=== PATIENT | female | born 1940 | race Caucasian/White ===

== ENCOUNTER → 2018-12-10 | Outpatient (CLI) | payer MEDICARE ==
[~2018-12-10] MED LIST: ASCO500T6 PO; ASPI-586 PO; ATEN1TAB3 PO; ATEN50TA PO; AZAT50TA16 PO; CHOL200014 PO; DIAZ5TAB3 PO; EST.625T PO; FOLI0.8T PO; GBPN400C PO; HYDR-34 PO; HYDR-3731 PO; KCL10CCR PO; LEVOTHYROID PO; MTX2.5T PO; OMEP20CA12 PO; ONDAN4ODT PO; POLY17PO6 PO; PROM25SU10 PR; THIA100T80 PO; TRAM50TA2 PO; VALS160T29 PO
[2018-12-10 12:48] LABS: FREE T4 (FREE THYROXINE) 1.41 NG/DL (0.70-1.48)
== END ==
LOC: LAB 12:01
PROVIDERS: ATTEND Nurse Practitioner Family
DX: E03.9 Hypothyroidism, unspecified (principal)
CPT/HCPCS: 36415; 84439; 84443

== ENCOUNTER 2019-02-07 06:10 | Outpatient (CLI) | payer MEDICARE ==
[~2019-02-07] VITALS: Ht 171.4 cm; Wt 71.9 kg
[2019-02-07] MEDS ORDERED: VALS320T15 PO (11:08)
[2019-02-07] MEDS ORDERED: POTA10CA43 PO (11:08)
[2019-02-07] MEDS ORDERED: METH2.5T PO (11:08)
[2019-02-07] MEDS ORDERED: LEVO100T7 PO (11:08)
[2019-02-07] MEDS ORDERED: FENT1PAT8 TD (11:08)
[2019-02-07] MEDS ORDERED: MAGN250T13 PO (11:08)
[2019-02-07] MEDS ORDERED: FENT1PAT6 TD (11:08)
[2019-02-07] MEDS ORDERED: ESTR0.5T PO (11:08)
[2019-02-07] MEDS ORDERED: HYDR25TA4 PO (11:08)
== END 2019-02-07 11:51 | disposition home or self-care (01) ==
LOC: PREOP 06:10
PROVIDERS: ATTEND Surgery
DX: Z01.818 Encounter for other preprocedural examination (principal)

== ENCOUNTER 2019-02-11 08:23 | Day surgery (SDC) | payer MEDICARE, OTHER ==
[~2019-02-11] VITALS: Ht 171.4 cm; Wt 71.9 kg
[~2019-02-11 08:23] MED LIST changes: +ESTR0.5T PO; +FENT1PAT6 TD; +FENT1PAT8 TD; +HYDR25TA4 PO; +LEVO100T7 PO; +MAGN250T13 PO; +METH2.5T PO; +POTA10CA43 PO; +VALS320T15 PO
[2019-02-11] MEDS ORDERED: LACTATED RINGERS 1,000 ML IV ONE (08:26)
[2019-02-11] MEDS ORDERED: LACTATED RINGERS 1,000 ML IV STA (08:26)
[2019-02-11] MEDS ORDERED: HURRICAINE EXT TUBE (BENZOCAINE) XX PRN (08:30)
[2019-02-11 08:51] VITALS: BP 125/71
[2019-02-11] MEDS ORDERED: PROPOFOL INJECTION 50 ML IV ONE (09:37)
--- NOTE | 2019-02-11 10:02 | Progress Note-Pre Operative ---
Pre-Operative Progress Note H&P Reviewed The H&P was reviewed, patient examined and no changes noted. Time Seen by Provider: 10:00 Date H&P Reviewed: Feb 11, 2019 Time H&P Reviewed: 10:01 Pre-Operative Diagnosis: Rectal bleed, Chronic Gastritis OG HERZOG DO Feb 11, 2019 10:02
[2019-02-11 10:55] VITALS: BP 108/57
--- NOTE | 2019-02-11 11:03 | Progress Note-Post Operative ---
Post-Operative Progess Note Surgeon (s)/Predictive Maintenance Technician (s) Surgeon OG HERZOG DO Predictive Maintenance Technician: none Pre-Operative Diagnosis Rectal bleed, Chronic Gastritis Post-Operative Diagnosis Chronic Gastritis Polyps Diverticula Internal Hemorrhoids Procedure & Operative Findings Date of Procedure 02/11/19 Procedure Performed/Findings EGD with bx Colon with snare Anesthesia Type IV sedation by BATCH FREEZER OPERATOR Estimated Blood Loss Estimated blood loss (mL): scant Specimens/Packing Specimens Removed Gastric bx x 2 Ascending colon polyp x 2 OG HERZOG DO Feb 11, 2019 11:03
--- NOTE | 2019-02-11 11:05 | Endoscopy Discharge Instruct ---
Endo Procedure/Findings Findings 1.: Gastritis 2.: Polyp 3.: Diverticulosis 4.: Internal Hemorrhoids Discharge Instructions - Activity: You might feel a little sleepy until tomorrow. This is due to the medicine you received to relax you. Until tomorrow, you should: NOT drive a car, operate machinery or power tools. NOT drink any alcoholic beverages. NOT make any important decisions or sign importortant papers. Do not return to work until tomorrow, unless otherwise instructed. Resume previo us activities tomorrow. Diet: Start by taking liquids. If you tolerate liquids, advance to solid food. make an appointment for one week Instructions: 1.: EGD in 6-8 weeks 2.: Colonscopy in 5 years Notify Physician - If you experience excessive bleeding, unusual abdominal pain, fever, or chest pain, contact your doctor immediately. Follow-Up: - I have received and understand the above instructions and will call my doctor if I have any further questions. Patient Signature Date Nurse Signature Other (Relationship) OG HERZOG DO Feb 11, 2019 11:04
[2019-02-11 11:25] VITALS: BP 135/73
--- NOTE | 2019-02-11 11:54 | Anesthesia-General Post-Op ---
MAC Patient Condition Mental Status/LOC: Same as Preop Cardiovascular: Satisfactory Nausea/Vomiting: Absent Respiratory: Satisfactory Pain: Controlled Complications: Absent Post Op Complications Complications None Follow Up Care/Instructions Patient Instructions None needed. Anesthesiology Discharge Order Discharge Order Patient is doing well, no complaints, stable vital signs, no apparent adverse anesthesia problems. No complications reported per nursing. KEITH NESS CRNA Feb 11, 2019 11:54
[2019-02-11 11:55] VITALS: BP 130/77
[2019-02-11 12:05] VITALS: BP 130/77
--- NOTE | 2019-02-11 21:15 | OPERATIVE REPORT ---
DATE OF SERVICE: PREOPERATIVE DIAGNOSES: Gastritis, rectal bleed, possible irritable bowel syndrome. POSTOPERATIVE DIAGNOSES: 1. Gastritis. 2. Hiatal hernia. 3. Colon polyp. 4. Diverticula. 5. Internal hemorrhoids. PROCEDURE: 1. Colonoscopy with snare polypectomy. 2. EGD with biopsy. SURGEON: Isidro Rowe DO ELASTIC ATTACHER COVERSTITCH: None. ANESTHESIA: IV sedation by FLOODPLAIN MANAGER. SPECIMEN: One biopsy from the antrum, one biopsy from body of stomach and then two ascending colon polyps. BLOOD LOSS: Scant. FLUIDS: Per anesthesia. POSTOPERATIVE CONDITION: Stable. INDICATION FOR PROCEDURE: The patient is a 79-year-old female who has been having abdominal pain, told that she had a history of IBS. She also noted some rectal bleeding and needed a workup. FINDINGS: The patient has some pretty severe gastritis. Picture was taken. She also had a hiatal hernia and she had the ascending colon polyps as well as some diverticula and some internal hemorrhoids. PROCEDURE NOTE: After informed consent was obtained, the patient was brought to the endoscopy suite and placed in the bed in left lateral decubitus position. She was administered IV sedation by the FLOODPLAIN MANAGER who then monitored her vitals the entire time, heart rate, blood pressure, pulse ox and the scope was inserted down the mouth through the esophagus into the stomach. Upon entering the stomach, noted some pretty severe gastritis, took pictures of this, pushed in the duodenum, duodenum looked fine, then pulled back and did a biopsy of the antrum and then one biopsy of the body of the stomach, retroflexed the scope, saw a small hiatal hernia. Took a picture of this and then pulled back into the GE junction, which actually looked okay. I then pulled the scope up the esophagus and out the mouth. Switched gloves, switched scopes, went down below, started the colonoscopy. Pushed the scope in all the way towards the cecum and then the cecum, just before the cecum and the ascending colon, saw 2 polyps, snare polypectomy of these were performed and suctioned up and sent to pathology. Pushed into the cecum, took a picture of the appendiceal orifice, noted the ileocecal valve and then slowly withdrew the scope insufflating to look circumferentially at the arellano; looking at the cecum, up the ascending colon to the hepatic flexure, then down the transverse colon, the splenic flexure, into the descending colon, down into the sigmoid, saw some diverticula throughout here. Took pictures and then down into the rectum, retroflexed the rectal vault, saw some minimal internal hemorrhoids and then removed the scope. The patient was recovered in the endoscopy suite. She tolerated the procedure well. Job ID: [id number] DocumentID: [id number] Dictated Date: 02/11/2019 16:14:54 Debt Management Counselor Date: 02/11/2019 21:14:53 Dictated By: DO HUDSON PERRY
== END 2019-02-11 12:05 | disposition home or self-care (01) ==
LOC: ENDO 08:23
PROVIDERS: ATTEND Surgery
DX: K29.50 Unspecified chronic gastritis without bleeding (principal); K44.9 Diaphragmatic hernia without obstruction or gangrene; D12.2 Benign neoplasm of ascending colon; K57.30 Diverticulosis of large intestine without perforation or abscess without bleeding; K64.8 Other hemorrhoids; K31.89 Other diseases of stomach and duodenum; I10 Essential (primary) hypertension; M06.9 Rheumatoid arthritis, unspecified; K62.5 Hemorrhage of anus and rectum; Z79.899 Other long term (current) drug therapy; Z88.0 Allergy status to penicillin
CPT/HCPCS: 88305; 88341; 88342; 88364; 88365

== ENCOUNTER → 2019-04-11 | Outpatient (CLI) | payer MEDICARE ==
[~2019-04-11] MED LIST changes: -OMEP20CA12 PO; +OMEP20CA13 PO
[2019-04-11 08:14] LABS: BASOPHILS % (AUTO) 0 % (0-10); EOSINOPHILS % (AUTO) 0 % (0-10); HEMATOCRIT 43 % (35-52); HEMOGLOBIN 14.2 G/DL (11.5-16.0); LYMPHOCYTES % (AUTO) 16 % (12-44); MEAN CORPUSCULAR HEMOGLOBIN 32 PG (25-34); MEAN CORPUSCULAR HGB CONC 33 G/DL (32-36); MEAN CORPUSCULAR VOLUME 98 FL (80-99); MEAN PLATELET VOLUME 9.7 FL (7.4-10.4); MONOCYTES # (AUTO) 0.9 X 10^3 (0.0-1.0); MONOCYTES % (AUTO) 7 % (0-12); NEUTROPHILS # (AUTO) 9.3 X 10^3 (1.8-7.8); NEUTROPHILS % (AUTO) 77 % (42-75); PLATELET COUNT 350 10^3/uL (130-400); RED CELL DISTRIBUTION WIDTH 13.1 % (10.0-14.5); WHITE BLOOD COUNT 12.2 10^3/uL (4.3-11.0)
[2019-04-11 08:36] LABS: ALBUMIN 3.9 GM/DL (3.2-4.5); BILIRUBIN,TOTAL 0.7 MG/DL (0.1-1.0); CALCIUM 9.3 MG/DL (8.5-10.1); CREATININE SERUM 1.59 MG/DL (0.60-1.30); POTASSIUM 4.3 MMOL/L (3.6-5.0); TOTAL PROTEIN 6.7 GM/DL (6.4-8.2)
[2019-04-11 08:57] LABS: FREE T4 (FREE THYROXINE) 1.22 NG/DL (0.70-1.48)
== END ==
LOC: LAB 08:01
PROVIDERS: ATTEND Nurse Practitioner Family
DX: Z13.220 Encounter for screening for lipoid disorders (principal); I10 Essential (primary) hypertension; E03.4 Atrophy of thyroid (acquired)
CPT/HCPCS: 36415; 80053; 80061; 84439; 84443; 85025

== ENCOUNTER → 2019-04-16 | Outpatient (CLI) | payer MEDICARE, OTHER ==
--- NOTE | 2019-04-18 18:24 | Diagnostic Imaging Report ---
EXAMINATION: PET/CT initial. INDICATION: B-cell lymphoma. TECHNIQUE: PET/CT imaging was obtained from the base of the skull through the pelvis after the administration of 14.67 mCi of F-[address] imaging was utilized for localization and attenuation correction purposes. The low energy CT utilized for attenuation correction is not considered to be of high enough spatial resolution to allow in and of itself a separate anatomical analysis. PET images were obtained one hour post injection. Height: 5 foot 7 inches. Weight: 164 lbs. FINDINGS: There are no prior PET/CT exams or cross-sectional imaging studies available for comparison. There is a small area of slightly increased hypermetabolic activity within the heart just anterior to the root of the aorta. This could be secondary to a vascular structure. The maximum SUV in this area is 4.0. There is no other hypermetabolic activity to suggest malignancy. Physiologic activity is evident in the brain, the kidneys, the bowel, and the bladder. The CT images fail to show any sign of an acute abnormality. The heart is mildly enlarged and there are coronary artery calcifications evident. The gallbladder is surgically absent. IMPRESSION: 1. The small slightly hypermetabolic area anterior to the root of the aorta is of uncertain etiology. If further imaging is desired, then MRI would be recommended. 2. There is no other hypermetabolic activity to suggest presence of neoplasm. 3. There is mild cardiomegaly and coronary artery disease. Dictated by: Dictated on workstation # [id number]
== END ==
LOC: RAD 13:53
PROVIDERS: ATTEND Internal Medicine Hematology & Oncology
DX: C85.10 Unspecified B-cell lymphoma, unspecified site (principal); I25.10 Atherosclerotic heart disease of native coronary artery without angina pectoris; I51.7 Cardiomegaly

== ENCOUNTER → 2019-05-14 | Outpatient (CLI) | payer MEDICARE, OTHER ==
[~2019-05-14] VITALS: Ht 170 cm; Wt 75.0 kg
[~2019-05-14] MED LIST changes: +CATHETER FLUSH 10 ML SYR IV PRN; +REGADENOSON 0.4 MG/5 ML SYR (LEXISCAN) IV ONE
[2019-05-14 09:14] VITALS: BP 151/75
[2019-05-14 09:22] VITALS: BP 157/92
--- NOTE | 2019-05-14 15:14 | STRESS TEST ---
DATE OF SERVICE: 05/14/2019 RESTING AND POST REGADENOSON TECHNETIUM-99M TETROFOSMIN SPECT CT IMAGING ORDERING PHYSICIAN: Shin Hurt MD, CASIMIRO, EFRAIN, FACC. PRIMARY CARE PHYSICIAN: Luann Sethi MD. CLINICAL DIAGNOSIS: Coronary artery disease, cardiomegaly. Baseline images were carried out after injection of 10.76 mCi of technetium-99m Tetrofosmin. This was followed by 0.4 mg regadenoson and 29.8 mCi of technetium-99m Tetrofosmin for stress imaging. The electrocardiogram showed sinus rhythm at baseline. Old septal wall myocardial infarction cannot be excluded on the electrocardiogram. The electrocardiogram did not change significantly with the regadenoson infusion. The patient felt some palpitations and flushing following regadenoson infusion, which resolved in a few minutes. Review of images at rest and following stress does not indicate any significant perfusion defects consistent with myocardial ischemia or infarction. Gated images show normal global left ventricular systolic function with normal regional wall motion. Left ventricular ejection fraction is calculated to be 71%. CONCLUSIONS: No evidence of any significant myocardial ischemia or infarction on this study Normal left ventricular systolic function without regional wall motion abnormality LVEF 71% Job ID: [id number] DocumentID: [id number] Dictated Date: 05/14/2019 12:32:17 Rubber Calender Helper Date: 05/14/2019 15:14:15 Dictated By: SHIN HURT MD, CASIMIRO, FACP, FACC, HUDSON
== END ==
LOC: CARD 07:15
PROVIDERS: ATTEND Internal Medicine Cardiovascular Disease
DX: I25.10 Atherosclerotic heart disease of native coronary artery without angina pectoris (principal); I51.7 Cardiomegaly; C88.4 Extranodal marginal zone B-cell lymphoma of mucosa-associated lymphoid tissue [MALT-lymphoma]
CPT/HCPCS: 78452; 93017

== ENCOUNTER → 2019-06-04 | Outpatient (CLI) | payer MEDICARE, OTHER ==
[~2019-06-04] MED LIST changes: -CATHETER FLUSH 10 ML SYR IV PRN; -REGADENOSON 0.4 MG/5 ML SYR (LEXISCAN) IV ONE
[2019-06-04 10:49] LABS: CALCIUM 9.6 MG/DL (8.5-10.1); CREATININE SERUM 1.25 MG/DL (0.60-1.30); POTASSIUM 3.8 MMOL/L (3.6-5.0)
== END ==
LOC: LAB 09:59
PROVIDERS: ATTEND Family Medicine
DX: I10 Essential (primary) hypertension (principal); Z79.899 Other long term (current) drug therapy
CPT/HCPCS: 36415; 80048

== ENCOUNTER 2019-07-01 09:45 | Outpatient (RCR) | payer MEDICARE, OTHER ==
[2019-05-20 13:56] LABS: BASOPHILS % (AUTO) 0 % (0-10); EOSINOPHILS % (AUTO) 0 % (0-10); HEMATOCRIT 42 % (35-52); HEMOGLOBIN 13.7 G/DL (11.5-16.0); LYMPHOCYTES # (AUTO) 1.2 X 10^3 (1.0-4.0); LYMPHOCYTES % (AUTO) 16 % (12-44); MEAN CORPUSCULAR HEMOGLOBIN 32 PG (25-34); MEAN CORPUSCULAR HGB CONC 33 G/DL (32-36); MEAN CORPUSCULAR VOLUME 97 FL (80-99); MEAN PLATELET VOLUME 9.5 FL (7.4-10.4); MONOCYTES # (AUTO) 0.5 X 10^3 (0.0-1.0); MONOCYTES % (AUTO) 7 % (0-12); NEUTROPHILS # (AUTO) 5.6 X 10^3 (1.8-7.8); NEUTROPHILS % (AUTO) 77 % (42-75); PLATELET COUNT 316 10^3/uL (130-400); RED CELL DISTRIBUTION WIDTH 14.1 % (10.0-14.5); WHITE BLOOD COUNT 7.3 10^3/uL (4.3-11.0)
[2019-05-20 14:13] LABS: ALBUMIN 3.8 GM/DL (3.2-4.5); CALCIUM 9.3 MG/DL (8.5-10.1); CREATININE SERUM 1.21 MG/DL (0.60-1.30); TOTAL PROTEIN 7.3 GM/DL (6.4-8.2)
[2019-06-17 10:09] LABS: BASOPHILS % (AUTO) 0 % (0-10); EOSINOPHILS # (AUTO) 0.1 10^3/uL (0.0-0.3); EOSINOPHILS % (AUTO) 2 % (0-10); HEMATOCRIT 42 % (35-52); HEMOGLOBIN 13.7 G/DL (11.5-16.0); LYMPHOCYTES # (AUTO) 0.8 X 10^3 (1.0-4.0); LYMPHOCYTES % (AUTO) 16 % (12-44); MEAN CORPUSCULAR HEMOGLOBIN 32 PG (25-34); MEAN CORPUSCULAR HGB CONC 33 G/DL (32-36); MEAN CORPUSCULAR VOLUME 100 FL (80-99); MEAN PLATELET VOLUME 9.6 FL (7.4-10.4); MONOCYTES # (AUTO) 0.4 X 10^3 (0.0-1.0); MONOCYTES % (AUTO) 7 % (0-12); NEUTROPHILS # (AUTO) 3.9 X 10^3 (1.8-7.8); NEUTROPHILS % (AUTO) 76 % (42-75); PLATELET COUNT 253 10^3/uL (130-400); RED CELL DISTRIBUTION WIDTH 15.3 % (10.0-14.5); WHITE BLOOD COUNT 5.1 10^3/uL (4.3-11.0)
[2019-06-17 10:31] LABS: ALBUMIN 3.8 GM/DL (3.2-4.5); CALCIUM 9.3 MG/DL (8.5-10.1); CREATININE SERUM 1.14 MG/DL (0.60-1.30); POTASSIUM 3.9 MMOL/L (3.6-5.0); TOTAL PROTEIN 6.4 GM/DL (6.4-8.2)
[2019-07-01 10:15] LABS: BASOPHILS % (AUTO) 1 % (0-10); EOSINOPHILS # (AUTO) 0.1 10^3/uL (0.0-0.3); EOSINOPHILS % (AUTO) 1 % (0-10); HEMATOCRIT 41 % (35-52); HEMOGLOBIN 13.7 G/DL (11.5-16.0); LYMPHOCYTES # (AUTO) 0.5 X 10^3 (1.0-4.0); LYMPHOCYTES % (AUTO) 10 % (12-44); MEAN CORPUSCULAR HEMOGLOBIN 33 PG (25-34); MEAN CORPUSCULAR HGB CONC 33 G/DL (32-36); MEAN CORPUSCULAR VOLUME 100 FL (80-99); MEAN PLATELET VOLUME 9.8 FL (7.4-10.4); MONOCYTES # (AUTO) 0.4 X 10^3 (0.0-1.0); MONOCYTES % (AUTO) 8 % (0-12); NEUTROPHILS % (AUTO) 81 % (42-75); PLATELET COUNT 249 10^3/uL (130-400); RED CELL DISTRIBUTION WIDTH 15.3 % (10.0-14.5)
[2019-07-01 10:34] LABS: BILIRUBIN,TOTAL 1.1 MG/DL (0.1-1.0); CALCIUM 9.3 MG/DL (8.5-10.1); CREATININE SERUM 1.32 MG/DL (0.60-1.30); POTASSIUM 4.2 MMOL/L (3.6-5.0); TOTAL PROTEIN 6.6 GM/DL (6.4-8.2)
== END 2019-07-14 | disposition home or self-care (01) ==
LOC: ONC 09:45
PROVIDERS: ATTEND Internal Medicine Hematology & Oncology
DX: C88.4 Extranodal marginal zone B-cell lymphoma of mucosa-associated lymphoid tissue [MALT-lymphoma] (principal); K44.9 Diaphragmatic hernia without obstruction or gangrene; K57.90 Diverticulosis of intestine, part unspecified, without perforation or abscess without bleeding; I10 Essential (primary) hypertension; M06.9 Rheumatoid arthritis, unspecified; Z79.82 Long term (current) use of aspirin; Z79.899 Other long term (current) drug therapy
CPT/HCPCS: 36415; 77300; 77301; 77334; 77336; 77338; 77386; 80053; 82232; 82784; 83615; 85025; 99204; 99213; 99214

== ENCOUNTER → 2019-08-26 | Outpatient (CLI) | payer MEDICARE, OTHER ==
[~2019-08-26] MED LIST changes: -TRAM50TA2 PO; +TRM50T PO
[2019-08-26 10:45] LABS: BASOPHILS # (AUTO) 0.1 10^3/uL (0.0-0.1); BASOPHILS % (AUTO) 1 % (0-10); EOSINOPHILS # (AUTO) 0.1 10^3/uL (0.0-0.3); EOSINOPHILS % (AUTO) 2 % (0-10); HEMATOCRIT 40 % (35-52); HEMOGLOBIN 13.4 G/DL (11.5-16.0); LYMPHOCYTES # (AUTO) 0.7 X 10^3 (1.0-4.0); LYMPHOCYTES % (AUTO) 14 % (12-44); MEAN CORPUSCULAR HEMOGLOBIN 33 PG (25-34); MEAN CORPUSCULAR HGB CONC 33 G/DL (32-36); MEAN CORPUSCULAR VOLUME 99 FL (80-99); MEAN PLATELET VOLUME 9.4 FL (7.4-10.4); MONOCYTES # (AUTO) 0.4 X 10^3 (0.0-1.0); MONOCYTES % (AUTO) 9 % (0-12); NEUTROPHILS # (AUTO) 3.6 X 10^3 (1.8-7.8); NEUTROPHILS % (AUTO) 74 % (42-75); PLATELET COUNT 303 10^3/uL (130-400); RED CELL DISTRIBUTION WIDTH 13.1 % (10.0-14.5); WHITE BLOOD COUNT 4.9 10^3/uL (4.3-11.0)
[2019-08-26 11:14] LABS: ALBUMIN 3.9 GM/DL (3.2-4.5); BILIRUBIN,TOTAL 0.7 MG/DL (0.1-1.0); CALCIUM 9.3 MG/DL (8.5-10.1); CREATININE SERUM 1.11 MG/DL (0.60-1.30); POTASSIUM 3.9 MMOL/L (3.6-5.0); TOTAL PROTEIN 6.5 GM/DL (6.4-8.2)
== END ==
LOC: EDSTATUS 07-15 10:24 → ONC 10:25
PROVIDERS: ATTEND Internal Medicine Hematology & Oncology
DX: C88.4 Extranodal marginal zone B-cell lymphoma of mucosa-associated lymphoid tissue [MALT-lymphoma] (principal); I10 Essential (primary) hypertension; M06.9 Rheumatoid arthritis, unspecified; Z79.82 Long term (current) use of aspirin; Z79.899 Other long term (current) drug therapy
CPT/HCPCS: 80053; 85025; 99213

== ENCOUNTER → 2019-09-11 | Outpatient (CLI) | payer MEDICARE, OTHER ==
[~2019-09-11] MED LIST changes: +FEN12TD TD; -FENT1PAT6 TD; +OMEP-280 PO; -OMEP20CA13 PO
[2019-09-11 12:49] LABS: URIC ACID 5.9 MG/DL (2.6-7.2)
[2019-09-11 13:10] LABS: FREE T4 (FREE THYROXINE) 1.29 NG/DL (0.70-1.48)
== END ==
LOC: LAB 12:13
PROVIDERS: ATTEND Family Medicine
DX: E03.9 Hypothyroidism, unspecified (principal); I10 Essential (primary) hypertension; M79.676 Pain in unspecified toe(s)
CPT/HCPCS: 36415; 80061; 84439; 84443; 84550

== ENCOUNTER 2019-12-23 06:30 | Outpatient (RCR) | payer MEDICARE ==
[~2019-12-23] VITALS: Ht 170 cm; Wt 71.0 kg
[~2019-12-23 06:30] MED LIST changes: +ASCO500T17 PO; -ASCO500T6 PO; -OMEP-280 PO; +OMEP20CA18 PO
[2019-12-23] MEDS ORDERED: ATEN50TA PO (10:21)
[2019-12-23] MEDS ORDERED: FENT1PAT9 TD (10:21)
[2019-12-23] MEDS ORDERED: LEVO100T7 PO ×2 (10:21)
[2019-12-23] MEDS ORDERED: OMEP20TA7 PO (10:24)
== END 2019-12-23 14:14 | disposition home or self-care (01) ==
LOC: PREOP 06:30 → EDSTATUS 09:00 → PREOP 14:14
PROVIDERS: ATTEND Surgery
DX: Z01.818 Encounter for other preprocedural examination (principal); Z01.812 Encounter for preprocedural laboratory examination; L98.9 Disorder of the skin and subcutaneous tissue, unspecified; Z11.59 Encounter for screening for other viral diseases
CPT/HCPCS: 87635

== ENCOUNTER 2020-02-24 10:20 | Outpatient (RCR) | payer MEDICARE, OTHER ==
[~2020-02-24 10:20] MED LIST changes: +FENT1PAT9 TD; +OMEP20TA7 PO
[2020-02-24 10:31] LABS: BASOPHILS % (AUTO) 0 % (0-10); EOSINOPHILS # (AUTO) 0.1 10^3/uL (0.0-0.3); EOSINOPHILS % (AUTO) 1 % (0-10); HEMATOCRIT 38 % (35-52); HEMOGLOBIN 12.4 G/DL (11.5-16.0); LYMPHOCYTES # (AUTO) 0.7 X 10^3 (1.0-4.0); LYMPHOCYTES % (AUTO) 12 % (12-44); MEAN CORPUSCULAR HEMOGLOBIN 33 PG (25-34); MEAN CORPUSCULAR HGB CONC 33 G/DL (32-36); MEAN CORPUSCULAR VOLUME 101 FL (80-99); MEAN PLATELET VOLUME 10.3 FL (7.4-10.4); MONOCYTES # (AUTO) 0.4 X 10^3 (0.0-1.0); MONOCYTES % (AUTO) 8 % (0-12); NEUTROPHILS # (AUTO) 4.2 X 10^3 (1.8-7.8); NEUTROPHILS % (AUTO) 78 % (42-75); PLATELET COUNT 237 10^3/uL (130-400); WHITE BLOOD COUNT 5.4 10^3/uL (4.3-11.0)
[2020-02-24 11:02] LABS: ALBUMIN 3.6 GM/DL (3.2-4.5); BILIRUBIN,TOTAL 1.1 MG/DL (0.1-1.0); CREATININE SERUM 1.21 MG/DL (0.60-1.30); POTASSIUM 4.2 MMOL/L (3.6-5.0); TOTAL PROTEIN 6.3 GM/DL (6.4-8.2)
== END 2020-05-24 | disposition home or self-care (01) ==
LOC: ONC 10:20
PROVIDERS: ATTEND Internal Medicine Hematology & Oncology
DX: C88.4 Extranodal marginal zone B-cell lymphoma of mucosa-associated lymphoid tissue [MALT-lymphoma] (principal); K29.60 Other gastritis without bleeding; M06.89 Other specified rheumatoid arthritis, multiple sites; I13.11 Hypertensive heart and chronic kidney disease without heart failure, with stage 5 chronic kidney disease, or end stage renal disease; I25.10 Atherosclerotic heart disease of native coronary artery without angina pectoris; N18.9 Chronic kidney disease, unspecified; L98.9 Disorder of the skin and subcutaneous tissue, unspecified; Z90.710 Acquired absence of both cervix and uterus; Z98.890 Other specified postprocedural states
CPT/HCPCS: 80053; 85025; G0463; 99213

== ENCOUNTER → 2020-03-27 | Outpatient (CLI) | payer MEDICARE, OTHER | LOC: RAD 14:45 | PROVIDERS: ATTEND Nurse Practitioner Family | DX: Z12.31 Encounter for screening mammogram for malignant neoplasm of breast (principal) | CPT/HCPCS: 77063; 77067 ==

== ENCOUNTER 2020-07-09 05:39 | Outpatient (RCR) | payer MEDICARE, OTHER ==
[~2020-07-09] VITALS: Ht 170.2 cm; Wt 74.5 kg
[~2020-07-09 05:39] MED LIST changes: +FOLI0.4T2 PO; +GABA-490 PO; +MV-M1TAB57 PO
== END 2020-07-09 14:44 | disposition home or self-care (01) ==
LOC: PREOP 05:39
PROVIDERS: ATTEND Surgery
DX: Z01.812 Encounter for preprocedural laboratory examination (principal); C85.83 Other specified types of non-Hodgkin lymphoma, intra-abdominal lymph nodes; Z20.828 Contact with and (suspected) exposure to other viral communicable diseases
CPT/HCPCS: 87635

== ENCOUNTER 2020-07-13 08:50 | Day surgery (SDC) | payer MEDICARE, OTHER ==
[~2020-07-13] VITALS: Ht 170 cm; Wt 74.5 kg
[2020-07-13] MEDS ORDERED: LACTATED RINGERS 1,000 ML IV ONE (08:56)
[2020-07-13] MEDS ORDERED: LACTATED RINGERS 1,000 ML IV STA (09:00)
[2020-07-13] MEDS ORDERED: HURRICAINE EXT TUBE (BENZOCAINE) XX PRN (09:00)
[2020-07-13 09:13] VITALS: BP 159/86
[2020-07-13] MEDS ORDERED: MIDAZOLAM 2 MG/2 ML (VERSED) VIAL ONE (09:23)
[2020-07-13] MEDS ORDERED: PROPOFOL INJECTION 50 ML IV ONE (09:23)
[2020-07-13] MEDS ORDERED: HURRICAINE EXT TUBE (BENZOCAINE) ONE (09:28)
--- NOTE | 2020-07-13 09:29 | Progress Note-Pre Operative ---
Pre-Operative Progress Note H&P Reviewed The H&P was reviewed, patient examined and no changes noted. Time Seen by Provider: 09:25 Date H&P Reviewed: Jul 13, 2020 Time H&P Reviewed: 09:26 Pre-Operative Diagnosis: Gastric Lymphoma OG HERZOG DO Jul 13, 2020 09:29
[2020-07-13 09:45] VITALS: BP 103/61
[2020-07-13 09:50] VITALS: BP 108/69
--- NOTE | 2020-07-13 10:04 | Progress Note-Post Operative ---
Post-Operative Progess Note Surgeon (s)/Tan Room Supervisor (s) Surgeon OG HERZOG DO Tan Room Supervisor: none Pre-Operative Diagnosis Gastric Lymphoma Post-Operative Diagnosis gastritis hiatal hernia Procedure & Operative Findings Date of Procedure 07/13/20 Procedure Performed/Findings EGD with bx Anesthesia Type IV sedation by JET DYEING MACHINE TENDER Estimated Blood Loss Estimated blood loss (mL): scant Specimens/Packing Specimens Removed antral bx body of stomach bx greater curvature bx lesser curvature bx GE jxn OG Godoy DO Jul 13, 2020 10:04
--- NOTE | 2020-07-13 10:05 | Endoscopy Discharge Instruct ---
Endo Procedure/Findings Findings 1.: Gastritis 2.: Hiatal Hernia Discharge Instructions - Activity: You might feel a little sleepy until tomorrow. This is due to the medicine you received to relax you. Until tomorrow, you should: NOT drive a car, operate machinery or power tools. NOT drink any alcoholic beverages. NOT make any important decisions or sign importortant papers. Do not return to work until tomorrow, unless otherwise instructed. Resume previous activities tomorrow. Diet: Start by taking liquids. If you tolerate liquids, advance to solid food. 1.: EGD in 1 year Notify Physician - If you experience excessive bleeding, unusual abdominal pain, fever, or chest pain, contact your doctor immediately. OG HERZOG DO Jul 13, 2020 10:05
[2020-07-13 10:20] VITALS: BP 157/77
[2020-07-13 10:30] VITALS: BP 157/77
--- NOTE | 2020-07-13 10:49 | Anesthesia-General Post-Op ---
MAC Patient Condition Mental Status/LOC: Same as Preop Cardiovascular: Satisfactory Nausea/Vomiting: Absent Respiratory: Satisfactory Pain: Controlled Complications: Absent Post Op Complications Complications None Follow Up Care/Instructions Patient Instructions None needed. Anesthesiology Discharge Order Discharge Order Patient is doing well, no complaints, stable vital signs, no apparent adverse anesthesia problems. No complications reported per nursing. ANGELICA MENDOZA CRNA Jul 13, 2020 10:49
--- NOTE | 2020-07-13 20:37 | OPERATIVE REPORT ---
DATE OF SERVICE: PREOPERATIVE DIAGNOSIS: History of gastric lymphoma. POSTOPERATIVE DIAGNOSES: Gastritis, hiatal hernia. PROCEDURE: EGD with biopsy. SURGEON: Isidro Rowe DO CALLIOPE PLAYER: None. ANESTHESIA: IV sedation by the AUDIT PRACTICE INTERN. SPECIMEN: Biopsy from the antrum, biopsy of body of stomach, biopsy of the greater curvature, biopsy of the lesser curvature and biopsy from GE junction. BLOOD LOSS: Scant. FLUIDS: Per anesthesia. POSTOPERATIVE CONDITION: Stable. INDICATION FOR PROCEDURE: The patient is an 80-year-old female with history of gastric lymphoma and needed a workup to make sure she did not have any recurrence. FINDINGS: The patient had some gastritis and a hiatal hernia. No other obvious pathology seen. No masses seen. PROCEDURE NOTE: After informed consent was obtained, the patient was brought to the endoscopy suite, placed in bed in left lateral decubitus position. She was administered IV sedation by the AUDIT PRACTICE INTERN who then monitored her vitals the entire time, heart rate, blood pressure and pulse ox and the scope was then inserted down the mouth through the esophagus into the stomach. Upon entering the stomach, noted some inflammation and slight gastritis, did a biopsy of the antrum this to the duodenum. Duodenum looked fine. Pulled back and then did a biopsy of the body of stomach and then got more biopsies, one in the greater curvature, one in the lesser curvature and then pulled the scope into the GE junction, got one of the GE junction. Retroflexed the scope in the stomach and saw a small hiatal hernia, took a picture of this and at this point then suctioned all the air out of the stomach and pulled the scope up the esophagus and out the mouth. The patient tolerated the procedure. She was recovered in endoscopy suite. Job ID: [id number] DocumentID: [id number] Dictated Date: 07/13/2020 15:47:34 Line Analyst Date: 07/13/2020 20:36:10 Dictated By: ISIDRO ROWE DO
== END 2020-07-13 10:30 | disposition home or self-care (01) ==
LOC: ENDO 08:50
PROVIDERS: ATTEND Surgery
DX: K29.50 Unspecified chronic gastritis without bleeding (principal); K44.9 Diaphragmatic hernia without obstruction or gangrene; I10 Essential (primary) hypertension; K21.9 Gastro-esophageal reflux disease without esophagitis; E03.9 Hypothyroidism, unspecified; M06.9 Rheumatoid arthritis, unspecified; E66.9 Obesity, unspecified; Z68.25 Body mass index [BMI] 25.0-25.9, adult; K62.5 Hemorrhage of anus and rectum; K31.4 Gastric diverticulum; C88.4 Extranodal marginal zone B-cell lymphoma of mucosa-associated lymphoid tissue [MALT-lymphoma]; Z79.899 Other long term (current) drug therapy; Z88.0 Allergy status to penicillin; Z85.828 Personal history of other malignant neoplasm of skin; Z85.028 Personal history of other malignant neoplasm of stomach; Z90.710 Acquired absence of both cervix and uterus; Z90.49 Acquired absence of other specified parts of digestive tract

== ENCOUNTER → 2020-10-12 | Outpatient (CLI) | payer MEDICARE, MEDICAID, OTHER ==
[2020-10-12 11:11] LABS: BASOPHILS % (AUTO) 1 % (0-10); EOSINOPHILS # (AUTO) 0.1 10^3/uL (0.0-0.3); EOSINOPHILS % (AUTO) 2 % (0-10); HEMATOCRIT 38 % (35-52); HEMOGLOBIN 12.6 g/dL (11.5-16.0); LYMPHOCYTES # (AUTO) 0.6 10^3/uL (1.0-4.0); LYMPHOCYTES % (AUTO) 17 % (12-44); MEAN CORPUSCULAR HEMOGLOBIN 33 pg (25-34); MEAN CORPUSCULAR HGB CONC 33 g/dL (32-36); MEAN CORPUSCULAR VOLUME 101 fL (80-99); MEAN PLATELET VOLUME 10.2 fL (9.0-12.2); MONOCYTES # (AUTO) 0.3 10^3/uL (0.0-1.0); MONOCYTES % (AUTO) 9 % (0-12); NEUTROPHILS # (AUTO) 2.7 10^3/uL (1.8-7.8); NEUTROPHILS % (AUTO) 71 % (42-75); PLATELET COUNT 243 10^3/uL (130-400); WHITE BLOOD COUNT 3.8 10^3/uL (4.3-11.0)
[2020-10-12 11:31] LABS: ALBUMIN 3.8 GM/DL (3.2-4.5); BILIRUBIN,TOTAL 1.1 MG/DL (0.1-1.0); CALCIUM 9.1 MG/DL (8.5-10.1); CREATININE SERUM 1.17 MG/DL (0.60-1.30); TOTAL PROTEIN 6.6 GM/DL (6.4-8.2)
== END ==
LOC: EDSTATUS 05-25 11:00 → ONC 10:57
PROVIDERS: ATTEND Internal Medicine Hematology & Oncology
DX: C88.4 Extranodal marginal zone B-cell lymphoma of mucosa-associated lymphoid tissue [MALT-lymphoma] (principal); I25.10 Atherosclerotic heart disease of native coronary artery without angina pectoris; I11.9 Hypertensive heart disease without heart failure; M06.9 Rheumatoid arthritis, unspecified; N28.9 Disorder of kidney and ureter, unspecified; R94.5 Abnormal results of liver function studies
CPT/HCPCS: 80053; 85025; G0463; 99213

== ENCOUNTER → 2021-01-05 | Outpatient (CLI) | payer MEDICARE, MEDICAID, OTHER ==
[~2021-01-05] MED LIST changes: -FOLI0.4T2 PO; +FOLI0.4T6 PO; -FOLI0.8T PO; +FOLI0.8T4 PO
[2021-01-05 10:14] LABS: ALBUMIN 3.8 GM/DL (3.2-4.5); BILIRUBIN,TOTAL 1.1 MG/DL (0.1-1.0); CALCIUM 9.2 MG/DL (8.5-10.1); CREATININE SERUM 1.13 MG/DL (0.60-1.30); POTASSIUM 4.3 MMOL/L (3.6-5.0); TOTAL PROTEIN 6.6 GM/DL (6.4-8.2); URIC ACID 5.9 MG/DL (2.6-7.2)
[2021-01-05 10:34] LABS: FREE T4 (FREE THYROXINE) 1.11 NG/DL (0.70-1.48)
== END ==
LOC: LAB 09:23
PROVIDERS: ATTEND Family Medicine
DX: E03.4 Atrophy of thyroid (acquired) (principal); I12.9 Hypertensive chronic kidney disease with stage 1 through stage 4 chronic kidney disease, or unspecified chronic kidney disease; N18.4 Chronic kidney disease, stage 4 (severe); C88.4 Extranodal marginal zone B-cell lymphoma of mucosa-associated lymphoid tissue [MALT-lymphoma]; M10.30 Gout due to renal impairment, unspecified site
CPT/HCPCS: 36415; 80053; 80061; 84439; 84443; 84550; 85652; 86141

== ENCOUNTER → 2021-02-16 | Outpatient (CLI) | payer MEDICARE, MEDICAID ==
[~2021-02-16] VITALS: Ht 172.7 cm; Wt 71.7 kg
[~2021-02-16] MED LIST changes: +POTA10TA36 PO
== END | disposition home or self-care (01) ==
LOC: PREOP 12:11
PROVIDERS: ATTEND Surgery
DX: Z01.818 Encounter for other preprocedural examination (principal)

== ENCOUNTER 2021-02-17 10:41 | Day surgery (SDC) | payer MEDICARE, OTHER ==
[~2021-02-17] VITALS: Ht 170.2 cm; Wt 71.7 kg
[2021-02-17] VITALS (7 sets, daily range): BP systolic 124–177; BP diastolic 64–88
[2021-02-17] MEDS ORDERED: LACTATED RINGERS 1,000 ML IV ONE (10:45)
[2021-02-17] MEDS ORDERED: LACTATED RINGERS 1,000 ML IV STA (10:47)
[2021-02-17] MEDS ORDERED: HURRICAINE EXT TUBE (BENZOCAINE) XX PRN (11:00)
[2021-02-17] MEDS ORDERED: proPOfol 200 MG/20 ML (DIPRIVAN) VIAL IV ONE (11:14)
--- NOTE | 2021-02-17 11:35 | Progress Note-Post Operative ---
Post-Operative Progess Note Surgeon (s)/Spring Coverer (s) Surgeon OG HERZOG DO Spring Coverer: none Pre-Operative Diagnosis Hx of Gastric Lymphoma, Severe abd pain, weight loss Post-Operative Diagnosis Same plus severe gastritis Esophageal narrowing hiatal hernia Procedure & Operative Findings Date of Procedure 02/17/21 Procedure Performed/Findings PROCEDURE NOTE: After informed consent was obtained, the patient was brought to the endoscopy suite, placed in bed in left lateral decubitus position. She was administered IV sedation by the CATALOG SPECIALIST who then monitored her vitals the entire time, heart rate, blood pressure and pulse ox and the scope was inserted down the mouth through the esophagus into the stomach. On the way down, noted some mild narrowing of the esophagaus, but mucosa looked normal. Pushed into the stomach and noted severe gastritis, but no masses. Then pushed past the antrum into the duodenum. Duodenum looked good. Pulled back and did a biopsy of antrum, then did a biopsy of the 1st half of the body of stomach, then retroflexed the scope, saw a small hiatal hernia, took a picture of this and then did a biopsy of the body of the stomach and then a biopsy of the lesser curvature. It looked like severe gastritis and then pulled the scope into the GE junction. Did a biopsy of the GE junction. Pushed the scope back into the stomach, suctioned all the air out of the stomach. At this point pulled the scope up the esophagus and out the mouth. The patient tolerated the procedure, and she recovered in endoscopy suite. Anesthesia Type IV sedation by CATALOG SPECIALIST Estimated Blood Loss Estimated blood loss (mL): scant Specimens/Packing Specimens Removed antral bx 08 21/ body body lesser curvature GE jxn bx OG HERZOG DO Feb 17, 2021 11:35
--- NOTE | 2021-02-17 11:36 | Endoscopy Discharge Instruct ---
Endo Procedure/Findings Findings 1.: Gastritis 2.: Hiatal Hernia Discharge Instructions - Activity: You might feel a little sleepy until tomorrow. This is due to the medicine you received to relax you. Until tomorrow, you should: NOT drive a car, operate machinery or power tools. NOT drink any alcoholic beverages. NOT make any important decisions or sign importortant papers. Do not return to work until tomorrow, unless otherwise instructed. Resume previous activities tomorrow. Diet: Start by taking liquids. If you tolerate liquids, advance to solid food. 1.: EGD in 1 year Notify Physician - If you experience excessive bleeding, unusual abdominal pain, fever, or chest pain, contact your doctor immediately. OG HERZOG DO Feb 17, 2021 11:36
[2021-02-17] MEDS ORDERED: HURRICAINE EXT TUBE (BENZOCAINE) ONE (12:44)
--- NOTE | 2021-02-17 14:41 | Anesthesia-General Post-Op ---
MAC Patient Condition Mental Status/LOC: Same as Preop Cardiovascular: Satisfactory Nausea/Vomiting: Absent Respiratory: Satisfactory Pain: Controlled Complications: Absent Post Op Complications Complications None Follow Up Care/Instructions Patient Instructions None needed. Anesthesiology Discharge Order Discharge Order Patient is doing well, no complaints, stable vital signs, no apparent adverse anesthesia problems. No complications reported per nursing. KEITH NESS CRNA Feb 17, 2021 14:41
== END 2021-02-17 12:10 | disposition home or self-care (01) ==
LOC: ENDO 10:41
PROVIDERS: ATTEND Surgery
DX: K29.50 Unspecified chronic gastritis without bleeding (principal); C88.4 Extranodal marginal zone B-cell lymphoma of mucosa-associated lymphoid tissue [MALT-lymphoma]; K21.00 Gastro-esophageal reflux disease with esophagitis, without bleeding; K22.2 Esophageal obstruction; K44.9 Diaphragmatic hernia without obstruction or gangrene; M06.9 Rheumatoid arthritis, unspecified; E07.9 Disorder of thyroid, unspecified; K57.90 Diverticulosis of intestine, part unspecified, without perforation or abscess without bleeding; R63.4 Abnormal weight loss; Z79.899 Other long term (current) drug therapy; Z79.890 Hormone replacement therapy; Z90.49 Acquired absence of other specified parts of digestive tract; Z90.89 Acquired absence of other organs
CPT/HCPCS: 87636

== ENCOUNTER → 2021-03-29 | Outpatient (CLI) | payer MEDICARE ==
[2021-03-29 11:02] LABS: BASOPHILS % (AUTO) 1 % (0-10); EOSINOPHILS # (AUTO) 0.1 10^3/uL (0.0-0.3); EOSINOPHILS % (AUTO) 2 % (0-10); HEMATOCRIT 40 % (35-52); LYMPHOCYTES % (AUTO) 20 % (12-44); MEAN CORPUSCULAR HEMOGLOBIN 33 pg (25-34); MEAN CORPUSCULAR HGB CONC 32 g/dL (32-36); MEAN CORPUSCULAR VOLUME 102 fL (80-99); MEAN PLATELET VOLUME 10.3 fL (9.0-12.2); MONOCYTES # (AUTO) 0.3 10^3/uL (0.0-1.0); MONOCYTES % (AUTO) 7 % (0-12); NEUTROPHILS # (AUTO) 3.5 10^3/uL (1.8-7.8); NEUTROPHILS % (AUTO) 71 % (42-75); PLATELET COUNT 208 10^3/uL (130-400); WHITE BLOOD COUNT 4.9 10^3/uL (4.3-11.0)
[2021-03-29 11:24] LABS: ALBUMIN 3.5 GM/DL (3.2-4.5); BILIRUBIN,TOTAL 1.1 MG/DL (0.1-1.0); CREATININE SERUM 1.06 MG/DL (0.60-1.30); POTASSIUM 3.7 MMOL/L (3.6-5.0); TOTAL PROTEIN 6.6 GM/DL (6.4-8.2)
== END ==
LOC: ONC 10:49
PROVIDERS: ATTEND Internal Medicine Hematology & Oncology
DX: C88.4 Extranodal marginal zone B-cell lymphoma of mucosa-associated lymphoid tissue [MALT-lymphoma] (principal); I11.9 Hypertensive heart disease without heart failure; I25.10 Atherosclerotic heart disease of native coronary artery without angina pectoris
CPT/HCPCS: 80053; 85025; G0463; 99213

== ENCOUNTER → 2021-05-17 | Outpatient (CLI) | payer MEDICARE ==
--- NOTE | 2021-05-17 17:01 | Diagnostic Imaging Report ---
INDICATION: Routine screening. COMPARISON: 03/27/2020 and 03/01/2018. TECHNIQUE: 2D and 3D bilateral screening mammography was performed with CAD. FINDINGS: Both breasts are heterogeneously dense, limiting the sensitivity of mammography. There are benign calcifications in both breasts. No dominant mass or malignant-appearing microcalcifications are seen. The axillae are unremarkable. IMPRESSION: No mammographic features suspicious for malignancy are identified. ACR BI-RADS Category 2: Benign findings. Result letter will be mailed to the patient. Note: At least 10% of breast cancer is not imaged by mammography. Dictated by: Dictated on workstation # [id number]
== END ==
LOC: RAD 14:45
PROVIDERS: ATTEND Family Medicine
DX: Z12.31 Encounter for screening mammogram for malignant neoplasm of breast (principal); Z78.0 Asymptomatic menopausal state
CPT/HCPCS: 77063; 77067

== ENCOUNTER → 2021-07-14 | Outpatient (CLI) | payer MEDICARE ==
[~2021-07-14] MED LIST changes: -POTA10TA36 PO; +POTA10TA37 PO
--- NOTE | 2021-07-14 10:11 | Diagnostic Imaging Report ---
EXAMINATION: Left knee radiographs, 3 views. COMPARISON: None. HISTORY: 81-year-old female, left knee pain. FINDINGS: There is mild degenerative type enthesopathy at the quadriceps tendon insertion. There is mild medial compartment joint space loss with small medial compartment osteophytes. There is no knee joint effusion. There is no identified acute fracture. IMPRESSION: 1. No identified acute bony abnormality of the left knee. 2. 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 Dictated by: Dictated on workstation # [id number]
== END ==
LOC: RAD 09:37
PROVIDERS: ATTEND Nurse Practitioner Family
DX: M17.12 Unilateral primary osteoarthritis, left knee (principal)
CPT/HCPCS: 73562

== ENCOUNTER 2021-07-30 06:30 | Outpatient (CLI) | payer MEDICARE ==
[~2021-07-30] VITALS: Ht 170.2 cm; Wt 75.0 kg
== END 2021-07-30 12:49 | disposition home or self-care (01) ==
LOC: PREOP 06:30
PROVIDERS: ATTEND Surgery
DX: Z01.818 Encounter for other preprocedural examination (principal)

== ENCOUNTER 2021-08-04 10:56 | Day surgery (SDC) | payer MEDICARE ==
[2021-08-04] VITALS (7 sets, daily range): BP systolic 86–180; BP diastolic 47–95
[~2021-08-04] VITALS: Ht 170.2 cm; Wt 75.0 kg
[2021-08-04] MEDS ORDERED: CLINDAMYCIN 600 MG/50 ML IVPB 50 ML IV ONE ×2 (11:51→12:15)
[2021-08-04] MEDS ORDERED: LACTATED RINGERS 1,000 ML IV PRN (12:15)
[2021-08-04] MEDS ORDERED: LIDOCAINE/EPI 1%-1:200,000 (XYLOCAINE) 30 ML VIAL ONE (12:29)
--- NOTE | 2021-08-04 12:34 | Progress Note-Pre Operative ---
Pre-Operative Progress Note H&P Reviewed The H&P was reviewed, patient examined and no changes noted. Time Seen by Provider: 12:31 Date H&P Reviewed: Aug 04, 2021 Time H&P Reviewed: 12:31 Pre-Operative Diagnosis: Left forearm mass, site marked OG HERZOG DO Aug 04, 2021 12:34
[2021-08-04] MEDS ORDERED: MIDAZOLAM 2 MG/2 ML (VERSED) VIAL ONE (13:22)
[2021-08-04] MEDS ORDERED: PROPOFOL INJECTION 50 ML IV ONE (13:22)
--- NOTE | 2021-08-04 13:58 | Progress Note-Post Operative ---
Post-Operative Progess Note Surgeon (s)/Water Mangle Tender (s) Surgeon OG HERZOG DO Water Mangle Tender: KEHINDE Walton Pre-Operative Diagnosis Left forearm mass, site marked Post-Operative Diagnosis same pending path Procedure & Operative Findings Date of Procedure 08/04/21 Procedure Performed/Findings Excision of left forearm mass, appx 6cm x 1.4cm Anesthesia Type IV sedation by BUFFING WHEEL PRESSER Estimated Blood Loss Estimated blood loss (mL): scant Specimens/Packing Specimens Removed left forearm mass OG HERZOG DO Aug 04, 2021 13:58
[2021-08-04] MEDS ORDERED: MEPERIDINE (DEMEROL) INJ 50 MG/ML IVP ONE (14:00)
[2021-08-04] MEDS ORDERED: morphine INJ 10 MG/ML 1ML (SYR OR VIAL) IVP ONE (14:00)
[2021-08-04] MEDS ORDERED: ONDANSETRON 4 MG/2 ML (SDV) Z0FRAN IVP PRN (14:00)
[2021-08-04] MEDS ORDERED: fentaNYL INJ 100 MCG/2 ML AMP IVP ONE (14:00)
--- NOTE | 2021-08-04 14:00 | Discharge Inst-Surgical ---
Discharge Inst-Surgical Depart Medication/Instructions New, Converted or Re-Newed RX: Other (use home meds) Patient Instructions Follow up Appt: Make appointment for 1 week. [phone] Instructions: No lifting greater than 20 pounds. No strenuous activity. May shower in 24 hours, no tub bath or soaking. Use incentive spirometer at home as directed. No Smoking Skin/Wound Care: May remove bandages in am. You need to leave the sutures in place and come in to office to have them removed. Symptoms to Report: Appetite Changes, Extremity Discoloration, Numbness/Tingling, Swelling Increased, Bleeding Excessive, Eyesight Changes, Pain Increased, Urine Color Change, Constipation(Persistent), Fever over 101 degree F, Pain/Pressure in chest, Urinating Difficulty, Cough Up/Vomit Blood, Heart Beat Irreg/Pounding, Pain/Pressure in jaw, Cramps in feet or legs, Lightheadedness, Pain/Pressure in shoulder, Diarrhea(Persistent), Memory Changes Suddenly, Questions/Concerns, Weight gain consecutive days, Dizziness/Fainting, Nausea/Vomiting, Shortness of Breath, Weight gain over 2 pounds If questions or concerns contact your physician Or seek help at emergency department. Activity Activity Instructions: Avoid Stress to Incision Driving Instructions: No Driving/Refer to Dr. Givens Discharge Diet: No Restrictions Diet After 24 Hours: Clear Liquid if Nauseous If Any Problems/Questions/Issu: Contact Your Physician, Go to Emergency Room Skin/Wound Care Infection Signs and Symptoms: Increased Redness, Foul Odor of Wound, Increased Drainage, Skin Itchy or Has a Rash, Increased Swelling, Temperature Above 101 F Bathing Instructions: Shower Stitches/[place]/Dermabond Dis: Care of Stitches OG HERZOG DO Aug 04, 2021 14:00
--- NOTE | 2021-08-04 14:00 | Anesthesia-General Post-Op ---
MAC Patient Condition Mental Status/LOC: Same as Preop Cardiovascular: Satisfactory Nausea/Vomiting: Absent Respiratory: Satisfactory Pain: Controlled Complications: Absent Post Op Complications Complications None Follow Up Care/Instructions Patient Instructions None needed. Anesthesiology Discharge Order Discharge Order Patient is doing well, no complaints, stable vital signs, no apparent adverse anesthesia problems. No complications reported per nursing. DAYNA BIANCHI CRNA Aug 04, 2021 14:00
--- NOTE | 2021-08-05 00:13 | OPERATIVE REPORT ---
DATE OF SERVICE: 08/04/2021 PREOPERATIVE DIAGNOSIS: Left forearm mass. POSTOPERATIVE DIAGNOSIS: Left forearm mass, pending pathology. PROCEDURE: Excision of left forearm mass, approximately 6 cm x 1.4 cm wide. SURGEON: Isidro Rowe DO INFUSION NURSE: Sam Lee. ANESTHESIA: IV sedation by the PIECE GOODS CLERK. SPECIMEN: Left forearm mass. BLOOD LOSS: Scant. FLUIDS: Per anesthesia. POSTOPERATIVE CONDITION: Stable. INDICATION FOR PROCEDURE: The patient is an 81-year-old female who has a mass in the left forearm, looks like it may be a squamous cell, need to get this removed. FINDINGS: The patient had a left forearm mass removed, measured approximately 6 cm long x about 1.4 cm wide. PROCEDURE NOTE: After informed consent was obtained, the patient was brought to the operating room, placed on the table in supine position. She was sterilely prepped and draped in normal fashion. Local lidocaine was used to infiltrate around this mass, then apolinar an elliptical incision using #15 blade, carried down through the skin into subcutaneous tissue, then deepened down to subcutaneous tissue and removing this portion of tissue with Bovie electrocautery. Once completely removed, hemostasis was obtained using Bovie electrocautery and then elected to close this incision with 3-0 nylon, 3 vertical mattress suture and then 4 interrupted simple sutures. Area was cleaned and dried, pressure dressing placed. The patient tolerated the procedure. Sponge, instrument and needle count correct at the end of the case. Job ID: [id number] DocumentID: [id number] Dictated Date: 08/04/2021 16:49:34 Radio Machinist Date: 08/05/2021 00:12:28 Dictated By: ISIDRO ROWE DO
== END 2021-08-04 15:15 ==
LOC: SDC 10:56
PROVIDERS: ATTEND Surgery
DX: C44.629 Squamous cell carcinoma of skin of left upper limb, including shoulder (principal); K21.9 Gastro-esophageal reflux disease without esophagitis; E07.9 Disorder of thyroid, unspecified; Z79.899 Other long term (current) drug therapy; Z79.890 Hormone replacement therapy
CPT/HCPCS: 87081; 88305

== ENCOUNTER 2021-09-27 10:26 | Outpatient (RCR) | payer MEDICARE, OTHER ==
[2021-09-27 10:36] LABS: BASOPHILS # (AUTO) 0.1 10^3/uL (0.0-0.1); BASOPHILS % (AUTO) 1 % (0-10); EOSINOPHILS # (AUTO) 0.1 10^3/uL (0.0-0.3); EOSINOPHILS % (AUTO) 1 % (0-10); HEMATOCRIT 45 % (35-52); HEMOGLOBIN 14.7 g/dL (11.5-16.0); LYMPHOCYTES # (AUTO) 2.7 10^3/uL (1.0-4.0); LYMPHOCYTES % (AUTO) 31 % (12-44); MEAN CORPUSCULAR HEMOGLOBIN 34 pg (25-34); MEAN CORPUSCULAR HGB CONC 33 g/dL (32-36); MEAN CORPUSCULAR VOLUME 104 fL (80-99); MEAN PLATELET VOLUME 9.4 fL (9.0-12.2); MONOCYTES # (AUTO) 0.6 10^3/uL (0.0-1.0); MONOCYTES % (AUTO) 6 % (0-12); NEUTROPHILS # (AUTO) 5.1 10^3/uL (1.8-7.8); NEUTROPHILS % (AUTO) 59 % (42-75); PLATELET COUNT 358 10^3/uL (130-400); WHITE BLOOD COUNT 8.6 10^3/uL (4.3-11.0)
[2021-09-27 10:53] LABS: ALBUMIN 3.7 GM/DL (3.2-4.5); BILIRUBIN,TOTAL 0.8 MG/DL (0.1-1.0); CALCIUM 8.8 MG/DL (8.5-10.1); CREATININE SERUM 1.36 MG/DL (0.60-1.30); POTASSIUM 4.3 MMOL/L (3.6-5.0); TOTAL PROTEIN 6.7 GM/DL (6.4-8.2)
[2021-10-10] MEDS ORDERED: CEPH500T PO ×2 (06:55→07:03)
== END 2021-10-18 | disposition home or self-care (01) ==
LOC: ONC 10:26
PROVIDERS: ATTEND Internal Medicine Hematology & Oncology
DX: Z45.2 Encounter for adjustment and management of vascular access device (principal); C88.4 Extranodal marginal zone B-cell lymphoma of mucosa-associated lymphoid tissue [MALT-lymphoma]; I51.7 Cardiomegaly; I25.10 Atherosclerotic heart disease of native coronary artery without angina pectoris; I10 Essential (primary) hypertension; E66.9 Obesity, unspecified
CPT/HCPCS: 80053; 85025; G0463; 36415; 99213

== ENCOUNTER 2021-10-10 06:08 | Emergency (ER) | payer MEDICARE ==
[~2021-10-10] VITALS: Ht 170.2 cm; Wt 72.6 kg
[2021-10-10 06:47] LABS: BILIRUBIN,URINE NEGATIVE (NEGATIVE); CLARITY,URINE CLEAR; COLOR,URINE YELLOW; GLUCOSE, URINE (UA) NEGATIVE (NEGATIVE); KETONES,URINE 1+ (NEGATIVE); LEUKOCYTE ESTERASE ,URINE NEGATIVE (NEGATIVE); NITRITE,URINE NEGATIVE (NEGATIVE); PROTEIN,URINE NEGATIVE (NEGATIVE)
--- NOTE | 2021-10-10 06:52 | ED GU-Female ---
General Chief Complaint: - Reproductive Stated Complaint: UTI; NAUSEA; FEVER Source: patient Exam Limitations: no limitations History of Present Illness Date Seen by Provider: Oct 10, 2021 Time Seen by Provider: 06:38 Initial Comments Patient to the ER by private conveyance with chief complaint that she has had 1 day progressive worsening dysuria and nausea. She says this occurred subsequent to getting into a hot tub the day before. She called her primary care doctor who could send her some Zofran. Her plan was to get a urinalysis done Monday and start antibiotics however her symptoms became too great today. No fever chills nausea or vomiting at this time. She denies having frequent urinary tract infections. Allergies and Home Medications Allergies Coded Allergies: Penicillins (Verified Allergy, Mild, RASH, Pt has received Keflex w/o issue, 02/17/21) Patient Home Medication List Home Medication List Reviewed: Yes Atenolol (Atenolol) 50 Mg Tablet, 75 MG PO DAILY, (Reported) Entered as Reported by: LEISA VIEIRA on 12/23/19 1021 Cephalexin (Cephalexin) 500 Mg Tablet, 500 MG PO BID Prescribed by: PATRICE WEBER on 10/10/21 0703 Estradiol (Estradiol Tablet) 0.5 Mg Tablet, 0.5 MG PO DAILY, (Reported) Entered as Reported by: LEISA VIEIRA on 02/07/19 1108 Fentanyl (Fentanyl Patch 50 MCG) 1 Each Patch.td72, 50 MCG TD Q72H, (Reported) Entered as Reported by: LEISA VIEIRA on 12/23/19 1021 Folic Acid (Folic Acid) 0.4 Mg Tablet, 0.4 MG PO DAILY, (Reported) Entered as Reported by: RHEA JAMA on 07/08/20 1027 Gabapentin (Gabapentin) 400 Mg Capsule, 400 MG PO HS, (Reported) Entered as Reported by: RHEA JAMA on 07/08/20 1030 Levothyroxine Sodium (Levothyroxine Sodium) 100 Mcg Tablet, 100 MCG PO MoTuWeThFr, (Reported) Entered as Reported by: LEISA VIEIRA on 12/23/19 1021 Levothyroxine Sodium (Levothyroxine Sodium) 100 Mcg Tablet, 50 MCG PO SuSa, (Reported) Entered as Reported by: LEISA VIEIRA on 12/23/19 1021 Methotrexate Sodium (Methotrexate) 2.5 Mg Tablet, 10 MG PO WEEK, (Reported) Entered as Reported by: LEISA VIEIRA on 02/07/19 1108 Mv-Mn/Folic Acid/Calcium/Vit K (Women's 50 Plus Multivit Tab) 1 Each Tablet, 1 TAB PO DAILY, (Reported) Entered as Reported by: RHEA JAMA on 07/08/20 1030 Omeprazole (Omeprazole) 20 Mg Tablet.dr, 20 MG PO DAILY, (Reported) Entered as Reported by: LEISA VIEIRA on 12/23/19 1024 Potassium Chloride (Potassium Chloride) 10 Meq Tab.er.prt, 10 MEQ PO Q48H, (Reported) Entered as Reported by: JULIO C PATINO on 02/16/21 1253 Valsartan (Valsartan) 320 Mg Tablet, 320 MG PO DAILY, (Reported) Entered as Reported by: LEISA VIEIRA on 02/07/19 1108 Review of Systems Review of Systems Constitutional: No chills, No fever EENTM: No ear discharge, No ear pain Respiratory: No cough, No short of breath Cardiovascular: No chest pain, No palpitations Gastrointestinal: No abdominal pain, No nausea, No vomiting Genitourinary: burning, dysuria Musculoskeletal: No back pain, No joint pain All Other Systemes Reviewed Negative Unless Noted: Yes Past Igdcugk-Wzmdnz-Bzvauz Hx Patient Social History Tobacco Use?: No Use of E-Cig and/or Vaping dev: No Immunizations Up To Date First/Initial COVID19 Vaccinat: sep 2020 Second COVID19 Vaccination Yahir: october 2020 Third COVID19 Vaccination Date: Jun 2021 Seasonal Allergies Seasonal Allergies: No Past Medical History Surgeries: Yes (BLADDER X2, R THUMB, CYST ON FOOT, BILAT ELBOW, MOLE REMOVED, skin lesion) Appendectomy, Gallbladder, Hysterectomy, Tonsillectomy Respiratory: No Currently Using CPAP: No Currently Using BIPAP: No Cardiac: Yes Hypertension Neurological: No 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 Sexually Transmitted Disease: No HIV/AIDS: No Genitourinary: No Gastrointestinal: Yes (stomach lymphoma) Gastroesophageal Reflux Musculoskeletal: Yes Arthritis, Rheumatoid Arthritis Endocrine: Yes Hypothyroidsim HEENT: Yes (READING) Loss of Vision: Denies Hearing Impairment: Denies Cancer: Yes Skin, Lymphoma Did You Recieve Any Treatments: Yes What Type of Treatment Did You: Radiation, Surgical Intervention Psychosocial: No Integumentary: Yes (lesion L forearm) Blood Disorders: No Adverse Reaction/Blood Tranf: No (N/A) Physical Exam Vital Signs Vital Signs - First Documented 10/10/21 06:30 Temp 37.1 Pulse 76 Resp 18 B/P (MAP) 175/92 (119) Pulse Ox 96 Capillary Refill : Height, Weight, BMI Height: 5'7.50" Weight: 158lbs. 7.0oz. 71.657822om; 25.89 BMI Method: General Appearance: WD/WN, no apparent distress HEENT: PERRL/EOMI, pharynx normal Neck: full range of motion, normal inspection Cardiovascular: normal peripheral pulses, regular rate, rhythm Respiratory: no respiratory distress, no accessory muscle use Gastrointestinal: non tender, soft Progress/Results/Core Measures Suspected Sepsis SIRS Temperature: Pulse: Respiratory Rate: Blood Pressure / Mean: Results/Orders Lab Results Laboratory Tests Test 10/10/21 06:40 Range/Units Urine Color YELLOW Urine Clarity CLEAR Urine pH 6.0 5-9 Urine Specific [place] 1.020 1.016-1.022 Urine Protein NEGATIVE NEGATIVE Urine Glucose (UA) NEGATIVE NEGATIVE Urine Ketones 1+ H NEGATIVE Urine Nitrite NEGATIVE NEGATIVE Urine Bilirubin NEGATIVE NEGATIVE Urine Urobilinogen 1.0 < = 1.0 MG/DL Urine Leukocyte Esterase NEGATIVE NEGATIVE Urine RBC (Auto) 1+ H NEGATIVE Urine RBC 2-5 H /HPF Urine WBC NONE /HPF Urine Squamous Epithelial Cells 5-10 /HPF Urine Crystals NONE /LPF Urine Bacteria TRACE /HPF Urine Casts NONE /LPF Urine Mucus MODERATE H /LPF Urine Culture Indicated NO My Orders Orders - PATRICE WEBER Ua Culture If Indicated (10/10/21 06:42) Phenazopyridine Tablet (Pyridium Tablet) (10/10/21 07:00) Medications Given in ED Current Medications Medications Dose Ordered Sig/Mina Route Start Time Stop Time Status Last Admin Dose Admin Phenazopyridine HCl 200 mg ONCE ONCE PO 10/10/21 07:00 10/10/21 07:01 DC 10/10/21 06:58 200 MG Vital Signs/I&O 10/10/21 10/10/21 06:30 07:03 Temp 37.1 37.1 Pulse 76 76 Resp 18 18 B/P (MAP) 175/92 (119) 175/92 Pulse Ox 96 96 Capillary Refill : Progress Note : Time: 06:53 Progress Note Pyridium 200 mg. Prescription sent to [facility] across the street. Departure Impression Primary Impression: Urinary tract infection Qualified Codes: N30.00 - Acute cystitis without hematuria Disposition: HOME, SELF-CARE Condition: Stable Departure-Patient Inst. Decision time for Depature: 06:53 Referrals: CEDRICK ISLAS MD (PCP/Family) Primary Care Physician Patient Instructions: Urinary Tract Infection, Adult (DC) Add. Discharge Instructions: Drink plenty of fluids. Pyridium 100 mg twice a day up to 5 days as necessary for pain. You may also use Tylenol as necessary for pain. Cephalexin 500 mg twice a day for 7 days. All discharge instructions reviewed with patient and/or family. Voiced understanding. Scripts Cephalexin (Cephalexin) 500 Mg Tablet 500 MG PO BID, #14 TAB 0 Refills Prov: PATRICE WEBER 10/10/21 PATRICE WEBER Oct 10, 2021 06:52
[2021-10-10 06:53] LABS: BACTERIA,URINE TRACE /HPF
[2021-10-10] MEDS ORDERED: CEPH500T PO ×2 (06:55→07:03)
[2021-10-10] MEDS ORDERED: PHENAZOPYRIDINE 100 MG (PYRIDIUM) TABLET PO ONE (07:00)
[2021-10-10 07:03] VITALS: BP 175/92
== END 2021-10-10 07:03 | disposition home or self-care (01) ==
LOC: EDUNIT# 06:08 → ER 06:11
DX: N39.0 Urinary tract infection, site not specified (principal)
CPT/HCPCS: 81000; 99283

== ENCOUNTER 2022-03-23 06:13 | Outpatient (RCR) | payer MEDICARE, OTHER ==
[~2022-03-23] VITALS: Ht 170.2 cm; Wt 74.8 kg
[~2022-03-23 06:13] MED LIST changes: +CEPH500T PO; +OMEP20TA56 PO; -OMEP20TA7 PO
[2022-03-23] MEDS ORDERED: HYDR-3924 PO (11:07)
[2022-03-23] MEDS ORDERED: SUCR1TAB PO (11:10)
== END 2022-03-31 09:54 | disposition home or self-care (01) ==
LOC: PREOP 06:13
PROVIDERS: ATTEND Surgery
DX: Z01.818 Encounter for other preprocedural examination (principal)

== ENCOUNTER 2022-04-04 09:04 | Day surgery (SDC) | payer MEDICARE, OTHER ==
[~2022-04-04] VITALS: Ht 170.2 cm; Wt 74.8 kg
[~2022-04-04 09:04] MED LIST changes: +HYDR-3924 PO; +SUCR1TAB PO
[2022-04-04 09:20] VITALS: BP 195/92
[2022-04-04] MEDS ORDERED: LACTATED RINGERS 1,000 ML IV STA (09:21)
[2022-04-04] MEDS ORDERED: HURRICAINE EXT TUBE (BENZOCAINE) XX PRN (09:30)
[2022-04-04] MEDS ORDERED: proPOfol 200 MG/20 ML (DIPRIVAN) VIAL IV ONE (09:56)
--- NOTE | 2022-04-04 10:19 | Progress Note-Post Operative ---
Post-Operative Progess Note Surgeon (s)/Stonecutter Hand (s) Surgeon OG HERZOG DO Stonecutter Hand: none Pre-Operative Diagnosis Chronic Gastritis Post-Operative Diagnosis Chronic Gastritis Hiatal hernia ??esophageal stricture Procedure & Operative Findings Date of Procedure 04/04/22 Procedure Performed/Findings EGD with bx PROCEDURE NOTE: After informed consent was obtained, the patient was brought to the endoscopy suite, placed in bed in left lateral decubitus position. She was administered IV sedation by the DESKTOP OPERATOR who then monitored vitals the entire time, heart rate, blood pressure and pulse ox and the scope was inserted down the mouth through the esophagus into the stomach. On the way down, noted what looked like an esophageal stricture; took a picture. Pushed into the stomach and past the antrum into the duodenum. Duodenum looked good. Pulled back and noted moderate gastritis; did a biopsy of the antrum. Then retroflexed the scope and saw a small less than 0.5cm hiatal hernia, took a picture of this and then pulled the scope into the GE junction, took another picture and then did a biopsy of the GE junction. Pushed the scope back into the stomach, suctioned all the air out of the stomach. At this point pulled the scope up the esophagus and out the mouth. The area that looked like a stricture appeared to open up, but there was still some narrowing right at the GE junction. The patient tolerated the procedure, and she recovered in endoscopy suite. Anesthesia Type IV sedation by DESKTOP OPERATOR Estimated Blood Loss Estimated blood loss (mL): scant Specimens/Packing Specimens Removed antral bx body of stomach bx GE jxn bx OG HEROZG DO Apr 04, 2022 10:19
[2022-04-04 10:20] VITALS: BP 125/70
--- NOTE | 2022-04-04 10:21 | Endoscopy Discharge Instruct ---
Endo Procedure/Findings Findings 1.: Gastritis 2.: Stricture 3.: Hiatal Hernia Discharge Instructions - Activity: You might feel a little sleepy until tomorrow. This is due to the medicine you received to relax you. Until tomorrow, you should: NOT drive a car, operate machinery or power tools. NOT drink any alcoholic beverages. NOT make any important decisions or sign importortant papers. Do not return to work until tomorrow, unless otherwise instructed. Resume previous activities tomorrow. Diet: Start by taking liquids. If you tolerate liquids, advance to solid food. 1.: EGD in 1 year Notify Physician - If you experience excessive bleeding, unusual abdominal pain, fever, or chest pain, contact your doctor immediately. GO HERZOG DO Apr 04, 2022 10:20
[2022-04-04 10:25] VITALS: BP 133/79
[2022-04-04 10:50] VITALS: BP 169/84
--- NOTE | 2022-04-04 11:15 | Anesthesia-General Post-Op ---
MAC Patient Condition Mental Status/LOC: Same as Preop Cardiovascular: Satisfactory Nausea/Vomiting: Absent Respiratory: Satisfactory Pain: Controlled Complications: Absent Post Op Complications Complications None Follow Up Care/Instructions Patient Instructions None needed. Anesthesiology Discharge Order Discharge Order Patient is doing well, no complaints, stable vital signs, no apparent adverse anesthesia problems. No complications reported per nursing. DAYNA BIANCHI CRNA Apr 04, 2022 11:15
[2022-04-04 11:20] VITALS: BP 169/84
== END 2022-04-04 11:20 | disposition home or self-care (01) ==
LOC: ENDO 09:04
PROVIDERS: ATTEND Surgery
DX: K29.50 Unspecified chronic gastritis without bleeding (principal); K31.89 Other diseases of stomach and duodenum; K31.7 Polyp of stomach and duodenum; K44.9 Diaphragmatic hernia without obstruction or gangrene; K22.89 Other specified disease of esophagus
CPT/HCPCS: 88305

== ENCOUNTER 2022-04-07 10:55 | Outpatient (RCR) | payer MEDICARE, OTHER ==
[2022-04-07 11:12] LABS: BASOPHILS % (AUTO) 1 % (0-10); EOSINOPHILS # (AUTO) 0.1 10^3/uL (0.0-0.3); EOSINOPHILS % (AUTO) 2 % (0-10); HEMATOCRIT 39 % (35-52); HEMOGLOBIN 12.7 g/dL (11.5-16.0); LYMPHOCYTES % (AUTO) 21 % (12-44); MEAN CORPUSCULAR HEMOGLOBIN 33 pg (25-34); MEAN CORPUSCULAR HGB CONC 33 g/dL (32-36); MEAN CORPUSCULAR VOLUME 101 fL (80-99); MEAN PLATELET VOLUME 9.8 fL (9.0-12.2); MONOCYTES # (AUTO) 0.5 10^3/uL (0.0-1.0); MONOCYTES % (AUTO) 9 % (0-12); NEUTROPHILS # (AUTO) 3.2 10^3/uL (1.8-7.8); NEUTROPHILS % (AUTO) 66 % (42-75); PLATELET COUNT 259 10^3/uL (130-400); WHITE BLOOD COUNT 4.9 10^3/uL (4.3-11.0)
[2022-04-07 11:41] LABS: ALBUMIN 3.7 GM/DL (3.2-4.5); BILIRUBIN,TOTAL 0.9 MG/DL (0.1-1.0); CALCIUM 9.5 MG/DL (8.5-10.1); CREATININE SERUM 1.27 MG/DL (0.60-1.30); POTASSIUM 4.4 MMOL/L (3.6-5.0); TOTAL PROTEIN 6.5 GM/DL (6.4-8.2)
== END 2022-04-20 | disposition home or self-care (01) ==
LOC: ONC 10:55
PROVIDERS: ATTEND Internal Medicine Hematology & Oncology
DX: C88.4 Extranodal marginal zone B-cell lymphoma of mucosa-associated lymphoid tissue [MALT-lymphoma] (principal); I51.7 Cardiomegaly; I25.10 Atherosclerotic heart disease of native coronary artery without angina pectoris; I10 Essential (primary) hypertension; M06.89 Other specified rheumatoid arthritis, multiple sites; E66.9 Obesity, unspecified
CPT/HCPCS: 80053; 83615; 85025; G0463; 36415; 99213

== ENCOUNTER → 2022-05-24 | Outpatient (CLI) | payer MEDICARE, OTHER ==
[~2022-05-24] MED LIST changes: +POTA-177 PO; -POTA10TA37 PO
--- NOTE | 2022-05-24 13:05 | Diagnostic Imaging Report ---
INDICATION: Routine screening. COMPARISON: 05/17/2021 and 03/27/2020. TECHNIQUE: 2D and 3D bilateral screening mammography was performed with CAD. FINDINGS: Both breasts are heterogeneously dense, limiting the sensitivity of mammography. There are benign calcifications in both breasts. No mass or malignant-appearing microcalcifications are seen. The axillae are unremarkable. IMPRESSION: No mammographic features suspicious for malignancy are identified. ACR BI-RADS Category 2: Benign findings. Result letter will be mailed to the patient. Note: At least 10% of breast cancer is not imaged by mammography. Dictated by: Dictated on workstation # [id number]
--- NOTE | 2022-05-24 14:32 | Diagnostic Imaging Report ---
INDICATION: Postmenopausal screening COMPARISON: Baseline FINDINGS: AP Spine L1-L4: [BMD (g/cm2): 1.076] [T-Score: -1.0] [Z-Score: 0.6] [BMD Previous: na] [BMD % Change: na] LT Hip Neck: [BMD (g/cm2): 0.799] [T-Score: -1.7] [Z-Score: 0.3] LT Hip Total: [BMD (g/cm2):0.744] [T-Score:-2.1] [Z-Score: -0.2] [BMD Previous: na] [BMD % Change: na] RT Hip Neck: [BMD (g/cm2):0.766] [T-Score:-2.0] [Z-Score:0.1] RT Hip Total: [BMD (g/cm2):0.749] [T-score:-2.1] [Z-Score:-0.1] [BMD Previous:na] [BMD % Change:na] *Indicates significant change from prior examination based on 95% confidence level. World Health Organization criteria for BMD interpretation classify patients as Normal (T-score at or above -1.0), Osteopenic (T-score between -1.0 and -2.5) or Osteoporotic (T-score at or below -2.5). LIMITATIONS AND MODIFICATION: None. FRACTURE RISK (FRAX SCORE): The ten year probability of (%): Major Osteoporotic Fracture: [20.6] Hip Fracture: [6.9] IMPRESSION: 1. Osteopenia (Low bone mass). 2. Baseline examination. 3. See below National Osteoporosis Foundation guidelines on when to potentially initiate pharmacologic therapy. Based on the National Osteoporosis Foundation Guidelines, pharmacologic treatment should be initiated in any of the following, unless clinical conditions suggest otherwise: * Any patient with prior fragility fracture of the hip or vertebrae. A spine fracture indicates 5X risk for subsequent spine fracture and 2X risk for subsequent hip fracture. * Osteoporosis (T-score <-2.5). * Postmenopausal women and men age 50 and older with low bone mass/osteopenia (T-score between -1.0 and -2.5) by DXA and 10-year major osteoporotic fracture greater than 20% or a 10-year probability of hip fracture greater than 3%. These fracture risks are supplied above in the FRAX score, if applicable. * Clinician judgement and/or patient preferences may indicate treatment for people with 10-year fracture probabilities above or below these levels. Dictated by: Dictated on workstation # [id number]
== END ==
LOC: RAD 10:58
PROVIDERS: ATTEND Family Medicine
DX: Z12.31 Encounter for screening mammogram for malignant neoplasm of breast (principal); Z13.820 Encounter for screening for osteoporosis; M85.80 Other specified disorders of bone density and structure, unspecified site; Z78.0 Asymptomatic menopausal state
CPT/HCPCS: 77063; 77067; 77080

== ENCOUNTER 2022-10-13 10:41 | Outpatient (RCR) | payer MEDICARE, OTHER ==
[~2022-10-13 10:41] MED LIST changes: -POTA10CA43 PO; +POTA10CA44 PO
[2022-10-13 10:56] LABS: BASOPHILS % (AUTO) 1 % (0-10); EOSINOPHILS # (AUTO) 0.1 10^3/uL (0.0-0.3); EOSINOPHILS % (AUTO) 2 % (0-10); HEMATOCRIT 40 % (35-52); HEMOGLOBIN 13.7 g/dL (11.5-16.0); LYMPHOCYTES # (AUTO) 0.6 10^3/uL (1.0-4.0); LYMPHOCYTES % (AUTO) 16 % (12-44); MEAN CORPUSCULAR HEMOGLOBIN 34 pg (25-34); MEAN CORPUSCULAR HGB CONC 35 g/dL (32-36); MEAN CORPUSCULAR VOLUME 99 fL (80-99); MEAN PLATELET VOLUME 9.7 fL (9.0-12.2); MONOCYTES # (AUTO) 0.4 10^3/uL (0.0-1.0); MONOCYTES % (AUTO) 11 % (0-12); NEUTROPHILS # (AUTO) 2.5 10^3/uL (1.8-7.8); NEUTROPHILS % (AUTO) 69 % (42-75); PLATELET COUNT 226 10^3/uL (130-400); WHITE BLOOD COUNT 3.6 10^3/uL (4.3-11.0)
[2022-10-13 11:20] LABS: ALBUMIN 3.7 GM/DL (3.2-4.5); CALCIUM 9.5 MG/DL (8.5-10.1); CREATININE SERUM 0.96 MG/DL (0.60-1.30); POTASSIUM 3.9 MMOL/L (3.6-5.0); TOTAL PROTEIN 6.5 GM/DL (6.4-8.2)
== END 2022-10-18 | disposition home or self-care (01) ==
LOC: ONC 10:41
PROVIDERS: ATTEND Internal Medicine Hematology & Oncology
DX: C88.4 Extranodal marginal zone B-cell lymphoma of mucosa-associated lymphoid tissue [MALT-lymphoma] (principal); I25.10 Atherosclerotic heart disease of native coronary artery without angina pectoris; M06.89 Other specified rheumatoid arthritis, multiple sites; E66.9 Obesity, unspecified; I11.9 Hypertensive heart disease without heart failure
CPT/HCPCS: 36415; 80053; 85025

== ENCOUNTER 2023-01-05 12:58 | Outpatient (RCR) | payer MEDICARE, OTHER ==
[2023-01-05 13:18] LABS: BASOPHILS % (AUTO) 1 % (0-10); EOSINOPHILS % (AUTO) 1 % (0-10); HEMATOCRIT 42 % (35-52); HEMOGLOBIN 13.8 g/dL (11.5-16.0); LYMPHOCYTES # (AUTO) 1.3 10^3/uL (1.0-4.0); LYMPHOCYTES % (AUTO) 20 % (12-44); MEAN CORPUSCULAR HEMOGLOBIN 33 pg (25-34); MEAN CORPUSCULAR HGB CONC 33 g/dL (32-36); MEAN CORPUSCULAR VOLUME 100 fL (80-99); MEAN PLATELET VOLUME 9.5 fL (9.0-12.2); MONOCYTES # (AUTO) 0.5 10^3/uL (0.0-1.0); MONOCYTES % (AUTO) 9 % (0-12); NEUTROPHILS # (AUTO) 4.4 10^3/uL (1.8-7.8); NEUTROPHILS % (AUTO) 70 % (42-75); PLATELET COUNT 280 10^3/uL (130-400); WHITE BLOOD COUNT 6.3 10^3/uL (4.3-11.0)
[2023-01-05 13:22] LABS: ALBUMIN 3.6 GM/DL (3.2-4.5)
[2023-01-05 13:24] LABS: TOTAL PROTEIN 6.2 GM/DL (6.4-8.2)
[2023-01-05 13:26] LABS: BILIRUBIN,TOTAL 0.7 MG/DL (0.1-1.0)
[2023-01-05 13:28] LABS: CREATININE SERUM 1.13 MG/DL (0.60-1.30)
== END 2023-01-18 | disposition home or self-care (01) ==
LOC: ONC 12:58
PROVIDERS: ATTEND Internal Medicine Hematology & Oncology
DX: C88.4 Extranodal marginal zone B-cell lymphoma of mucosa-associated lymphoid tissue [MALT-lymphoma] (principal); I25.10 Atherosclerotic heart disease of native coronary artery without angina pectoris; M06.89 Other specified rheumatoid arthritis, multiple sites; E66.9 Obesity, unspecified; I11.9 Hypertensive heart disease without heart failure; N28.9 Disorder of kidney and ureter, unspecified
CPT/HCPCS: 36415; 80053; 85025

== ENCOUNTER 2023-02-22 16:29 | Inpatient (IN) | payer MEDICARE, MEDICAID ==
[~2023-02-22] VITALS: Ht 170 cm; Wt 84.1 kg
[~2023-02-22 16:29] MED LIST changes: -POTA10CA44 PO; +POTA10CA84 PO
[2023-02-22] MEDS ORDERED: morphine INJ 10 MG/ML 1ML (SYR OR VIAL) IVP STA ×2 (16:37→18:24)
--- NOTE | 2023-02-22 16:43 | ED Lower Extremity ---
General Chief Complaint: Trauma-Non Activation Stated Complaint: FALL Nursing Triage Note: ARRIVED VIA EMS FROM HOME. TRIPPED AND FELL OUTSIDE ON AND LANDED ON LEFT SIDE. PT STATES SHE BROKE HER HIP. DENIES HITTING HEAD ET DENIES BEING ON BLOOD THINNERS. Source: patient, EMS Exam Limitations: no limitations History of Present Illness Date Seen by Provider: Feb 22, 2023 Time Seen by Provider: 16:33 Initial Comments 83-year-old female arrives via EMS stating "I broke my hip." She bent over and fell outside landing on her left hip. She did not hit her head or get knocked out. She is not on any blood thinning medications. Last p.o. intake was breakfast at 8:00. All other systems reviewed and negative except documented per HPI. Voice recognition software was used to help create this chart Allergies and Home Medications Allergies Coded Allergies: Penicillins (Verified Allergy, Mild, RASH, Pt has received Keflex w/o issue, 02/17/21) Patient Home Medication List Home Medication List Reviewed: Yes Atenolol (Atenolol) 50 Mg Tablet, 75 MG PO DAILY, (Reported) Entered as Reported by: LEISA VIEIRA on 12/23/19 1021 Folic Acid (Folic Acid) 0.4 Mg Tablet, 0.4 MG PO DAILY, (Reported) Entered as Reported by: RHEA JAMA on 07/08/20 1027 Gabapentin (Gabapentin) 400 Mg Capsule, 400 MG PO HS, (Reported) Entered as Reported by: RHEA JAMA on 07/08/20 1030 Hydralazine HCl (Hydralazine HCl) 50 Mg Tablet, 50 MG PO, (Reported) Entered as Reported by: TALA ROWE on 03/23/22 1107 Levothyroxine Sodium (Levothyroxine Sodium) 100 Mcg Tablet, 100 MCG PO MoTuWeThFr, (Reported) Entered as Reported by: LEISA VIEIRA on 12/23/19 1021 Levothyroxine Sodium (Levothyroxine Sodium) 100 Mcg Tablet, 50 MCG PO SuSa, (Reported) Entered as Reported by: LEISA VIEIRA on 12/23/19 1021 Methotrexate Sodium (Methotrexate) 2.5 Mg Tablet, 10 MG PO WEEK, (Reported) Entered as Reported by: LEISA VIEIRA on 02/07/19 1108 Omeprazole (Omeprazole) 20 Mg Tablet.dr, 20 MG PO DAILY, (Reported) Entered as Reported by: LEISA VIEIRA on 12/23/19 1024 Potassium Chloride (Potassium Chloride) 10 Meq Tab.er.prt, 10 MEQ PO Q48H, (Reported) Entered as Reported by: JULIO C PATINO on 02/16/21 1253 Sucralfate (Sucralfate) 1 Gram Tablet, 1 GM PO, (Reported) Entered as Reported by: TALA ROWE on 03/23/22 1110 Review of Systems Constitutional: see HPI Past Lzihvwf-Yufjtu-Yfiwyw Hx Patient Social History Tobacco Use?: No Smoking Status: Never a Smoker Use of E-Cig and/or Vaping dev: No Substance use?: No Alcohol Use?: No Immunizations Up To Date First/Initial COVID19 Vaccinat: sep 2020 Second COVID19 Vaccination Yahir: october 2020 Third COVID19 Vaccination Date: Jun 2021 Seasonal Allergies Seasonal Allergies: No Past Medical History Surgeries: Yes (BLADDER X2, R THUMB, CYST ON FOOT, BILAT ELBOW, MOLE REMOVED, skin lesion) Appendectomy, Gallbladder, Hysterectomy, Tonsillectomy Respiratory: No Currently Using CPAP: No Currently Using BIPAP: No Cardiac: Yes Hypertension Neurological: No 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 Sexually Transmitted Disease: No HIV/AIDS: No Genitourinary: No Gastrointestinal: Yes (stomach lymphoma) Gastroesophageal Reflux Musculoskeletal: Yes Arthritis, Rheumatoid Arthritis Endocrine: Yes Hypothyroidsim HEENT: Yes (READING) Loss of Vision: Denies Hearing Impairment: Denies Cancer: Yes Skin, Lymphoma Did You Recieve Any Treatments: Yes What Type of Treatment Did You: Radiation, Surgical Intervention Psychosocial: No Integumentary: No Blood Disorders: No Adverse Reaction/Blood Tranf: No (N/A) Physical Exam Vital Signs Vital Signs - First Documented 02/22/23 16:37 Temp 36.3 Pulse 67 Resp 16 B/P (MAP) 191/100 (130) Pulse Ox 96 O2 Delivery Room Air Capillary Refill : Less Than 3 Seconds Height, Weight, BMI Height: 5'7.50" Weight: 158lbs. 7.0oz. 71.295149ci; 26.00 BMI Method: General Appearance: WD/WN, moderate distress HEENT: PERRL/EOMI, normal ENT inspection, pharynx normal Neck: non-tender, full range of motion, supple, normal inspection Cardiovascular: regular rate, rhythm, no murmur Respiratory: chest non-tender, lungs clear, normal breath sounds, no respiratory distress, no accessory muscle use Gastrointestinal: normal bowel sounds, non tender, soft, no organomegaly Back: normal inspection, no vertebral tenderness Hips: right hip non-tender, right hip normal inspection, right hip normal range of motion; left hip other (Shortening rotation left hip. There is significant tenderness lateral left hip. Neurovascular motor and sensory intact with distal pulses.) Legs: bilateral leg non-tender, bilateral leg normal inspection, bilateral leg normal range of motion Knees: bilateral knee non-tender, bilateral knee normal inspection, bilateral knee normal range of motion Ankles: bilateral ankle non-tender, bilateral ankle normal inspection, bilateral ankle normal range of motion Feet: bilateral foot non-tender, bilateral foot normal inspection, bilateral foot normal range of motion Neurologic/Tendon: normal sensation, normal motor functions, normal tendon functions Neurologic/Psychiatric: alert, oriented x 3 Skin: normal color, warm/dry Progress/Results/Core Measures Results/Orders Lab Results Laboratory Tests Test 02/22/23 16:50 Range/Units White Blood Count 9.6 4.3-11.0 10^3/uL Red Blood Count 4.28 3.80-5.11 10^6/uL Hemoglobin 14.2 11.5-16.0 g/dL Hematocrit 42 35-52 % Mean Corpuscular Volume 98 80-99 fL Mean Corpuscular Hemoglobin 33 25-34 pg Mean Corpuscular Hemoglobin Concent 34 32-36 g/dL Red Cell Distribution Width 14.1 10.0-14.5 % Platelet Count 264 130-400 10^3/uL Mean Platelet Volume 9.6 9.0-12.2 fL Immature Granulocyte % (Auto) 2 % Neutrophils (%) (Auto) 81 H 42-75 % Lymphocytes (%) (Auto) 15 12-44 % Monocytes (%) (Auto) 2 0-12 % Eosinophils (%) (Auto) 0 0-10 % Basophils (%) (Auto) 0 0-10 % Neutrophils # (Auto) 7.7 1.8-7.8 10^3/uL Lymphocytes # (Auto) 1.4 1.0-4.0 10^3/uL Monocytes # (Auto) 0.2 0.0-1.0 10^3/uL Eosinophils # (Auto) 0.0 0.0-0.3 10^3/uL Basophils # (Auto) 0.0 0.0-0.1 10^3/uL Immature Granulocyte # (Auto) 0.2 H 0.0-0.1 10^3/uL Prothrombin Time 13.3 12.2-14.7 SEC INR Comment 1.0 0.8-1.4 Sodium Level 136 135-145 MMOL/L Potassium Level 4.6 3.6-5.0 MMOL/L Chloride Level 97 L 98-107 MMOL/L Carbon Dioxide Level 29 21-32 MMOL/L Anion Gap 10 5-14 MMOL/L Glucose Level 166 H 70-105 MG/DL Calcium Level 9.1 8.5-10.1 MG/DL Corrected Calcium 9.2 8.5-10.1 MG/DL Total Protein 6.7 6.4-8.2 GM/DL Albumin 3.9 3.2-4.5 GM/DL My Orders Orders - TREV BROWNE DO Comprehensive Metabolic Panel (02/22/23 16:37) Protime With Inr (02/22/23 16:37) Pelvis With Left Hip 2-3 Views (02/22/23 16:37) Iv/Invasive Line Insertion .IV INSERT (02/22/23 16:37) Cbc With Automated Diff (02/22/23 16:37) Morphine Injection (Morphine Injection (02/22/23 16:37) Vital Signs/I&O 02/22/23 16:37 Temp 36.3 Pulse 67 Resp 16 B/P (MAP) 191/100 (130) Pulse Ox 96 O2 Delivery Room Air Blood Pressure Mean: 130 Departure Communication (Admissions) Patient hemodynamically stable, neurovascular intact. L intertrochanteric hip fracture. Spoke to Dr Martel who will operate tomorrow. Spoke to Dr Pulido who accepts admission. Impression Primary Impression: Hip fracture, left Qualified Codes: S72.002A - Fracture of unspecified part of neck of left femur, initial encounter for closed fracture Disposition: ADMITTED INPATIENT Condition: Stable Admissions Decision to Admit Reason: Admit from ER (General) Departure-Patient Inst. Referrals: CEDRICK ISLAS MD (PCP/Family) Primary Care Physician TREV BROWNE DO Feb 22, 2023 16:43
[2023-02-22 16:59] LABS: BASOPHILS % (AUTO) 0 % (0-10); EOSINOPHILS % (AUTO) 0 % (0-10); HEMATOCRIT 42 % (35-52); HEMOGLOBIN 14.2 g/dL (11.5-16.0); LYMPHOCYTES # (AUTO) 1.4 10^3/uL (1.0-4.0); LYMPHOCYTES % (AUTO) 15 % (12-44); MEAN CORPUSCULAR HEMOGLOBIN 33 pg (25-34); MEAN CORPUSCULAR HGB CONC 34 g/dL (32-36); MEAN CORPUSCULAR VOLUME 98 fL (80-99); MEAN PLATELET VOLUME 9.6 fL (9.0-12.2); MONOCYTES # (AUTO) 0.2 10^3/uL (0.0-1.0); MONOCYTES % (AUTO) 2 % (0-12); NEUTROPHILS # (AUTO) 7.7 10^3/uL (1.8-7.8); NEUTROPHILS % (AUTO) 81 % (42-75); PLATELET COUNT 264 10^3/uL (130-400); WHITE BLOOD COUNT 9.6 10^3/uL (4.3-11.0)
[2023-02-22 17:08] LABS: ALBUMIN 3.9 GM/DL (3.2-4.5); POTASSIUM 4.6 MMOL/L (3.6-5.0)
[2023-02-22 17:09] LABS: CALCIUM 9.1 MG/DL (8.5-10.1); PROTHROMBIN TIME PATIENT 13.3 SEC (12.2-14.7)
[2023-02-22 17:10] LABS: TOTAL PROTEIN 6.7 GM/DL (6.4-8.2)
--- NOTE | 2023-02-22 17:12 | Diagnostic Imaging Report ---
INDICATION: Left hip pain AP view pelvis and 2 views of the left hip show comminuted intertrochanteric fracture of the left hip with reduction of the femoral angle. IMPRESSION: Angulated comminuted intertrochanteric fracture of left hip Dictated by: Dictated on workstation # [id number]
[2023-02-22 17:14] LABS: CREATININE SERUM 1.54 MG/DL (0.60-1.30)
--- NOTE | 2023-02-22 17:36 | History & Physical ---
History of Present Illness HPI/Chief Complaint Chief complaint: Left hip fracture HPI: This is an 83-year-old female with a history of inflammatory arthritis recently completed steroid taper due to an arthritis flare from methotrexate withdrawal who was picking up her dog from the event and turned too quickly and fell on her left hip. She suffered a fracture which will be repaired by Dr. Martel tomorrow morning. She has a history of lymphoma of the stomach and Dr. Rowe had performed her scopes and helped her with management of that. She sees Dr. Jefferson rheumatology on a regular basis. Dr. Hurt sees her on regular basis Source: patient Exam Limitations: no limitations Date Seen 02/22/23 Time Seen by a Provider: 17:00 Attending Physician Luann Sethi MD PCP Admitting Physician: Attending Physician: Referring Physician Date of Admission Home Medications & Allergies Home Medications Reviewed patient Home Medication Reconciliation performed by pharmacy medication reconciliations location and measurement technician and/or nursing. Patients Allergies have been reviewed. Allergies Allergies Coded Allergies Penicillins (Verified Allergy, Mild, RASH, Pt has received Keflex w/o issue, 02/17/21) Past Xnkomde-Cmzvlr-Ancdqi Hx Past Med/Social Hx: Reviewed Nursing Past Med/Soc Hx, Reviewed and Corrections made Patient Social History Marrital Status: single Employed/Student: retired Alcohol Use: Occasionally Uses Alcohol Beverage of Choice: Rum Smoking Status: Never a Smoker 2nd Hand Smoke Exposure: No Recent Hopitalizations: No Immunizations Up To Date Date of Pneumonia Vaccine: May 21, 2021 Date of Influenza Vaccine: Jun 18, 2021 Seasonal Allergies Seasonal Allergies: No Past Medical History Surgeries: Appendectomy, Gallbladder, Hysterectomy, Tonsillectomy Currently Using CPAP: No Currently Using BIPAP: No Cardiac: Hypertension Reproductive: No Sexually Transmitted Disease: No HIV/AIDS: No Hysterectomy Gastrointestinal: Gastroesophageal Reflux Musculoskeletal: Arthritis, Rheumatoid Arthritis Endocrine: Hypothyroidsim Loss of Vision: Denies Hearing Impairment: Denies Cancer: Skin, Lymphoma Did You Recieve Any Treatments: Yes What Type of Treatment Did You: Radiation, Surgical Intervention History of Blood Disorders: No Adverse Reaction to Blood Acosta: No (N/A) Review of Systems Constitutional: see HPI, malaise, weakness EENTM: no symptoms reported Respiratory: no symptoms reported Cardiovascular: no symptoms reported Gastrointestinal: no symptoms reported Genitourinary: no symptoms reported Musculoskeletal: back pain, joint pain Skin: no symptoms reported Psychiatric/Neurological: Anxiety, Depressed All Other Systems Reviewed Negative Unless Noted: Yes Physical Exam Physical Exam Vital Signs Vital Signs - First Documented 02/22/23 02/22/23 16:37 20:04 Temp 36.3 Pulse 67 Resp 16 B/P (MAP) 191/100 (130) Pulse Ox 96 O2 Delivery Room Air FiO2 21 Capillary Refill : Less Than 3 Seconds Height, Weight, BMI Height: 5'7.50" Weight: 158lbs. 7.0oz. [id number]; 26.00 BMI Method: General Appearance: No Apparent Distress, WD/WN, Chronically ill Eyes: Bilateral Eye Normal Inspection, Bilateral Eye PERRL HEENT: PERRL/EOMI, Normal ENT Inspection, Pharynx Normal Neck: Full Range of Motion, Normal Inspection, Non Tender, Supple, Carotid Bruit Respiratory: Chest Non Tender, Lungs Clear, Normal Breath Sounds, No Accessory Muscle Use, No Respiratory Distress Cardiovascular: Regular Rate, Rhythm, No Edema, No Gallop, No JVD, No Murmur, Normal Peripheral Pulses Gastrointestinal: Normal Bowel Sounds, No Organomegaly, No Pulsatile Mass, Non Tender, Soft Back: Normal Inspection, No CVA Tenderness, No Vertebral Tenderness Extremity: Normal Capillary Refill, Normal Inspection, Normal Range of Motion (Except left leg), Non Tender, No Calf Tenderness, No Pedal Edema Neurologic/Psychiatric: Alert, Oriented x3, Normal Mood/Affect, dress marker II-XII Norm as Tested, Abnormal Gait ( unable to ambulate), Motor Weakness ( left leg) Skin: Normal Color, Warm/Dry Lymphatic: No Adenopathy Results Results/Procedures Labs Laboratory Tests 02/22/23 16:50 Patient resulted labs reviewed. Assessment/Plan Admission Diagnosis Assessment: Left hip fracture sustained in a fall Rheumatoid arthritis Recent steroid regimen just finished Hypothyroidism Lymphoma of the stomach Plan: Consult Dr. Hurt Supportive care Pain control N.p.o. after midnight Olivera catheter Admission Status: Inpatient Order (span 2 midnights) Reason for Inpatient Admission: Hip fracture MELINDA TAVARES DO Feb 22, 2023 17:36
[2023-02-22] MEDS ORDERED: LIDOCAINE UROJET 2% GEL 10 ML PKG TOP ONE (17:45)
[2023-02-22 19:45] VITALS: BP 160/77
[2023-02-22] MEDS ORDERED: ONDANSETRON 4 MG (ZOFRAN) ORAL DISSOLVE TAB PO PRN (20:00)
[2023-02-22] MEDS ORDERED: polyethylene glycoL POWDER 17 GM (MIRALAX) PACK PO PRN (20:00)
[2023-02-22] MEDS ORDERED: diphenhydrAMINE 50 MG/ML INJ (BENADRYL) IVP PRN (20:00)
[2023-02-22] MEDS ORDERED: LACTULOSE SYRUP 10GM/15ML (ENULOSE) 30ML UDC PO PRN (20:00)
[2023-02-22] MEDS ORDERED: diphenhydrAMINE 25 MG TAB (BENADRYL) PO PRN (20:00)
[2023-02-22] MEDS ORDERED: ACETAMINOPHEN 325 MG TABLET PO PRN (20:00)
[2023-02-22] MEDS ORDERED: ONDANSETRON 4 MG/2 ML (SDV) Z0FRAN IV PRN (20:00)
[2023-02-22] MEDS ORDERED: CALCIUM CARBONATE 500 MG (TUMS) TAB.CHEW PO PRN (20:00)
[2023-02-22] MEDS ORDERED: ANTACID SUSP 30 ML UDC (MYLANTA) PO PRN (20:00)
[2023-02-22] MEDS ORDERED: MELATONIN 3 MG TABLET PO PRN (20:00)
[2023-02-22] MEDS ORDERED: BISACODYL 10 MG SUPP (DULCOLAX) PR PRN (20:00)
[2023-02-22] MEDS ORDERED: NS IV 1000 ML 1,000 ML ONE (20:56)
[2023-02-22] MEDS: NS IV 1000 ML 1,000 ML IV SCH (21:00)
[2023-02-22] MEDS: HYDROmorphone 2 MG/ML VIAL (DILAUDID) IV PRN (22:06)
[2023-02-22] MEDS: DOCUSATE SODIUM 100 MG (COLACE) CAP PO SCH (22:06)
[2023-02-22] MEDS: SENNOSIDES 8.6 MG (SENOKOT) TAB PO SCH (22:06)
[2023-02-22 23:39] VITALS: BP 125/75
[2023-02-23] VITALS (12 sets, daily range): BP systolic 122–171; BP diastolic 67–95
[2023-02-23] MEDS: HYDROmorphone 2 MG/ML VIAL (DILAUDID) IV PRN ×5 (00:40→11:11)
[2023-02-23 05:48] LABS: BASOPHILS % (AUTO) 0 % (0-10); EOSINOPHILS % (AUTO) 0 % (0-10); HEMATOCRIT 34 % (35-52); HEMOGLOBIN 11.2 g/dL (11.5-16.0); LYMPHOCYTES # (AUTO) 1.8 10^3/uL (1.0-4.0); LYMPHOCYTES % (AUTO) 17 % (12-44); MEAN CORPUSCULAR HGB CONC 33 g/dL (32-36); MEAN CORPUSCULAR VOLUME 98 fL (80-99); MEAN PLATELET VOLUME 9.8 fL (9.0-12.2); MONOCYTES # (AUTO) 0.6 10^3/uL (0.0-1.0); MONOCYTES % (AUTO) 6 % (0-12); NEUTROPHILS # (AUTO) 8.5 10^3/uL (1.8-7.8); NEUTROPHILS % (AUTO) 77 % (42-75); PLATELET COUNT 182 10^3/uL (130-400)
[2023-02-23 05:49] LABS: MEAN CORPUSCULAR HEMOGLOBIN 32 pg (25-34)
[2023-02-23 05:56] LABS: POTASSIUM 4.1 MMOL/L (3.6-5.0)
[2023-02-23 05:57] LABS: CALCIUM 8.3 MG/DL (8.5-10.1)
[2023-02-23 05:58] LABS: TOTAL PROTEIN 5.2 GM/DL (6.4-8.2)
[2023-02-23 06:00] LABS: BILIRUBIN,TOTAL 0.9 MG/DL (0.1-1.0)
[2023-02-23 06:02] LABS: CREATININE SERUM 1.14 MG/DL (0.60-1.30)
--- NOTE | 2023-02-23 07:42 | Consultation - Ortho ---
Consult - Ortho Subjective Date of Exam 02/23/23 Chief Complaint Left Hip Injury HPI/Events since last exam fall from standing height, sustained yesterday, seen in ER and found to have comminuted intertrochanteric femur fracture Medical, Surgical History see admit Social History see admit Family History see admit Review of Systems - Allergies: Coded Allergies: Penicillins (Verified Allergy, Mild, RASH, Pt has received Keflex w/o issue, 02/17/21) Home Meds Reported Medications Sucralfate (Sucralfate) 1 Gram Tablet, 1 GM PO, TAB 03/23/22 Hydralazine HCl (Hydralazine HCl) 50 Mg Tablet, 50 MG PO, TAB 03/23/22 Potassium Chloride (Potassium Chloride) 10 Meq Tab.er.prt, 10 MEQ PO Q48H 02/16/21 Gabapentin (Gabapentin) 400 Mg Capsule, 400 MG PO HS, CAP 07/08/20 Folic Acid (Folic Acid) 0.4 Mg Tablet, 0.4 MG PO DAILY, TAB 07/08/20 Omeprazole (Omeprazole) 20 Mg Tablet.dr, 20 MG PO DAILY, TAB 12/23/19 Atenolol (Atenolol) 50 Mg Tablet, 75 MG PO DAILY, TAB 12/23/19 Levothyroxine Sodium (Levothyroxine Sodium) 100 Mcg Tablet, 50 MCG PO SuSa, TAB 12/23/19 Levothyroxine Sodium (Levothyroxine Sodium) 100 Mcg Tablet, 100 MCG PO MoTuWeThFr, TAB 12/23/19 Methotrexate Sodium (Methotrexate) 2.5 Mg Tablet, 10 MG PO WEEK, TAB 02/07/19 Objective Exam L Leg: held in externally rotated position, +DF of foot, pulses 2+, sensation intact to light touch Vital Signs Vital Signs Date Time Temp Pulse Resp B/P (MAP) Pulse Ox O2 Delivery O2 Flow Rate FiO2 02/23/23 07:06 97 Room Air 02/23/23 03:21 36.6 54 18 137/72 (93) 97 Room Air 02/23/23 01:00 50 02/22/23 23:39 36.6 51 16 125/75 (92) 97 Room Air 02/22/23 21:47 50 02/22/23 21:28 Room Air 02/22/23 20:04 97 21 7/5/23 19:58 Room Air 02/22/23 19:45 36.5 50 17 160/77 (104) 96 Room Air 02/22/23 19:37 62 16 167/89 96 Room Air 02/22/23 16:37 36.3 67 16 191/100 (130) 96 Room Air I & O 02/23/23 07:00 Intake Total 497 ml Output Total 725 ml Balance -228 ml Lab Results Laboratory Tests 02/22/23 16:50: White Blood Count 9.6, Red Blood Count 4.28, Hemoglobin 14.2, Hematocrit 42, Mean Corpuscular Volume 98, Mean Corpuscular Hemoglobin 33, Mean Corpuscular Hemoglobin Concent 34, Red Cell Distribution Width 14.1, Platelet Count 264, Mean Platelet Volume 9.6, Immature Granulocyte % (Auto) 2, Neutrophils (%) (Auto) 81H, Lymphocytes (%) (Auto) 15, Monocytes (%) (Auto) 2, Eosinophils (%) (Auto) 0, Basophils (%) (Auto) 0, Neutrophils # (Auto) 7.7, Lymphocytes # (Auto) 1.4, Monocytes # (Auto) 0.2, Eosinophils # (Auto) 0.0, Basophils # (Auto) 0.0, Immature Granulocyte # (Auto) 0.2H, Prothrombin Time 13.3, INR Comment 1.0, Sodium Level 136, Potassium Level 4.6, Chloride Level 97L, Carbon Dioxide Level 29, Anion Gap 10, Blood Urea Nitrogen 25H, Creatinine 1.54H, Estimat Glomerular Filtration Rate 33, BUN/Creatinine Ratio 16, Glucose Level 166H, Calcium Level 9.1, Corrected Calcium 9.2, Total Bilirubin 1.0, Aspartate Amino Transf (AST/SGOT) 32, Alanine Aminotransferase (ALT/SGPT) 29, Alkaline Phosphatase 109, Total Protein 6.7, Albumin 3.9 02/23/23 05:15: White Blood Count 11.0, Red Blood Count 3.45L, Hemoglobin 11.2#L, Hematocrit 34L , Mean Corpuscular Volume 98, Mean Corpuscular Hemoglobin 32, Mean Corpuscular H emoglobin Concent 33, Red Cell Distribution Width 13.8, Platelet Count 182, Mean Platelet Volume 9.8, Immature Granulocyte % (Auto) 1, Neutrophils (%) (Auto) 77H , Lymphocytes (%) (Auto) 17, Monocytes (%) (Auto) 6, Eosinophils (%) (Auto) 0, Basophils (%) (Auto) 0, Neutrophils # (Auto) 8.5H, Lymphocytes # (Auto) 1.8, Monocytes # (Auto) 0.6, Eosinophils # (Auto) 0.0, Basophils # (Auto) 0.0, Immature Granulocyte # (Auto) 0.1, Sodium Level 134L, Potassium Level 4.1, Chloride Level 99, Carbon Dioxide Level 26, Anion Gap 9, Blood Urea Nitrogen 24H , Creatinine 1.14, Estimat Glomerular Filtration Rate 48, BUN/Creatinine Ratio 21, Glucose Level 109H, Calcium Level 8.3L, Corrected Calcium 9.1, Total Bilirubin 0.9, Aspartate Amino Transf (AST/SGOT) 28, Alanine Aminotransferase (ALT/SGPT) 23, Alkaline Phosphatase 82, Total Protein 5.2L, Albumin 3.0L Imaging 2 views of left hip and AP pelvis reviewed and demonstrated comminuted intertrochanteric femur fracture Assessment and Plan Assessment Left Intertrochanteric Femur Fracture Problem List Left Intertrochanteric Femur Fracture Plan I have recommend reduction and fixation of the left intertrochanteric femur fracture. Nature of the procedure and the postoperative course were discussed. Risks and benefits were discussed. Will plan to proceed later today. Final Diagonsis Left Intertrochanteric Femur Fracture Level of the visit: Level 3 ANGELICA CARNEY MD Feb 23, 2023 07:42
--- NOTE | 2023-02-23 07:55 | Consultation-Cardiology ---
HPI-Cardiology Cardiology Consultation: Date of Consultation 02/23/23 Date of Admission Attending Physician Luann Sethi MD Admitting Physician Admitting Physician: Liane Pulido DO Attending Physician: Liane Pulido DO Consulting Physician SAL TY Review of Systems-Cardiology All Other Systems Reviewed Negative Unless Noted: Yes CSO-Ylecga-Gibbqq Hx Patient Social History Marrital Status: single Employed/Student: retired Smoking Status: Never a Smoker 2nd Hand Smoke Exposure: No Alcohol Use?: No Pt feels they are or have been: No Immunizations Up To Date Date of Pneumonia Vaccine: May 21, 2021 Date of Influenza Vaccine: Jun 18, 2021 Past Medical History PMH As described under Assessment. Allergies and Home Medications Allergies Coded Allergies: Penicillins (Verified Allergy, Mild, RASH, Pt has received Keflex w/o issue, 02/17/21) Patient Home Medication List Atenolol (Atenolol) 50 Mg Tablet, 75 MG PO DAILY, (Reported) Entered as Reported by: LEISA VIEIRA on 12/23/19 1021 Folic Acid (Folic Acid) 0.4 Mg Tablet, 0.4 MG PO DAILY, (Reported) Entered as Reported by: RHEA JAMA on 07/08/20 1027 Gabapentin (Gabapentin) 400 Mg Capsule, 400 MG PO HS, (Reported) Entered as Reported by: RHEA JAMA on 07/08/20 1030 Hydralazine HCl (Hydralazine HCl) 50 Mg Tablet, 50 MG PO, (Reported) Entered as Reported by: TALA ROWE on 03/23/22 1107 Levothyroxine Sodium (Levothyroxine Sodium) 100 Mcg Tablet, 100 MCG PO MoTuWeThFr, (Reported) Entered as Reported by: LEISA VIEIRA on 12/23/19 1021 Levothyroxine Sodium (Levothyroxine Sodium) 100 Mcg Tablet, 50 MCG PO SuSa, (Reported) Entered as Reported by: LEISA VIEIRA on 12/23/19 1021 Methotrexate Sodium (Methotrexate) 2.5 Mg Tablet, 10 MG PO WEEK, (Reported) Entered as Reported by: LEISA VIEIRA on 02/07/19 1108 Omeprazole (Omeprazole) 20 Mg Tablet.dr, 20 MG PO DAILY, (Reported) Entered as Reported by: LEISA VIEIRA on 12/23/19 1024 Potassium Chloride (Potassium Chloride) 10 Meq Tab.er.prt, 10 MEQ PO Q48H, (Reported) Entered as Reported by: JULIO C PATINO on 02/16/21 1253 Sucralfate (Sucralfate) 1 Gram Tablet, 1 GM PO, (Reported) Entered as Reported by: TALA ROWE on 03/23/22 1110 Physical Exam-Cardiology Physical Exam Vital Signs/I&O 02/22/23 02/22/23 02/22/23 02/22/23 19:58 20:04 21:28 21:47 Pulse 50 Pulse Ox 97 O2 Delivery Room Air Room Air FiO2 02/22/23 02/23/23 02/23/23 02/23/23 23:39 01:00 03:21 07:06 Temp 36.6 36.6 Pulse 51 50 54 Resp 16 18 B/P (MAP) 125/75 (92) 137/72 (93) Pulse Ox 97 97 97 O2 Delivery Room Air Room Air Room Air 02/22/23 23:59 Intake Total 261 ml Output Total 400 ml Balance -139 ml Capillary Refill : Less Than 3 Seconds Data Review Labs Laboratory Tests 02/22/23 16:50: White Blood Count 9.6, Red Blood Count 4.28, Hemoglobin 14.2, Hematocrit 42, Mean Corpuscular Volume 98, Mean Corpuscular Hemoglobin 33, Mean Corpuscular Hemoglobin Concent 34, Red Cell Distribution Width 14.1, Platelet Count 264, Mean Platelet Volume 9.6, Immature Granulocyte % (Auto) 2, Neutrophils (%) (Auto) 81H, Lymphocytes (%) (Auto) 15, Monocytes (%) (Auto) 2, Eosinophils (%) (Auto) 0, Basophils (%) (Auto) 0, Neutrophils # (Auto) 7.7, Lymphocytes # (Auto) 1.4, Monocytes # (Auto) 0.2, Eosinophils # (Auto) 0.0, Basophils # (Auto) 0.0, Immature Granulocyte # (Auto) 0.2H, Prothrombin Time 13.3, INR Comment 1.0, Sodium Level 136, Potassium Level 4.6, Chloride Level 97L, Carbon Dioxide Level 29, Anion Gap 10, Blood Urea Nitrogen 25H, Creatinine 1.54H, Estimat Glomerular Filtration Rate 33, BUN/Creatinine Ratio 16, Glucose Level 166H, Calcium Level 9.1, Corrected Calcium 9.2, Total Bilirubin 1.0, Aspartate Amino Transf (AST/SGOT) 32, Alanine Aminotransferase (ALT/SGPT) 29, Alkaline Phosphatase 109, Total Protein 6.7, Albumin 3.9 02/23/23 05:15: White Blood Count 11.0, Red Blood Count 3.45L, Hemoglobin 11.2#L, Hematocrit 34L , Mean Corpuscular Volume 98, Mean Corpuscular Hemoglobin 32, Mean Corpuscular Hemoglobin Concent 33, Red Cell Distribution Width 13.8, Platelet Count 182, Mean Platelet Volume 9.8, Immature Granulocyte % (Auto) 1, Neutrophils (%) (Auto) 77H, Lymphocytes (%) (Auto) 17, Monocytes (%) (Auto) 6, Eosinophils (%) (Auto) 0, Basophils (%) (Auto) 0, Neutrophils # (Auto) 8.5H, Lymphocytes # (Auto) 1.8, Monocytes # (Auto) 0.6, Eosinophils # (Auto) 0.0, Basophils # (Auto) 0.0, Immature Granulocyte # (Auto) 0.1, Sodium Level 134L, Potassium Level 4.1, Chloride Level 99, Carbon Dioxide Level 26, Anion Gap 9, Blood Urea Nitrogen 24H , Creatinine 1.14, Estimat Glomerular Filtration Rate 48, BUN/Creatinine Ratio 21, Glucose Level 109H, Calcium Level 8.3L, Corrected Calcium 9.1, Total Bilirubin 0.9, Aspartate Amino Transf (AST/SGOT) 28, Alanine Aminotransferase (ALT/SGPT) 23, Alkaline Phosphatase 82, Total Protein 5.2L, Albumin 3.0L Laboratory Tests 02/22/23 16:50 02/23/23 05:15 Radiology NAME: DM DAVISOPE Fantasma [facility] REC#: [id number] PT STATUS: REG ER : 1940 PHYSICIAN: TREV BROWNE DO ADMIT DATE: 02/22/23/ER Signed Date of Exam:02/22/23 PELVIS WITH LEFT HIP 2-3 VIEWS INDICATION: Left hip pain AP view pelvis and 2 views of the left hip show comminuted intertrochanteric fracture of the left hip with reduction of the femoral angle. IMPRESSION: Angulated comminuted intertrochanteric fracture of left hip Dictated by: Dictated on workstation # [id number] Dict: 02/22/231708 Trans: 02/22/231716 CV [id number] Interpreted by: RAYMOND GREEN MD Electronically signed by: RAYMOND GREEN MD 02/22/23 [id number] A/P-Cardiology Assessment/Admission Diagnosis S/P non-syncopal fall resulting in left hip fracture - Dr. 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
[2023-02-23] MEDS: SENNOSIDES 8.6 MG (SENOKOT) TAB PO SCH ×2 (08:40→21:17)
[2023-02-23] MEDS: DOCUSATE SODIUM 100 MG (COLACE) CAP PO SCH ×2 (08:40→21:16)
[2023-02-23] MEDS: NS IV 1000 ML 1,000 ML IV SCH ×2 (08:40→23:05)
--- NOTE | 2023-02-23 09:50 | Consultation-Cardiology ---
HPI-Cardiology Cardiology Consultation: Date of Consultation 02/23/23 Time Seen by a Provider: 09:30 Date of Admission Attending Physician Luann Sethi MD Admitting Physician Admitting Physician: Liane Pulido DO Attending Physician: Liane Pulido DO Consulting Physician SANTHOSH RAMOS MD, MA, FACP, FACC, [facility], CCDS Physician requesting consult: Dr Pulido HPI: Chief Complaint: Reason for Card consult: Kathya-op cardiac risk eval 83 yo woman with non-syncopal fall on 02/22/23 leading to a fall and L hip frac ture for which she is awaiting surgery. She does not report any cp or palp or syncope or shortness of breath or significant leg swelling. Physically active (until fall yesterday). No new symptoms. Chronic joint and back pains. Review of Systems-Cardiology Review of Systems Constitutional: No malaise, No weight loss, No weight gain Eyes: No vision change Ears/Nose/Throat: No ear discharge, No nasal drainage, No recent hearing loss Respiratory: As described under HPI Cardiovascular: As described under HPI Gastrointestinal: No diarrhea, No nausea, No vomiting Genitourinary: No dysuria, No hematuria, No urine frequency changes Musculoskeletal: As describe under HPI Skin: No rash, No ulcerations Psychiatric/Neurological: No seizure, No focal weakness, No syncope Hematologic: No bleeding abnormalities All Other Systems Reviewed Negative Unless Noted: Yes UCB-Czoeev-Nxhoiu Hx Patient Social History Marrital Status: single Employed/Student: retired Smoking Status: Never a Smoker 2nd Hand Smoke Exposure: No Alcohol Use?: No Pt feels they are or have been: No Immunizations Up To Date Date of Pneumonia Vaccine: May 21, 2021 Date of Influenza Vaccine: Jun 18, 2021 Past Medical History PMH As described under Assessment. Family Medical History Family Medical History: Does not report fam h/o early CAD or SCD Allergies and Home Medications Allergies Coded Allergies: Penicillins (Verified Allergy, Mild, RASH, Pt has received Keflex w/o issue, 02/17/21) Patient Home Medication List Home Medication List Reviewed: Yes Atenolol (Atenolol) 50 Mg Tablet, 75 MG PO DAILY, (Reported) Entered as Reported by: LEISA VIEIRA on 12/23/19 1021 Folic Acid (Folic Acid) 0.4 Mg Tablet, 0.4 MG PO DAILY, (Reported) Entered as Reported by: RHEA JAMA on 07/08/20 1027 Gabapentin (Gabapentin) 400 Mg Capsule, 400 MG PO HS, (Reported) Entered as Reported by: RHEA JAMA on 07/08/20 1030 Hydralazine HCl (Hydralazine HCl) 50 Mg Tablet, 50 MG PO, (Reported) Entered as Reported by: TALA ROWE on 03/23/22 1107 Levothyroxine Sodium (Levothyroxine Sodium) 100 Mcg Tablet, 100 MCG PO MoTuWeThFr, (Reported) Entered as Reported by: LEISA VIEIRA on 12/23/19 1021 Levothyroxine Sodium (Levothyroxine Sodium) 100 Mcg Tablet, 50 MCG PO SuSa, (Reported) Entered as Reported by: LEISA VIEIRA on 12/23/19 1021 Methotrexate Sodium (Methotrexate) 2.5 Mg Tablet, 10 MG PO WEEK, (Reported) Entered as Reported by: LEISA VIEIRA on 02/07/19 1108 Omeprazole (Omeprazole) 20 Mg Tablet.dr, 20 MG PO DAILY, (Reported) Entered as Reported by: LEISA VIEIRA on 12/23/19 1024 Potassium Chloride (Potassium Chloride) 10 Meq Tab.er.prt, 10 MEQ PO Q48H, (Reported) Entered as Reported by: JULIO C PATINO on 02/16/21 1253 Sucralfate (Sucralfate) 1 Gram Tablet, 1 GM PO, (Reported) Entered as Reported by: TALA ROWE on 03/23/22 1110 Physical Exam-Cardiology Physical Exam Vital Signs/I&O 02/22/23 02/22/23 02/23/23 02/23/23 21:47 23:39 01:00 03:21 Temp 36.6 36.6 Pulse 50 51 50 54 Resp 16 18 B/P (MAP) 125/75 (92) 137/72 (93) Pulse Ox 97 97 O2 Delivery Room Air Room Air 02/23/23 02/23/23 02/23/23 07:00 07:06 08:44 Temp 36.8 Pulse 52 57 Resp 18 B/P (MAP) 163/76 (105) Pulse Ox 97 94 O2 Delivery Room Air Room Air 02/23/23 00:00 Intake Total 261 ml Output Total 400 ml Balance -139 ml Capillary Refill : Less Than 3 Seconds Constitutional: AAO x 3, well-developed, well-nourished HEENT: EOMI, hearing is well preserved; No xanthelasmas are seen Neck: carotid pulses are 2 + bilaterally, with good upstrokes Respiratory: No accessory muscle use; chest expansion is symmetric, chest is bilaterally symmetric, other (good, bilateral air entry) Cardiovascular: regular rate-rhythm, S1 and S2, systolic murmur (soft PREET at card base) Gastrointestinal: No tender; soft; No guarding, No rebound; audible bowel sounds Extremities: No clubbing, No cyanosis, No significant edema Neurologic/Psychiatric: oriented x 3, other (moves all limbs equally) Skin: normal color, warm/dry; No rash, No ulcerations Data Review Labs Laboratory Tests 02/22/23 16:50: White Blood Count 9.6, Red Blood Count 4.28, Hemoglobin 14.2, Hematocrit 42, Mean Corpuscular Volume 98, Mean Corpuscular Hemoglobin 33, Mean Corpuscular Hemoglobin Concent 34, Red Cell Distribution Width 14.1, Platelet Count 264, Mean Platelet Volume 9.6, Immature Granulocyte % (Auto) 2, Neutrophils (%) (Auto) 81H, Lymphocytes (%) (Auto) 15, Monocytes (%) (Auto) 2, Eosinophils (%) (Auto) 0, Basophils (%) (Auto) 0, Neutrophils # (Auto) 7.7, Lymphocytes # (Auto) 1.4, Monocytes # (Auto) 0.2, Eosinophils # (Auto) 0.0, Basophils # (Auto) 0.0, Immature Granulocyte # (Auto) 0.2H, Prothrombin Time 13.3, INR Comment 1.0, Sodi um Level 136, Potassium Level 4.6, Chloride Level 97L, Carbon Dioxide Level 29, Anion Gap 10, Blood Urea Nitrogen 25H, Creatinine 1.54H, Estimat Glomerular Filtration Rate 33, BUN/Creatinine Ratio 16, Glucose Level 166H, Calcium Level 9.1, Corrected Calcium 9.2, Total Bilirubin 1.0, Aspartate Amino Transf (AST/SGOT) 32, Alanine Aminotransferase (ALT/SGPT) 29, Alkaline Phosphatase 109, Total Protein 6.7, Albumin 3.9 02/23/23 05:15: White Blood Count 11.0, Red Blood Count 3.45L, Hemoglobin 11.2#L, Hematocrit 34L , Mean Corpuscular Volume 98, Mean Corpuscular Hemoglobin 32, Mean Corpuscular Hemoglobin Concent 33, Red Cell Distribution Width 13.8, Platelet Count 182, Mean Platelet Volume 9.8, Immature Granulocyte % (Auto) 1, Neutrophils (%) (Auto) 77H, Lymphocytes (%) (Auto) 17, Monocytes (%) (Auto) 6, Eosinophils (%) (Auto) 0, Basophils (%) (Auto) 0, Neutrophils # (Auto) 8.5H, Lymphocytes # (Auto) 1.8, Monocytes # (Auto) 0.6, Eosinophils # (Auto) 0.0, Basophils # (Auto) 0.0, Immature Granulocyte # (Auto) 0.1, Sodium Level 134L, Potassium Level 4.1, Chloride Level 99, Carbon Dioxide Level 26, Anion Gap 9, Blood Urea Nitrogen 24H , Creatinine 1.14, Estimat Glomerular Filtration Rate 48, BUN/Creatinine Ratio 21, Glucose Level 109H, Calcium Level 8.3L, Corrected Calcium 9.1, Total Bilirubin 0.9, Aspartate Amino Transf (AST/SGOT) 28, Alanine Aminotransferase (ALT/SGPT) 23, Alkaline Phosphatase 82, Total Protein 5.2L, Albumin 3.0L Laboratory Tests 02/22/23 16:50 02/23/23 05:15 A/P-Cardiology Assessment/Admission Diagnosis S/P non-syncopal fall resulting in left hip fracture - Dr. 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 We discussed her cardiac risk. She understands and wishes to proceed * Continue previous regimen * We recommend kathya-op DVT prophylaxis * Monitor labs Clinical Quality Measures DVT/VTE Risk/Contraindication: Contraindications-Pharm: Other *list below* Other: surgery SANTHOSH RAMOS MD [facility] Feb 23, 2023 09:50
[2023-02-23] MEDS ORDERED: POLY17PO6 PO (10:14)
[2023-02-23] MEDS ORDERED: HYDR-3923 PO (10:14)
[2023-02-23] MEDS ORDERED: ONDA4TAB11 PO (10:14)
[2023-02-23] MEDS ORDERED: OMEP40CA6 PO (10:14)
[2023-02-23] MEDS ORDERED: SARI200P IJ (10:14)
[2023-02-23] MEDS ORDERED: POTA10CA84 PO (10:14)
[2023-02-23] MEDS ORDERED: OXYC-525 PO (10:14)
--- NOTE | 2023-02-23 10:38 | Physical Therapy Progress Note ---
Therapy Progress Note Patient to have surgery on this date. PT to evaluate patient tomorrow. PATI RITTER PT Feb 23, 2023 10:38
[2023-02-23] MEDS ORDERED: LIDOCAINE PF 2% 5 ML (XYLOCAINE) VIAL ONE (12:05)
[2023-02-23] MEDS ORDERED: fentaNYL INJ 100 MCG/2 ML AMP ONE (12:05)
[2023-02-23] MEDS ORDERED: BUPIVACAINE 0.5% 30 ML (SENSORCAINE) VIAL ONE (12:05)
[2023-02-23] MEDS ORDERED: ONDANSETRON 4 MG/2 ML (SDV) Z0FRAN ONE (12:05)
[2023-02-23] MEDS ORDERED: proPOfol 200 MG/20 ML (DIPRIVAN) VIAL IV ONE (12:05)
[2023-02-23] MEDS: LACTATED RINGERS 1,000 ML IV PRN ×2 (12:19→13:45)
[2023-02-23] MEDS ORDERED: ceFAZolin INJECTION 0 MG ONE (12:23)
[2023-02-23] MEDS ORDERED: NS (IVPB) 50 ML ONE (12:25)
[2023-02-23] MEDS ORDERED: ceFAZolin INJECTION 2,000 MG ONE (12:25)
[2023-02-23] MEDS ORDERED: ceFAZolin INJECTION 2,000 MG in NS (IVPB) 50 ML IV ONE (12:30)
[2023-02-23] MEDS ORDERED: LACTATED RINGERS 1,000 ML IV PRN (12:45)
[2023-02-23] MEDS ORDERED: GLYCOPYRROLATE 0.2 MG/ML (ROBINUL) 2 ML VIAL ONE (12:53)
[2023-02-23] MEDS ORDERED: ISOFLURANE (FORANE) 15 ML/15 MIN INHALATION ONE ×3 (13:21→14:06)
--- NOTE | 2023-02-23 13:31 | Progress Note ---
MELY PASTOR 02/23/23 1331: Subjective Date Seen by a Provider: Feb 23, 2023 Time Seen by a Provider: 09:45 Subjective/Events-last exam Patient seen and examined at bedside this morning. Reports her pain is 9/10 but just received her morning pain meds. Dr Martel saw her this morning and surgery is planned for this afternoon. Other than her hip pain she denies pain, shortness of breath, N/V/D. No fever or chills overnight. Review of Systems General: No Chills, No Night Sweats HEENT: No Head Aches, No Visual Changes Pulmonary: No Dyspnea, No Cough Cardiovascular: No: Chest Pain, Palpitations Gastrointestinal: No: Nausea, Vomiting, Abdominal Pain Genitourinary: No Dysuria, No Hematuria Musculoskeletal: leg pain Neurological: No: Change in speech, Confusion Objective Exam Last Set of Vital Signs Vital Signs Date Time Temp Pulse Resp B/P (MAP) Pulse Ox O2 Delivery O2 Flow Rate FiO2 02/23/23 11:54 37.1 59 18 171/84 (113) 95 Room Air 02/22/23 20:04 21 Capillary Refill : Less Than 3 Seconds I&O Intake and Output 02/23/23 00:00 Intake Total 261 ml Output Total 400 ml Balance -139 ml Intake Oral 261 ml Output Urine Total 400 ml Daily Weight Change No General: Alert, Oriented X3 HEENT: Atraumatic, EOMI Neck: Supple Lungs: Clear to Auscultation, Normal Air Movement Heart: Regular Rate, Normal S1, Normal S2 Abdomen: Soft, No Tenderness Extremities: No Edema, Normal Pulses Psych/Mental Status: Mental Status NL, Mood NL Results Lab Laboratory Tests 02/22/23 16:50: White Blood Count 9.6, Red Blood Count 4.28, Hemoglobin 14.2, Hematocrit 42, M cornelio Corpuscular Volume 98, Mean Corpuscular Hemoglobin 33, Mean Corpuscular Hemoglobin Concent 34, Red Cell Distribution Width 14.1, Platelet Count 264, Mean Platelet Volume 9.6, Immature Granulocyte % (Auto) 2, Neutrophils (%) (Auto) 81H, Lymphocytes (%) (Auto) 15, Monocytes (%) (Auto) 2, Eosinophils (%) (Auto) 0, Basophils (%) (Auto) 0, Neutrophils # (Auto) 7.7, Lymphocytes # (Auto) 1.4, Monocytes # (Auto) 0.2, Eosinophils # (Auto) 0.0, Basophils # (Auto) 0.0, Immature Granulocyte # (Auto) 0.2H, Prothrombin Time 13.3, INR Comment 1.0, Sodium Level 136, Potassium Level 4.6, Chloride Level 97L, Carbon Dioxide Level 29, Anion Gap 10, Blood Urea Nitrogen 25H, Creatinine 1.54H, Estimat Glomerular Filtration Rate 33, BUN/Creatinine Ratio 16, Glucose Level 166H, Calcium Level 9.1, Corrected Calcium 9.2, Total Bilirubin 1.0, Aspartate Amino Transf (AST/SGOT) 32, Alanine Aminotransferase (ALT/SGPT) 29, Alkaline Phosphatase 109, Total Protein 6.7, Albumin 3.9 02/23/23 05:15: White Blood Count 11.0, Red Blood Count 3.45L, Hemoglobin 11.2#L, Hematocrit 34L , Mean Corpuscular Volume 98, Mean Corpuscular Hemoglobin 32, Mean Corpuscular Hemoglobin Concent 33, Red Cell Distribution Width 13.8, Platelet Count 182, Mean Platelet Volume 9.8, Immature Granulocyte % (Auto) 1, Neutrophils (%) (Auto) 77H, Lymphocytes (%) (Auto) 17, Monocytes (%) (Auto) 6, Eosinophils (%) (Auto) 0, Basophils (%) (Auto) 0, Neutrophils # (Auto) 8.5H, Lymphocytes # (Auto) 1.8, Monocytes # (Auto) 0.6, Eosinophils # (Auto) 0.0, Basophils # (Auto) 0.0, Immature Granulocyte # (Auto) 0.1, Sodium Level 134L, Potassium Level 4.1, Chloride Level 99, Carbon Dioxide Level 26, Anion Gap 9, Blood Urea Nitrogen 24H , Creatinine 1.14, Estimat Glomerular Filtration Rate 48, BUN/Creatinine Ratio 21, Glucose Level 109H, Calcium Level 8.3L, Corrected Calcium 9.1, Total B ilirubin 0.9, Aspartate Amino Transf (AST/SGOT) 28, Alanine Aminotransferase (ALT/SGPT) 23, Alkaline Phosphatase 82, Total Protein 5.2L, Albumin 3.0L Assessment/Plan Assessment/Plan Assess & Plan/Chief Complaint Comminuted L intertrochanteric femur fracture Ortho consulted, surgery this afternoon to repair L hip fracture Continue pain control, added morphine this afternoon PT/OT post op, will likely need inpatient rehab supportive care HTN likely secondary to pain takes atenolol and hydralazine at home can add prn hydralazine with parameters if needed continue to monitor Drop in HgB 14 to 11 overnight, will continue to monitor could be due to dilution no obvious signs of bleeding at this point Hx of RA with recent steroid taper takes methotrexate at home Hypothyroidism 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 DVT- will need lovenox post op Diet- NPO for surgery Code- full Clinical Quality Measures DVT/VTE Risk/Contraindication: Contraindications-Pharm: Other *list below* Other: surgery LIANE TAVARES DO 02/23/232120: Supervisory-Addendum Brief Verification & Attestation Participated in pt care: history, MDM, physical Personally performed: exam, history, MDM, supervision of care Care discussed with: Medical Student Procedures: n/a Results interpretation: Verified all documentation Verification and Attestation of Medical Student E/M Service A medical student performed and documented this service in my presence. I reviewed and verified all information documented by the medical student and made modifications to such information, when appropriate. I personally performed the physical exam and medical decision making. Liane Tavares Feb 23, 2023,21:21 MELY PASTOR Feb 23, 2023 13:31 LIANE TAVARES DO Feb 23, 2023 21:21
[2023-02-23] MEDS ORDERED: PHENYLEPHRINE 100 MCG/ML 10 ML (ANESTHESIA) SYR ONE (13:43)
--- NOTE | 2023-02-23 13:55 | Operative Report - Ortho ---
Operative Report Surgeon (s)/Occupational Health And Safety Manager (s) Surgeon ANGELICA CARNEY MD Occupational Health And Safety Manager n/a Pre-Operative Diagnosis Left Intertrochanteric Femur Fracture with Subtrochanteric Extension Post-Operative Diagnosis same Operative Report Date of Procedure: Feb 23, 2023 Name of Procedure Performed: Intramedullary Nailing of Left Intertrochanteric Femur Fracture Description & Findings After obtaining informed consent and marking the patient in the preoperative holding area, the patient was administered IV antibiotics and taken to the operating room. Anesthesia was induced. Patient was transferred to the fracture table. Surgical timeout was taken. The left lower extremity was placed in the traction spar and the right leg was placed in the well leg rodríguez. The left lower extremity was reduced using traction and rotation; it was preppe d and draped in the usual sterile fashion. Incision was made just proximal to the greater trochanter. Blunt dissection was performed down to the tip of the trochanter. A guide wire was placed through a trochanteric entry point. Position of the wire was confirmed using C-arm. An entry reamer was then placed over the guidewire and reamed to the level of the lesser trochanter. A ball tip guide wire with a slight bend at the tip was inserted into the intramedullary canal and passed down to the knee. C-arm demonstrated position of the wire at the knee to be acceptable. Length was measured and it was decided to proceed with a 380 mm nail. Sequential reaming was performed starting with a 10 and reaming to a 13. A long gamma nail with a 125 degree angle measuring 380 mm was selected and assembled on the back table. Nail was inserted through the trochanteric entry point over the guide wire and seated by hand. Position of the nail was confirmed using C- arm; fracture demonstrated slight varus and some rotational change on the lateral. Ball tip guide wire was removed. A guide wire was placed for the cephalomedullary screw. Version of the wire was obtained on the lateral. Measurement was taken and the reamer was set to 110 mm. Reamer was used over the guidewire and then the cephalomedullary screw was placed. Position of the cephalomedullary screw was confirmed on C-arm. Set s crew was then tightened onto the cephalomedullary screw. Attention was then turned to the distal screw and using perfect [place] freehand technique, a 52.5 mm screw was placed through the distal slot. Final C arm images were obtained, demonstrated appropriate placement of hardware, maintained, accepted reduction of the fracture, and were transferred to PACS. Incision sites were irrigated with normal saline. Closed subcutaneously with 2- 0 vicryl and skin was closed with carson. Dressed with xeroform, 4x4s, ABD, and tape. Patient tolerated the procedure well and was stable to the recovery room. Anesthesia Type General Estimated Blood Loss ~200 mL Specimen(s) collected/removed None ANGELICA CARNEY MD Feb 23, 2023 13:55
[2023-02-23] MEDS ORDERED: HYDROmorphone 2 MG/ML VIAL (DILAUDID) IV ONE (14:30)
[2023-02-23] MEDS ORDERED: morphine INJ 10 MG/ML 1ML (SYR OR VIAL) IVP ONE (14:30)
[2023-02-23] MEDS ORDERED: ONDANSETRON 4 MG/2 ML (SDV) Z0FRAN IVP PRN (14:30)
[2023-02-23] MEDS ORDERED: morphine INJ 10 MG/ML 1ML (SYR OR VIAL) ONE (14:31)
--- NOTE | 2023-02-23 15:58 | Diagnostic Imaging Report ---
INDICATION: Left hip fracture. EXAMINATION: Intraoperative views were obtained with the portable intensifier in surgery during ORIF of intratrochanteric fracture of left proximal femur. 128.7 seconds of fluoroscopy time was used. 18.69 mGy of exposure. FINDINGS: Comminuted intra-articular fracture of the left proximal femur is in good alignment with hardware in place in the femoral neck and shaft. IMPRESSION: Intraoperative views obtained during ORIF of left proximal femoral fracture, as above. Dictated by: Dictated on workstation # [id number]
[2023-02-23] MEDS: morphine INJ 4 MG/ML 1 ML (VIAL/SYRINGE) IV PRN (21:16)
[2023-02-24] VITALS (7 sets, daily range): BP systolic 105–174; BP diastolic 56–82
[2023-02-24 05:55] LABS: BASOPHILS % (AUTO) 0 % (0-10); EOSINOPHILS % (AUTO) 0 % (0-10); HEMATOCRIT 26 % (35-52); HEMOGLOBIN 8.6 g/dL (11.5-16.0); LYMPHOCYTES # (AUTO) 1.1 10^3/uL (1.0-4.0); LYMPHOCYTES % (AUTO) 8 % (12-44); MEAN CORPUSCULAR HEMOGLOBIN 33 pg (25-34); MEAN CORPUSCULAR HGB CONC 33 g/dL (32-36); MEAN CORPUSCULAR VOLUME 98 fL (80-99); MONOCYTES # (AUTO) 0.7 10^3/uL (0.0-1.0); MONOCYTES % (AUTO) 5 % (0-12); NEUTROPHILS # (AUTO) 12.4 10^3/uL (1.8-7.8); NEUTROPHILS % (AUTO) 87 % (42-75); PLATELET COUNT 141 10^3/uL (130-400); WHITE BLOOD COUNT 14.2 10^3/uL (4.3-11.0)
[2023-02-24 06:16] LABS: ALBUMIN 2.7 GM/DL (3.2-4.5); BILIRUBIN,TOTAL 0.5 MG/DL (0.1-1.0); CALCIUM 8.1 MG/DL (8.5-10.1); CREATININE SERUM 1.01 MG/DL (0.60-1.30); POTASSIUM 4.4 MMOL/L (3.6-5.0); TOTAL PROTEIN 4.4 GM/DL (6.4-8.2)
[2023-02-24] MEDS: NS IV 1000 ML 1,000 ML IV SCH ×2 (06:31→17:24)
[2023-02-24 07:07] LABS: LYMPHOCYTES % (MANUAL) 7 %; NEUTROPHILS % (MANUAL) 89 %
[2023-02-24 07:08] LABS: ELLIPT/OVALOCYTES SLIGHT; MONOCYTES % (MANUAL) 4 %
[2023-02-24] MEDS: DOCUSATE SODIUM 100 MG (COLACE) CAP PO SCH ×2 (08:12→20:58)
[2023-02-24] MEDS: SENNOSIDES 8.6 MG (SENOKOT) TAB PO SCH ×2 (08:12→20:58)
[2023-02-24] MEDS: morphine INJ 4 MG/ML 1 ML (VIAL/SYRINGE) IV PRN ×2 (08:18→10:10)
--- NOTE | 2023-02-24 10:00 | Anesthesia-General Post-Op ---
General Patient Condition Mental Status/LOC: Same as Preop Cardiovascular: Satisfactory Nausea/Vomiting: Absent Respiratory: Satisfactory Pain: Controlled Complications: Absent Post Op Complications Complications None Follow Up Care/Instructions Patient Instructions None needed. Anesthesia/Patient Condition Patient Condition Patient is doing well, no complaints, stable vital signs, no apparent adverse anesthesia problems. No complications reported per nursing. CLAU DAVIS CRNA Feb 24, 2023 10:00
--- NOTE | 2023-02-24 10:02 | Physical Therapy Evaluation ---
PT Evaluation-General Medical Diagnosis Admission Date Feb 22, 2023 at 19:36 Medical Diagnosis: left hip fracture Onset Date: Feb 22, 2023 Therapy Diagnosis Therapy Diagnosis: impaired mobility/generalized weakness Height/Weight Height (Feet): 5 Height (Inches): 7.50 Weight (Pounds): 158 Weight (Ounces): 7.0 Precautions Precautions/Isolations: Standard Precautions Weight Bear Status Right Lower Extremity: Right Full Weight Bearing Left Lower Extremity: Left Touch Toe Bearing Referral Physician: Delonte Reason for Referral: Evaluation/Treatment Medical History Pertinent Medical History: Arthritis, HTN, Lymphoma, Rheumatoid Arthritis Current History EMS secondary to fall outside Reviewed History: Yes Social History Home: Apartment Current Living Status: Alone Entry Into Home: Level Entry Prior Prior Level of Function SCALE: Activities may be completed with or without assistive devices. 9-Wyccgoblpe-sfrvipf completes the activity by him/herself with no assistance from a helper. 5-Set-up or Clean-up Assistance-helper sets up or cleans up; patient completes activity. Drake assists only prior to or following the activity. 4-Supervision or Touching Assistance-helper provides verbal cues and/or touching/steadying and/or contact guard assistance as patient completes activity. Assistance may be provided throughout the activity or intermittently. 3-Partial/Moderate Assistance-helper does LESS THAN HALF the effort. Drake lifts, holds or supports trunk or limbs, but provides less than half the effort. 2-Substantial/Maximal Assistance-helper does MORE THAN HALF the effort. Drake lifts or holds trunk or limbs and provides more than half the effort. 3-Tgydrgnjr-wwmfyz does ALL the effort. Patient does none of the effort to complete the activity. Or, the assistance of 2 or more helpers is required for the patient to complete the activity. If activity was not attempted, code reason: 7-Patient Refused. 9-Not Applicable-not attempted and the patient did not perform the activity before the current illness, exacerbation or injury. 10-Not Attempted due to Environmental Limitations-(lack of equipment, weather restraints, etc.). 88-Not Attempted due to Medical Conditions or Safety Concerns. Bed Mobility: 6 Transfers (B,C,W/C): 6 Gait: 6 Stairs: 6 Indoor Mobility (Ambulation): Independent Stairs: Independent Prior Devices Use: None PT Evaluation-Current Subjective Patient agrees to therapy. She report she just had morphine. Pain Numeric Pain Scale: 7 Location: Left Location Body Site: Hip Pain Description: Acute Objective Patient Orientation: Normal For Age Attachments: Olivera Catheter, IV ROM/Strength ROM Lower Extremities left LE limited due to pain/right LE WFL Strength Lower Extremities right LE 3/5 grossly/left LE 3-/5 grossly Integumentary/Posture Integumentary refer to nursing notes Bladder Incontinence: Olivera Cath Posture WFL Neuromuscular (Tone, Coordination, Reflexes) grossly intact Sensory Vision: Functional Hearing: Functional Transfers Lying to Sitting/Side of Bed(Q: 2 Sit to Stand (QC): 1 Chair/Ptm-xt-Kuknl Xfer(QC): 1 patient attempted to perform sit to stand to FWW, however, unable to attain requiring dependent assist of PT with SPT bed to recliner. Patient not able to sit erect EOB with lean to right due to left hip pain. Gait Does the Patient Walk?: No and Walking Goal IS indicated Walk 10 feet (QC): 88 Walk 50 ft with 2 Turns(QC): 88 Walk 150 ft (QC): 88 Gait Assistive Device: FWW Balance Sitting Static: Poor Sitting Dynamic: Poor Standing Static: Poor Assessment/Needs Patient will benefit from skilled PT to address functional strength and mobility to improve current LOF to safely return to home at maximum LOF. Rehab Potential: Fair PT Short Term Goals Short Term Goals Time Frame: Mar 11, 2023 Roll Left & Right: 3 Sit to lyin Lying to sitting on side of be: 3 Sit to stand: 3 Chair/joq-cs-zsual transfer: 3 Walk 10 feet: 3 PT Nursing Home Goals Director Of Parks And Recreation Goals PT Nursing Home Goals Time Frame: Mar 25, 2023 Roll Left & Right (QC): 6 Sit to Lying (QC): 6 Lying-Sitting on Side/Bed(QC): 6 Sit to Stand (QC): 6 Chair/Sls-xy-Ywmif Xfer(QC): 6 Toilet Transfer (QC): 6 Walk 10 feet (QC): 4 Walk 50ft with 2 Turns (QC): 4 Walk 150 ft (QC): 4 PT Plan Problem List Problem List: Activity Tolerance, Functional Strength, Safety, Balance, Gait, Transfer, Bed Mobility, ROM Treatment/Plan Treatment Plan: Continue Plan of Care Treatment Plan: Bed Mobility, Education, Functional Activity Theo, Functional Strength, Gait, Safety, Therapeutic Exercise, Transfers Treatment Duration: Mar 25, 2023 Frequency: 11 times per week Estimated Hrs Per Day: .5 hour per day Patient and/or Family Agrees t: Yes Time Time In: 910 Time Out: 930 DATE: Feb 24, 2023 Total Billed Treatment Time: 20 Total Billed Treatment 1 visit EVModC 20 min PATI RITTER PT Feb 24, 2023 10:02
--- NOTE | 2023-02-24 10:36 | Progress Note - Cardiology ---
Cardiology SOAP Progress Note Subjective: Sitting up in recliner at the bedside States she feels well No c/o CP, SOB, palpitations, syncope or near syncope Objective: I&O/Vital Signs 02/26/23 02/27/23 02/27/23 02/27/23 23:50 01:00 04:18 07:00 Temp 36.7 36.3 Pulse 65 56 67 75 Resp 12 12 B/P (MAP) 122/63 (82) 148/67 (94) Pulse Ox 96 96 O2 Delivery Room Air Room Air 02/27/23 08:04 Temp 37.2 Pulse 60 Resp 18 B/P (MAP) 165/74 (104) O2 Delivery Room Air 02/27/23 00:00 Intake Total 1640 ml Output Total 1250 ml Balance 390 ml Weight (Pounds): 158 Weight (Ounces): 7.0 Weight (Calculated Kilograms): 71.808616 Constitutional: AAO x 3, well-developed, well-nourished Respiratory: No accessory muscle use; chest expansion is symmetric, chest is bilaterally symmetric, other (good, bilateral air entry) Cardiovascular: regular rate-rhythm, S1 and S2, systolic murmur (soft PREET at ca rd base) Gastrointestional: No tender; soft; No guarding, No rebound; audible bowel sounds Extremities: No clubbing, No cyanosis, No significant edema Neurologic/Psychiatric: oriented x 3, other (moves all limbs equally) Skin: normal color, warm/dry; No rash, No ulcerations; other (left hip surgical dressing in place; D&I) Results/Procedures: Labs Laboratory Tests 02/27/23 05:44: White Blood Count 9.0, Red Blood Count 2.36L, Hemoglobin 7.8L, Hematocrit 24L, Mean Corpuscular Volume 100H, Mean Corpuscular Hemoglobin 33, Mean Corpuscular Hemoglobin Concent 33, Red Cell Distribution Width 15.3H, Platelet Count 140, Mean Platelet Volume 9.9, Immature Granulocyte % (Auto) 2, Neutrophils (%) (Auto) 85H, Lymphocytes (%) (Auto) 10L, Monocytes (%) (Auto) 3, Eosinophils (%) (Auto) 0, Basophils (%) (Auto) 0, Neutrophils # (Auto) 7.6, Lymphocytes # (Auto) 0.9L, Monocytes # (Auto) 0.3, Eosinophils # (Auto) 0.0, Basophils # (Auto) 0.0, Immature Granulocyte # (Auto) 0.2H, Percent Immature Platelet Fraction 3.7, Sodium Level 141, Potassium Level 4.1, Chloride Level 109H, Carbon Dioxide Level 25, Anion Gap 7, Blood Urea Nitrogen 21H, Creatinine 0.87, Estimat Glomerular Filtration Rate 66, BUN/Creatinine Ratio 24, Glucose Level 126H, Calcium Level 8.0L, Corrected Calcium 9.2, Total Bilirubin 0.8, Aspartate Amino Transf (AST/SGOT) 22, Alanine Aminotransferase (ALT/SGPT) 18, Alkaline Phosphatase 69, Total Protein 4.3L, Albumin 2.5L A/P: Assessment: S/P non-syncopal fall resulting in left hip fracture - Dr. 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
--- NOTE | 2023-02-24 11:42 | Occupational Therapy Eval ---
OT Evaluation-General/PLF Medical Diagnosis Admission Date Feb 22, 2023 at 19:36 Medical Diagnosis: left hip fracture Onset Date: Feb 22, 2023 Therapy Diagnosis Therapy Diagnosis: weakness, pain Height/Weight Height (Feet): 5 Height (Inches): 7.50 Weight (Pounds): 158 Weight (Ounces): 7.0 Precautions Precautions/Isolations: Standard Precautions Weight Bear Status Weight Bearing Restriction: Touch Toe Bearing Patient does not bear own body weigh ton Left side when sitting, pushed to right Referral Physician: Delonte Referral Reason: Activity Tolerance, Self Care, Evaluation/Treatment, Strengthening/ROM Medical History Pertinent Medical History: Arthritis, HTN, Lymphoma, Rheumatoid Arthritis Additional Medical History This is an 83-year-old female with a history of inflammatory arthritis recently completed steroid taper due to an arthritis flare from methotrexate withdrawal who was picking up her dog from the event and turned too quickly and fell on her left hip. She suffered a fracture which will be repaired by Dr. Martel Reviewed History: Yes Social History Home: Apartment Current Living Status: Alone Entry Into Home: Level Entry ADL-Prior Level of Function SCALE: Activities may be completed with or without assistive devices. 3-Wihzfiiqgi-liuyeij completes the activity by him/herself with no assistance from a helper. 5-Set-up or Clean-up Assistance-helper sets up or cleans up; patient completes activity. Wilder assists only prior to or following the activity. 4-Supervision or Touching Assistance-helper provides verbal cues and/or touching/steadying and/or contact guard assistance as patient completes activity. Assistance may be provided throughout the activity or intermittently. 3-Partial/Moderate Assistance-helper does LESS THAN HALF the effort. Wilder lifts, holds or supports trunk or limbs, but provides less than half the effort. 2-Substantial/Maximal Assistance-helper does MORE THAN HALF the effort. Wilder lifts or holds trunk or limbs and provides more than half the effort. 9-Ulyuwoggg-octgsz does ALL the effort. Patient does none of the effort to complete the activity. Or, the assistance of 2 or more helpers is required for the patient to complete the activity. If activity was not attempted, code reason: 7-Patient Refused. 9-Not Applicable-not attempted and the patient did not perform the activity before the current illness, exacerbation or injury. 10-Not Attempted due to Environmental Limitations-(lack of equipment, weather restraints, etc.). 88-Not Attempted due to Medical Conditions or Safety Concerns. Self Care: Independent Functional Cognition: Independent Drive Self: Yes OT Current Status Subjective Agrees to participate w/ therapy Mental Status/Objective Patient Orientation: Person, Place, Time, Situation Attachments: Olivera Catheter, IV Current Glasses/Contacts: Yes Hand Dominance: Right Upper Extremity ROM BUE ROM WFLS, large BMI reduces forward trunk flexion Upper Extremity Coordination WFLs Upper Extremity Strength -4/5 MMT however does not sustain strength w/ function ADL-Treatment ADL-Current LB sock osmani education provided, patient has difficult processing use. OT provided verbal and demonstration education Eating (QC): 6 Oral Hygiene (QC): 5 Shower/Bathe Self (QC): 7 Upper Body Dressing (QC): 4 Lower Body Dressing (QC): 1 On/Off Footwear (QC): 2 Toileting Hygiene (QC): 1 Education OT Patient Education: Correct positioning, Modified ADL techniques, Progress toward Goal/Update tx plan, Purpose of tx/functional activities, Reviewed precautions, Rehab process, Safety issues, Transfer techniques, Use of adapted equipment Teaching Recipient: Patient Teaching Methods: Demonstration, Discussion Response to Teaching: Verbalize Understanding, Unable to Return Demonstration, Reinforcement Needed OT Information Security Goals Senior Care Goals Eating (QC): 6 Oral Hygiene (QC): 5 Toileting Hygiene (QC): 5 Shower/Bathe Self (QC): 5 Upper Body Dressing (QC): 5 Lower Body Dressing (QC): 5 On/Off Footwear (QC): 5 1=Demonstrate adherence to instructed precautions during ADL tasks. 2=Patient will verbalize/demonstrate understanding of assistive devices/modifications for ADL. 3=Patient will improve strength/tolerance for activity to enable patient to perform ADL's. OT Education/Plan Problem List/Assessment Assessment: Decreased Activ Tolerance, Decreased UE Strength, Dependent Transfers, Impaired Bed Mobility, Impaired Coordination, Impaired Funct Balance, Impaired Self-Care Skills Discharge Recommendations Plan/Recommendations: Continue POC Treatment Plan/Plan of Care Treatment,Training & Education: Yes Patient would benefit from OT for education, treatment and training to promote independence in ADL's, mobility, safety and/or upper extremity function for ADL's. Plan of Care: ADL Retraining, Functional Mobility, Group Exercise/Act as Ind, UE Funct Exercise/Act, UE Neuromus Re-Ed/Coord Treatment Duration: Mar 03, 2023 Frequency: 3 times per week (3-5 times per week) Estimated Hrs Per Day: .25 hour per day Agreement: Yes Rehab Potential: Fair Time Start Time: 09:17 Stop Time: 09:31 DATE: Feb 24, 2023 Total Time Billed (hr/min): 14 Billed Treatment Time EVM 14 min LISA GREEN OT Feb 24, 2023 11:42
[2023-02-24] MEDS ORDERED: MILK OF MAGNESIA 400 MG/5 ML 30 ML UDC PO PRN (12:00)
[2023-02-24] MEDS ORDERED: CYANOCOBALAMIN INJ 1000 MCG/ML IM NR (12:00)
[2023-02-24] MEDS ORDERED: ONDANSETRON 4 MG (ZOFRAN) ORAL DISSOLVE TAB PO PRN (12:00)
[2023-02-24] MEDS ORDERED: polyethylene glycoL POWDER 17 GM (MIRALAX) PACK PO ONE (12:00)
[2023-02-24] MEDS ORDERED: MILK OF MAGNESIA 400 MG/5 ML 30 ML UDC PO NR (12:00)
[2023-02-24] MEDS ORDERED: polyethylene glycoL POWDER 17 GM (MIRALAX) PACK PO PRN (12:00)
--- NOTE | 2023-02-24 12:49 | Progress Note - Ortho ---
Progress Note Subjective Date of Exam 02/24/23 Chief Complaint POD #1 IM Nailing of L IT Femur Fx with Subtroch Extension HPI/Events since last exam sitting up in chair, feels weak, pain controlled Review of Systems - Allergies: Coded Allergies: Penicillins (Verified Allergy, Mild, RASH, Pt has received Keflex w/o issue, 02/17/21) Home Meds Reported Medications Polyethylene Glycol 3350 (Miralax) 17 Gram Powd.pack, 17 GM PO DAILY PRN for CONSTIPATION-2ND LINE, EACH 02/23/23 Ondansetron (Ondansetron Odt) 4 Mg Tab.rapdis, 4 MG PO Q6H PRN for NAUSEA/VOMITING-1ST LINE, TAB 02/23/23 Potassium Chloride (Potassium Chloride) 10 Meq Capsule.er, 10 MEQ PO Q48H, CAP 02/23/23 Omeprazole (Omeprazole) 40 Mg Capsule.dr, 40 MG PO DAILY, TAB 02/23/23 Sarilumab (Kevzara) 200 Mg/1.14 Ml Pen.injctr, 200 MG IJ EVERY 2 WEEKS, EACH 02/23/23 Oxycodone HCl (Oxycodone HCl) 15 Mg Tablet, 15 MG PO Q6H, TAB 02/23/23 Hydralazine HCl (Hydralazine HCl) 25 Mg Tablet, 25 MG PO TID, TAB 02/23/23 Gabapentin (Gabapentin) 400 Mg Capsule, 800 MG PO HS, CAP TAKES 2 (400MG) TABS 07/08/20 Folic Acid (Folic Acid) 0.4 Mg Tablet, 0.4 MG PO DAILY, TAB 07/08/20 Atenolol (Atenolol) 50 Mg Tablet, 75 MG PO DAILY, TAB TAKES 1 & (50MG) TABS 12/23/19 Levothyroxine Sodium (Levothyroxine Sodium) 100 Mcg Tablet, 50 MCG PO HENNING,SA, TAB TAKES OF A 100MCG TAB 12/23/19 Levothyroxine Sodium (Levothyroxine Sodium) 100 Mcg Tablet, 100 MCG PO , ,,,FR, TAB 12/23/19 Discontinued Reported Medications Sucralfate (Sucralfate) 1 Gram Tablet, 1 GM PO, TAB 03/23/22 Hydralazine HCl (Hydralazine HCl) 50 Mg Tablet, 50 MG PO, TAB 03/23/22 Potassium Chloride (Potassium Chloride) 10 Meq Tab.er.prt, 10 MEQ PO Q48H 02/16/21 Omeprazole (Omeprazole) 20 Mg Tablet.dr, 20 MG PO DAILY, TAB 12/23/19 Methotrexate Sodium (Methotrexate) 2.5 Mg Tablet, 10 MG PO WEEK, TAB 02/07/19 Objective Exam L Leg: Dressing C/D/I, +DF of ankle, no s/s of DVT Vital Signs Vital Signs Date Time Temp Pulse Resp B/P (MAP) Pulse Ox O2 Delivery O2 Flow Rate FiO2 02/24/23 11:38 36.6 76 16 105/56 (72) 96 Room Air 02/24/23 10:48 97 Room Air 02/24/23 08:57 36.8 80 18 174/82 (112) 97 Room Air 02/24/23 08:42 Room Air 02/24/23 07:00 67 02/24/23 04:38 36.4 77 16 132/78 (96) 98 Room Air 02/24/23 01:00 65 02/23/23 23:29 36.5 73 16 124/67 (86) 96 Room Air 02/23/23 20:00 Room Air 02/23/23 19:31 36.3 93 18 138/85 (102) 95 Room Air 02/23/23 19:00 87 02/23/23 15:38 36.5 79 16 122/81 (95) 93 Room Air 02/23/23 15:10 Room Air 02/23/23 14:55 36.1 16 148/95 (112) 96 Room Air 02/23/23 14:55 Room Air 02/23/23 14:48 14 145/93 (110) 98 Room Air 02/23/23 14:40 OxyMask 10.00 02/23/23 14:38 14 148/81 (103) 100 OxyMask 10.00 02/23/23 14:28 16 143/78 (99) 100 OxyMask 10.00 02/23/23 14:25 OxyMask 10.00 02/23/23 14:18 12 151/90 (110) 100 OxyMask 10.00 02/23/23 14:08 OxyMask 10.00 02/23/23 14:08 36.5 16 138/90 (106) 100 OxyMask 10.00 I & O 02/24/23 07:00 Intake Total 1550 ml Output Total 2205 ml Balance -655 ml Lab Results Laboratory Tests 02/24/23 05:40: White Blood Count 14.2H, Red Blood Count 2.64L, Hemoglobin 8.6#L, Hematocrit 26L , Mean Corpuscular Volume 98, Mean Corpuscular Hemoglobin 33, Mean Corpuscular Hemoglobin Concent 33, Red Cell Distribution Width 13.9, Platelet Count 141, Mean Platelet Volume 10.0, Immature Granulocyte % (Auto) 1, Neutrophils (%) (A uto) 87H, Lymphocytes (%) (Auto) 8L, Monocytes (%) (Auto) 5, Eosinophils (%) (Auto) 0, Basophils (%) (Auto) 0, Neutrophils # (Auto) 12.4H, Lymphocytes # (Auto) 1.1, Monocytes # (Auto) 0.7, Eosinophils # (Auto) 0.0, Basophils # (Auto) 0.0, Immature Granulocyte # (Auto) 0.1, Neutrophils % (Manual) 89, Lymphocytes % (Manual) 7, Monocytes % (Manual) 4, Elliptocytes SLIGHT, Sodium Level 137, Potassium Level 4.4, Chloride Level 104, Carbon Dioxide Level 25, Anion Gap 8, Blood Urea Nitrogen 20H, Creatinine 1.01, Estimat Glomerular Filtration Rate 55, BUN/Creatinine Ratio 20, Glucose Level 160H, Calcium Level 8.1L, Corrected Calcium 9.1, Total Bilirubin 0.5, Aspartate Amino Transf (AST/SGOT) 24, Alanine Aminotransferase (ALT/SGPT) 18, Alkaline Phosphatase 75, Total Protein 4.4L, Albumin 2.7L 02/24/23 12:00: Assessment and Plan Assessment L IT Femur Fx with Subtroch Extension s/p IM nailing Problem List L IT Femur Fx with Subtroch Extension s/p IM nailing Plan PT/OT TTWB DVT prophyalxis Recommend extended care such as [facility] L IT Femur Fx with Subtroch Extension s/p IM nailing Level of the visit: Level 3 (postop global) Clinical Quality Measures DVT/VTE Risk/Contraindication: Contraindications-Pharm: Other *list below* Other: surgery ANGELICA CARNEY MD Feb 24, 2023 12:49
--- NOTE | 2023-02-24 13:25 | Progress Note ---
MELY PASTOR 02/24/23 1325: Subjective Date Seen by a Provider: Feb 24, 2023 Time Seen by a Provider: 10:30 Subjective/Events-last exam Patient seen and examined at bedside this morning. Complaining of 8/10 pain at surgery site and some weakness. She has been able to transfer from bed to chair with assistance. She denies and fever/chills. Surgical bandages are clean with no evidence of blood or purulence. She is urinating without issue but has not had BM. Review of Systems General: No Chills, No Night Sweats; Fatigue HEENT: No Head Aches, No Visual Changes Pulmonary: No Dyspnea, No Cough Cardiovascular: No: Chest Pain, Palpitations, Lt Headedness Gastrointestinal: Constipation; No: Nausea, Vomiting, Abdominal Pain Genitourinary: No Dysuria, No Hematuria Musculoskeletal: leg pain Neurological: Weakness; No: Change in speech, Confusion Objective Exam Last Set of Vital Signs Vital Signs Date Time Temp Pulse Resp B/P (MAP) Pulse Ox O2 Delivery O2 Flow Rate FiO2 02/24/23 12:40 79 02/24/23 11:38 36.6 16 105/56 (72) 96 Room Air 02/23/23 14:40 10.00 02/22/23 20:04 21 Capillary Refill : Less Than 3 SecondsLess Than 3 Seconds I&O Intake and Output 02/24/23 00:00 Intake Total 1436 ml Output Total 1730 ml Balance -294 ml Intake Oral 386 ml IV Total 1050 ml Output Urine Total 1730 ml General: Alert, Oriented X3 HEENT: Atraumatic, PERRLA Neck: Supple Lungs: Clear to Auscultation Heart: Regular Rate, Normal S1, Normal S2 Abdomen: Soft, No Tenderness Extremities: No Cyanosis, No Edema Psych/Mental Status: Mental Status NL, Mood NL Results Lab Laboratory Tests 02/24/23 05:40: White Blood Count 14.2H, Red Blood Count 2.64L, Hemoglobin 8.6#L, Hematocrit 26L , Mean Corpuscular Volume 98, Mean Corpuscular Hemoglobin 33, Mean Corpuscular Hemoglobin Concent 33, Red Cell Distribution Width 13.9, Platelet Count 141, Mean Platelet Volume 10.0, Immature Granulocyte % (Auto) 1, Neutrophils (%) (Auto) 87H, Lymphocytes (%) (Auto) 8L, Monocytes (%) (Auto) 5, Eosinophils (%) (Auto) 0, Basophils (%) (Auto) 0, Neutrophils # (Auto) 12.4H, Lymphocytes # (Auto) 1.1, Monocytes # (Auto) 0.7, Eosinophils # (Auto) 0.0, Basophils # (Auto) 0.0, Immature Granulocyte # (Auto) 0.1, Neutrophils % (Manual) 89, Lymphocytes % (Manual) 7, Monocytes % (Manual) 4, Elliptocytes SLIGHT, Sodium Level 137, Potassium Level 4.4, Chloride Level 104, Carbon Dioxide Level 25, Anion Gap 8, Blood Urea Nitrogen 20H, Creatinine 1.01, Estimat Glomerular Filtration Rate 55, BUN/Creatinine Ratio 20, Glucose Level 160H, Calcium Level 8.1L, Corrected Calcium 9.1, Total Bilirubin 0.5, Aspartate Amino Transf (AST/SGOT) 24, Alanine Aminotransferase (ALT/SGPT) 18, Alkaline Phosphatase 75, Total Protein 4.4L, Albumin 2.7L 02/24/23 12:00: Assessment/Plan Assessment/Plan Assess & Plan/Chief Complaint Comminuted L intertrochanteric femur fracture Ortho consulted, POD1 Continue pain control, morphine 4mg q2hr prn, oxycodone will switch to home dose of 15mg q6hr PT/OT post op supportive care and dressing changes Will likely need inpatient rehab or some higher level of care than home on discharge HTN likely secondary to pain takes atenolol and hydralazine at home Cardiology consulted to resume home dose of atenolol and hydralazine continue to monitor Anemia down to 8.6 from 11.2, will continue to monitor h/h likely secondary to blood loss combined with dilution with IV fluids MCV normal at 98 Iron and B12 level pending Iron and B12 supplementation ordered Hx of RA with recent steroid taper takes methotrexate at home Hypothyroidism 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 DVT- will need lovenox post op, persistent drop in HgB Diet- regular Code- full Clinical Quality Measures DVT/VTE Risk/Contraindication: Contraindications-Pharm: Other *list below* Other: surgery LIANE TAVARES DO 02/24/232226: Assessment/Plan Assessment/Plan Assess & Plan/Chief Complaint Check for adrenal insufficiency but add hydrocortisone in meantime with iron infusion and B12 supp Supervisory-Addendum Brief Verification & Attestation Participated in pt care: history, MDM, physical Personally performed: exam, history, MDM, supervision of care Care discussed with: Medical Student Procedures: n/a Results interpretation: Verified all documentation Verification and Attestation of Medical Student E/M Service A medical student performed and documented this service in my presence. I reviewed and verified all information documented by the medical student and made modifications to such information, when appropriate. I personally performed the physical exam and medical decision making. Liane Tavares, Feb 24, 2023,22:22 MELY PASTOR Feb 24, 2023 13:25 LIANE TAVARES DO Feb 24, 2023 22:27
[2023-02-24] MEDS: IRON SUCROSE 200 MG/10 ML (VENOFER) VIAL IV SCH (13:29)
[2023-02-24] MEDS: HYDROCORTISONE 100 MG/2 ML (Solu-CORTEF) VIAL IV SCH ×2 (13:35→20:58)
[2023-02-24] MEDS: polyethylene glycoL POWDER 17 GM (MIRALAX) PACK PO SCH ×2 (13:39→20:57)
[2023-02-24] MEDS: hydrALAZINE (APRESOLINE) 25 MG TAB PO SCH ×2 (13:39→20:58)
--- NOTE | 2023-02-24 13:49 | Physical Therapy Daily Note ---
PT Daily Note-Current Subjective Patient agrees to PT Pain Numeric Pain Scale: 7 Location: Left Location Body Site: Hip Pain Description: Acute, Heavy Section J - Health Conditions 1. Rarely or not at all 2. Occasionally 3. Frequently 4. Almost constantly 8. Unable to answer Pain Effect on Sleep: 3 Pain Interference with Therapy: 3 Pain Interference w/Day-to-Day: 3 Mental Status Patient Orientation: Normal For Age Attachments: Olivera Catheter Transfers SCALE: Activities may be completed with or without assistive devices. 3-Iomggsomfi-jglcfcv completes the activity by him/herself with no assistance from a helper. 5-Set-up or Clean-up Assistance-helper sets up or cleans up; patient completes activity. [place] assists only prior to or following the activity. 4-Supervision or Touching Assistance-helper provides verbal cues and/or touching/steadying and/or contact guard assistance as patient completes activity. Assistance may be provided throughout the activity or intermittently. 3-Partial/Moderate Assistance-helper does LESS THAN HALF the effort. [place] lifts, holds or supports trunk or limbs, but provides less than half the effort. 2-Substantial/Maximal Assistance-helper does MORE THAN HALF the effort. [place] lifts or holds trunk or limbs and provides more than half the effort. 9-Rasclqsrz-vwlgiy does ALL the effort. Patient does none of the effort to complete the activity. Or, the assistance of 2 or more helpers is required for the patient to complete the activity. If activity was not attempted, code reason: 7-Patient Refused. 9-Not Applicable-not attempted and the patient did not perform the activity before the current illness, exacerbation or injury. 10-Not Attempted due to Environmental Limitations-(lack of equipment, weather restraints, etc.). 88-Not Attempted due to Medical Conditions or Safety Concerns. Weight Bearing Right Lower Extremity: Right Full Weight Bearing Left Lower Extremity: Left Touch Toe Bearing Exercises Seated Therapy Exercises: Ankle pumps, Long arc quads, Hip flexion Seated Reps: 15 (x 2 sets AAROM left LE) Assessment Patient attempted to perform sit to stand to FWW, however, ceased attempt due to weakness. Patient declined to return to bed and remains in recliner. Patient tolerated minimal activity on this date. PT to increase activity as tolerated by patient. PT Short Term Goals Short Term Goals Time Frame: Mar 11, 2023 Roll Left & Right: 3 Sit to lyin Lying to sitting on side of be: 3 Sit to stand: 3 Chair/qup-yb-tqsuv transfer: 3 Walk 10 feet: 3 PT Skilled Nursing Goals Skilled Nursing Goals PT Hospitality Director Goals Time Frame: Mar 25, 2023 Roll Left & Right (QC): 6 Sit to Lying (QC): 6 Lying-Sitting on Side/Bed(QC): 6 Sit to Stand (QC): 6 Chair/Fkg-wm-Bzlna Xfer(QC): 6 Toilet Transfer (QC): 6 Walk 10 feet (QC): 4 Walk 50ft with 2 Turns (QC): 4 Walk 150 ft (QC): 4 PT Plan Treatment/Plan Treatment Plan: Continue Plan of Care Treatment Plan: Bed Mobility, Education, Functional Activity Theo, Functional Strength, Gait, Safety, Therapeutic Exercise, Transfers Treatment Duration: Mar 25, 2023 Frequency: 11 times per week Estimated Hrs Per Day: .5 hour per day Patient and/or Family Agrees t: Yes Time Time In: 1330 Time Out: 1341 DATE: Feb 24, 2023 Total Billed Treatment Time: 11 Total Billed Treatment 1 visit EX 11 min PATI RITTER PT Feb 24, 2023 13:49
--- NOTE | 2023-02-24 17:53 | Progress Note - Cardiology ---
Cardiology SOAP Progress Note Subjective: No cp or palp or syncope No shortness of breath No focal weakness No n/v/d Objective: I&O/Vital Signs 02/24/23 02/24/23 02/24/23 02/24/23 07:00 08:42 08:57 10:48 Temp 36.8 Pulse 67 80 Resp 18 B/P (MAP) 174/82 (112) Pulse Ox 97 97 O2 Delivery Room Air Room Air Room Air 02/24/23 02/24/23 02/24/23 02/24/23 11:38 12:40 13:00 15:44 Temp 36.6 36.5 Pulse 76 79 74 Resp 16 18 B/P (MAP) 105/56 (72) 112/67 (82) 128/59 (82) Pulse Ox 96 97 O2 Delivery Room Air Room Air 02/24/23 00:00 Intake Total 1200 ml Output Total 1405 ml Balance -205 ml Weight (Pounds): 158 Weight (Ounces): 7.0 Weight (Calculated Kilograms): 71.286656 Constitutional: AAO x 3, well-developed, well-nourished Respiratory: No accessory muscle use; chest expansion is symmetric, chest is bilaterally symmetric, other (good, bilateral air entry) Cardiovascular: regular rate-rhythm, S1 and S2, systolic murmur (soft PREET at card base) Gastrointestional: No tender; soft; No guarding, No rebound; audible bowel sounds Extremities: No clubbing, No cyanosis, No significant edema Neurologic/Psychiatric: oriented x 3, other (moves all limbs equally) Skin: normal color, warm/dry; No rash, No ulcerations; other (left hip surgical dressing in place; D&I) Results/Procedures: Labs Laboratory Tests 02/24/23 05:40: White Blood Count 14.2H, Red Blood Count 2.64L, Hemoglobin 8.6#L, Hematocrit 26L , Mean Corpuscular Volume 98, Mean Corpuscular Hemoglobin 33, Mean Corpuscular Hemoglobin Concent 33, Red Cell Distribution Width 13.9, Platelet Count 141, Mean Platelet Volume 10.0, Immature Granulocyte % (Auto) 1, Neutrophils (%) (Auto) 87H, Lymphocytes (%) (Auto) 8L, Monocytes (%) (Auto) 5, Eosinophils (%) (Auto) 0, Basophils (%) (Auto) 0, Neutrophils # (Auto) 12.4H, Lymphocytes # (Auto) 1.1, Monocytes # (Auto) 0.7, Eosinophils # (Auto) 0.0, Basophils # (Auto) 0.0, Immature Granulocyte # (Auto) 0.1, Neutrophils % (Manual) 89, Lymphocytes % (Manual) 7, Monocytes % (Manual) 4, Elliptocytes SLIGHT, Sodium Level 137, Potassium Level 4.4, Chloride Level 104, Carbon Dioxide Level 25, Anion Gap 8, Blood Urea Nitrogen 20H, Creatinine 1.01, Estimat Glomerular Filtration Rate 55, BUN/Creatinine Ratio 20, Glucose Level 160H, Calcium Level 8.1L, Corrected Calcium 9.1, Total Bilirubin 0.5, Aspartate Amino Transf (AST/SGOT) 24, Alanine Aminotransferase (ALT/SGPT) 18, Alkaline Phosphatase 75, Total Protein 4.4L, Albumin 2.7L 02/24/23 12:00: Laboratory Tests 02/23/23 05:15 02/24/23 05:40 A/P: Assessment: S/P non-syncopal fall resulting in left hip fracture - s/p left hip surg on 02-23-23 Post-op anemia - managed by Surg and Med svces CAD and cardiomegaly on PET CT of 04/16/19 - MPI of 05/14/19: no ischemia or infarction, LVEF 71% - Echo of 05/08/19: LVEF 60-65%, grade 1 coreas dysfunction of LV, mild to mod LA enlargement, RVSP 23 mmHg - No current symptoms of angina or heart failure - Echo on 02-24-23: LVEF 60-65%, mod conc LVH, grade 1 coreas dysfunction Oncology - 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
[2023-02-24] MEDS: GABAPENTIN 400 MG (NEURONTIN) CAP PO SCH (20:58)
[2023-02-24] MEDS: MILK OF MAGNESIA 400 MG/5 ML 30 ML UDC PO PRN (21:13)
[2023-02-25] VITALS (7 sets, daily range): BP systolic 120–147; BP diastolic 58–80
[2023-02-25] MEDS: NS IV 1000 ML 1,000 ML IV SCH ×2 (00:33→13:15)
[2023-02-25] MEDS: CYANOCOBALAMIN 1,000 MCG (VITAMIN B-12) TABLET PO SCH (05:27)
[2023-02-25] MEDS: LEVOTHYROXINE 100 MCG (LEVOTHROID) TAB PO SCH (05:27)
[2023-02-25 05:28] LABS: BASOPHILS % (AUTO) 0 % (0-10); EOSINOPHILS % (AUTO) 0 % (0-10); HEMATOCRIT 24 % (35-52); LYMPHOCYTES # (AUTO) 1.2 10^3/uL (1.0-4.0); LYMPHOCYTES % (AUTO) 8 % (12-44); MEAN CORPUSCULAR HEMOGLOBIN 34 pg (25-34); MEAN CORPUSCULAR HGB CONC 34 g/dL (32-36); MEAN CORPUSCULAR VOLUME 98 fL (80-99); MEAN PLATELET VOLUME 10.2 fL (9.0-12.2); MONOCYTES # (AUTO) 0.4 10^3/uL (0.0-1.0); MONOCYTES % (AUTO) 2 % (0-12); NEUTROPHILS # (AUTO) 13.3 10^3/uL (1.8-7.8); NEUTROPHILS % (AUTO) 89 % (42-75); PLATELET COUNT 131 10^3/uL (130-400)
[2023-02-25] MEDS: MILK OF MAGNESIA 400 MG/5 ML 30 ML UDC PO PRN (05:31)
[2023-02-25 05:44] LABS: ALBUMIN 2.9 GM/DL (3.2-4.5); BILIRUBIN,TOTAL 0.7 MG/DL (0.1-1.0); CALCIUM 8.3 MG/DL (8.5-10.1); CREATININE SERUM 0.9 MG/DL (0.60-1.30); POTASSIUM 4.5 MMOL/L (3.6-5.0); TOTAL PROTEIN 4.7 GM/DL (6.4-8.2)
--- NOTE | 2023-02-25 07:21 | Progress Note ---
Subjective Date Seen by a Provider: Feb 25, 2023 Time Seen by a Provider: 11:30 Subjective/Events-last exam Patient doing a lot better Hydrocortisone 100 mg IV every 12 hours is supplementing cortisol which is deficient due to adrenal insufficiency from recent prednisone I did update the patient on this fact she had previously refused to take it but I explained to her and she will take it Pain is pretty well controlled Monitoring closely Bowel regimen will be intensified Review of Systems General: Fatigue, Malaise Musculoskeletal: leg pain Objective Exam Last Set of Vital Signs Vital Signs Date Time Temp Pulse Resp B/P (MAP) Pulse Ox O2 Delivery O2 Flow Rate FiO2 02/25/23 04:21 36.4 81 18 140/67 (91) 95 Room Air 02/23/23 14:40 10.00 02/22/23 20:04 21 Capillary Refill : Less Than 3 SecondsLess Than 3 Seconds I&O Intake and Output 02/24/23 23:59 Intake Total 1430 ml Output Total 1900 ml Balance -470 ml Intake Oral 1430 ml Output Urine Total 1900 ml General: Alert, Oriented X3, Cooperative, No Acute Distress Lungs: Clear to Auscultation, Normal Air Movement Heart: Regular Rate, Normal S1, Normal S2, No Murmurs Psych/Mental Status: Mental Status NL, Mood NL Results Lab Laboratory Tests 02/24/23 12:00: Total Cortisol 3.5L 02/25/23 05:10: White Blood Count 15.0H, Red Blood Count 2.39L, Hemoglobin 8.0L, Hematocrit 24L, Mean Corpuscular Volume 98, Mean Corpuscular Hemoglobin 34, Mean Corpuscular Hemoglobin Concent 34, Red Cell Distribution Width 14.2, Platelet Count 131, Mean Platelet Volume 10.2, Immature Granulocyte % (Auto) 1, Neutrophils (%) (Auto) 89H, Lymphocytes (%) (Auto) 8L, Monocytes (%) (Auto) 2, Eosinophils (%) (Auto) 0, Basophils (%) (Auto) 0, Neutrophils # (Auto) 13.3H, Lymphocytes # (Auto) 1.2, Monocytes # (Auto) 0.4, Eosinophils # (Auto) 0.0, Basophils # (Auto) 0.0, Immature Granulocyte # (Auto) 0.1, Sodium Level 139, Potassium Level 4.5, Chloride Level 105, Carbon Dioxide Level 27, Anion Gap 7, Blood Urea Nitrogen 21H, Creatinine 0.90, Estimat Glomerular Filtration Rate 63, BUN/Creatinine Ratio 23, Glucose Level 140H, Calcium Level 8.3L, Corrected Calcium 9.2, Total Bilirubin 0.7, Aspartate Amino Transf (AST/SGOT) 27, Alanine Aminotransferase (ALT/SGPT) 18, Alkaline Phosphatase 74, Total Protein 4.7L, Albumin 2.9L Assessment/Plan Assessment/Plan Assess & Plan/Chief Complaint Comminuted L intertrochanteric femur fracture Ortho consulted, POD1 Continue pain control, morphine 4mg q2hr prn, oxycodone will switch to home dose of 15mg q6hr PT/OT post op supportive care and dressing changes Will likely need inpatient rehab or some higher level of care than home on discharge HTN likely secondary to pain takes atenolol and hydralazine at home Cardiology consulted to resume home dose of atenolol and hydralazine continue to monitor Anemia down to 8.6 from 11.2, will continue to monitor h/h likely secondary to blood loss combined with dilution with IV fluids MCV normal at 98 Iron and B12 level both are low Iron and B12 supplementation ordered Hx of RA with recent steroid taper Hypothyroidism 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
[2023-02-25] MEDS: polyethylene glycoL POWDER 17 GM (MIRALAX) PACK PO SCH ×3 (08:26→20:21)
[2023-02-25] MEDS: ATENOLOL 25 MG (TENORMIN) TAB PO SCH (08:27)
[2023-02-25] MEDS: hydrALAZINE (APRESOLINE) 25 MG TAB PO SCH ×3 (08:27→20:22)
[2023-02-25] MEDS: SENNOSIDES 8.6 MG (SENOKOT) TAB PO SCH ×2 (08:28→20:22)
[2023-02-25] MEDS: DOCUSATE SODIUM 100 MG (COLACE) CAP PO SCH ×2 (08:28→20:22)
[2023-02-25] MEDS: HYDROCORTISONE 100 MG/2 ML (Solu-CORTEF) VIAL IV SCH ×2 (08:29→20:22)
[2023-02-25] MEDS: PANTOPRAZOLE 40 MG (PROTONIX) TAB PO SCH (08:35)
[2023-02-25] MEDS: FOLIC ACID 1 MG TAB PO SCH (08:35)
[2023-02-25] MEDS: KCL 10 MEQ TAB (MICRO K) PO SCH (08:35)
[2023-02-25] MEDS ORDERED: NON-FORMULARY MEDICATION 1 EA EA (Folic Acid 0.4 MG) PO SCH (09:00)
[2023-02-25] MEDS ORDERED: NON-FORMULARY MEDICATION 1 EA EA (Omeprazole 40 MG) PO SCH (09:00)
--- NOTE | 2023-02-25 11:09 | Physical Therapy Daily Note ---
PT Daily Note-Current Subjective Pt is in the chair on arrival and would like to return to bed. No pain reported on arrival. Pain Section J - Health Conditions 1. Rarely or not at all 2. Occasionally 3. Frequently 4. Almost constantly 8. Unable to answer Pain Effect on Sleep: 3 Pain Interference with Therapy: 3 Pain Interference w/Day-to-Day: 3 Mental Status Patient Orientation: Person, Place, Time, Situation Attachments: Olivera Catheter, IV Transfers SCALE: Activities may be completed with or without assistive devices. 4-Ygnlfjlucq-sgbuvnf completes the activity by him/herself with no assistance from a helper. 5-Set-up or Clean-up Assistance-helper sets up or cleans up; patient completes activity. [place] assists only prior to or following the activity. 4-Supervision or Touching Assistance-helper provides verbal cues and/or touching/steadying and/or contact guard assistance as patient completes activity. Assistance may be provided throughout the activity or intermittently. 3-Partial/Moderate Assistance-helper does LESS THAN HALF the effort. [place] lifts, holds or supports trunk or limbs, but provides less than half the effort. 2-Substantial/Maximal Assistance-helper does MORE THAN HALF the effort. [place] lifts or holds trunk or limbs and provides more than half the effort. 6-Xrqssdsdj-gralie does ALL the effort. Patient does none of the effort to complete the activity. Or, the assistance of 2 or more helpers is required for the patient to complete the activity. If activity was not attempted, code reason: 7-Patient Refused. 9-Not Applicable-not attempted and the patient did not perform the activity before the current illness, exacerbation or injury. 10-Not Attempted due to Environmental Limitations-(lack of equipment, weather restraints, etc.). 88-Not Attempted due to Medical Conditions or Safety Concerns. Roll Left & Right (QC): 3 Sit to Lying (QC): 3 Lying to Sitting/Side of Bed(Q: 2 Sit to Stand (QC): 2 Chair/Uwp-hs-Fzmkr Xfer(QC): 2 Weight Bearing Right Lower Extremity: Right Full Weight Bearing Left Lower Extremity: Left Touch Toe Bearing Gait Training Does the Patient Walk?: No and Walking Goal IS indicated Gait Assistive Device: FWW Stand pivot transfer. Exercises Supine Ex: LE Protocol Supine Reps: 15 Seated Therapy Exercises: LE Protocol Seated Reps: 15 Assessment Current Status: Good Progress Pt was able to perform the seated ex with less assistance than supine. Supine required >50% assist. Very weak on standing and during SPT. PT Short Term Goals Short Term Goals Time Frame: Mar 11, 2023 Roll Left & Right: 3 Sit to lyin Lying to sitting on side of be: 3 Sit to stand: 3 Chair/tye-hv-herra transfer: 3 Walk 10 feet: 3 PT Supervisor Communications And Signals Goals Supervisor Communications And Signals Goals PT Supervisor Communications And Signals Goals Time Frame: Mar 25, 2023 Roll Left & Right (QC): 6 Sit to Lying (QC): 6 Lying-Sitting on Side/Bed(QC): 6 Sit to Stand (QC): 6 Chair/Hqg-yk-Bbmhy Xfer(QC): 6 Toilet Transfer (QC): 6 Walk 10 feet (QC): 4 Walk 50ft with 2 Turns (QC): 4 Walk 150 ft (QC): 4 PT Plan Treatment/Plan Treatment Plan: Continue Plan of Care Treatment Plan: Bed Mobility, Education, Functional Activity Theo, Functional Strength, Gait, Safety, Therapeutic Exercise, Transfers Treatment Duration: Mar 25, 2023 Frequency: 11 times per week Estimated Hrs Per Day: .5 hour per day Patient and/or Family Agrees t: Yes Time Time In: 951 Time Out: 1015 DATE: Feb 25, 2023 Total Billed Treatment Time: 23 Total Billed Treatment 1, ex 15, fa 8 ESTEFANIA JEFFERSON PT Feb 25, 2023 11:09
[2023-02-25] MEDS ORDERED: HYDROCORTISONE 100 MG/2 ML (Solu-CORTEF) VIAL IV ONE (13:00)
--- NOTE | 2023-02-25 16:27 | Progress Note - Cardiology ---
Cardiology SOAP Progress Note Subjective: No cp or palp or syncope or shortness of breath No n/v/d No focal weakness Objective: I&O/Vital Signs 02/25/23 02/25/23 02/25/23 02/25/23 07:00 07:50 08:00 08:44 Temp 36.9 Pulse 101 106 Resp 20 B/P (MAP) 147/80 (102) Pulse Ox 95 98 O2 Delivery Room Air Room Air Room Air O2 Flow Rate 0.00 02/25/23 02/25/23 02/25/23 11:36 12:32 14:04 Temp 37.0 37.0 Pulse 71 61 61 Resp 20 B/P (MAP) 131/58 (82) Pulse Ox 97 97 O2 Delivery Room Air FiO2 21 02/25/23 00:00 Intake Total 1080 ml Output Total 1100 ml Balance -20 ml Weight (Pounds): 158 Weight (Ounces): 7.0 Weight (Calculated Kilograms): 71.597362 Constitutional: AAO x 3, well-developed, well-nourished Respiratory: No accessory muscle use; chest expansion is symmetric, chest is bilaterally symmetric, other (good, bilateral air entry) Cardiovascular: regular rate-rhythm, S1 and S2, systolic murmur (soft PREET at card base) Gastrointestional: No tender; soft; No guarding, No rebound; audible bowel sounds Extremities: No clubbing, No cyanosis, No significant edema Neurologic/Psychiatric: oriented x 3, other (moves all limbs equally) Skin: normal color, warm/dry; No rash, No ulcerations; other (left hip surgical dressing in place; D&I) Results/Procedures: Labs Laboratory Tests 02/25/23 05:10: White Blood Count 15.0H, Red Blood Count 2.39L, Hemoglobin 8.0L, Hematocrit 24L, Mean Corpuscular Volume 98, Mean Corpuscular Hemoglobin 34, Mean Corpuscular Hemoglobin Concent 34, Red Cell Distribution Width 14.2, Platelet Count 131, Mean Platelet Volume 10.2, Immature Granulocyte % (Auto) 1, Neutrophils (%) (Auto) 89H, Lymphocytes (%) (Auto) 8L, Monocytes (%) (Auto) 2, Eosinophils (%) (Auto) 0, Basophils (%) (Auto) 0, Neutrophils # (Auto) 13.3H, Lymphocytes # (Auto) 1.2, Monocytes # (Auto) 0.4, Eosinophils # (Auto) 0.0, Basophils # (Auto) 0.0, Immature Granulocyte # (Auto) 0.1, Sodium Level 139, Potassium Level 4.5, Chloride Level 105, Carbon Dioxide Level 27, Anion Gap 7, Blood Urea Nitrogen 21H, Creatinine 0.90, Estimat Glomerular Filtration Rate 63, BUN/Creatinine Ratio 23, Glucose Level 140H, Calcium Level 8.3L, Corrected Calcium 9.2, Total Bilirubin 0.7, Aspartate Amino Transf (AST/SGOT) 27, Alanine Aminotransferase (ALT/SGPT) 18, Alkaline Phosphatase 74, Total Protein 4.7L, Albumin 2.9L Laboratory Tests 02/24/23 05:40 02/25/23 05:10 A/P: Assessment: S/P non-syncopal fall resulting in left hip fracture - s/p left hip surg on 02-23-23 Post-op anemia - managed by Surg and Med svces CAD and cardiomegaly on PET CT of 04/16/19 - MPI of 05/14/19: no ischemia or infarction, LVEF 71% - Echo of 05/08/19: LVEF 60-65%, grade 1 coreas dysfunction of LV, mild to mod LA enlargement, RVSP 23 mmHg - No current symptoms of angina or heart failure - Echo on 02-24-23: LVEF 60-65%, mod conc LVH, grade 1 coreas dysfunction Oncology - 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
[2023-02-25] MEDS: GABAPENTIN 400 MG (NEURONTIN) CAP PO SCH (20:22)
[2023-02-26] VITALS (9 sets, daily range): BP systolic 109–158; BP diastolic 63–78
[2023-02-26] MEDS: NS IV 1000 ML 1,000 ML IV SCH ×3 (02:10→23:50)
[2023-02-26] MEDS: CYANOCOBALAMIN 1,000 MCG (VITAMIN B-12) TABLET PO SCH (05:36)
[2023-02-26] MEDS: LEVOTHYROXINE 100 MCG (LEVOTHROID) TAB PO SCH (05:37)
[2023-02-26 05:39] LABS: BASOPHILS % (AUTO) 0 % (0-10); EOSINOPHILS % (AUTO) 0 % (0-10); MEAN CORPUSCULAR HGB CONC 34 g/dL (32-36); MONOCYTES % (AUTO) 3 % (0-12)
[2023-02-26 05:41] LABS: LYMPHOCYTES # (AUTO) 1.1 10^3/uL (1.0-4.0); LYMPHOCYTES % (AUTO) 10 % (12-44); MEAN CORPUSCULAR HEMOGLOBIN 34 pg (25-34); MEAN CORPUSCULAR VOLUME 100 fL (80-99); MEAN PLATELET VOLUME 10.4 fL (9.0-12.2); MONOCYTES # (AUTO) 0.4 10^3/uL (0.0-1.0); NEUTROPHILS # (AUTO) 9.5 10^3/uL (1.8-7.8); NEUTROPHILS % (AUTO) 86 % (42-75); PLATELET COUNT 134 10^3/uL (130-400); WHITE BLOOD COUNT 11.1 10^3/uL (4.3-11.0)
[2023-02-26 05:49] LABS: HEMATOCRIT 20 % (35-52); HEMOGLOBIN 6.7 g/dL (11.5-16.0)
[2023-02-26 05:58] LABS: ALBUMIN 2.5 GM/DL (3.2-4.5); BILIRUBIN,TOTAL 0.6 MG/DL (0.1-1.0); CALCIUM 7.9 MG/DL (8.5-10.1); CREATININE SERUM 0.87 MG/DL (0.60-1.30); POTASSIUM 4.4 MMOL/L (3.6-5.0); TOTAL PROTEIN 4.1 GM/DL (6.4-8.2)
[2023-02-26] MEDS ORDERED: NS IV 500 ML 500 ML IV SCH ×2 (07:00)
--- NOTE | 2023-02-26 07:17 | Progress Note ---
Subjective Date Seen by a Provider: Feb 26, 2023 Time Seen by a Provider: 11:00 Subjective/Events-last exam Patient doing about the same Pain is an issue Slow recovery Receiving 1 unit of blood today due to hemoglobin less than 7 Feels like she is doing pretty well otherwise Bowels are moving Awaiting discontinuation of cath until she is up and around a little bit Review of Systems General: Fatigue, Malaise Musculoskeletal: leg pain Objective Exam Last Set of Vital Signs Vital Signs Date Time Temp Pulse Resp B/P (MAP) Pulse Ox O2 Delivery O2 Flow Rate FiO2 02/26/23 04:00 36.6 64 12 158/78 (104) 97 Room Air 02/25/23 14:04 21 02/25/23 08:44 0.00 Capillary Refill : Less Than 3 SecondsLess Than 3 Seconds I&O Intake and Output 02/26/23 00:00 Intake Total 2280 ml Output Total 2300 ml Balance -20 ml Intake Oral 2280 ml Output Urine Total 2300 ml # Bowel Movements 2 General: Alert, Oriented X3, Cooperative, No Acute Distress Lungs: Clear to Auscultation, Normal Air Movement Heart: Regular Rate, Normal S1, Normal S2, No Murmurs Psych/Mental Status: Mental Status NL, Mood NL Results Lab Laboratory Tests 02/26/23 05:30: White Blood Count 11.1H, Red Blood Count 1.99L, Hemoglobin 6.7*L, Hematocrit 20*L, Mean Corpuscular Volume 100H, Mean Corpuscular Hemoglobin 34, Mean Corpuscular Hemoglobin Concent 34, Red Cell Distribution Width 14.6H, Platelet Count 134, Mean Platelet Volume 10.4, Immature Granulocyte % (Auto) 1, Neutrophils (%) (Auto) 86H, Lymphocytes (%) (Auto) 10L, Monocytes (%) (Auto) 3, Eosinophils (%) (Auto) 0, Basophils (%) (Auto) 0, Neutrophils # (Auto) 9.5H, Lymphocytes # (Auto) 1.1, Monocytes # (Auto) 0.4, Eosinophils # (Auto) 0.0, Basophils # (Auto) 0.0, Immature Granulocyte # (Auto) 0.1, Percent Immature Platelet Fraction 4.5, Sodium Level 139, Potassium Level 4.4, Chloride Level 107, Carbon Dioxide Level 26, Anion Gap 6, Blood Urea Nitrogen 22H, Creatinine 0.87, Estimat Glomerular Filtration Rate 66, BUN/Creatinine Ratio 25, Glucose Level 131H, Calcium Level 7.9L, Corrected Calcium 9.1, Total Bilirubin 0.6, Aspartate Amino Transf (AST/SGOT) 25, Alanine Aminotransferase (ALT/SGPT) 17, Alkaline Phosphatase 67, Total Protein 4.1L, Albumin 2.5L Assessment/Plan Assessment/Plan Assess & Plan/Chief Complaint Comminuted L intertrochanteric femur fracture Ortho consulted, POD1 Continue pain control, morphine 4mg q2hr prn, oxycodone will switch to home dose of 15mg q6hr PT/OT post op supportive care and dressing changes Will likely need inpatient rehab or some higher level of care than home on discharge HTN likely secondary to pain takes atenolol and hydralazine at home Cardiology consulted to resume home dose of atenolol and hydralazine continue to monitor Anemia down to 8.6 from 11.2, will continue to monitor h/h likely secondary to blood loss combined with dilution with IV fluids MCV normal at 98 Iron and B12 level both are low Iron and B12 supplementation ordered Hx of RA with recent steroid taper Hypothyroidism 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 Acute adrenal insufficiency placed on hydrocortisone 100 mg IV every 12 hours and cortisol confirmed low level at 3.5 Acute blood loss anemia requiring 1 unit of blood transfusion today on 02/26/2023 DVT- will need lovenox post op but not right now due to acute blood loss anemia, persistent drop in HgB Diet- regular Code- full Clinical Quality Measures DVT/VTE Risk/Contraindication: Contraindications-Pharm: Other *list below* Other: severe JOEA MELINDA TAVARES DO Feb 26, 2023 07:17
[2023-02-26] MEDS: morphine INJ 4 MG/ML 1 ML (VIAL/SYRINGE) IV PRN (09:15)
--- NOTE | 2023-02-26 09:45 | Physical Therapy Daily Note ---
PT Daily Note-Current Subjective Pt is in the bedside chair. She is eager to try and stand. Nursing informed me that her HGB is at 6. Pt received additional pain medication via IV at the start of treatment. Pain Section J - Health Conditions 1. Rarely or not at all 2. Occasionally 3. Frequently 4. Almost constantly 8. Unable to answer Pain Effect on Sleep: 3 Pain Interference with Therapy: 3 Pain Interference w/Day-to-Day: 3 Mental Status Patient Orientation: Person, Place, Time, Situation Attachments: Olivera Catheter, IV Transfers SCALE: Activities may be completed with or without assistive devices. 2-Pzoahvkotv-pcfadcn completes the activity by him/herself with no assistance from a helper. 5-Set-up or Clean-up Assistance-helper sets up or cleans up; patient completes activity. [place] assists only prior to or following the activity. 4-Supervision or Touching Assistance-helper provides verbal cues and/or touching/steadying and/or contact guard assistance as patient completes activity. Assistance may be provided throughout the activity or intermittently. 3-Partial/Moderate Assistance-helper does LESS THAN HALF the effort. [place] lifts, holds or supports trunk or limbs, but provides less than half the effort. 2-Substantial/Maximal Assistance-helper does MORE THAN HALF the effort. [place] lifts or holds trunk or limbs and provides more than half the effort. 7-Geccvfuzb-ietkyn does ALL the effort. Patient does none of the effort to complete the activity. Or, the assistance of 2 or more helpers is required for the patient to complete the activity. If activity was not attempted, code reason: 7-Patient Refused. 9-Not Applicable-not attempted and the patient did not perform the activity before the current illness, exacerbation or injury. 10-Not Attempted due to Environmental Limitations-(lack of equipment, weather restraints, etc.). 88-Not Attempted due to Medical Conditions or Safety Concerns. Sit to Stand (QC): 2 Pt was able to stand up with max assist, but unable to remain standing for more than 5 seconds due to dizziness and weakness. Weight Bearing Right Lower Extremity: Right Full Weight Bearing Left Lower Extremity: Left Touch Toe Bearing Gait Training Does the Patient Walk?: No and Walking Goal IS indicated Exercises Seated Therapy Exercises: LE Protocol Seated Reps: 40 Performed 2 sets of 20 on all exercises. Assessment Current Status: Fair Progress Pt is scheduled to receive a unit of blood later today. She became dizzy during sit to stand and only tolerated standing for 5 seconds. She declined performing sit to stand a second time. PT Short Term Goals Short Term Goals Time Frame: Mar 11, 2023 Roll Left & Right: 3 Sit to lyin Lying to sitting on side of be: 3 Sit to stand: 3 Chair/lhd-pp-rwwhv transfer: 3 Walk 10 feet: 3 PT Mcfp Goals Emt I/99 Goals PT Mcfp Goals Time Frame: Mar 25, 2023 Roll Left & Right (QC): 6 Sit to Lying (QC): 6 Lying-Sitting on Side/Bed(QC): 6 Sit to Stand (QC): 6 Chair/Ssi-am-Rwrby Xfer(QC): 6 Toilet Transfer (QC): 6 Walk 10 feet (QC): 4 Walk 50ft with 2 Turns (QC): 4 Walk 150 ft (QC): 4 PT Plan Treatment/Plan Treatment Plan: Continue Plan of Care Treatment Plan: Bed Mobility, Education, Functional Activity Theo, Functional Strength, Gait, Safety, Therapeutic Exercise, Transfers Treatment Duration: Mar 25, 2023 Frequency: 11 times per week Estimated Hrs Per Day: .5 hour per day Patient and/or Family Agrees t: Yes Time Time In: 08 Time Out: 08 DATE: Feb 26, 2023 Total Billed Treatment Time: 25 Total Billed Treatment 1, ex 17, fa 8 ESTEFANIA JEFFERSON PT Feb 26, 2023 09:45
[2023-02-26] MEDS: IRON SUCROSE 200 MG/10 ML (VENOFER) VIAL IV SCH (10:29)
[2023-02-26] MEDS: hydrALAZINE (APRESOLINE) 25 MG TAB PO SCH ×3 (10:31→20:48)
[2023-02-26] MEDS: FOLIC ACID 1 MG TAB PO SCH (10:31)
[2023-02-26] MEDS: DOCUSATE SODIUM 100 MG (COLACE) CAP PO SCH ×2 (10:31→20:48)
[2023-02-26] MEDS: polyethylene glycoL POWDER 17 GM (MIRALAX) PACK PO SCH ×3 (10:32→20:49)
[2023-02-26] MEDS: ATENOLOL 25 MG (TENORMIN) TAB PO SCH (10:32)
[2023-02-26] MEDS: SENNOSIDES 8.6 MG (SENOKOT) TAB PO SCH ×2 (10:32→20:48)
[2023-02-26] MEDS: PANTOPRAZOLE 40 MG (PROTONIX) TAB PO SCH (10:32)
[2023-02-26] MEDS: HYDROCORTISONE 100 MG/2 ML (Solu-CORTEF) VIAL IV SCH ×2 (10:34→20:47)
--- NOTE | 2023-02-26 14:56 | Progress Note - Cardiology ---
Cardiology SOAP Progress Note Subjective: No cp or palp or syncope No shortness of breath at rest No n/v/d Gen weakness No focal weakness Objective: I&O/Vital Signs 02/26/23 02/26/23 02/26/23 02/26/23 04:00 07:00 07:54 08:00 Temp 36.6 37.1 Pulse 64 72 82 Resp 12 18 B/P (MAP) 158/78 (104) 152/69 (96) Pulse Ox 97 95 O2 Delivery Room Air Room Air Room Air 02/26/23 02/26/23 02/26/23 02/26/23 09:16 11:14 11:24 11:40 Temp 37.0 37.0 37.0 Pulse 63 61 61 Resp 18 18 18 B/P (MAP) 142/64 140/64 140/64 (89) Pulse Ox 98 96 96 96 O2 Delivery Room Air Room Air Room Air Room Air O2 Flow Rate 0.00 02/26/23 02/26/23 12:44 14:45 Temp 36.9 Pulse 59 68 Resp 18 B/P (MAP) 136/63 Pulse Ox 96 O2 Delivery Room Air 02/26/23 00:00 Intake Total 2280 ml Output Total 1450 ml Balance 830 ml Weight (Pounds): 158 Weight (Ounces): 7.0 Weight (Calculated Kilograms): 71.363118 Constitutional: AAO x 3, well-developed, well-nourished Respiratory: No accessory muscle use; chest expansion is symmetric, chest is bilaterally symmetric, other (good, bilateral air entry) Cardiovascular: regular rate-rhythm, S1 and S2, systolic murmur (soft PREET at card base) Gastrointestional: No tender; soft; No guarding, No rebound; audible bowel sounds Extremities: No clubbing, No cyanosis, No significant edema Neurologic/Psychiatric: oriented x 3, other (moves all limbs equally) Skin: normal color, warm/dry; No rash, No ulcerations; other (left hip surgical dressing in place; D&I) Results/Procedures: Labs Laboratory Tests 02/26/23 05:30: White Blood Count 11.1H, Red Blood Count 1.99L, Hemoglobin 6.7*L, Hematocrit 20*L, Mean Corpuscular Volume 100H, Mean Corpuscular Hemoglobin 34, Mean Corpuscular Hemoglobin Concent 34, Red Cell Distribution Width 14.6H, Platelet Count 134, Mean Platelet Volume 10.4, Immature Granulocyte % (Auto) 1, Neutrophils (%) (Auto) 86H, Lymphocytes (%) (Auto) 10L, Monocytes (%) (Auto) 3, Eosinophils (%) (Auto) 0, Basophils (%) (Auto) 0, Neutrophils # (Auto) 9.5H, Lymphocytes # (Auto) 1.1, Monocytes # (Auto) 0.4, Eosinophils # (Auto) 0.0, Basophils # (Auto) 0.0, Immature Granulocyte # (Auto) 0.1, Percent Immature Plat elet Fraction 4.5, Sodium Level 139, Potassium Level 4.4, Chloride Level 107, Carbon Dioxide Level 26, Anion Gap 6, Blood Urea Nitrogen 22H, Creatinine 0.87, Estimat Glomerular Filtration Rate 66, BUN/Creatinine Ratio 25, Glucose Level 131H, Calcium Level 7.9L, Corrected Calcium 9.1, Total Bilirubin 0.6, Aspartate Amino Transf (AST/SGOT) 25, Alanine Aminotransferase (ALT/SGPT) 17, Alkaline Phosphatase 67, Total Protein 4.1L, Albumin 2.5L Laboratory Tests 02/25/23 05:10 02/26/23 05:30 A/P: Assessment: S/P non-syncopal fall resulting in left hip fracture - s/p left hip surg on 02-23-23 Post-op anemia, severe - managed by Surg and Med svces CAD and cardiomegaly on PET CT of 04/16/19 - MPI of 05/14/19: no ischemia or infarction, LVEF 71% - Echo of 05/08/19: LVEF 60-65%, grade 1 coreas dysfunction of LV, mild to mod LA enlargement, RVSP 23 mmHg - No current symptoms of angina or heart failure - Echo on 02-24-23: LVEF 60-65%, mod conc LVH, grade 1 coreas dysfunction Oncology - 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 Agree with blood t ransfusion * Monitor labs SANTHOSH RAMOS MD [facility] CCDS Feb 26, 2023 14:56
[2023-02-26] MEDS: GABAPENTIN 400 MG (NEURONTIN) CAP PO SCH (20:48)
[2023-02-27 04:18] VITALS: BP 148/67
[2023-02-27] MEDS: LEVOTHYROXINE 100 MCG (LEVOTHROID) TAB PO SCH (05:36)
[2023-02-27] MEDS: CYANOCOBALAMIN 1,000 MCG (VITAMIN B-12) TABLET PO SCH (05:36)
[2023-02-27 05:56] LABS: EOSINOPHILS % (AUTO) 0 % (0-10); HEMOGLOBIN 7.8 g/dL (11.5-16.0); MEAN PLATELET VOLUME 9.9 fL (9.0-12.2)
[2023-02-27 05:57] LABS: BASOPHILS % (AUTO) 0 % (0-10); HEMATOCRIT 24 % (35-52); LYMPHOCYTES # (AUTO) 0.9 10^3/uL (1.0-4.0); LYMPHOCYTES % (AUTO) 10 % (12-44); MEAN CORPUSCULAR HEMOGLOBIN 33 pg (25-34); MEAN CORPUSCULAR HGB CONC 33 g/dL (32-36); MEAN CORPUSCULAR VOLUME 100 fL (80-99); MONOCYTES # (AUTO) 0.3 10^3/uL (0.0-1.0); MONOCYTES % (AUTO) 3 % (0-12); NEUTROPHILS # (AUTO) 7.6 10^3/uL (1.8-7.8); NEUTROPHILS % (AUTO) 85 % (42-75); PLATELET COUNT 140 10^3/uL (130-400)
[2023-02-27 06:19] LABS: ALBUMIN 2.5 GM/DL (3.2-4.5); BILIRUBIN,TOTAL 0.8 MG/DL (0.1-1.0); CREATININE SERUM 0.87 MG/DL (0.60-1.30); POTASSIUM 4.1 MMOL/L (3.6-5.0); TOTAL PROTEIN 4.3 GM/DL (6.4-8.2)
[2023-02-27 08:04] VITALS: BP 165/74
[2023-02-27] MEDS: hydrALAZINE (APRESOLINE) 25 MG TAB PO SCH ×3 (09:08→21:11)
[2023-02-27] MEDS: SENNOSIDES 8.6 MG (SENOKOT) TAB PO SCH ×2 (09:08→21:11)
[2023-02-27] MEDS: DOCUSATE SODIUM 100 MG (COLACE) CAP PO SCH ×2 (09:09→21:11)
[2023-02-27] MEDS: PANTOPRAZOLE 40 MG (PROTONIX) TAB PO SCH (09:09)
[2023-02-27] MEDS: HYDROCORTISONE 100 MG/2 ML (Solu-CORTEF) VIAL IV SCH (09:10)
[2023-02-27] MEDS: ATENOLOL 25 MG (TENORMIN) TAB PO SCH (09:15)
[2023-02-27] MEDS: FOLIC ACID 1 MG TAB PO SCH (09:15)
[2023-02-27] MEDS: polyethylene glycoL POWDER 17 GM (MIRALAX) PACK PO SCH ×3 (09:15→21:12)
[2023-02-27] MEDS: KCL 10 MEQ TAB (MICRO K) PO SCH (09:18)
--- NOTE | 2023-02-27 09:26 | Progress Note ---
Subjective Date Seen by a Provider: Feb 27, 2023 Time Seen by a Provider: 09:30 Subjective/Events-last exam Patient doing a lot better Moving her left leg Pain is controlled Labs reviewed Transfusion helped her DC hydrocortisone no longer needs stress dose steroids Review of Systems Musculoskeletal: leg pain Objective Exam Last Set of Vital Signs Vital Signs Date Time Temp Pulse Resp B/P (MAP) Pulse Ox O2 Delivery O2 Flow Rate FiO2 02/27/23 08:04 37.2 60 18 165/74 (104) Room Air 02/27/23 04:18 96 02/26/23 09:16 0.00 02/25/23 14:04 21 Capillary Refill : Less Than 3 SecondsLess Than 3 Seconds I&O Intake and Output 02/26/23 23:59 Intake Total 3090 ml Output Total 2625 ml Balance 465 ml Intake Oral 3090 ml Output Urine Total 2625 ml # Bowel Movements 1 General: Alert, Oriented X3, Cooperative, No Acute Distress Lungs: Clear to Auscultation, Normal Air Movement Heart: Regular Rate, Normal S1, Normal S2, No Murmurs Psych/Mental Status: Mental Status NL, Mood NL Results Lab Laboratory Tests 02/27/23 05:44: White Blood Count 9.0, Red Blood Count 2.36L, Hemoglobin 7.8L, Hematocrit 24L, Mean Corpuscular Volume 100H, Mean Corpuscular Hemoglobin 33, Mean Corpuscular Hemoglobin Concent 33, Red Cell Distribution Width 15.3H, Platelet Count 140, Mean Platelet Volume 9.9, Immature Granulocyte % (Auto) 2, Neutrophils (%) (Auto) 85H, Lymphocytes (%) (Auto) 10L, Monocytes (%) (Auto) 3, Eosinophils (%) (Auto) 0, Basophils (%) (Auto) 0, Neutrophils # (Auto) 7.6, Lymphocytes # (Auto) 0.9L, Monocytes # (Auto) 0.3, Eosinophils # (Auto) 0.0, Basophils # (Auto) 0.0, Immature Granulocyte # (Auto) 0.2H, Percent Immature Platelet Fraction 3.7, Sodium Level 141, Potassium Level 4.1, Chloride Level 109H, Carbon Dioxide Level 25, Anion Gap 7, Blood Urea Nitrogen 21H, Creatinine 0.87, Estimat Glomerular Filtration Rate 66, BUN/Creatinine Ratio 24, Glucose Level 126H, Calcium Level 8.0L, Corrected Calcium 9.2, Total Bilirubin 0.8, Aspartate Amino Transf (AST/SGOT) 22, Alanine Aminotransferase (ALT/SGPT) 18, Alkaline Phosphatase 69, Total Protein 4.3L, Albumin 2.5L Assessment/Plan Assessment/Plan Assess & Plan/Chief Complaint Comminuted L intertrochanteric femur fracture Ortho consulted, POD1 Continue pain control, morphine 4mg q2hr prn, oxycodone will switch to home dose of 15mg q6hr PT/OT post op supportive care and dressing changes Will likely need inpatient rehab or some higher level of care than home on discharge HTN likely secondary to pain takes atenolol and hydralazine at home Cardiology consulted to resume home dose of atenolol and hydralazine continue to monitor Anemia down to 8.6 from 11.2, will continue to monitor h/h likely secondary to blood loss combined with dilution with IV fluids MCV normal at 98 Iron and B12 level both are low Iron and B12 supplementation ordered Hx of RA with recent steroid taper Hypothyroidism 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 Acute adrenal insufficiency placed on hydrocortisone 100 mg IV every 12 hours and cortisol confirmed low level at 3.5 Acute blood loss anemia requiring 1 unit of blood transfusion today on 02/26/2023 DVT- will need lovenox post op but not right now due to acute blood loss anemia, persistent drop in HgB Diet- regular Code- full Clinical Quality Measures DVT/VTE Risk/Contraindication: Contraindications-Pharm: Other *list below* Other: severe ABLA EMLINDA TAVARES DO Feb 27, 2023 09:26
--- NOTE | 2023-02-27 09:43 | Physical Therapy Daily Note ---
PT Daily Note-Current Subjective Patient agrees to PT. She states, "I can't move my left leg. It doesn't work." Pain Section J - Health Conditions 1. Rarely or not at all 2. Occasionally 3. Frequently 4. Almost constantly 8. Unable to answer Pain Effect on Sleep: 3 Pain Interference with Therapy: 3 Pain Interference w/Day-to-Day: 3 Mental Status Patient Orientation: Normal For Age Attachments: Olivera Catheter, IV Transfers SCALE: Activities may be completed with or without assistive devices. 8-Xjhodpiifw-entughl completes the activity by him/herself with no assistance from a helper. 5-Set-up or Clean-up Assistance-helper sets up or cleans up; patient completes activity. [place] assists only prior to or following the activity. 4-Supervision or Touching Assistance-helper provides verbal cues and/or touching/steadying and/or contact guard assistance as patient completes activity. Assistance may be provided throughout the activity or intermittently. 3-Partial/Moderate Assistance-helper does LESS THAN HALF the effort. [place] lifts, holds or supports trunk or limbs, but provides less than half the effort. 2-Substantial/Maximal Assistance-helper does MORE THAN HALF the effort. [place] lifts or holds trunk or limbs and provides more than half the effort. 9-Gfpsxcplj-zztqnt does ALL the effort. Patient does none of the effort to complete the activity. Or, the assistance of 2 or more helpers is required for the patient to complete the activity. If activity was not attempted, code reason: 7-Patient Refused. 9-Not Applicable-not attempted and the patient did not perform the activity before the current illness, exacerbation or injury. 10-Not Attempted due to Environmental Limitations-(lack of equipment, weather restraints, etc.). 88-Not Attempted due to Medical Conditions or Safety Concerns. Lying to Sitting/Side of Bed(Q: 3 Sit to Stand (QC): 1 Chair/Ynj-vc-Hhuux Xfer(QC): 1 attempted to stand to FWW, TTWB left LE with patient unable to attain/dependent assist with SPT bed to recliner Weight Bearing Right Lower Extremity: Right Full Weight Bearing Left Lower Extremity: Left Touch Toe Bearing Exercises Supine Ex: Ankle pumps, Quad Set, Heel Slides (AAROM) Seated Therapy Exercises: Long arc quads Seated Reps: 20 (AROM) Assessment Patient up in recliner with needs met. PT educated patient on importance of performing seated and bed exercises PRN to increase strength. Patient continues to have difficulty with TTWB left LE and with all mobility. PT Short Term Goals Short Term Goals Time Frame: Mar 11, 2023 Roll Left & Right: 3 Sit to lyin Lying to sitting on side of be: 3 Sit to stand: 3 Chair/usx-xb-mconk transfer: 3 Walk 10 feet: 3 PT Facing Baster Goals Facing Baster Goals PT Facing Baster Goals Time Frame: Mar 25, 2023 Roll Left & Right (QC): 6 Sit to Lying (QC): 6 Lying-Sitting on Side/Bed(QC): 6 Sit to Stand (QC): 6 Chair/Djg-zv-Hvrse Xfer(QC): 6 Toilet Transfer (QC): 6 Walk 10 feet (QC): 4 Walk 50ft with 2 Turns (QC): 4 Walk 150 ft (QC): 4 PT Plan Treatment/Plan Treatment Plan: Continue Plan of Care Treatment Plan: Bed Mobility, Education, Functional Activity Theo, Functional Strength, Gait, Safety, Therapeutic Exercise, Transfers Treatment Duration: Mar 25, 2023 Frequency: 11 times per week Estimated Hrs Per Day: .5 hour per day Patient and/or Family Agrees t: Yes Time Time In: 852 Time Out: 907 DATE: Feb 27, 2023 Total Billed Treatment Time: 15 Total Billed Treatment 1 visit EX 15 min PATI RITTER PT Feb 27, 2023 09:43
--- NOTE | 2023-02-27 09:49 | Progress Note - Cardiology ---
Cardiology SOAP Progress Note Subjective: Sitting up in recliner at the bedside No c/o CP or SOB or palpitations Feels she has more energy following transfusion Objective: I&O/Vital Signs 02/27/23 02/28/23 02/28/23 02/28/23 23:46 03:45 08:00 08:00 Temp 36.6 36.3 37.0 Pulse 64 81 57 Resp 16 16 20 B/P (MAP) 128/65 (86) 159/72 (101) 180/85 (116) Pulse Ox 97 97 95 97 O2 Delivery Room Air Room Air Room Air Room Air O2 Flow Rate 0.00 0.00 0.00 0.00 02/28/23 00:00 Intake Total 1890 ml Output Total 1100 ml Balance 790 ml Weight (Pounds): 158 Weight (Ounces): 7.0 Weight (Calculated Kilograms): 71.262503 Constitutional: AAO x 3, well-developed, well-nourished Respiratory: No accessory muscle use; chest expansion is symmetric, chest is bilaterally symmetric, other (good, bilateral air entry) Cardiovascular: regular rate-rhythm, S1 and S2, systolic murmur (soft PREET at card base) Gastrointestional: No tender; soft; No guarding, No rebound; audible bowel sounds Extremities: No clubbing, No cyanosis, No significant edema Neurologic/Psychiatric: oriented x 3, other (moves all limbs equally) Skin: normal color, warm/dry; No rash, No ulcerations; other (left hip surgical dressing in place; D&I) Results/Procedures: Labs Laboratory Tests 02/28/23 05:42: White Blood Count 7.2, Red Blood Count 2.41L, Hemoglobin 8.1L, Hematocrit 24L, Mean Corpuscular Volume 101H, Mean Corpuscular Hemoglobin 34, Mean Corpuscular Hemoglobin Concent 33, Red Cell Distribution Width 15.9H, Platelet Count 148, Mean Platelet Volume 9.6, Immature Granulocyte % (Auto) 3, Neutrophils (%) (Auto) 72, Lymphocytes (%) (Auto) 19, Monocytes (%) (Auto) 6, Eosinophils (%) (Auto) 0, Basophils (%) (Auto) 0, Neutrophils # (Auto) 5.2, Lymphocytes # (Auto) 1.4, Monocytes # (Auto) 0.5, Eosinophils # (Auto) 0.0, Basophils # (Auto) 0.0, Immature Granulocyte # (Auto) 0.2H, Sodium Level 142, Potassium Level 3.3L, Chloride Level 108H, Carbon Dioxide Level 27, Anion Gap 7, Blood Urea Nitrogen 24H, Creatinine 0.89, Estimat Glomerular Filtration Rate 64, BUN/Creatinine Ratio 27, Glucose Level 92, Calcium Level 8.0L, Corrected Calcium 9.1, Total Bilirubin 0.8, Aspartate Amino Transf (AST/SGOT) 26, Alanine Aminotransferase (ALT/SGPT) 20, Alkaline Phosphatase 77, Total Protein 4.5L, Albumin 2.6L A/P: Assessment: S/P non-syncopal fall resulting in left hip fracture - s/p left hip surg on 02-23-23 Post-op anemia, severe - managed by Surg and Med svces CAD and cardiomegaly on PET CT of 04/16/19 - MPI of 05/14/19: no ischemia or infarction, LVEF 71% - Echo of 05/08/19: LVEF 60-65%, grade 1 coreas dysfunction of LV, mild to mod LA enlargement, RVSP 23 mmHg - No current symptoms of angina or heart failure - Echo on 02-24-23: LVEF 60-65%, mod conc LVH, grade 1 coreas dysfunction Oncology - 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 Agree with blood transfusion * Monitor labs SAL ROWE Feb 27, 2023 09:49
--- NOTE | 2023-02-27 10:27 | Occupational Ther Daily Note ---
OT Current Status-Daily Note Subjective Up in recliner w/ several phone calls, agrees to OT.however does not recall therapy last week Mental Status/Objective Patient Orientation: Person, Place, Time, Situation Attachments: Olivera Catheter (to beDC'd today), IV ADL-Treatment Patient performed removal of B LE footwear w/o ADS and 20% VCs for positioning, Don RLE independent w/ extra time alotment, LLE w/ OT placing sock over toes only and patient completed remainder of tasks. Performed 3 reps to sit/stand with partial erect stand and forward leaning over FWW. Final sit/stand CGA w/ TTWB on LLE. Once in standing VCS for erect stand and static balance w/ FWW. Olivera to b e removed and Patient would like a shower. Therapy Code Descriptions/Definitions Functional [place] Measure: 0=Not Assessed/NA 4=Minimal Assistance 1=Total Assistance 5=Supervision or Setup 2=Maximal Assistance 6=Modified [place] 3=Moderate Assistance 7=Complete IndependenceSCALE: Activities may be completed with or without assistive devices. 5-Dysqzwycde-sgdsmta completes the activity by him/herself with no assistance from a helper. 5-Set-up or Clean-up Assistance-helper sets up or cleans up; patient completes activity. [place] assists only prior to or following the activity. 4-Supervision or Touching Assistance-helper provides verbal cues and/or touching/steadying and/or contact guard assistance as patient completes activity. Assistance may be provided throughout the activity or intermittently. 3-Partial/Moderate Assistance-helper does LESS THAN HALF the effort. [place] l ifts, holds or supports trunk or limbs, but provides less than half the effort. 2-Substantial/Maximal Assistance-helper does MORE THAN HALF the effort. [place] lifts or holds trunk or limbs and provides more than half the effort. 1-Kympqebgw-mnofim does ALL the effort. Patient does none of the effort to complete the activity. Or, the assistance of 2 or more helpers is required for t he patient to complete the activity. If activity was not attempted, code reason: 7-Patient Refused. 9-Not Applicable-not attempted and the patient did not perform the activity before the current illness, exacerbation or injury. 10-Not Attempted due to Environmental Limitations-(lack of equipment, weather restraints, etc.). 88-Not Attempted due to Medical Conditions or Safety Concerns. Eating (QC): 6 Oral Hygiene (QC): 5 Upper Body Dressing (QC): 4 Lower Body Dressing (QC): 2 On/Off Footwear: 3 Toileting Hygiene (QC): 2 Toilet Transfer (QC): 2 (BSC, poor stand pivot w/ LLE) Education OT Patient Education: Correct positioning, Exercise program, Modified ADL techniques, Progress toward Goal/Update tx plan, Purpose of tx/functional activities, Reviewed precautions, Rehab process, Safety issues, Transfer techniques Teaching Recipient: Patient Teaching Methods: Demonstration Response to Teaching: Verbalize Understanding, Reinforcement Needed OT Alf Goals Scenery Builder Goals Eating (QC): 6 Oral Hygiene (QC): 5 Toileting Hygiene (QC): 5 Shower/Bathe Self (QC): 5 Upper Body Dressing (QC): 5 Lower Body Dressing (QC): 5 On/Off Footwear (QC): 5 1=Demonstrate adherence to instructed precautions during ADL tasks. 2=Patient will verbalize/demonstrate understanding of assistive devices/modifications for ADL. 3=Patient will improve strength/tolerance for activity to enable patient to perform ADL's. OT Education/Plan Discharge Recommendations Plan/Recommendations: Continue POC Therapy Discharge Recommendati: Post Acute OT Treatment Plan/Plan of Care Patient would benefit from OT for education, treatment and training to promote independence in ADL's, mobility, safety and/or upper extremity function for ADL's. Plan of Care: ADL Retraining, Functional Mobility, Group Exercise/Act as Ind, UE Funct Exercise/Act, UE Neuromus Re-Ed/Coord Treatment Duration: Mar 03, 2023 Frequency: 3 times per week (3-5 times per week) Estimated Hrs Per Day: .25 hour per day Agreement: Yes Rehab Potential: Fair Time Start Time: 10:20 Stop Time: 10:44 DATE: Feb 27, 2023 Total Time Billed (hr/min): 23 Billed Treatment Time ADL 1, EX 1 23 min LISA GREEN OT Feb 27, 2023 10:27
[2023-02-27 11:45] VITALS: BP 164/72
--- NOTE | 2023-02-27 13:38 | Progress Note - Cardiology ---
Cardiology SOAP Progress Note Subjective: No cp or palp or syncope No n/v/d No focal weakness Gen weakness has improved after blood transfusion Objective: I&O/Vital Signs 02/27/23 02/27/23 02/27/23 02/27/23 04:18 07:00 08:00 08:04 Temp 36.3 37.2 Pulse 67 75 60 Resp 12 18 B/P (MAP) 148/67 (94) 165/74 (104) Pulse Ox 96 96 O2 Delivery Room Air Room Air Room Air O2 Flow Rate 0.00 02/27/23 11:45 Temp 36.8 Pulse 56 Resp 16 B/P (MAP) 164/72 (102) Pulse Ox 97 O2 Delivery Room Air 02/27/23 00:00 Intake Total 1640 ml Output Total 1250 ml Balance 390 ml Weight (Pounds): 158 Weight (Ounces): 7.0 Weight (Calculated Kilograms): 71.269703 Constitutional: AAO x 3, well-developed, well-nourished Respiratory: No accessory muscle use; chest expansion is symmetric, chest is bilaterally symmetric, other (good, bilateral air entry) Cardiovascular: regular rate-rhythm, S1 and S2, systolic murmur (soft PREET at card base) Gastrointestional: No tender; soft; No guarding, No rebound; audible bowel sounds Extremities: No clubbing, No cyanosis, No significant edema Neurologic/Psychiatric: oriented x 3, other (moves all limbs equally) Skin: normal color, warm/dry; No rash, No ulcerations; other (left hip surgical dressing in place; D&I) Results/Procedures: Labs Laboratory Tests 02/27/23 05:44: White Blood Count 9.0, Red Blood Count 2.36L, Hemoglobin 7.8L, Hematocrit 24L, Mean Corpuscular Volume 100H, Mean Corpuscular Hemoglobin 33, Mean Corpuscular Hemoglobin Concent 33, Red Cell Distribution Width 15.3H, Platelet Count 140, Mean Platelet Volume 9.9, Immature Granulocyte % (Auto) 2, Neutrophils (%) (Auto) 85H, Lymphocytes (%) (Auto) 10L, Monocytes (%) (Auto) 3, Eosinophils (%) (Auto) 0, Basophils (%) (Auto) 0, Neutrophils # (Auto) 7.6, Lymphocytes # (Auto) 0.9L, Monocytes # (Auto) 0.3, Eosinophils # (Auto) 0.0, Basophils # (Auto) 0.0, Immature Granulocyte # (Auto) 0.2H, Percent Immature Platelet Fraction 3.7, Sodium Level 141, Potassium Level 4.1, Chloride Level 109H, Carbon Dioxide Level 25, Anion Gap 7, Blood Urea Nitrogen 21H, Creatinine 0.87, Estimat Glomerular Filtration Rate 66, BUN/Creatinine Ratio 24, Glucose Level 126H, Calcium Level 8.0L, Corrected Calcium 9.2, Total Bilirubin 0.8, Aspartate Amino Transf (AST/SGOT) 22, Alanine Aminotransferase (ALT/SGPT) 18, Alkaline Phosphatase 69, Total Protein 4.3L, Albumin 2.5L Laboratory Tests 02/26/23 05:30 02/27/23 05:44 A/P: Assessment: S/P non-syncopal fall resulting in left hip fracture - s/p left hip surg on 02-23-23 Post-op anemia, severe - managed by Surg and Med svces CAD and cardiomegaly on PET CT of 04/16/19 - MPI of 05/14/19: no ischemia or infarction, LVEF 71% - Echo of 05/08/19: LVEF 60-65%, grade 1 coreas dysfunction of LV, mild to mod LA enlargement, RVSP 23 mmHg - No current symptoms of angina or heart failure - Echo on 02-24-23: LVEF 60-65%, mod conc LVH, grade 1 coreas dysfunction Oncology - 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 Agree with blood transfusion * Monitor labs SANTHOSH RAMOS MD [facility] Feb 27, 2023 13:38
--- NOTE | 2023-02-27 14:07 | Physical Therapy Daily Note ---
PT Daily Note-Current Subjective Patient agrees to PT. Pain Numeric Pain Scale: 7 Location: Left Location Body Site: Hip Section J - Health Conditions 1. Rarely or not at all 2. Occasionally 3. Frequently 4. Almost constantly 8. Unable to answer Pain Effect on Sleep: 1 Pain Interference with Therapy: 1 Pain Interference w/Day-to-Day: 1 Transfers SCALE: Activities may be completed with or without assistive devices. 2-Nnhtvowobf-pzgkasr completes the activity by him/herself with no assistance from a helper. 5-Set-up or Clean-up Assistance-helper sets up or cleans up; patient completes activity. [place] assists only prior to or following the activity. 4-Supervision or Touching Assistance-helper provides verbal cues and/or touching/steadying and/or contact guard assistance as patient completes activity. Assistance may be provided throughout the activity or intermittently. 3-Partial/Moderate Assistance-helper does LESS THAN HALF the effort. [place] lifts, holds or supports trunk or limbs, but provides less than half the effort. 2-Substantial/Maximal Assistance-helper does MORE THAN HALF the effort. [place] lifts or holds trunk or limbs and provides more than half the effort. 3-Fnikojkbx-qzkytt does ALL the effort. Patient does none of the effort to complete the activity. Or, the assistance of 2 or more helpers is required for the patient to complete the activity. If activity was not attempted, code reason: 7-Patient Refused. 9-Not Applicable-not attempted and the patient did not perform the activity before the current illness, exacerbation or injury. 10-Not Attempted due to Environmental Limitations-(lack of equipment, weather restraints, etc.). 88-Not Attempted due to Medical Conditions or Safety Concerns. Sit to Stand (QC): 2 (x 3 sets to FWW with inability to maintain TTWB left LE) Weight Bearing Right Lower Extremity: Right Full Weight Bearing Left Lower Extremity: Left Touch Toe Bearing Exercises Seated Therapy Exercises: Ankle pumps, Long arc quads, Hip flexion Seated Reps: 20 (x 2 sets AAROM left LE) Assessment Patient progressing slowly and continues to require max assist with all sit to stand transfers to FWW. Patient fatigues quickly with minimal activity. PT to continue to increase activity as tolerated by patient. PT Short Term Goals Short Term Goals Time Frame: Mar 11, 2023 Roll Left & Right: 3 Sit to lyin Lying to sitting on side of be: 3 Sit to stand: 3 Chair/amh-bz-vsssz transfer: 3 Walk 10 feet: 3 PT Mcfp Goals Mcfp Goals PT Mcfp Goals Time Frame: Mar 25, 2023 Roll Left & Right (QC): 6 Sit to Lying (QC): 6 Lying-Sitting on Side/Bed(QC): 6 Sit to Stand (QC): 6 Chair/Yop-tl-Vgskl Xfer(QC): 6 Toilet Transfer (QC): 6 Walk 10 feet (QC): 4 Walk 50ft with 2 Turns (QC): 4 Walk 150 ft (QC): 4 PT Plan Treatment/Plan Treatment Plan: Continue Plan of Care Treatment Plan: Bed Mobility, Education, Functional Activity Theo, Functional Strength, Gait, Safety, Therapeutic Exercise, Transfers Treatment Duration: Mar 25, 2023 Frequency: 11 times per week Estimated Hrs Per Day: .5 hour per day Patient and/or Family Agrees t: Yes Time Time In: 1331 Time Out: 1344 DATE: Feb 27, 2023 Total Billed Treatment Time: 13 Total Billed Treatment 1 visit EX 13 min PATI RITTER PT Feb 27, 2023 14:07
--- NOTE | 2023-02-27 14:48 | Progress Note - Ortho ---
Progress Note Subjective Date of Exam 02/27/23 Chief Complaint POD #4 s/p IM Nailing of Left IT Femur Fx with Subtroch extension HPI/Events since last exam working with therapy, slowly progressing, wants to be able to go to rehab unit Review of Systems - Allergies: Coded Allergies: Penicillins (Verified Allergy, Mild, RASH, Pt has received Keflex w/o issue, 02/17/21) Home Meds Reported Medications Polyethylene Glycol 3350 (Miralax) 17 Gram Powd.pack, 17 GM PO DAILY PRN for CONSTIPATION-2ND LINE, EACH 02/23/23 Ondansetron (Ondansetron Odt) 4 Mg Tab.rapdis, 4 MG PO Q6H PRN for NAUSEA/VO MITING-1ST LINE, TAB 02/23/23 Potassium Chloride (Potassium Chloride) 10 Meq Capsule.er, 10 MEQ PO Q48H, CAP 02/23/23 Omeprazole (Omeprazole) 40 Mg Capsule.dr, 40 MG PO DAILY, TAB 02/23/23 Sarilumab (Kevzara) 200 Mg/1.14 Ml Pen.injctr, 200 MG IJ EVERY 2 WEEKS, EACH 02/23/23 Oxycodone HCl (Oxycodone HCl) 15 Mg Tablet, 15 MG PO Q6H, TAB 02/23/23 Hydralazine HCl (Hydralazine HCl) 25 Mg Tablet, 25 MG PO TID, TAB 02/23/23 Gabapentin (Gabapentin) 400 Mg Capsule, 800 MG PO HS, CAP TAKES 2 (400MG) TABS 07/08/20 Folic Acid (Folic Acid) 0.4 Mg Tablet, 0.4 MG PO DAILY, TAB 07/08/20 Atenolol (Atenolol) 50 Mg Tablet, 75 MG PO DAILY, TAB TAKES 1 & (50MG) TABS 12/23/19 Levothyroxine Sodium (Levothyroxine Sodium) 100 Mcg Tablet, 50 MCG PO HENNING,SA, TAB TAKES OF A 100MCG TAB 12/23/19 Levothyroxine Sodium (Levothyroxine Sodium) 100 Mcg Tablet, 100 MCG PO ,,,,FR, TAB 12/23/19 Discontinued Reported Medications Sucralfate (Sucralfate) 1 Gram Tablet, 1 GM PO, TAB 03/23/22 Hydralazine HCl (Hydralazine HCl) 50 Mg Tablet, 50 MG PO, TAB 03/23/22 Potassium Chloride (Potassium Chloride) 10 Meq Tab.er.prt, 10 MEQ PO Q48H 02/16/21 Omeprazole (Omeprazole) 20 Mg Tablet.dr, 20 MG PO DAILY, TAB 12/23/19 Methotrexate Sodium (Methotrexate) 2.5 Mg Tablet, 10 MG PO WEEK, TAB 02/07/19 Objective Exam L Le lower incisions intact with minimal drainage, positive DF of ankle, sensation grossly intact to light touch, no s/s of DVT Vital Signs Vital Signs Date Time Temp Pulse Resp B/P (MAP) Pulse Ox O2 Delivery O2 Flow Rate FiO2 02/27/23 11:45 36.8 56 16 164/72 (102) 97 Room Air 02/27/23 08:04 37.2 60 18 165/74 (104) Room Air 02/27/23 08:00 96 Room Air 0.00 02/27/23 07:00 75 02/27/23 04:18 36.3 67 12 148/67 (94) 96 Room Air 02/27/23 01:00 56 02/26/23 23:50 36.7 65 12 122/63 (82) 96 Room Air 02/26/23 21:45 Room Air 02/26/23 20:00 Room Air 02/26/23 19:46 56 02/26/23 19:10 36.9 68 18 109/65 (80) 95 Room Air 02/26/23 16:14 36.8 64 18 138/65 (89) 97 Room Air I & O 02/27/23 07:00 Intake Total 1715 ml Output Total 2000 ml Balance -285 ml Lab Results Laboratory Tests 02/27/23 05:44: White Blood Count 9.0, Red Blood Count 2.36L, Hemoglobin 7.8L, Hematocrit 24L, Mean Corpuscular Volume 100H, Mean Corpuscular Hemoglobin 33, Mean Corpuscular Hemoglobin Concent 33, Red Cell Distribution Width 15.3H, Platelet Count 140, Mean Platelet Volume 9.9, Immature Granulocyte % (Auto) 2, Neutrophils (%) (Auto) 85H, Lymphocytes (%) (Auto) 10L, Monocytes (%) (Auto) 3, Eosinophils (%) (Auto) 0, Basophils (%) (Auto) 0, Neutrophils # (Auto) 7.6, Lymphocytes # (Auto) 0.9L, Monocytes # (Auto) 0.3, Eosinophils # (Auto) 0.0, Basophils # (Auto) 0.0, Immature Granulocyte # (Auto) 0.2H, Percent Immature Platelet Fraction 3.7, Sodium Level 141, Potassium Level 4.1, Chloride Level 109H, Carbon Dioxide Level 25, Anion Gap 7, Blood Urea Nitrogen 21H, Creatinine 0.87, Estimat Glomerular Filtration Rate 66, BUN/Creatinine Ratio 24, Glucose Level 126H, Calcium Level 8.0L, Corrected Calcium 9.2, Total Bilirubin 0.8, Aspartate Amino Transf (AST/SGOT) 22, Alanine Aminotransferase (ALT/SGPT) 18, Alkaline Phosphatase 69, Total Protein 4.3L, Albumin 2.5L Assessment and Plan Assessment L IT Femur Fx with Subtroch Extension s/p IM Nailing Problem List L IT Femur Fx with Subtroch Extension s/p IM Nailing Plan Pt/Ot DVT prophylaxis Rehab vs. placement Final Diagonsis L IT Femur Fx with Subtroch Extension s/p IM Nailing Level of the visit: Level 3 Clinical Quality Measures DVT/VTE Risk/Contraindication: Contraindications-Pharm: Other *list below* Other: severe JOEA ANGELICA CARNEY MD Feb 27, 2023 14:48
[2023-02-27 16:38] VITALS: BP 186/84
[2023-02-27 20:09] VITALS: BP 133/63
[2023-02-27] MEDS: GABAPENTIN 400 MG (NEURONTIN) CAP PO SCH (21:11)
[2023-02-27] MEDS: APIXABAN 2.5 MG (ELIQUIS) TABLET PO SCH (21:11)
[2023-02-27 23:46] VITALS: BP 128/65
[2023-02-28 03:45] VITALS: BP 159/72
--- NOTE | 2023-02-28 05:42 | Progress Note ---
Subjective Date Seen by a Provider: Feb 28, 2023 Time Seen by a Provider: 11:00 Subjective/Events-last exam No major issues Awaiting fast appeal Pain controlled Hgb stable Venofer ordered Review of Systems General: Fatigue, Malaise Musculoskeletal: leg pain Objective Exam Last Set of Vital Signs Vital Signs Date Time Temp Pulse Resp B/P (MAP) Pulse Ox O2 Delivery O2 Flow Rate FiO2 02/28/23 03:45 36.3 81 16 159/72 (101) 97 Room Air 0.00 0.00 02/25/23 14:04 21 Capillary Refill : Less Than 3 SecondsLess Than 3 Seconds I&O Intake and Output 02/28/23 00:00 Intake Total 2965 ml Output Total 1850 ml Balance 1115 ml Intake Oral 1965 ml IV Total 1000 ml Output Urine Total 1600 ml Post Void Residual 250 ml General: Alert, Oriented X3, Cooperative, No Acute Distress Lungs: Clear to Auscultation, Normal Air Movement Heart: Regular Rate, Normal S1, Normal S2, No Murmurs Psych/Mental Status: Mental Status NL, Mood NL Results Lab Laboratory Tests 02/27/23 05:44: White Blood Count 9.0, Red Blood Count 2.36L, Hemoglobin 7.8L, Hematocrit 24L, Mean Corpuscular Volume 100H, Mean Corpuscular Hemoglobin 33, Mean Corpuscular Hemoglobin Concent 33, Red Cell Distribution Width 15.3H, Platelet Count 140, Mean Platelet Volume 9.9, Immature Granulocyte % (Auto) 2, Neutrophils (%) (Auto) 85H, Lymphocytes (%) (Auto) 10L, Monocytes (%) (Auto) 3, Eosinophils (%) (Auto) 0, Basophils (%) (Auto) 0, Neutrophils # (Auto) 7.6, Lymphocytes # (Auto) 0.9L, Monocytes # (Auto) 0.3, Eosinophils # (Auto) 0.0, Basophils # (Auto) 0.0, Immature Granulocyte # (Auto) 0.2H, Percent Immature Platelet Fraction 3.7, Sodium Level 141, Potassium Level 4.1, Chloride Level 109H, Carbon Dioxide Level 25, Anion Gap 7, Blood Urea Nitrogen 21H, Creatinine 0.87, Estimat Glomerular Filtration Rate 66, BUN/Creatinine Ratio 24, Glucose Level 126H, Calcium Level 8.0L, Corrected Calcium 9.2, Total Bilirubin 0.8, Aspartate Amino Transf (AST/SGOT) 22, Alanine Aminotransferase (ALT/SGPT) 18, Alkaline Phosphatase 69, Total Protein 4.3L, Albumin 2.5L Assessment/Plan Assessment/Plan Assess & Plan/Chief Complaint Assessment: Comminuted L intertrochanteric femur fracture HTN Acute blood loss anemia Hx of RA with recent steroid taper Hypothyroidism Hx of stomach lymphoma-B cell MALT lymphoma sees Dr Galaviz Acute adrenal insufficiency placed on hydrocortisone 100 mg IV every 12 hours x 3 days then DC and cortisol confirmed low level at 3.5 Acute blood loss anemia requiring 1 unit of blood transfusion yesterday on 02/26/2023 DVT- OAC Diet- regular Code- full Clinical Quality Measures DVT/VTE Risk/Contraindication: Contraindications-Pharm: Other *list below* Other: severe JOEA MELINDA TAVARES DO Feb 28, 2023 05:42
[2023-02-28 05:56] LABS: BASOPHILS % (AUTO) 0 % (0-10); EOSINOPHILS % (AUTO) 0 % (0-10); HEMATOCRIT 24 % (35-52); HEMOGLOBIN 8.1 g/dL (11.5-16.0); LYMPHOCYTES # (AUTO) 1.4 10^3/uL (1.0-4.0); LYMPHOCYTES % (AUTO) 19 % (12-44); MEAN CORPUSCULAR HEMOGLOBIN 34 pg (25-34); MEAN CORPUSCULAR HGB CONC 33 g/dL (32-36); MEAN CORPUSCULAR VOLUME 101 fL (80-99); MEAN PLATELET VOLUME 9.6 fL (9.0-12.2); MONOCYTES # (AUTO) 0.5 10^3/uL (0.0-1.0); MONOCYTES % (AUTO) 6 % (0-12); NEUTROPHILS # (AUTO) 5.2 10^3/uL (1.8-7.8); NEUTROPHILS % (AUTO) 72 % (42-75); PLATELET COUNT 148 10^3/uL (130-400); WHITE BLOOD COUNT 7.2 10^3/uL (4.3-11.0)
[2023-02-28 06:04] LABS: ALBUMIN 2.6 GM/DL (3.2-4.5); POTASSIUM 3.3 MMOL/L (3.6-5.0)
[2023-02-28] MEDS: CYANOCOBALAMIN 1,000 MCG (VITAMIN B-12) TABLET PO SCH (06:06)
[2023-02-28] MEDS: LEVOTHYROXINE 100 MCG (LEVOTHROID) TAB PO SCH (06:06)
[2023-02-28 06:07] LABS: TOTAL PROTEIN 4.5 GM/DL (6.4-8.2)
[2023-02-28 06:09] LABS: BILIRUBIN,TOTAL 0.8 MG/DL (0.1-1.0)
[2023-02-28 06:10] LABS: CREATININE SERUM 0.89 MG/DL (0.60-1.30)
[2023-02-28 08:00] VITALS: BP 180/85
[2023-02-28] MEDS ORDERED: KCL 20 MEQ TAB (K-DUR) PO NR (08:00)
[2023-02-28] MEDS: DOCUSATE SODIUM 100 MG (COLACE) CAP PO SCH ×2 (08:30→20:38)
[2023-02-28] MEDS: hydrALAZINE (APRESOLINE) 25 MG TAB PO SCH ×3 (08:31→20:38)
[2023-02-28] MEDS: polyethylene glycoL POWDER 17 GM (MIRALAX) PACK PO SCH ×3 (08:31→20:38)
[2023-02-28] MEDS: FOLIC ACID 1 MG TAB PO SCH (08:31)
[2023-02-28] MEDS: APIXABAN 2.5 MG (ELIQUIS) TABLET PO SCH ×2 (08:31→20:38)
[2023-02-28] MEDS: SENNOSIDES 8.6 MG (SENOKOT) TAB PO SCH ×2 (08:31→20:39)
[2023-02-28] MEDS: PANTOPRAZOLE 40 MG (PROTONIX) TAB PO SCH (08:31)
[2023-02-28] MEDS: ATENOLOL 25 MG (TENORMIN) TAB PO SCH (08:35)
--- NOTE | 2023-02-28 08:55 | Occupational Ther Daily Note ---
OT Current Status-Daily Note Subjective Up in recliner w/ breakfast tray over lap on tray table, finished taking medication, agreeable to OT ther ex Mental Status/Objective Patient Orientation: Person, Place, Time, Situation ADL-Treatment Therapy Code Descriptions/Definitions Functional [place] Measure: 0=Not Assessed/NA 4=Minimal Assistance 1=Total Assistance 5=Supervision or Setup 2=Maximal Assistance 6=Modified [place] 3=Moderate Assistance 7=Complete IndependenceSCALE: Activities may be completed with or without assistive devices. 6-Wrzldkrwfr-etpgkmt completes the activity by him/herself with no assistance from a helper. 5-Set-up or Clean-up Assistance-helper sets up or cleans up; patient completes activity. [place] assists only prior to or following the activity. 4-Supervision or Touching Assistance-helper provides verbal cues and/or touching/steadying and/or contact guard assistance as patient completes activity. Assistance may be provided throughout the activity or intermittently. 3-Partial/Moderate Assistance-helper does LESS THAN HALF the effort. [place] lifts, holds or supports trunk or limbs, but provides less than half the effort. 2-Substantial/Maximal Assistance-helper does MORE THAN HALF the effort. [place] lifts or holds trunk or limbs and provides more than half the effort. 1-Eijjaxttv-horgnu does ALL the effort. Patient does none of the effort to complete the activity. Or, the assistance of 2 or more helpers is required for the patient to complete the activity. If activity was not attempted, code reason: 7-Patient Refused. 9-Not Applicable-not attempted and the patient did not perform the activity before the current illness, exacerbation or injury. 10-Not Attempted due to Environmental Limitations-(lack of equipment, weather restraints, etc.). 88-Not Attempted due to Medical Conditions or Safety Concerns. strongly encouraged patient to lift LLE into knee extension when OT removes bed tray table. Other Treatment Red therapy band for 10x3x3 BUE elbow extension exercise in multidirectional resistive pull, mirrored demonstration provided along side patietn as well as count down and pace of exercise. Education OT Patient Education: Correct positioning, Exercise program, Progress toward Goal/Update tx plan, Purpose of tx/functional activities, Reviewed precautions, Rehab process Teaching Recipient: Patient Teaching Methods: Demonstration, Handout (white board), Discussion Response to Teaching: Verbalize Understanding, Return Demonstration (with mirrored demonstration), Reinforcement Needed OT Supervisor [employer] Goals Skilled Nursing Goals Eating (QC): 6 Oral Hygiene (QC): 5 Toileting Hygiene (QC): 5 Shower/Bathe Self (QC): 5 Upper Body Dressing (QC): 5 Lower Body Dressing (QC): 5 On/Off Footwear (QC): 5 1=Demonstrate adherence to instructed precautions during ADL tasks. 2=Patient will verbalize/demonstrate understanding of assistive devices/modifications for ADL. 3=Patient will improve strength/tolerance for activity to enable patient to perform ADL's. OT Education/Plan Problem List/Assessment Assessment: Decreased Activ Tolerance, Decreased Safety Aware, Decreased UE Strength, Impaired Coordination, Impaired Self-Care Skills Discharge Recommendations Plan/Recommendations: Continue POC Therapy Discharge Recommendati: Post Acute OT Treatment Plan/Plan of Care Patient would benefit from OT for education, treatment and training to promote independence in ADL's, mobility, safety and/or upper extremity function for ADL's. Plan of Care: ADL Retraining, Functional Mobility, Group Exercise/Act as Ind, UE Funct Exercise/Act, UE Neuromus Re-Ed/Coord Treatment Duration: Mar 03, 2023 Frequency: 3 times per week (3-5 times per week) Estimated Hrs Per Day: .25 hour per day Agreement: Yes Rehab Potential: Fair All needs met Time Start Time: 08:36 Stop Time: 08:57 DATE: Feb 28, 2023 Total Time Billed (hr/min): 21 Billed Treatment Time EX 21 min LISA GREEN OT Feb 28, 2023 08:55
--- NOTE | 2023-02-28 09:11 | Physical Therapy Daily Note ---
PT Daily Note-Current Subjective Patient agrees to PT. Pain Numeric Pain Scale: 8 Location: Left Location Body Site: Hip Pain Description: Acute (3) Section J - Health Conditions 1. Rarely or not at all 2. Occasionally 3. Frequently 4. Almost constantly 8. Unable to answer Pain Effect on Sleep: 1 Pain Interference with Therapy: 1 Pain Interference w/Day-to-Day: 1 Transfers SCALE: Activities may be completed with or without assistive devices. 0-Mefbvmbplw-kbndajx completes the activity by him/herself with no assistance from a helper. 5-Set-up or Clean-up Assistance-helper sets up or cleans up; patient completes activity. [place] assists only prior to or following the activity. 4-Supervision or Touching Assistance-helper provides verbal cues and/or touchi ng/steadying and/or contact guard assistance as patient completes activity. Assistance may be provided throughout the activity or intermittently. 3-Partial/Moderate Assistance-helper does LESS THAN HALF the effort. [place] lifts, holds or supports trunk or limbs, but provides less than half the effort. 2-Substantial/Maximal Assistance-helper does MORE THAN HALF the effort. [place] lifts or holds trunk or limbs and provides more than half the effort. 0-Exkgezwun-nneabt does ALL the effort. Patient does none of the effort to complete the activity. Or, the assistance of 2 or more helpers is required for the patient to complete the activity. If activity was not attempted, code reason: 7-Patient Refused. 9-Not Applicable-not attempted and the patient did not perform the activity before the current illness, exacerbation or injury. 10-Not Attempted due to Environmental Limitations-(lack of equipment, weather restraints, etc.). 88-Not Attempted due to Medical Conditions or Safety Concerns. Lying to Sitting/Side of Bed(Q: 3 Sit to Stand (QC): 3 Chair/Qad-ca-Fokis Xfer(QC): 3 mod assist with SPT with patient unable to advance left LE without assist Weight Bearing Right Lower Extremity: Right Full Weight Bearing Left Lower Extremity: Left Touch Toe Bearing Gait Training Does the Patient Walk?: No and Walking Goal IS indicated Exercises Supine Ex: Ankle pumps, Quad Set, Heel Slides Supine Reps: 15 (AAROM) Seated Therapy Exercises: Long arc quads, Hip flexion Seated Reps: 15 (AAROM) Assessment Patient making slow progress with mobility and strengthening. Patient is up in recliner with needs met. Patient presents with trunk flexed posture in stand to FWW with VC's for erect posture to assist with advancing left LE, however, patient will let go of the FWW and use UE's to advance left LE. PT voiced concern to patient on safety and to advance left LE with muscle use, however, patient continues to let go of the walker to use UE's to advance left LE. PT Short Term Goals Short Term Goals Time Frame: Mar 11, 2023 Roll Left & Right: 3 Sit to lyin Lying to sitting on side of be: 3 Sit to stand: 3 Chair/ngh-ed-hwiaa transfer: 3 Walk 10 feet: 3 PT Halfway Goals Halfway Goals PT Bushwalking Guide Goals Time Frame: Mar 25, 2023 Roll Left & Right (QC): 6 Sit to Lying (QC): 6 Lying-Sitting on Side/Bed(QC): 6 Sit to Stand (QC): 6 Chair/Oao-rm-Igyvo Xfer(QC): 6 Toilet Transfer (QC): 6 Walk 10 feet (QC): 4 Walk 50ft with 2 Turns (QC): 4 Walk 150 ft (QC): 4 PT Plan Treatment/Plan Treatment Plan: Continue Plan of Care Treatment Plan: Bed Mobility, Education, Functional Activity Theo, Functional Strength, Gait, Safety, Therapeutic Exercise, Transfers Treatment Duration: Mar 25, 2023 Frequency: 11 times per week Estimated Hrs Per Day: .5 hour per day Patient and/or Family Agrees t: Yes Time Time In: 805 Time Out: 815 DATE: Feb 28, 2023 Total Billed Treatment Time: 10 Total Billed Treatment 1 visit EX 10 min PATI RITTER PT Feb 28, 2023 09:11
[2023-02-28] MEDS ORDERED: BISACODYL 10 MG SUPP (DULCOLAX) PR PRN (09:45)
[2023-02-28] MEDS: MILK OF MAGNESIA 400 MG/5 ML 30 ML UDC PO PRN (09:50)
[2023-02-28] MEDS: IRON SUCROSE 200 MG/10 ML (VENOFER) VIAL IV SCH (09:59)
[2023-02-28] MEDS ORDERED: amLODIPine 5 MG (NORVASC) TAB PO NR (10:00)
--- NOTE | 2023-02-28 11:29 | Progress Note - Cardiology ---
Cardiology SOAP Progress Note Subjective: Sitting up in recliner at the bedside No c/o CP or SOB No c/o palpitations Objective: I&O/Vital Signs 03/01/23 03/02/23 03/02/23 23:08 03:45 08:23 Temp 36.9 36.1 36.9 Pulse 69 67 96 Resp 18 18 18 B/P (MAP) 143/76 (98) 150/76 (100) 111/58 (75) Pulse Ox 96 93 95 O2 Delivery Room Air Room Air Room Air O2 Flow Rate 0.00 0.00 0.00 0.00 03/02/23 00:00 Intake Total 762 ml Balance 762 ml Weight (Pounds): 158 Weight (Ounces): 7.0 Weight (Calculated Kilograms): 71.023114 Constitutional: AAO x 3, well-developed, well-nourished Respiratory: No accessory muscle use; chest expansion is symmetric, chest is bilaterally symmetric, other (good, bilateral air entry) Cardiovascular: regular rate-rhythm, S1 and S2, systolic murmur (soft PREET at card base) Gastrointestional: No tender; soft; No guarding, No rebound; audible bowel sounds Extremities: No clubbing, No cyanosis, No significant edema Neurologic/Psychiatric: oriented x 3, other (moves all limbs equally) Skin: normal color, warm/dry; No rash, No ulcerations; other (left hip surgical dressing in place; D&I) Results/Procedures: Labs Laboratory Tests 03/01/23 15:00: Urine Color YELLOW, Urine Clarity CLEAR, Urine pH 7.0, Urine Specific [place] 1.010L, Urine Protein NEGATIVE, Urine Glucose (UA) NEGATIVE, Urine Ketones NEGATIVE, Urine Nitrite NEGATIVE, Urine Bilirubin NEGATIVE, Urine Urobilinogen 0.2, Urine Leukocyte Esterase 1+H, Urine RBC (Auto) NEGATIVE, Urine RBC NONE, Urine WBC 5-10H, Urine Squamous Epithelial Cells NONE, Urine Crystals NONE, Urine Bacteria LARGEH, Urine Casts NONE, Urine Mucus NEGATIVE, Urine Culture Indicated YES 03/02/23 05:15: White Blood Count 6.7, Red Blood Count 2.59L, Hemoglobin 8.6L, Hematocrit 27L, Mean Corpuscular Volume 102H, Mean Corpuscular Hemoglobin 33, Mean Corpuscular Hemoglobin Concent 33, Red Cell Distribution Width 16.8H, Platelet Count 145, Mean Platelet Volume 10.5, Immature Granulocyte % (Auto) 1, Neutrophils (%) (Auto) 78H, Lymphocytes (%) (Auto) 15, Monocytes (%) (Auto) 5, Eosinophils (%) (Auto) 1, Basophils (%) (Auto) 0, Neutrophils # (Auto) 5.2, Lymphocytes # (Auto) 1.0, Monocytes # (Auto) 0.4, Eosinophils # (Auto) 0.1, Basophils # (Auto) 0.0, Immature Granulocyte # (Auto) 0.1, Sodium Level 139, Potassium Level 3.8, Chloride Level 105, Carbon Dioxide Level 26, Anion Gap 8, Blood Urea Nitrogen 19H, Creatinine 0.86, Estimat Glomerular Filtration Rate 67, BUN/Creatinine Ratio 22, Glucose Level 100, Calcium Level 8.1L, Corrected Calcium 9.3, Total Bilirubin 1.0, Aspartate Amino Transf (AST/SGOT) 24, Alanine Aminotransferase (ALT/SGPT) 19, Alkaline Phosphatase 78, Total Protein 4.5L, Albumin 2.5L Microbiology 03/01/23 Urine Culture - Preliminary, Resulted Probable E.coli A/P: Assessment: S/P non-syncopal fall resulting in left hip fracture - s/p left hip surg on 02-23-23 Post-op anemia, severe - managed by Surg and Med svces CAD and cardiomegaly on PET CT of 04/16/19 - MPI of 05/14/19: no ischemia or infarction, LVEF 71% - Echo of 05/08/19: LVEF 60-65%, grade 1 coreas dysfunction of LV, mild to mod LA enlargement, RVSP 23 mmHg - No current symptoms of angina or heart failure - Echo on 02-24-23: LVEF 60-65%, mod conc LVH, grade 1 coreas dysfunction Oncology - 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
[2023-02-28 12:00] VITALS: BP 123/70
--- NOTE | 2023-02-28 13:18 | Physical Therapy Daily Note ---
PT Daily Note-Current Subjective Patient reluctantly agrees to PT. She is more concerned with having a BM and all the laxatives she is taking Pain Section J - Health Conditions 1. Rarely or not at all 2. Occasionally 3. Frequently 4. Almost constantly 8. Unable to answer Pain Effect on Sleep: 1 Pain Interference with Therapy: 1 Pain Interference w/Day-to-Day: 1 Mental Status Patient Orientation: Person, Time, Situation Transfers SCALE: Activities may be completed with or without assistive devices. 5-Ipukloilpm-wfckbcp completes the activity by him/herself with no assistance from a helper. 5-Set-up or Clean-up Assistance-helper sets up or cleans up; patient completes activity. [place] assists only prior to or following the activity. 4-Supervision or Touching Assistance-helper provides verbal cues and/or touching/steadying and/or contact guard assistance as patient completes activity. Assistance may be provided throughout the activity or intermittently. 3-Partial/Moderate Assistance-helper does LESS THAN HALF the effort. [place] lifts, holds or supports trunk or limbs, but provides less than half the effort. 2-Substantial/Maximal Assistance-helper does MORE THAN HALF the effort. [place] lifts or holds trunk or limbs and provides more than half the effort. 1-Awujccnej-ylcaxg does ALL the effort. Patient does none of the effort to complete the activity. Or, the assistance of 2 or more helpers is required for the patient to complete the activity. If activity was not attempted, code reason: 7-Patient Refused. 9-Not Applicable-not attempted and the patient did not perform the activity before the current illness, exacerbation or injury. 10-Not Attempted due to Environmental Limitations-(lack of equipment, weather restraints, etc.). 88-Not Attempted due to Medical Conditions or Safety Concerns. Sit to Stand (QC): 2 (x 3 sets to FWW) Weight Bearing Right Lower Extremity: Right Full Weight Bearing Left Lower Extremity: Left Touch Toe Bearing Exercises Seated Therapy Exercises: Ankle pumps, Long arc quads Seated Reps: 15 Assessment Patient tolerated minimal activity this p.m. Remains up in recliner. PT to increase activity as tolerated by patient. PT Short Term Goals Short Term Goals Time Frame: Mar 11, 2023 Roll Left & Right: 3 Sit to lyin Lying to sitting on side of be: 3 Sit to stand: 3 Chair/xoo-yo-pwdbn transfer: 3 Walk 10 feet: 3 PT Oil Paint Shader Goals Usp Goals PT Usp Goals Time Frame: Mar 25, 2023 Roll Left & Right (QC): 6 Sit to Lying (QC): 6 Lying-Sitting on Side/Bed(QC): 6 Sit to Stand (QC): 6 Chair/Ifn-fm-Oyhwt Xfer(QC): 6 Toilet Transfer (QC): 6 Walk 10 feet (QC): 4 Walk 50ft with 2 Turns (QC): 4 Walk 150 ft (QC): 4 PT Plan Treatment/Plan Treatment Plan: Continue Plan of Care Treatment Plan: Bed Mobility, Education, Functional Activity Theo, Functional Strength, Gait, Safety, Therapeutic Exercise, Transfers Treatment Duration: Mar 25, 2023 Frequency: 11 times per week Estimated Hrs Per Day: .5 hour per day Patient and/or Family Agrees t: Yes Time Time In: 1230 Time Out: 1240 DATE: Feb 28, 2023 Total Billed Treatment Time: 10 Total Billed Treatment 1 visit EX 10 min PATI RITTER PT Feb 28, 2023 13:18
[2023-02-28 15:53] VITALS: BP 143/81
--- NOTE | 2023-02-28 18:32 | Progress Note - Cardiology ---
Cardiology SOAP Progress Note Subjective: gen weakness and malaise present no focal weakness no n/v/d no cp or palp or syncope no shortness of breath at rest notes bilat leg swelling Objective: I&O/Vital Signs 02/28/23 02/28/23 02/28/23 02/28/23 08:00 08:00 12:00 15:38 Temp 37.0 36.4 Pulse 57 58 Resp 20 20 B/P (MAP) 180/85 (116) 123/70 (87) Pulse Ox 95 97 97 97 O2 Delivery Room Air Room Air Room Air Room Air 02/28/23 15:53 Temp 36.6 Pulse 66 Resp 18 B/P (MAP) 143/81 (101) Pulse Ox 97 O2 Delivery Room Air 02/28/23 00:00 Intake Total 1890 ml Output Total 1100 ml Balance 790 ml Weight (Pounds): 158 Weight (Ounces): 7.0 Weight (Calculated Kilograms): 71.334713 Constitutional: AAO x 3, well-developed, well-nourished Respiratory: No accessory muscle use; chest expansion is symmetric, chest is bilaterally symmetric, other (good, bilateral air entry) Cardiovascular: regular rate-rhythm, S1 and S2, systolic murmur (soft PREET at card base) Gastrointestional: No tender; soft; No guarding, No rebound; audible bowel sounds Extremities: swelling (moderate, bilat leg swelling); No clubbing, No cyanosis Neurologic/Psychiatric: oriented x 3, other (moves all limbs equally) Skin: normal color, warm/dry; No rash, No ulcerations; other (left hip surgical dressing in place; D&I) Results/Procedures: Labs Laboratory Tests 02/28/23 05:42: White Blood Count 7.2, Red Blood Count 2.41L, Hemoglobin 8.1L, Hematocrit 24L, Mean Corpuscular Volume 101H, Mean Corpuscular Hemoglobin 34, Mean Corpuscular Hemoglobin Concent 33, Red Cell Distribution Width 15.9H, Platelet Count 148, Mean Platelet Volume 9.6, Immature Granulocyte % (Auto) 3, Neutrophils (%) (Auto) 72, Lymphocytes (%) (Auto) 19, Monocytes (%) (Auto) 6, Eosinophils (%) (Auto) 0, Basophils (%) (Auto) 0, Neutrophils # (Auto) 5.2, Lymphocytes # (Auto) 1.4, Monocytes # (Auto) 0.5, Eosinophils # (Auto) 0.0, Basophils # (Auto) 0.0, Immature Granulocyte # (Auto) 0.2H, Sodium Level 142, Potassium Level 3.3L, Chloride Level 108H, Carbon Dioxide Level 27, Anion Gap 7, Blood Urea Nitrogen 24H, Creatinine 0.89, Estimat Glomerular Filtration Rate 64, BUN/Creatinine Ratio 27, Glucose Level 92, Calcium Level 8.0L, Corrected Calcium 9.1, Total Bilirubin 0.8, Aspartate Amino Transf (AST/SGOT) 26, Alanine Aminotransferase (ALT/SGPT) 20, Alkaline Phosphatase 77, Total Protein 4.5L, Albumin 2.6L Laboratory Tests 02/27/23 05:44 02/28/23 05:42 A/P: Assessment: S/P non-syncopal fall resulting in left hip fracture - s/p left hip surg on 02-23-23 Post-op anemia, severe - managed by Surg and Med svces CAD and cardiomegaly on PET CT of 04/16/19 - MPI of 05/14/19: no ischemia or infarction, LVEF 71% - Echo of 05/08/19: LVEF 60-65%, grade 1 coreas dysfunction of LV, mild to mod LA enlargement, RVSP 23 mmHg - No current symptoms of angina or heart failure - Echo on 02-24-23: LVEF 60-65%, mod conc LVH, grade 1 coreas dysfunction Oncology - 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
[2023-02-28 19:24] VITALS: BP 155/81
[2023-02-28] MEDS: GABAPENTIN 400 MG (NEURONTIN) CAP PO SCH (20:38)
[2023-02-28 23:44] VITALS: BP 131/65
[2023-03-01] VITALS (7 sets, daily range): BP systolic 128–156; BP diastolic 62–77
[2023-03-01 05:37] LABS: BASOPHILS % (AUTO) 0 % (0-10); EOSINOPHILS % (AUTO) 1 % (0-10); HEMATOCRIT 25 % (35-52); HEMOGLOBIN 8.4 g/dL (11.5-16.0); LYMPHOCYTES # (AUTO) 1.1 10^3/uL (1.0-4.0); LYMPHOCYTES % (AUTO) 21 % (12-44); MEAN CORPUSCULAR HEMOGLOBIN 34 pg (25-34); MEAN CORPUSCULAR HGB CONC 34 g/dL (32-36); MEAN CORPUSCULAR VOLUME 102 fL (80-99); MEAN PLATELET VOLUME 9.7 fL (9.0-12.2); MONOCYTES # (AUTO) 0.3 10^3/uL (0.0-1.0); MONOCYTES % (AUTO) 6 % (0-12); NEUTROPHILS # (AUTO) 3.8 10^3/uL (1.8-7.8); NEUTROPHILS % (AUTO) 70 % (42-75); PLATELET COUNT 172 10^3/uL (130-400); WHITE BLOOD COUNT 5.4 10^3/uL (4.3-11.0)
[2023-03-01 05:51] LABS: ALBUMIN 2.5 GM/DL (3.2-4.5); POTASSIUM 3.3 MMOL/L (3.6-5.0)
[2023-03-01 05:53] LABS: CALCIUM 7.9 MG/DL (8.5-10.1)
[2023-03-01 05:54] LABS: TOTAL PROTEIN 4.3 GM/DL (6.4-8.2)
[2023-03-01 05:56] LABS: BILIRUBIN,TOTAL 0.9 MG/DL (0.1-1.0)
[2023-03-01 05:57] LABS: CREATININE SERUM 0.83 MG/DL (0.60-1.30)
[2023-03-01] MEDS: KCL 20 MEQ TAB (K-DUR) PO SCH (06:09)
[2023-03-01] MEDS: CYANOCOBALAMIN 1,000 MCG (VITAMIN B-12) TABLET PO SCH (06:09)
[2023-03-01] MEDS: LEVOTHYROXINE 100 MCG (LEVOTHROID) TAB PO SCH (06:09)
[2023-03-01] MEDS: PANTOPRAZOLE 40 MG (PROTONIX) TAB PO SCH (08:55)
[2023-03-01] MEDS: hydrALAZINE (APRESOLINE) 25 MG TAB PO SCH ×3 (08:56→19:54)
[2023-03-01] MEDS: FOLIC ACID 1 MG TAB PO SCH (08:56)
[2023-03-01] MEDS: APIXABAN 2.5 MG (ELIQUIS) TABLET PO SCH ×2 (08:56→19:53)
[2023-03-01] MEDS: amLODIPine 5 MG (NORVASC) TAB PO SCH (08:56)
[2023-03-01] MEDS: SENNOSIDES 8.6 MG (SENOKOT) TAB PO SCH ×2 (09:04→19:54)
[2023-03-01] MEDS: polyethylene glycoL POWDER 17 GM (MIRALAX) PACK PO SCH ×3 (09:04→19:54)
[2023-03-01] MEDS: DOCUSATE SODIUM 100 MG (COLACE) CAP PO SCH ×2 (09:04→19:54)
[2023-03-01] MEDS: ATENOLOL 25 MG (TENORMIN) TAB PO SCH (09:08)
--- NOTE | 2023-03-01 10:02 | Occupational Ther Daily Note ---
OT Current Status-Daily Note Subjective Up in recliner w/ therapy ban din ;lap, BLES elevated in recliner w/ pillow under heels. Agrees to perform ther ex and stand with OT Mental Status/Objective Patient Orientation: Person, Place, Time, Situation ADL-Treatment Patient dons RLE socks without physical assistance, OT provided assistance for LLE 1/2 application to foot and patents completes remainder of tasks Therapy Code Descriptions/Definitions Functional [place] Measure: 0=Not Assessed/NA 4=Minimal Assistance 1=Total Assistance 5=Supervision or Setup 2=Maximal Assistance 6=Modified [place] 3=Moderate Assistance 7=Complete IndependenceSCALE: Activities may be completed with or without assistive devices. 4-Fsmptqjhbc-sofgqbp completes the activity by him/herself with no assistance from a helper. 5-Set-up or Clean-up Assistance-helper sets up or cleans up; patient completes activity. [place] assists only prior to or following the activity. 4-Supervision or Touching Assistance-helper provides verbal cues and/or touching/steadying and/or contact guard assistance as patient completes activity. Assistance may be provided throughout the activity or intermittently. 3-Partial/Moderate Assistance-helper does LESS THAN HALF the effort. [place] lifts, holds or supports trunk or limbs, but provides less than half the effort. 2-Substantial/Maximal Assistance-helper does MORE THAN HALF the effort. [place] lifts or holds trunk or limbs and provides more than half the effort. 3-Cnyszauwl-ctazzn does ALL the effort. Patient does none of the effort to complete the activity. Or, the assistance of 2 or more helpers is required for the patient to complete the activity. If activity was not attempted, code reason: 7-Patient Refused. 9-Not Applicable-not attempted and the patient did not perform the activity before the current illness, exacerbation or injury. 10-Not Attempted due to Environmental Limitations-(lack of equipment, weather restraints, etc.). 88-Not Attempted due to Medical Conditions or Safety Concerns. Eating (QC): 6 Oral Hygiene (QC): 5 On/Off Footwear: 4 Toileting Hygiene (QC): 3 (BSC) Toilet Transfer (QC): 4 Patient tis able to stand from recliner TTWB LLE w/ FWW and gait belt when follows transfer sequences of positing self on front of seat, pushing from arm rest, and nose over toes to stand. CGA for transfer, VCs to safely and slowly lower self to recliner, patient reports she wants to walk however demonstrated extreme difficulty to pivot RLE to move towards recliner. Other Treatment Patient demonstrated HEP w/ 20% VCs for correct resistance and directional pull. Education OT Patient Education: Correct positioning, Energy conservation, Exercise prog lance, Modified ADL techniques, Progress toward Goal/Update tx plan, Purpose of tx/functional activities, Reviewed precautions, Rehab process, Safety issues, Transfer techniques, Use of adapted equipment OT Leach Runner Goals Alf Goals Eating (QC): 6 Oral Hygiene (QC): 5 Toileting Hygiene (QC): 5 Shower/Bathe Self (QC): 5 Upper Body Dressing (QC): 5 Lower Body Dressing (QC): 5 On/Off Footwear (QC): 5 1=Demonstrate adherence to instructed precautions during ADL tasks. 2=Patient will verbalize/demonstrate understanding of assistive devices/modifications for ADL. 3=Patient will improve strength/tolerance for activity to enable patient to perform ADL's. OT Education/Plan Problem List/Assessment Assessment: Decreased Activ Tolerance, Decreased Safety Aware, Decreased UE Strength, Impaired Coordination, Impaired Funct Balance, Impaired Self-Care Skills Discharge Recommendations Plan/Recommendations: Continue POC Treatment Plan/Plan of Care Treatment,Training & Education: Yes Patient would benefit from OT for education, treatment and training to promote independence in ADL's, mobility, safety and/or upper extremity function for ADL's. Plan of Care: ADL Retraining, Functional Mobility, Group Exercise/Act as Ind, UE Funct Exercise/Act, UE Neuromus Re-Ed/Coord Treatment Duration: Mar 03, 2023 Frequency: 3 times per week (3-5 times per week) Estimated Hrs Per Day: .25 hour per day Agreement: Yes Rehab Potential: Fair Time Start Time: 09:30 Stop Time: 10:00 DATE: Mar 01, 2023 Total Time Billed (hr/min): 30 Billed Treatment Time ADL, EX 30 min LISA GREEN OT Mar 01, 2023 10:02
--- NOTE | 2023-03-01 11:29 | Progress Note ---
Subjective Date Seen by a Provider: Mar 01, 2023 Time Seen by a Provider: 11:00 Subjective/Events-last exam Patient doing a lot better Checking urinalysis due to strong urine odor Pain is controlled Awaiting inpatient rehab Review of Systems Musculoskeletal: leg pain Objective Exam Last Set of Vital Signs Vital Signs Date Time Temp Pulse Resp B/P (MAP) Pulse Ox O2 Delivery O2 Flow Rate FiO2 03/01/23 08:52 36.8 88 18 148/70 (96) 98 Room Air 03/01/23 08:00 0.00 02/25/23 14:04 21 Capillary Refill : Less Than 3 SecondsLess Than 3 Seconds I&O Intake and Output 03/01/23 00:00 Intake Total 1840 ml Output Total 400 ml Balance 1440 ml Intake Oral 1840 ml Output Urine Total 400 ml # Voids 5 # Bowel Movements 5 General: Alert, Oriented X3, Cooperative, No Acute Distress Lungs: Clear to Auscultation, Normal Air Movement Heart: Regular Rate, Normal S1, Normal S2, No Murmurs Psych/Mental Status: Mental Status NL, Mood NL Results Lab Laboratory Tests 03/01/23 05:29: White Blood Count 5.4, Red Blood Count 2.45L, Hemoglobin 8.4L, Hematocrit 25L, Mean Corpuscular Volume 102H, Mean Corpuscular Hemoglobin 34, Mean Corpuscular Hemoglobin Concent 34, Red Cell Distribution Width 16.4H, Platelet Count 172, Mean Platelet Volume 9.7, Immature Granulocyte % (Auto) 2, Neutrophils (%) (Auto) 70, Lymphocytes (%) (Auto) 21, Monocytes (%) (Auto) 6, Eosinophils (%) (Auto) 1, Basophils (%) (Auto) 0, Neutrophils # (Auto) 3.8, Lymphocytes # (Auto) 1.1, Monocytes # (Auto) 0.3, Eosinophils # (Auto) 0.0, Basophils # (Auto) 0.0, Immature Granulocyte # (Auto) 0.1, Sodium Level 143, Potassium Level 3.3L, Chloride Level 106, Carbon Dioxide Level 28, Anion Gap 9, Blood Urea Nitrogen 20H, Creatinine 0.83, Estimat Glomerular Filtration Rate 70, BUN/Creatinine Ratio 24, Glucose Level 93, Calcium Level 7.9L, Corrected Calcium 9.1, Total Bilirubin 0.9, Aspartate Amino Transf (AST/SGOT) 24, Alanine Aminotransferase (ALT/SGPT) 19, Alkaline Phosphatase 71, Total Protein 4.3L, Albumin 2.5L Assessment/Plan Assessment/Plan Assess & Plan/Chief Complaint Assessment: Comminuted L intertrochanteric femur fracture HTN Acute blood loss anemia Hx of RA with recent steroid taper Hypothyroidism 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
--- NOTE | 2023-03-01 13:10 | Progress Note - Cardiology ---
Cardiology SOAP Progress Note Subjective: No shortness of breath No cp or palp or syncope No n/v/d Gen weakness and malaise present No focal weakness Improvement of leg swelling overnight (with leg elevation) Objective: I&O/Vital Signs 03/01/23 03/01/23 03/01/23 03/01/23 03:43 08:00 08:52 11:39 Temp 36.4 36.8 36.8 Pulse 57 88 68 Resp 18 18 20 B/P (MAP) 140/71 (94) 148/70 (96) 156/77 (103) Pulse Ox 96 98 98 96 O2 Delivery Room Air Room Air Room Air Room Air O2 Flow Rate 0.00 03/01/23 00:00 Intake Total 1790 ml Balance 1790 ml Weight (Pounds): 158 Weight (Ounces): 7.0 Weight (Calculated Kilograms): 71.756882 Constitutional: AAO x 3, well-developed, well-nourished Respiratory: No accessory muscle use; chest expansion is symmetric, chest is bilaterally symmetric, other (good, bilateral air entry) Cardiovascular: regular rate-rhythm, S1 and S2, systolic murmur (soft PREET at card base) Gastrointestional: No tender; soft; No guarding, No rebound; audible bowel sounds Extremities: swelling (mild bilat leg swelling); No clubbing, No cyanosis Neurologic/Psychiatric: oriented x 3, other (moves all limbs equally) Skin: normal color, warm/dry; No rash, No ulcerations; other (left hip surgical dressing in place; D&I) Results/Procedures: Labs Laboratory Tests 03/01/23 05:29: White Blood Count 5.4, Red Blood Count 2.45L, Hemoglobin 8.4L, Hematocrit 25L, Mean Corpuscular Volume 102H, Mean Corpuscular Hemoglobin 34, Mean Corpuscular Hemoglobin Concent 34, Red Cell Distribution Width 16.4H, Platelet Count 172, Mean Platelet Volume 9.7, Immature Granulocyte % (Auto) 2, Neutrophils (%) (Auto) 70, Lymphocytes (%) (Auto) 21, Monocytes (%) (Auto) 6, Eosinophils (%) (Auto) 1, Basophils (%) (Auto) 0, Neutrophils # (Auto) 3.8, Lymphocytes # (Auto) 1.1, Monocytes # (Auto) 0.3, Eosinophils # (Auto) 0.0, Basophils # (Auto) 0.0, Immature Granulocyte # (Auto) 0.1, Sodium Level 143, Potassium Level 3.3L, Chloride Level 106, Carbon Dioxide Level 28, Anion Gap 9, Blood Urea Nitrogen 20H, Creatinine 0.83, Estimat Glomerular Filtration Rate 70, BUN/Creatinine Ratio 24, Glucose Level 93, Calcium Level 7.9L, Corrected Calcium 9.1, Total Bilirubin 0.9, Aspartate Amino Transf (AST/SGOT) 24, Alanine Aminotransferase (ALT/SGPT) 19, Alkaline Phosphatase 71, Total Protein 4.3L, Albumin 2.5L Laboratory Tests 02/28/23 05:42 03/01/23 05:29 A/P: Assessment: S/P non-syncopal fall resulting in left hip fracture - s/p left hip surg on 02-23-23 Post-op anemia, severe - managed by Surg and Med svces CAD and cardiomegaly on PET CT of 04/16/19 - MPI of 05/14/19: no ischemia or infarction, LVEF 71% - Echo of 05/08/19: LVEF 60-65%, grade 1 coreas dysfunction of LV, mild to mod LA enlargement, RVSP 23 mmHg - No current symptoms of angina or heart failure - Echo on 02-24-23: LVEF 60-65%, mod conc LVH, grade 1 coreas dysfunction Oncology - 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
[2023-03-01] MEDS ORDERED: KCL 20 MEQ TAB (K-DUR) PO NR (13:30)
[2023-03-01 15:08] LABS: BILIRUBIN,URINE NEGATIVE (NEGATIVE); CLARITY,URINE CLEAR; COLOR,URINE YELLOW; GLUCOSE, URINE (UA) NEGATIVE (NEGATIVE); KETONES,URINE NEGATIVE (NEGATIVE); LEUKOCYTE ESTERASE ,URINE 1+ (NEGATIVE); NITRITE,URINE NEGATIVE (NEGATIVE); PROTEIN,URINE NEGATIVE (NEGATIVE)
[2023-03-01 15:17] LABS: BACTERIA,URINE LARGE /HPF
--- NOTE | 2023-03-01 15:42 | Physical Therapy Daily Note ---
PT Daily Note-Current Subjective Pt in recliner upon arrival and agrees to PT. Pain Section J - Health Conditions 1. Rarely or not at all 2. Occasionally 3. Frequently 4. Almost constantly 8. Unable to answer Pain Effect on Sleep: 1 Pain Interference with Therapy: 1 Pain Interference w/Day-to-Day: 1 Mental Status Patient Orientation: Person, Place, Time, Normal For Age Transfers SCALE: Activities may be completed with or without assistive devices. 6-Tpyedovhjy-psrwqux completes the activity by him/herself with no assistance from a helper. 5-Set-up or Clean-up Assistance-helper sets up or cleans up; patient completes activity. [place] assists only prior to or following the activity. 4-Supervision or Touching Assistance-helper provides verbal cues and/or touching/steadying and/or contact guard assistance as patient completes activity. Assistance may be provided throughout the activity or intermittently. 3-Partial/Moderate Assistance-helper does LESS THAN HALF the effort. [place] lifts, holds or supports trunk or limbs, but provides less than half the effort. 2-Substantial/Maximal Assistance-helper does MORE THAN HALF the effort. [place] lifts or holds trunk or limbs and provides more than half the effort. 1-Ysbjdqamt-lxjzzw does ALL the effort. Patient does none of the effort to complete the activity. Or, the assistance of 2 or more helpers is required for the patient to complete the activity. If activity was not attempted, code reason: 7-Patient Refused. 9-Not Applicable-not attempted and the patient did not perform the activity before the current illness, exacerbation or injury. 10-Not Attempted due to Environmental Limitations-(lack of equipment, weather restraints, etc.). 88-Not Attempted due to Medical Conditions or Safety Concerns. Sit to Stand (QC): 3 Toilet Transfer (QC): 3 Weight Bearing Right Lower Extremity: Right Full Weight Bearing Left Lower Extremity: Left Touch Toe Bearing Gait Training Does the Patient Walk?: Yes Distance: 5' Gait Persons Needed: 1 Gait Assistive Device: FWW Exercises Seated Therapy Exercises: Long arc quads Seated Reps: 20 Treatments Pt performed seated exs in recliner and then TRFs to [facility]. Pt able to complete pericare independently. Pt then TRFs back to recliner and then practiced amb w/ TTWB. Pt then TRFs back to recliner. All needs met and call light in hand as PT departs. Assessment Current Status: Good Progress Instructed on proper amb w/ TTWB. Pt fatigued post treatment and required verbal and tactile cues in order to perform TRFs correctly. PT Short Term Goals Short Term Goals Time Frame: Mar 11, 2023 Roll Left & Right: 3 Sit to lyin Lying to sitting on side of be: 3 Sit to stand: 3 Chair/hoa-ul-fjrcm transfer: 3 Walk 10 feet: 3 PT Assisted Goals Assisted Goals PT Assisted Goals Time Frame: Mar 25, 2023 Roll Left & Right (QC): 6 Sit to Lying (QC): 6 Lying-Sitting on Side/Bed(QC): 6 Sit to Stand (QC): 6 Chair/Jys-ya-Vbhtz Xfer(QC): 6 Toilet Transfer (QC): 6 Walk 10 feet (QC): 4 Walk 50ft with 2 Turns (QC): 4 Walk 150 ft (QC): 4 PT Plan Problem List Problem List: Activity Tolerance, Functional Strength Treatment/Plan Treatment Plan: Continue Plan of Care Treatment Plan: Bed Mobility, Education, Functional Activity Theo, Functional Strength, Gait, Safety, Therapeutic Exercise, Transfers Treatment Duration: Mar 25, 2023 Frequency: 11 times per week Estimated Hrs Per Day: .5 hour per day Patient and/or Family Agrees t: Yes Safety Risks/Education Patient Education: Gait Training, Transfer Techniques, Correct Positioning Teaching Recipient: Patient Teaching Methods: Discussion Response to Teaching: Return Demonstration Time Time In: 1351 Time Out: 1405 DATE: Mar 01, 2023 Total Billed Treatment Time: 14 Total Billed Treatment 1, [facility] Mar 01, 2023 15:42
--- NOTE | 2023-03-01 15:52 | Physical Therapy Daily Note ---
PT Daily Note-Current Subjective Patient sitting in chair upon PT arrival, agreeable to treatment. Rates pain at 0/10 currently. Pain Section J - Health Conditions 1. Rarely or not at all 2. Occasionally 3. Frequently 4. Almost constantly 8. Unable to answer Pain Effect on Sleep: 1 Pain Interference with Therapy: 1 Pain Interference w/Day-to-Day: 1 Transfers SCALE: Activities may be completed with or without assistive devices. 4-Eadzzaiyvx-gfbasgv completes the activity by him/herself with no assistance from a helper. 5-Set-up or Clean-up Assistance-helper sets up or cleans up; patient completes activity. [place] assists only prior to or following the activity. 4-Supervision or Touching Assistance-helper provides verbal cues and/or touching/steadying and/or contact guard assistance as patient completes activity. Assistance may be provided throughout the activity or intermittently. 3-Partial/Moderate Assistance-helper does LESS THAN HALF the effort. [place] lifts, holds or supports trunk or limbs, but provides less than half the effort. 2-Substantial/Maximal Assistance-helper does MORE THAN HALF the effort. [place] lifts or holds trunk or limbs and provides more than half the effort. 8-Djevldfgs-fcajsi does ALL the effort. Patient does none of the effort to complete the activity. Or, the assistance of 2 or more helpers is required for the patient to complete the activity. If activity was not attempted, code reason: 7-Patient Refused. 9-Not Applicable-not attempted and the patient did not perform the activity before the current illness, exacerbation or injury. 10-Not Attempted due to Environmental Limitations-(lack of equipment, weather restraints, etc.). 88-Not Attempted due to Medical Conditions or Safety Concerns. Sit to Stand (QC): 3 Weight Bearing Right Lower Extremity: Right Full Weight Bearing Left Lower Extremity: Left Touch Toe Bearing Exercises Supine Ex: Ankle pumps, Quad Set, Glut sets Supine Reps: 20 Seated Therapy Exercises: Sit to stand, Long arc quads, Hamstring Curls, Hip abd/add Seated Reps: 20 Assessment Current Status: Fair Progress Patient tolerated treatment fair. She requires mod A for sit to stand. Patient continues to demonstrate difficulty maintaining TTWB LLE. Patient in chair post treatment with all needs met, nursing notified, call light in hand. PT Short Term Goals Short Term Goals Time Frame: Mar 11, 2023 Roll Left & Right: 3 Sit to lyin Lying to sitting on side of be: 3 Sit to stand: 3 Chair/riq-nv-vhqep transfer: 3 Walk 10 feet: 3 PT Active Directory Administrator Goals Ch[facility] Goals PT Active Directory Administrator Goals Time Frame: Mar 25, 2023 Roll Left & Right (QC): 6 Sit to Lying (QC): 6 Lying-Sitting on Side/Bed(QC): 6 Sit to Stand (QC): 6 Chair/Ooo-fc-Eiiub Xfer(QC): 6 Toilet Transfer (QC): 6 Walk 10 feet (QC): 4 Walk 50ft with 2 Turns (QC): 4 Walk 150 ft (QC): 4 PT Plan Treatment/Plan Treatment Plan: Continue Plan of Care Treatment Plan: Bed Mobility, Education, Functional Activity Theo, Functional Strength, Gait, Safety, Therapeutic Exercise, Transfers Treatment Duration: Mar 25, 2023 Frequency: 11 times per week Estimated Hrs Per Day: .5 hour per day Patient and/or Family Agrees t: Yes Safety Risks/Education Patient Education: Transfer Techniques Teaching Recipient: Patient Teaching Methods: Demonstration, Discussion Response to Teaching: Reinforcement Needed Time Time In: 1052 Time Out: 1107 DATE: Mar 01, 2023 Total Billed Treatment Time: 15 Total Billed Treatment Visit, EX BRITTANY BARRY PT Mar 01, 2023 15:52
[2023-03-01] MEDS: cefTRIAXone IV/IM 1,000 MG in NS (IVPB) 50 ML IV SCH (19:53)
[2023-03-01] MEDS: GABAPENTIN 400 MG (NEURONTIN) CAP PO SCH (19:54)
[2023-03-02] VITALS (7 sets, daily range): BP systolic 111–150; BP diastolic 58–76
[2023-03-02] MEDS: KCL 20 MEQ TAB (K-DUR) PO SCH (05:32)
[2023-03-02] MEDS: LEVOTHYROXINE 100 MCG (LEVOTHROID) TAB PO SCH (05:32)
[2023-03-02] MEDS: CYANOCOBALAMIN 1,000 MCG (VITAMIN B-12) TABLET PO SCH (05:32)
[2023-03-02 05:54] LABS: BASOPHILS % (AUTO) 0 % (0-10); EOSINOPHILS # (AUTO) 0.1 10^3/uL (0.0-0.3); EOSINOPHILS % (AUTO) 1 % (0-10); HEMATOCRIT 27 % (35-52); HEMOGLOBIN 8.6 g/dL (11.5-16.0); LYMPHOCYTES % (AUTO) 15 % (12-44); MEAN CORPUSCULAR HEMOGLOBIN 33 pg (25-34); MEAN CORPUSCULAR HGB CONC 33 g/dL (32-36); MEAN CORPUSCULAR VOLUME 102 fL (80-99); MEAN PLATELET VOLUME 10.5 fL (9.0-12.2); MONOCYTES # (AUTO) 0.4 10^3/uL (0.0-1.0); MONOCYTES % (AUTO) 5 % (0-12); NEUTROPHILS # (AUTO) 5.2 10^3/uL (1.8-7.8); NEUTROPHILS % (AUTO) 78 % (42-75); PLATELET COUNT 145 10^3/uL (130-400); WHITE BLOOD COUNT 6.7 10^3/uL (4.3-11.0)
--- NOTE | 2023-03-02 05:57 | Progress Note ---
Subjective Date Seen by a Provider: Mar 02, 2023 Time Seen by a Provider: 11:00 Subjective/Events-last exam Patient is doing well No pain reported UTI treatment initiated BM+ Awaiting ARU Review of Systems General: Fatigue, Malaise Musculoskeletal: leg pain Objective Exam Last Set of Vital Signs Vital Signs Date Time Temp Pulse Resp B/P (MAP) Pulse Ox O2 Delivery O2 Flow Rate FiO2 03/02/23 03:45 36.1 67 18 150/76 (100) 93 Room Air 0.00 0.00 02/25/23 14:04 21 Capillary Refill : Less Than 3 SecondsLess Than 3 Seconds I&O Intake and Output 03/02/23 00:00 Intake Total 862 ml Balance 862 ml Intake Oral 862 ml # Voids 6 General: Alert, Oriented X3, Cooperative, No Acute Distress Lungs: Clear to Auscultation, Normal Air Movement Heart: Regular Rate, Normal S1, Normal S2, No Murmurs Psych/Mental Status: Mental Status NL, Mood NL Results Lab Laboratory Tests 03/01/23 15:00: Urine Color YELLOW, Urine Clarity CLEAR, Urine pH 7.0, Urine Specific [place] 1.010L, Urine Protein NEGATIVE, Urine Glucose (UA) NEGATIVE, Urine Ketones NEGATIVE, Urine Nitrite NEGATIVE, Urine Bilirubin NEGATIVE, Urine Urobilinogen 0.2, Urine Leukocyte Esterase 1+H, Urine RBC (Auto) NEGATIVE, Urine RBC NONE, Urine WBC 5-10H, Urine Squamous Epithelial Cells NONE, Urine Crystals NONE, Urine Bacteria LARGEH, Urine Casts NONE, Urine Mucus NEGATIVE, Urine Culture Indicated YES 03/02/23 05:15: White Blood Count 6.7, Red Blood Count 2.59L, Hemoglobin 8.6L, Hematocrit 27L, Mean Corpuscular Volume 102H, Mean Corpuscular Hemoglobin 33, Mean Corpuscular Hemoglobin Concent 33, Red Cell Distribution Width 16.8H, Platelet Count 145, Mean Platelet Volume 10.5, Immature Granulocyte % (Auto) 1, Neutrophils (%) (Auto) 78H, Lymphocytes (%) (Auto) 15, Monocytes (%) (Auto) 5, Eosinophils (%) (Auto) 1, Basophils (%) (Auto) 0, Neutrophils # (Auto) 5.2, Lymphocytes # (Auto) 1.0, Monocytes # (Auto) 0.4, Eosinophils # (Auto) 0.1, Basophils # (Auto) 0.0, Immature Granulocyte # (Auto) 0.1 Assessment/Plan Assessment/Plan Assess & Plan/Chief Complaint Assessment: Comminuted L intertrochanteric femur fracture HTN Acute blood loss anemia Hx of RA with recent steroid taper Hypothyroidism 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
[2023-03-02 06:04] LABS: ALBUMIN 2.5 GM/DL (3.2-4.5); POTASSIUM 3.8 MMOL/L (3.6-5.0)
[2023-03-02 06:06] LABS: CALCIUM 8.1 MG/DL (8.5-10.1)
[2023-03-02 06:07] LABS: TOTAL PROTEIN 4.5 GM/DL (6.4-8.2)
[2023-03-02 06:10] LABS: CREATININE SERUM 0.86 MG/DL (0.60-1.30)
[2023-03-02] MEDS: amLODIPine 5 MG (NORVASC) TAB PO SCH (08:51)
[2023-03-02] MEDS: hydrALAZINE (APRESOLINE) 25 MG TAB PO SCH ×3 (08:51→20:23)
[2023-03-02] MEDS: ATENOLOL 25 MG (TENORMIN) TAB PO SCH (08:51)
[2023-03-02] MEDS: SENNOSIDES 8.6 MG (SENOKOT) TAB PO SCH ×2 (08:52→20:23)
[2023-03-02] MEDS: PANTOPRAZOLE 40 MG (PROTONIX) TAB PO SCH (08:52)
[2023-03-02] MEDS: FOLIC ACID 1 MG TAB PO SCH (08:52)
[2023-03-02] MEDS: APIXABAN 2.5 MG (ELIQUIS) TABLET PO SCH ×2 (08:53→20:23)
[2023-03-02] MEDS: polyethylene glycoL POWDER 17 GM (MIRALAX) PACK PO SCH ×3 (08:53→20:23)
[2023-03-02] MEDS: DOCUSATE SODIUM 100 MG (COLACE) CAP PO SCH ×2 (08:53→20:23)
[2023-03-02] MEDS: IRON SUCROSE 200 MG/10 ML (VENOFER) VIAL IV SCH (08:53)
--- NOTE | 2023-03-02 09:43 | Progress Note - Cardiology ---
Cardiology SOAP Progress Note Subjective: Sitting up in recliner at the bedside C/O bilat LE swelling; L>R No c/o CP, SOB or palpitations Objective: I&O/Vital Signs 03/01/23 03/02/23 03/02/23 23:08 03:45 08:23 Temp 36.9 36.1 36.9 Pulse 69 67 96 Resp 18 18 18 B/P (MAP) 143/76 (98) 150/76 (100) 111/58 (75) Pulse Ox 96 93 95 O2 Delivery Room Air Room Air Room Air O2 Flow Rate 0.00 0.00 0.00 0.00 03/02/23 00:00 Intake Total 762 ml Balance 762 ml Weight (Pounds): 158 Weight (Ounces): 7.0 Weight (Calculated Kilograms): 71.376019 Constitutional: AAO x 3, well-developed, well-nourished Respiratory: No accessory muscle use; chest expansion is symmetric, chest is bilaterally symmetric, other (good, bilateral air entry) Cardiovascular: regular rate-rhythm, S1 and S2, systolic murmur (soft PREET at card base) Gastrointestional: No tender; soft; No guarding, No rebound; audible bowel sounds Extremities: swelling (bilat LE swelling; L>R (left is post surgical side)); No clubbing, No cyanosis Neurologic/Psychiatric: oriented x 3, other (moves all limbs equally) Skin: normal color, warm/dry; No rash, No ulcerations; other (left hip surgical dressing in place; D&I) Results/Procedures: Labs Laboratory Tests 03/01/23 15:00: Urine Color YELLOW, Urine Clarity CLEAR, Urine pH 7.0, Urine Specific [place] 1.010L, Urine Protein NEGATIVE, Urine Glucose (UA) NEGATIVE, Urine Ketones NEGATIVE, Urine Nitrite NEGATIVE, Urine Bilirubin NEGATIVE, Urine Urobilinogen 0.2, Urine Leukocyte Esterase 1+H, Urine RBC (Auto) NEGATIVE, Urine RBC NONE, Urine WBC 5-10H, Urine Squamous Epithelial Cells NONE, Urine Crystals NONE, Urine Bacteria LARGEH, Urine Casts NONE, Urine Mucus NEGATIVE, Urine Culture Indicated YES 03/02/23 05:15: White Blood Count 6.7, Red Blood Count 2.59L, Hemoglobin 8.6L, Hematocrit 27L, Mean Corpuscular Volume 102H, Mean Corpuscular Hemoglobin 33, Mean Corpuscular Hemoglobin Concent 33, Red Cell Distribution Width 16.8H, Platelet Count 145, Mean Platelet Volume 10.5, Immature Granulocyte % (Auto) 1, Neutrophils (%) (Auto) 78H, Lymphocytes (%) (Auto) 15, Monocytes (%) (Auto) 5, Eosinophils (%) (Auto) 1, Basophils (%) (Auto) 0, Neutrophils # (Auto) 5.2, Lymphocytes # (Auto) 1.0, Monocytes # (Auto) 0.4, Eosinophils # (Auto) 0.1, Basophils # (Auto) 0.0, Immature Granulocyte # (Auto) 0.1, Sodium Level 139, Potassium Level 3.8, Chloride Level 105, Carbon Dioxide Level 26, Anion Gap 8, Blood Urea Nitrogen 19H, Creatinine 0.86, Estimat Glomerular Filtration Rate 67, BUN/Creatinine R atio 22, Glucose Level 100, Calcium Level 8.1L, Corrected Calcium 9.3, Total Bi lirubin 1.0, Aspartate Amino Transf (AST/SGOT) 24, Alanine Aminotransferase (ALT/SGPT) 19, Alkaline Phosphatase 78, Total Protein 4.5L, Albumin 2.5L Microbiology 03/01/23 Urine Culture - Preliminary, Resulted Probable E.coli Laboratory Tests 03/01/23 05:29 03/02/23 05:15 A/P: Assessment: S/P non-syncopal fall resulting in left hip fracture - s/p left hip surg on 02-23-23 Post-op anemia, severe - managed by Surg and Med svces CAD and cardiomegaly on PET CT of 04/16/19 - MPI of 05/14/19: no ischemia or infarction, LVEF 71% - Echo of 05/08/19: LVEF 60-65%, grade 1 coreas dysfunction of LV, mild to mod LA enlargement, RVSP 23 mmHg - No current symptoms of angina or heart failure - Echo on 02-24-23: LVEF 60-65%, mod conc LVH, grade 1 coreas dysfunction 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
--- NOTE | 2023-03-02 10:39 | Physical Therapy Daily Note ---
PT Daily Note-Current Subjective Patient agrees to therapy. Denies pain. Pain Section J - Health Conditions 1. Rarely or not at all 2. Occasionally 3. Frequently 4. Almost constantly 8. Unable to answer Pain Effect on Sleep: 1 Pain Interference with Therapy: 1 Pain Interference w/Day-to-Day: 1 Transfers SCALE: Activities may be completed with or without assistive devices. 0-Qhxbgyvmjb-usziivx completes the activity by him/herself with no assistance from a helper. 5-Set-up or Clean-up Assistance-helper sets up or cleans up; patient completes activity. [place] assists only prior to or following the activity. 4-Supervision or Touching Assistance-helper provides verbal cues and/or touching/steadying and/or contact guard assistance as patient completes activity. Assistance may be provided throughout the activity or intermittently. 3-Partial/Moderate Assistance-helper does LESS THAN HALF the effort. [place] lifts, holds or supports trunk or limbs, but provides less than half the effort. 2-Substantial/Maximal Assistance-helper does MORE THAN HALF the effort. [place] lifts or holds trunk or limbs and provides more than half the effort. 9-Qcxznjfvf-xvewkm does ALL the effort. Patient does none of the effort to complete the activity. Or, the assistance of 2 or more helpers is required for the patient to complete the activity. If activity was not attempted, code reason: 7-Patient Refused. 9-Not Applicable-not attempted and the patient did not perform the activity before the current illness, exacerbation or injury. 10-Not Attempted due to Environmental Limitations-(lack of equipment, weather restraints, etc.). 88-Not Attempted due to Medical Conditions or Safety Concerns. Sit to Stand (QC): 3 Chair/Lzx-lg-Ryxxa Xfer(QC): 3 Toilet Transfer (QC): 3 Weight Bearing Right Lower Extremity: Right Full Weight Bearing Left Lower Extremity: Left Touch Toe Bearing Gait Training Distance: 15' x 2 Walk 10 feet (QC): 2 Gait Assistive Device: FWW PT assist to advance left LE due to patient's inability to perform/patient is able to maintain TTWB left LE with gait. Exercises Seated Therapy Exercises: Long arc quads, Hip flexion Seated Reps: 10 (AAROM hip flexion) Assessment Patient requires time and VC's with all mobility and posture. Patient is able to maintain TTWB left LE, however, patient required PT to advance left LE. PT Short Term Goals Short Term Goals Time Frame: Mar 11, 2023 Roll Left & Right: 3 Sit to lyin Lying to sitting on side of be: 3 Sit to stand: 3 Chair/bov-si-eixig transfer: 3 Walk 10 feet: 3 PT [facility] Goals Board Hammer Operator Goals PT [facility] Goals Time Frame: Mar 25, 2023 Roll Left & Right (QC): 6 Sit to Lying (QC): 6 Lying-Sitting on Side/Bed(QC): 6 Sit to Stand (QC): 6 Chair/Npv-tp-Eppcc Xfer(QC): 6 Toilet Transfer (QC): 6 Walk 10 feet (QC): 4 Walk 50ft with 2 Turns (QC): 4 Walk 150 ft (QC): 4 PT Plan Treatment/Plan Treatment Plan: Continue Plan of Care Treatment Plan: Bed Mobility, Education, Functional Activity Theo, Functional Strength, Gait, Safety, Therapeutic Exercise, Transfers Treatment Duration: Mar 25, 2023 Frequency: 11 times per week Estimated Hrs Per Day: .5 hour per day Patient and/or Family Agrees t: Yes Time Time In: 907 Time Out: 924 DATE: Mar 02, 2023 Total Billed Treatment Time: 17 Total Billed Treatment 1 visit GT 17 min PATI RITTER PT Mar 02, 2023 10:39
--- NOTE | 2023-03-02 10:42 | Occupational Ther Daily Note ---
OT Current Status-Daily Note Subjective Up in recliner, LUE infiltrate and needing new IV line. Mental Status/Objective Patient Orientation: Person, Place, Situation ADL-Treatment Ambulation to bathroom w/ assistance to advance LLE and navigate FWW from additional person, MIN assist for transfer, kendell hygiene washing care following toileting Therapy Code Descriptions/Definitions Functional [place] Measure: 0=Not Assessed/NA 4=Minimal Assistance 1=Total Assistance 5=Supervision or Setup 2=Maximal Assistance 6=Modified [place] 3=Moderate Assistance 7=Complete IndependenceSCALE: Activities may be completed with or without assistive devices. 5-Lapmqokrpe-djzclei completes the activity by him/herself with no assistance from a helper. 5-Set-up or Clean-up Assistance-helper sets up or cleans up; patient completes activity. [place] assists only prior to or following the activity. 4-Supervision or Touching Assistance-helper provides verbal cues and/or touching/steadying and/or contact guard assistance as patient completes activity. Assistance may be provided throughout the activity or intermittently. 3-Partial/Moderate Assistance-helper does LESS THAN HALF the effort. [place] lifts, holds or supports trunk or limbs, but provides less than half the effort. 2-Substantial/Maximal Assistance-helper does MORE THAN HALF the effort. [place] lifts or holds trunk or limbs and provides more than half the effort. 0-Rihhwpsbm-ealnzf does ALL the effort. Patient does none of the effort to complete the activity. Or, the assistance of 2 or more helpers is required for the patient to complete the activity. If activity was not attempted, code reason: 7-Patient Refused. 9-Not Applicable-not attempted and the patient did not perform the activity before the current illness, exacerbation or injury. 10-Not Attempted due to Environmental Limitations-(lack of equipment, weather restraints, etc.). 88-Not Attempted due to Medical Conditions or Safety Concerns. Eating (QC): 6 Oral Hygiene (QC): 5 Bathing Location: Perineal Area Shower/Bathe Self (QC): 4 (kendell care, sponge) Upper Body Dressing (QC): 5 Lower Body Dressing (QC): 3 On/Off Footwear: 3 Toileting Hygiene (QC): 4 Toilet Transfer (QC): 4 Education OT Patient Education: Correct positioning, Exercise program, Modified ADL techniques, Progress toward Goal/Update tx plan, Purpose of tx/functional activities, Reviewed precautions, Rehab process, Safety issues, Transfer techniques, Use of adapted equipment Teaching Recipient: Patient Teaching Methods: Demonstration, Discussion Response to Teaching: Reinforcement Needed OT Half-Way Goals Half-Way Goals Eating (QC): 6 Oral Hygiene (QC): 5 Toileting Hygiene (QC): 5 Shower/Bathe Self (QC): 5 Upper Body Dressing (QC): 5 Lower Body Dressing (QC): 5 On/Off Footwear (QC): 5 1=Demonstrate adherence to instructed precautions during ADL tasks. 2=Patient will verbalize/demonstrate understanding of assistive devices/modifications for ADL. 3=Patient will improve strength/tolerance for activity to enable patient to perform ADL's. OT Education/Plan Problem List/Assessment Assessment: Decreased Activ Tolerance, Decreased Safety Aware, Decreased UE Strength, Impaired Self-Care Skills Discharge Recommendations Plan/Recommendations: Continue POC Therapy Discharge Recommendati: Post Acute OT Barriers to Progress self limiting, poor motor control of LLE Treatment Plan/Plan of Care Treatment,Training & Education: Yes Patient would benefit from OT for education, treatment and training to promote independence in ADL's, mobility, safety and/or upper extremity function for ADL's. Plan of Care: ADL Retraining, Functional Mobility, Group Exercise/Act as Ind, UE Funct Exercise/Act, UE Neuromus Re-Ed/Coord Treatment Duration: Mar 03, 2023 Frequency: 3 times per week (3-5 times per week) Estimated Hrs Per Day: .25 hour per day Agreement: Yes Rehab Potential: Fair Time Start Time: 09:07 Stop Time: 09:24 DATE: Mar 02, 2023 Total Time Billed (hr/min): 17 Billed Treatment Time ADL17 min LISA GREEN OT Mar 02, 2023 10:42
--- NOTE | 2023-03-02 13:46 | Physical Therapy Daily Note ---
PT Daily Note-Current Subjective Patient agrees to PT. Pain Section J - Health Conditions 1. Rarely or not at all 2. Occasionally 3. Frequently 4. Almost constantly 8. Unable to answer Pain Effect on Sleep: 1 Pain Interference with Therapy: 1 Pain Interference w/Day-to-Day: 1 Transfers SCALE: Activities may be completed with or without assistive devices. 9-Twzrhrnsjr-mppgpsc completes the activity by him/herself with no assistance from a helper. 5-Set-up or Clean-up Assistance-helper sets up or cleans up; patient completes activity. [place] assists only prior to or following the activity. 4-Supervision or Touching Assistance-helper provides verbal cues and/or touching/steadying and/or contact guard assistance as patient completes activity. Assistance may be provided throughout the activity or intermittently. 3-Partial/Moderate Assistance-helper does LESS THAN HALF the effort. [place] lifts, holds or supports trunk or limbs, but provides less than half the effort. 2-Substantial/Maximal Assistance-helper does MORE THAN HALF the effort. [place] lifts or holds trunk or limbs and provides more than half the effort. 9-Hygoqheey-qoofet does ALL the effort. Patient does none of the effort to complete the activity. Or, the assistance of 2 or more helpers is required for the patient to complete the activity. If activity was not attempted, code reason: 7-Patient Refused. 9-Not Applicable-not attempted and the patient did not perform the activity before the current illness, exacerbation or injury. 10-Not Attempted due to Environmental Limitations-(lack of equipment, weather restraints, etc.). 88-Not Attempted due to Medical Conditions or Safety Concerns. Sit to Stand (QC): 4 Weight Bearing Right Lower Extremity: Right Full Weight Bearing Left Lower Extremity: Left Touch Toe Bearing Exercises Seated Therapy Exercises: Ankle pumps, Sit to stand, Long arc quads, Hip flexion Seated Reps: 10 (x 3 sets with all with sit to stand to FWW) Assessment Patient progressing with treatment plan. Continues to have difficulty with hip flexion in sit and stand. Patient remains up in recliner after session. PT Short Term Goals Short Term Goals Time Frame: Mar 11, 2023 Roll Left & Right: 3 Sit to lyin Lying to sitting on side of be: 3 Sit to stand: 3 Chair/zav-tg-qlxem transfer: 3 Walk 10 feet: 3 PT Seismic Interpreter Goals Seismic Interpreter Goals PT Seismic Interpreter Goals Time Frame: Mar 25, 2023 Roll Left & Right (QC): 6 Sit to Lying (QC): 6 Lying-Sitting on Side/Bed(QC): 6 Sit to Stand (QC): 6 Chair/Bkb-kw-Kjojt Xfer(QC): 6 Toilet Transfer (QC): 6 Walk 10 feet (QC): 4 Walk 50ft with 2 Turns (QC): 4 Walk 150 ft (QC): 4 PT Plan Treatment/Plan Treatment Plan: Continue Plan of Care Treatment Plan: Bed Mobility, Education, Functional Activity Theo, Functional Strength, Gait, Safety, Therapeutic Exercise, Transfers Treatment Duration: Mar 25, 2023 Frequency: 11 times per week Estimated Hrs Per Day: .5 hour per day Patient and/or Family Agrees t: Yes Time Time In: 1305 Time Out: 1328 DATE: Mar 02, 2023 Total Billed Treatment Time: 23 Total Billed Treatment 1 visit EX x 2 23 min PATI RITTER PT Mar 02, 2023 13:46
--- NOTE | 2023-03-02 17:20 | Progress Note - Cardiology ---
Cardiology SOAP Progress Note Subjective: Gen weakness, improving Does not report focal weakness No cp or palp or syncope No shortness of breath at rest Notes improvement of leg swelling No n/v/d Objective: I&O/Vital Signs 03/02/23 03/02/23 03/02/23 03/02/23 08:00 08:23 12:00 17:00 Temp 36.9 36.9 36.5 Pulse 96 72 82 Resp 18 18 16 B/P (MAP) 111/58 (75) 119/58 (78) 113/69 (84) Pulse Ox 95 95 97 94 O2 Delivery Room Air Room Air Room Air Room Air O2 Flow Rate 0.00 03/02/23 17:07 Temp 36.5 Pulse 82 Resp 16 B/P (MAP) 113/69 (84) Pulse Ox 94 O2 Delivery Room Air 03/02/23 00:00 Intake Total 762 ml Balance 762 ml Weight (Pounds): 158 Weight (Ounces): 7.0 Weight (Calculated Kilograms): 71.568172 Constitutional: AAO x 3, well-developed, well-nourished Respiratory: No accessory muscle use; chest expansion is symmetric, chest is bilaterally symmetric, other (good, bilateral air entry) Cardiovascular: regular rate-rhythm, S1 and S2, systolic murmur (soft PREET at card base) Gastrointestional: No tender; soft; No guarding, No rebound; audible bowel sounds Extremities: swelling (bilat LE swelling; L>R (left is post surgical side)); No clubbing, No cyanosis Neurologic/Psychiatric: oriented x 3, other (moves all limbs equally) Skin: normal color, warm/dry; No rash, No ulcerations; other (left hip surgical dressing in place; D&I) Results/Procedures: Labs Laboratory Tests 03/02/23 05:15: White Blood Count 6.7, Red Blood Count 2.59L, Hemoglobin 8.6L, Hematocrit 27L, Mean Corpuscular Volume 102H, Mean Corpuscular Hemoglobin 33, Mean Corpuscular Hemoglobin Concent 33, Red Cell Distribution Width 16.8H, Platelet Count 145, Mean Platelet Volume 10.5, Immature Granulocyte % (Auto) 1, Neutrophils (%) (Auto) 78H, Lymphocytes (%) (Auto) 15, Monocytes (%) (Auto) 5, Eosinophils (%) (Auto) 1, Basophils (%) (Auto) 0, Neutrophils # (Auto) 5.2, Lymphocytes # (Auto) 1.0, Monocytes # (Auto) 0.4, Eosinophils # (Auto) 0.1, Basophils # (Auto) 0.0, Immature Granulocyte # (Auto) 0.1, Sodium Level 139, Potassium Level 3.8, Chloride Level 105, Carbon Dioxide Level 26, Anion Gap 8, Blood Urea Nitrogen 19H, Creatinine 0.86, Estimat Glomerular Filtration Rate 67, BUN/Creatinine Ratio 22, Glucose Level 100, Calcium Level 8.1L, Corrected Calcium 9.3, Total Bilirubin 1.0, Aspartate Amino Transf (AST/SGOT) 24, Alanine Aminotransferase (ALT/SGPT) 19, Alkaline Phosphatase 78, Total Protein 4.5L, Albumin 2.5L Microbiology 03/01/23 Urine Culture - Preliminary, Resulted Probable E.coli Testing In Progress Laboratory Tests 03/01/23 05:29 03/02/23 05:15 A/P: Assessment: S/P non-syncopal fall resulting in left hip fracture - s/p left hip surg on 02-23-23 Post-op anemia, severe - managed by Surg and Med svces CAD and cardiomegaly on PET CT of 04/16/19 - MPI of 05/14/19: no ischemia or infarction, LVEF 71% - Echo of 05/08/19: LVEF 60-65%, grade 1 coreas dysfunction of LV, mild to mod LA enlargement, RVSP 23 mmHg - No current symptoms of angina or heart failure - Echo on 02-24-23: LVEF 60-65%, mod conc LVH, grade 1 coreas dysfunction Oncology - 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
[2023-03-02] MEDS: GABAPENTIN 400 MG (NEURONTIN) CAP PO SCH (20:23)
[2023-03-02] MEDS: cefTRIAXone IV/IM 1,000 MG in NS (IVPB) 50 ML IV SCH (20:23)
[2023-03-02] MEDS: MILK OF MAGNESIA 400 MG/5 ML 30 ML UDC PO PRN (23:44)
[2023-03-03 04:15] VITALS: BP 125/68
[2023-03-03 05:43] LABS: BASOPHILS % (AUTO) 0 % (0-10); EOSINOPHILS # (AUTO) 0.1 10^3/uL (0.0-0.3); EOSINOPHILS % (AUTO) 1 % (0-10); HEMATOCRIT 26 % (35-52); HEMOGLOBIN 8.6 g/dL (11.5-16.0); LYMPHOCYTES # (AUTO) 1.1 10^3/uL (1.0-4.0); LYMPHOCYTES % (AUTO) 20 % (12-44); MEAN CORPUSCULAR HEMOGLOBIN 34 pg (25-34); MEAN CORPUSCULAR HGB CONC 33 g/dL (32-36); MEAN CORPUSCULAR VOLUME 104 fL (80-99); MEAN PLATELET VOLUME 9.4 fL (9.0-12.2); MONOCYTES # (AUTO) 0.4 10^3/uL (0.0-1.0); MONOCYTES % (AUTO) 8 % (0-12); NEUTROPHILS # (AUTO) 3.9 10^3/uL (1.8-7.8); NEUTROPHILS % (AUTO) 70 % (42-75); PLATELET COUNT 193 10^3/uL (130-400); WHITE BLOOD COUNT 5.6 10^3/uL (4.3-11.0)
[2023-03-03] MEDS: CYANOCOBALAMIN 1,000 MCG (VITAMIN B-12) TABLET PO SCH (05:52)
[2023-03-03] MEDS: KCL 20 MEQ TAB (K-DUR) PO SCH (05:52)
[2023-03-03] MEDS: LEVOTHYROXINE 100 MCG (LEVOTHROID) TAB PO SCH (05:53)
[2023-03-03 06:08] LABS: ALBUMIN 2.5 GM/DL (3.2-4.5); CALCIUM 8.3 MG/DL (8.5-10.1); CREATININE SERUM 0.97 MG/DL (0.60-1.30); TOTAL PROTEIN 4.2 GM/DL (6.4-8.2)
[2023-03-03 07:50] VITALS: BP 127/67
[2023-03-03] MEDS: PANTOPRAZOLE 40 MG (PROTONIX) TAB PO SCH (09:02)
[2023-03-03] MEDS: ATENOLOL 25 MG (TENORMIN) TAB PO SCH (09:02)
[2023-03-03] MEDS: amLODIPine 5 MG (NORVASC) TAB PO SCH (09:03)
[2023-03-03] MEDS: hydrALAZINE (APRESOLINE) 25 MG TAB PO SCH ×4 (09:03→23:31)
[2023-03-03] MEDS: SENNOSIDES 8.6 MG (SENOKOT) TAB PO SCH ×2 (09:04→20:09)
[2023-03-03] MEDS: APIXABAN 2.5 MG (ELIQUIS) TABLET PO SCH ×2 (09:04→20:08)
[2023-03-03] MEDS: polyethylene glycoL POWDER 17 GM (MIRALAX) PACK PO SCH ×3 (09:04→20:09)
[2023-03-03] MEDS: FOLIC ACID 1 MG TAB PO SCH (09:04)
[2023-03-03] MEDS: DOCUSATE SODIUM 100 MG (COLACE) CAP PO SCH ×2 (09:05→20:08)
--- NOTE | 2023-03-03 10:39 | Physical Therapy Daily Note ---
PT Daily Note-Current Subjective Patient agrees to therapy. Pain Numeric Pain Scale: 5-Moderate Pain Location: Left Pain Description: Acute Section J - Health Conditions 1. Rarely or not at all 2. Occasionally 3. Frequently 4. Almost constantly 8. Unable to answer Pain Effect on Sleep: 1 Pain Interference with Therapy: 1 Pain Interference w/Day-to-Day: 1 Transfers SCALE: Activities may be completed with or without assistive devices. 0-Bmmynpwecm-mplnaey completes the activity by him/herself with no assistance from a helper. 5-Set-up or Clean-up Assistance-helper sets up or cleans up; patient completes activity. [place] assists only prior to or following the activity. 4-Supervision or Touching Assistance-helper provides verbal cues and/or touching/steadying and/or contact guard assistance as patient completes activity. Assistance may be provided throughout the activity or intermittently. 3-Partial/Moderate Assistance-helper does LESS THAN HALF the effort. [place] lifts, holds or supports trunk or limbs, but provides less than half the effort. 2-Substantial/Maximal Assistance-helper does MORE THAN HALF the effort. [place] lifts or holds trunk or limbs and provides more than half the effort. 1-Zlhnlnoeu-yvbfgw does ALL the effort. Patient does none of the effort to complete the activity. Or, the assistance of 2 or more helpers is required for the patient to complete the activity. If activity was not attempted, code reason: 7-Patient Refused. 9-Not Applicable-not attempted and the patient did not perform the activity before the current illness, exacerbation or injury. 10-Not Attempted due to Environmental Limitations-(lack of equipment, weather restraints, etc.). 88-Not Attempted due to Medical Conditions or Safety Concerns. Sit to Stand (QC): 4 Weight Bearing Right Lower Extremity: Right Full Weight Bearing Left Lower Extremity: Left Touch Toe Bearing Gait Training Distance: 25' Walk 10 feet (QC): 3 Gait Assistive Device: FWW VC's for advancing left LE and to stand erect. Exercises Seated Therapy Exercises: Long arc quads (3) Assessment Patient very fatigued after gait training. Patient tolerated increase in activity as tolerated by patient. PT Short Term Goals Short Term Goals Time Frame: Mar 11, 2023 Roll Left & Right: 3 Sit to lyin Lying to sitting on side of be: 3 Sit to stand: 3 Chair/bxl-qe-ibiaj transfer: 3 Walk 10 feet: 3 PT Video Production Engineer Goals Video Production Engineer Goals PT Video Production Engineer Goals Time Frame: Mar 25, 2023 Roll Left & Right (QC): 6 Sit to Lying (QC): 6 Lying-Sitting on Side/Bed(QC): 6 Sit to Stand (QC): 6 Chair/Snl-kt-Fdvhx Xfer(QC): 6 Toilet Transfer (QC): 6 Walk 10 feet (QC): 4 Walk 50ft with 2 Turns (QC): 4 Walk 150 ft (QC): 4 PT Plan Treatment/Plan Treatment Plan: Continue Plan of Care Treatment Plan: Bed Mobility, Education, Functional Activity Theo, Functional Strength, Gait, Safety, Therapeutic Exercise, Transfers Treatment Duration: Mar 25, 2023 Frequency: 11 times per week Estimated Hrs Per Day: .5 hour per day Patient and/or Family Agrees t: Yes Time Time In: 1010 Time Out: 1027 DATE: Mar 03, 2023 Total Billed Treatment Time: 17 Total Billed Treatment 1 visit GT 17 min PATI RITTER PT Mar 03, 2023 10:39
--- NOTE | 2023-03-03 10:41 | Progress Note - Cardiology ---
Cardiology SOAP Progress Note Subjective: No cp or palp or syncope No shortness of breath at rest No nv/d No focal weakness Gen weakness and malaise present Mild to mod leg swelling, bilat, stable Objective: I&O/Vital Signs 03/02/23 03/03/23 03/03/23 03/03/23 23:39 04:15 07:50 08:00 Temp 36.3 36.5 36.5 Pulse 72 60 90 Resp 18 18 20 B/P (MAP) 136/69 (91) 125/68 (87) 127/67 (87) Pulse Ox 95 95 97 97 O2 Delivery Room Air Room Air Room Air Room Air O2 Flow Rate 0.00 03/03/23 00:00 Intake Total 1452 ml Balance 1452 ml Weight (Pounds): 158 Weight (Ounces): 7.0 Weight (Calculated Kilograms): 71.602835 Constitutional: AAO x 3, well-developed, well-nourished Respiratory: No accessory muscle use; chest expansion is symmetric, chest is bilaterally symmetric, other (good, bilateral air entry) Cardiovascular: regular rate-rhythm, S1 and S2, systolic murmur (soft PREET at card base) Gastrointestional: No tender; soft; No guarding, No rebound; audible bowel sounds Extremities: swelling (mild to mod bilat LE swelling; L>R (left is post surgical side)); No clubbing, No cyanosis Neurologic/Psychiatric: oriented x 3, other (moves all limbs equally) Skin: normal color, warm/dry; No rash, No ulcerations; other Results/Procedures: Labs Laboratory Tests 03/03/23 05:35: White Blood Count 5.6, Red Blood Count 2.52L, Hemoglobin 8.6L, Hematocrit 26L, Mean Corpuscular Volume 104H, Mean Corpuscular Hemoglobin 34, Mean Corpuscular Hemoglobin Concent 33, Red Cell Distribution Width 17.2H, Platelet Count 193, Mean Platelet Volume 9.4, Immature Granulocyte % (Auto) 1, Neutrophils (%) (Auto) 70, Lymphocytes (%) (Auto) 20, Monocytes (%) (Auto) 8, Eosinophils (%) (Auto) 1, Basophils (%) (Auto) 0, Neutrophils # (Auto) 3.9, Lymphocytes # (Auto) 1.1, Monocytes # (Auto) 0.4, Eosinophils # (Auto) 0.1, Basophils # (Auto) 0.0, Immature Granulocyte # (Auto) 0.1, Sodium Level 140, Potassium Level 4.0, Chloride Level 104, Carbon Dioxide Level 28, Anion Gap 8, Blood Urea Nitrogen 18, Creatinine 0.97, Estimat Glomerular Filtration Rate 58, BUN/Creatinine Ratio 19, Glucose Level 104, Calcium Level 8.3L, Corrected Calcium 9.5, Total Bi lirubin 1.0, Aspartate Amino Transf (AST/SGOT) 21, Alanine Aminotransferase (ALT/SGPT) 18, Alkaline Phosphatase 84, Total Protein 4.2L, Albumin 2.5L Microbiology 03/01/23 Urine Culture - Preliminary, Resulted Escherichia coli Testing In Progress Laboratory Tests 03/02/23 05:15 03/03/23 05:35 A/P: Assessment: S/P non-syncopal fall resulting in left hip fracture - s/p left hip surg on 02-23-23 Post-op anemia, severe - managed by Surg and Med svces CAD and cardiomegaly on PET CT of 04/16/19 - MPI of 05/14/19: no ischemia or infarction, LVEF 71% - Echo of 05/08/19: LVEF 60-65%, grade 1 coreas dysfunction of LV, mild to mod LA enlargement, RVSP 23 mmHg - No current symptoms of angina or heart failure - Echo on 02-24-23: LVEF 60-65%, mod conc LVH, grade 1 coreas dysfunction Oncology - 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
--- NOTE | 2023-03-03 10:51 | Occupational Ther Daily Note ---
OT Current Status-Daily Note Subjective Patient completed toileting tasks w/ staff, agreeable to OT Mental Status/Objective Patient Orientation: Person, Situation ADL-Treatment Patient has nailing, not BENJI, patient is not on BENJI precaution. TTWB LLE. educated on LB dressing sequences Therapy Code Descriptions/Definitions Functional [place] Measure: 0=Not Assessed/NA 4=Minimal Assistance 1=Total Assistance 5=Supervision or Setup 2=Maximal Assistance 6=Modified [place] 3=Moderate Assistance 7=Complete IndependenceSCALE: Activities may be completed with or without assistive devices. 7-Uufiydfblw-jvzsryz completes the activity by him/herself with no assistance from a helper. 5-Set-up or Clean-up Assistance-helper sets up or cleans up; patient completes activity. [place] assists only prior to or following the activity. 4-Supervision or Touching Assistance-helper provides verbal cues and/or touching/steadying and/or contact guard assistance as patient completes activity. Assistance may be provided throughout the activity or intermittently. 3-Partial/Moderate Assistance-helper does LESS THAN HALF the effort. [place] lifts, holds or supports trunk or limbs, but provides less than half the effort. 2-Substantial/Maximal Assistance-helper does MORE THAN HALF the effort. [place] lifts or holds trunk or limbs and provides more than half the effort. 9-Ihwxzvtse-zwajam does ALL the effort. Patient does none of the effort to complete the activity. Or, the assistance of 2 or more helpers is required for the patient to complete the activity. If activity was not attempted, code reason: 7-Patient Refused. 9-Not Applicable-not attempted and the patient did not perform the activity before the current illness, exacerbation or injury. 10-Not Attempted due to Environmental Limitations-(lack of equipment, weather restraints, etc.). 88-Not Attempted due to Medical Conditions or Safety Concerns. Eating (QC): 6 Oral Hygiene (QC): 5 Upper Body Dressing (QC): 5 Lower Body Dressing (QC): 4 (Uses BUE to hold left and elevate to manage garments around LLE) On/Off Footwear: 5 (extra time allowance) Toileting Hygiene (QC): 5 (SBA w/ VCs for [facility] balance and hand placement on fww) Toilet Transfer (QC): 5 Education OT Patient Education: Correct positioning, Modified ADL techniques, Progress toward Goal/Update tx plan, Purpose of tx/functional activities, Reviewed precautions, Rehab process, Safety issues, Transfer techniques, Use of adapted equipment Teaching Recipient: Patient Teaching Methods: Demonstration, Discussion Response to Teaching: Verbalize Understanding, Reinforcement Needed Yvonne tries to move LLE advancement from foot and not hip OT Short Term Goals Short Term Goals Time Frame: Mar 03, 2023 OT Senior Oracle Soa Developer Goals Intermediate Goals Eating (QC): 6 Oral Hygiene (QC): 5 Toileting Hygiene (QC): 5 Shower/Bathe Self (QC): 5 Upper Body Dressing (QC): 5 Lower Body Dressing (QC): 5 On/Off Footwear (QC): 5 1=Demonstrate adherence to instructed precautions during ADL tasks. 2=Patient will verbalize/demonstrate understanding of assistive devices/modifications for ADL. 3=Patient will improve strength/tolerance for activity to enable patient to perform ADL's. OT Education/Plan Problem List/Assessment Assessment: Decreased Activ Tolerance, Decreased Safety Aware, Decreased UE Strength, Impaired Self-Care Skills Discharge Recommendations Plan/Recommendations: Continue POC Treatment Plan/Plan of Care Treatment,Training & Education: Yes Patient would benefit from OT for education, treatment and training to promote independence in ADL's, mobility, safety and/or upper extremity function for ADL's. Plan of Care: ADL Retraining, Functional Mobility, Group Exercise/Act as Ind, UE Funct Exercise/Act, UE Neuromus Re-Ed/Coord Treatment Duration: Mar 03, 2023 Frequency: 3 times per week (3-5 times per week) Estimated Hrs Per Day: .25 hour per day Agreement: Yes Rehab Potential: Fair Time Start Time: 11:00 Stop Time: 11:23 DATE: Mar 03, 2023 Total Time Billed (hr/min): 23 Billed Treatment Time ADL 23 LISA GREEN OT Mar 03, 2023 10:51
--- NOTE | 2023-03-03 11:06 | Progress Note - Ortho ---
Progress Note Subjective Date of Exam 03/03/23 Chief Complaint POD #8 IM Nailing of L IT Femur Fx with Subtroch Extension HPI/Events since last exam has been making progress with therapy, has been TTWB, has noted some trouble with strength/lifting leg Review of Systems - Allergies: Coded Allergies: Penicillins (Verified Allergy, Mild, RASH, Pt has received Keflex w/o issue, 02/17/21) Home Meds Reported Medications Polyethylene Glycol 3350 (Miralax) 17 Gram Powd.pack, 17 GM PO DAILY PRN for CONSTIPATION-2ND LINE, EACH 02/23/23 Ondansetron (Ondansetron Odt) 4 Mg Tab.rapdis, 4 MG PO Q6H PRN for NAUSEA/VOMITING-1ST LINE, TAB 02/23/23 Potassium Chloride (Potassium Chloride) 10 Meq Capsule.er, 10 MEQ PO Q48H, CAP 02/23/23 Omeprazole (Omeprazole) 40 Mg Capsule.dr, 40 MG PO DAILY, TAB 02/23/23 Sarilumab (Kevzara) 200 Mg/1.14 Ml Pen.injctr, 200 MG IJ EVERY 2 WEEKS, EACH 02/23/23 Oxycodone HCl (Oxycodone HCl) 15 Mg Tablet, 15 MG PO Q6H, TAB 02/23/23 Hydralazine HCl (Hydralazine HCl) 25 Mg Tablet, 25 MG PO TID, TAB 02/23/23 Gabapentin (Gabapentin) 400 Mg Capsule, 800 MG PO HS, CAP TAKES 2 (400MG) TABS 07/08/20 Folic Acid (Folic Acid) 0.4 Mg Tablet, 0.4 MG PO DAILY, TAB 07/08/20 Atenolol (Atenolol) 50 Mg Tablet, 75 MG PO DAILY, TAB TAKES 1 & (50MG) TABS 12/23/19 Levothyroxine Sodium (Levothyroxine Sodium) 100 Mcg Tablet, 50 MCG PO HENNING,SA, TAB TAKES OF A 100MCG TAB 12/23/19 Levothyroxine Sodium (Levothyroxine Sodium) 100 Mcg Tablet, 100 MCG PO MO,,,,FR, TAB 12/23/19 Objective Exam L Hip: Dressings C/D/I, +DF of ankle, no s/s of DVT Vital Signs Vital Signs Date Time Temp Pulse Resp B/P (MAP) Pulse Ox O2 Delivery O2 Flow Rate FiO2 03/03/23 08:00 97 Room Air 0.00 03/03/23 07:50 36.5 90 20 127/67 (87) 97 Room Air 03/03/23 04:15 36.5 60 18 125/68 (87) 95 Room Air 03/02/23 23:39 36.3 72 18 136/69 (91) 95 Room Air 03/02/23 20:50 Room Air 03/02/23 19:57 37.0 74 18 112/67 (82) 96 Room Air 03/02/23 17:07 36.5 82 16 113/69 (84) 94 Room Air 03/02/23 17:00 36.5 82 16 113/69 (84) 94 Room Air 03/02/23 12:00 36.9 72 18 119/58 (78) 97 Room Air I & O 03/03/23 07:00 Intake Total 1602 ml Balance 1602 ml Lab Results Laboratory Tests 03/03/23 05:35: White Blood Count 5.6, Red Blood Count 2.52L, Hemoglobin 8.6L, Hematocrit 26L, Mean Corpuscular Volume 104H, Mean Corpuscular Hemoglobin 34, Mean Corpuscular Hemoglobin Concent 33, Red Cell Distribution Width 17.2H, Platelet Count 193, Mean Platelet Volume 9.4, Immature Granulocyte % (Auto) 1, Neutrophils (%) (Auto) 70, Lymphocytes (%) (Auto) 20, Monocytes (%) (Auto) 8, Eosinophils (%) (Auto) 1, Basophils (%) (Auto) 0, Neutrophils # (Auto) 3.9, Lymphocytes # (Auto) 1.1, Monocytes # (Auto) 0.4, Eosinophils # (Auto) 0.1, Basophils # (Auto) 0.0, Immature Granulocyte # (Auto) 0.1, Sodium Level 140, Potassium Level 4.0, Chl oride Level 104, Carbon Dioxide Level 28, Anion Gap 8, Blood Urea Nitrogen 18, Creatinine 0.97, Estimat Glomerular Filtration Rate 58, BUN/Creatinine Ratio 19, Glucose Level 104, Calcium Level 8.3L, Corrected Calcium 9.5, Total Bilirubin 1.0, Aspartate Amino Transf (AST/SGOT) 21, Alanine Aminotransferase (ALT/SGPT) 18, Alkaline Phosphatase 84, Total Protein 4.2L, Albumin 2.5L Microbiology 03/01/23 Urine Culture - Preliminary, Resulted Escherichia coli Testing In Progress Assessment and Plan Assessment L IT Femur Fx with Subtroch Extension s/p IM Nailing Problem List L IT Femur Fx with Subtroch Extension s/p IM Nailing Plan PT/OT--making progress; given comminution expect slower progress with some motions/lifting of leg Agree with extended care Needs carson out at 2 weeks postop Final Diagonsis L IT Femur Fx with Subtroch Extension s/p IM Nailing Level of the visit: Level 3 (postop) Clinical Quality Measures DVT/VTE Risk/Contraindication: Contraindications-Pharm: Other *list below* Other: severe ABLA ANGELICA CARNEY MD Mar 03, 2023 11:06
[2023-03-03 12:00] VITALS: BP 111/69
--- NOTE | 2023-03-03 12:21 | Progress Note ---
Subjective Date Seen by a Provider: Mar 03, 2023 Time Seen by a Provider: 12:00 Subjective/Events-last exam No major issues Awaiting VCV placement Labs reviewed Review of Systems General: Fatigue, Malaise Musculoskeletal: leg pain Objective Exam Last Set of Vital Signs Vital Signs Date Time Temp Pulse Resp B/P (MAP) Pulse Ox O2 Delivery O2 Flow Rate FiO2 03/03/23 12:00 36.4 77 18 111/69 (83) 96 Room Air 03/03/23 08:00 0.00 02/25/23 14:04 21 Capillary Refill : Less Than 3 SecondsLess Than 3 Seconds I&O Intake and Output 03/03/23 00:00 Intake Total 1752 ml Output Total 500 ml Balance 1252 ml Intake Oral 1752 ml Output Urine Total 500 ml # Voids 5 General: Alert, Oriented X3, Cooperative, No Acute Distress Lungs: Clear to Auscultation, Normal Air Movement Heart: Regular Rate, Normal S1, Normal S2, No Murmurs Results Lab Laboratory Tests 03/03/23 05:35: White Blood Count 5.6, Red Blood Count 2.52L, Hemoglobin 8.6L, Hematocrit 26L, Mean Corpuscular Volume 104H, Mean Corpuscular Hemoglobin 34, Mean Corpuscular Hemoglobin Concent 33, Red Cell Distribution Width 17.2H, Platelet Count 193, Mean Platelet Volume 9.4, Immature Granulocyte % (Auto) 1, Neutrophils (%) ( Auto) 70, Lymphocytes (%) (Auto) 20, Monocytes (%) (Auto) 8, Eosinophils (%) (Auto) 1, Basophils (%) (Auto) 0, Neutrophils # (Auto) 3.9, Lymphocytes # (Auto) 1.1, Monocytes # (Auto) 0.4, Eosinophils # (Auto) 0.1, Basophils # (Auto) 0.0, Immature Granulocyte # (Auto) 0.1, Sodium Level 140, Potassium Level 4.0, Chloride Level 104, Carbon Dioxide Level 28, Anion Gap 8, Blood Urea Nitrogen 18, Creatinine 0.97, Estimat Glomerular Filtration Rate 58, BUN/Creatinine Ratio 19, Glucose Level 104, Calcium Level 8.3L, Corrected Calcium 9.5, Total Bilirubin 1.0, Aspartate Amino Transf (AST/SGOT) 21, Alanine Aminotransferase (ALT/SGPT) 18, Alkaline Phosphatase 84, Total Protein 4.2L, Albumin 2.5L Microbiology 03/01/23 Urine Culture - Final, Complete Escherichia coli Assessment/Plan Assessment/Plan Assess & Plan/Chief Complaint Assessment: Comminuted L intertrochanteric femur fracture HTN Acute blood loss anemia Hx of RA with recent steroid taper Hypothyroidism 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
--- NOTE | 2023-03-03 14:06 | Physical Therapy Daily Note ---
PT Daily Note-Current Subjective Patient agrees to PT. Pain Section J - Health Conditions 1. Rarely or not at all 2. Occasionally 3. Frequently 4. Almost constantly 8. Unable to answer Pain Effect on Sleep: 1 Pain Interference with Therapy: 1 Pain Interference w/Day-to-Day: 1 Transfers SCALE: Activities may be completed with or without assistive devices. 3-Uyjwcjtzsg-iwylbvi completes the activity by him/herself with no assistance from a helper. 5-Set-up or Clean-up Assistance-helper sets up or cleans up; patient completes activity. [place] assists only prior to or following the activity. 4-Supervision or Touching Assistance-helper provides verbal cues and/or touching/steadying and/or contact guard assistance as patient completes activity. Assistance may be provided throughout the activity or intermittently. 3-Partial/Moderate Assistance-helper does LESS THAN HALF the effort. [place] lifts, holds or supports trunk or limbs, but provides less than half the effort. 2-Substantial/Maximal Assistance-helper does MORE THAN HALF the effort. [place] lifts or holds trunk or limbs and provides more than half the effort. 9-Glpjregle-toejqo does ALL the effort. Patient does none of the effort to complete the activity. Or, the assistance of 2 or more helpers is required for the patient to complete the activity. If activity was not attempted, code reason: 7-Patient Refused. 9-Not Applicable-not attempted and the patient did not perform the activity before the current illness, exacerbation or injury. 10-Not Attempted due to Environmental Limitations-(lack of equipment, weather restraints, etc.). 88-Not Attempted due to Medical Conditions or Safety Concerns. Weight Bearing Right Lower Extremity: Right Full Weight Bearing Left Lower Extremity: Left Touch Toe Bearing Exercises Supine Ex: Ankle pumps, Quad Set, Heel Slides Supine Reps: 15 (x 2 sets AAROM left LE) Assessment Patient is able to actively flex left knee with PT holding behind knee and heel. Patient continues to voice frustration with slow progress. PT Short Term Goals Short Term Goals Time Frame: Mar 11, 2023 Roll Left & Right: 3 Sit to lyin Lying to sitting on side of be: 3 Sit to stand: 3 Chair/vvk-vt-uzmef transfer: 3 Walk 10 feet: 3 PT Ehs Manager Goals Ehs Manager Goals PT Longterm Goals Time Frame: Mar 25, 2023 Roll Left & Right (QC): 6 Sit to Lying (QC): 6 Lying-Sitting on Side/Bed(QC): 6 Sit to Stand (QC): 6 Chair/Jqt-wb-Yhoow Xfer(QC): 6 Toilet Transfer (QC): 6 Walk 10 feet (QC): 4 Walk 50ft with 2 Turns (QC): 4 Walk 150 ft (QC): 4 PT Plan Treatment/Plan Treatment Plan: Continue Plan of Care Treatment Plan: Bed Mobility, Education, Functional Activity Theo, Functional Strength, Gait, Safety, Therapeutic Exercise, Transfers Treatment Duration: Mar 25, 2023 Frequency: 11 times per week Estimated Hrs Per Day: .5 hour per day Patient and/or Family Agrees t: Yes Time Time In: 1341 Time Out: 1357 DATE: Mar 03, 2023 Total Billed Treatment Time: 16 Total Billed Treatment 1 visit EX 16 min PATI RITTER PT Mar 03, 2023 14:06
[2023-03-03 15:49] VITALS: BP 133/72
[2023-03-03 20:04] VITALS: BP 107/59
[2023-03-03] MEDS: cefTRIAXone IV/IM 1,000 MG in NS (IVPB) 50 ML IV SCH (20:08)
[2023-03-03] MEDS: GABAPENTIN 400 MG (NEURONTIN) CAP PO SCH (20:12)
[2023-03-03 23:02] VITALS: BP 130/62
[2023-03-04 03:22] VITALS: BP 140/63
[2023-03-04] MEDS: CYANOCOBALAMIN 1,000 MCG (VITAMIN B-12) TABLET PO SCH (05:56)
[2023-03-04] MEDS: KCL 20 MEQ TAB (K-DUR) PO SCH (05:56)
[2023-03-04] MEDS: LEVOTHYROXINE 100 MCG (LEVOTHROID) TAB PO SCH (05:57)
[2023-03-04 06:01] LABS: BASOPHILS % (AUTO) 0 % (0-10); EOSINOPHILS # (AUTO) 0.1 10^3/uL (0.0-0.3); EOSINOPHILS % (AUTO) 2 % (0-10); HEMATOCRIT 27 % (35-52); LYMPHOCYTES # (AUTO) 1.2 10^3/uL (1.0-4.0); LYMPHOCYTES % (AUTO) 22 % (12-44); MEAN CORPUSCULAR HEMOGLOBIN 35 pg (25-34); MEAN CORPUSCULAR HGB CONC 33 g/dL (32-36); MEAN CORPUSCULAR VOLUME 104 fL (80-99); MEAN PLATELET VOLUME 9.3 fL (9.0-12.2); MONOCYTES # (AUTO) 0.5 10^3/uL (0.0-1.0); MONOCYTES % (AUTO) 9 % (0-12); NEUTROPHILS # (AUTO) 3.4 10^3/uL (1.8-7.8); NEUTROPHILS % (AUTO) 65 % (42-75); PLATELET COUNT 222 10^3/uL (130-400); WHITE BLOOD COUNT 5.3 10^3/uL (4.3-11.0)
[2023-03-04 06:22] LABS: ALBUMIN 2.7 GM/DL (3.2-4.5); BILIRUBIN,TOTAL 1.1 MG/DL (0.1-1.0); CALCIUM 8.6 MG/DL (8.5-10.1); CREATININE SERUM 0.95 MG/DL (0.60-1.30); POTASSIUM 4.5 MMOL/L (3.6-5.0); TOTAL PROTEIN 4.9 GM/DL (6.4-8.2)
[2023-03-04 07:44] VITALS: BP 113/62
[2023-03-04] MEDS: IRON SUCROSE 200 MG/10 ML (VENOFER) VIAL IV SCH (08:53)
[2023-03-04] MEDS: FOLIC ACID 1 MG TAB PO SCH (08:54)
[2023-03-04] MEDS: APIXABAN 2.5 MG (ELIQUIS) TABLET PO SCH ×2 (08:54→19:56)
[2023-03-04] MEDS: DOCUSATE SODIUM 100 MG (COLACE) CAP PO SCH ×2 (08:54→19:55)
[2023-03-04] MEDS: amLODIPine 5 MG (NORVASC) TAB PO SCH (08:54)
[2023-03-04] MEDS: PANTOPRAZOLE 40 MG (PROTONIX) TAB PO SCH (08:54)
[2023-03-04] MEDS: hydrALAZINE (APRESOLINE) 25 MG TAB PO SCH ×3 (08:54→19:56)
[2023-03-04] MEDS: SENNOSIDES 8.6 MG (SENOKOT) TAB PO SCH ×2 (08:54→19:56)
--- NOTE | 2023-03-04 08:54 | Physical Therapy Daily Note ---
PT Daily Note-Current Subjective Patient agrees to PT. Pain Numeric Pain Scale: 5-Moderate Pain Location: Left Location Body Site: Hip Pain Description: Acute Section J - Health Conditions 1. Rarely or not at all 2. Occasionally 3. Frequently 4. Almost constantly 8. Unable to answer Pain Effect on Sleep: 1 Pain Interference with Therapy: 1 Pain Interference w/Day-to-Day: 1 Mental Status Patient Orientation: Normal For Age Transfers SCALE: Activities may be completed with or without assistive devices. 3-Sinhfzettv-lcglilh completes the activity by him/herself with no assistance from a helper. 5-Set-up or Clean-up Assistance-helper sets up or cleans up; patient completes activity. [place] assists only prior to or following the activity. 4-Supervision or Touching Assistance-helper provides verbal cues and/or touching/steadying and/or contact guard assistance as patient completes activity. Assistance may be provided throughout the activity or intermittently. 3-Partial/Moderate Assistance-helper does LESS THAN HALF the effort. [place] lifts, holds or supports trunk or limbs, but provides less than half the effort. 2-Substantial/Maximal Assistance-helper does MORE THAN HALF the effort. [place] lifts or holds trunk or limbs and provides more than half the effort. 5-Vfvyelgua-hamylr does ALL the effort. Patient does none of the effort to complete the activity. Or, the assistance of 2 or more helpers is required for the patient to complete the activity. If activity was not attempted, code reason: 7-Patient Refused. 9-Not Applicable-not attempted and the patient did not perform the activity before the current illness, exacerbation or injury. 10-Not Attempted due to Environmental Limitations-(lack of equipment, weather restraints, etc.). 88-Not Attempted due to Medical Conditions or Safety Concerns. Sit to Stand (QC): 4 Weight Bearing Right Lower Extremity: Right Full Weight Bearing Left Lower Extremity: Left Touch Toe Bearing Gait Training Distance: 25' Walk 10 feet (QC): 3 Gait Assistive Device: FWW patient able to maintain TTWB left LE with ambulation Exercises Supine Ex: Ankle pumps, Quad Set, Heel Slides Supine Reps: 12 (AAROM left LE) Seated Therapy Exercises: Ankle pumps, Long arc quads Seated Reps: 15 Assessment Patient progressing slowly with treatment plan and remains up in recliner with bilateral LE elevated. PT to continue to increase activity as tolerated by patient. PT Short Term Goals Short Term Goals Time Frame: Mar 11, 2023 Roll Left & Right: 3 Sit to lyin Lying to sitting on side of be: 3 Sit to stand: 3 Chair/rqh-ua-vmkra transfer: 3 Walk 10 feet: 3 PT Fdc Goals Barrel Line Operator Goals PT Barrel Line Operator Goals Time Frame: Mar 25, 2023 Roll Left & Right (QC): 6 Sit to Lying (QC): 6 Lying-Sitting on Side/Bed(QC): 6 Sit to Stand (QC): 6 Chair/Wkf-vo-Wumhp Xfer(QC): 6 Toilet Transfer (QC): 6 Walk 10 feet (QC): 4 Walk 50ft with 2 Turns (QC): 4 Walk 150 ft (QC): 4 PT Plan Treatment/Plan Treatment Plan: Continue Plan of Care Treatment Plan: Bed Mobility, Education, Functional Activity Theo, Functional Strength, Gait, Safety, Therapeutic Exercise, Transfers Treatment Duration: Mar 25, 2023 Frequency: 11 times per week Estimated Hrs Per Day: .5 hour per day Patient and/or Family Agrees t: Yes Time Time In: 809 Time Out: 820 DATE: Mar 04, 2023 Total Billed Treatment Time: 11 Total Billed Treatment 1 visit FA 11 min PATI RITTER PT Mar 04, 2023 08:54
[2023-03-04] MEDS: ATENOLOL 25 MG (TENORMIN) TAB PO SCH (08:58)
[2023-03-04] MEDS: polyethylene glycoL POWDER 17 GM (MIRALAX) PACK PO SCH ×3 (08:58→19:35)
--- NOTE | 2023-03-04 10:13 | Progress Note - Hospitalist ---
Subjective HPI/CC On Admission Date Seen by Provider: Mar 04, 2023 Time Seen by Provider: 10:00 Chief complaint: Left hip fracture HPI: This is an 83-year-old female with a history of inflammatory arthritis recently completed steroid taper due to an arthritis flare from methotrexate withdrawal who was picking up her dog from the event and turned too quickly and fell on her left hip. She suffered a fracture which will be repaired by Dr. Martel tomorrow morning. She has a history of lymphoma of the stomach and Dr. Rowe had performed her scopes and helped her with management of that. She sees Dr. Jefferson rheumatology on a regular basis. Dr. Hurt sees her on regular basis Subjective/Events-last exam Patient voices no complaints other than still having difficulty lifting her left leg day 10 status post left hip fracture repair. She is ambulating with the use of a walker and a only awaiting insurance clearance for correction placement likely to [facility] that has accepted her. Objective Exam Vital Signs Vital Signs Date Time Temp Pulse Resp B/P (MAP) Pulse Ox O2 Delivery O2 Flow Rate FiO2 03/04/23 07:44 37.1 78 18 113/62 (79) 96 Room Air 03/03/23 08:00 0.00 Capillary Refill : Less Than 3 SecondsLess Than 3 Seconds General Appearance: No Apparent Distress Respiratory: Chest Non Tender, Lungs Clear, Normal Breath Sounds, No Accessory Muscle Use, No Respiratory Distress Cardiovascular: Regular Rate, Rhythm, No Edema, No Gallop, No JVD, No Murmur, Normal Peripheral Pulses Extremity: Other (2+ edema left thigh 1-2+ left foot and calf no difficulty with dorsiflexion or plantarflexion exhibits weakness left hip flexion and quadriceps.) Results/Procedures Lab Laboratory Tests 03/04/23 05:45 Patient resulted labs reviewed. Assessment/Plan Assessment and Plan Assess & Plan/Chief Complaint 1. Day 10 status post left hip fracture repair slowly improving awaiting correction placement/insurance coverage having been accepted to [facility]. Clinical Quality Measures DVT/VTE Risk/Contraindication: Contraindications-Pharm: Other *list below* Other: severe CINDY MARQUEZ MD Mar 04, 2023 10:13
[2023-03-04 11:18] VITALS: BP 121/59
[2023-03-04 16:22] VITALS: BP 130/60
[2023-03-04] MEDS: cefTRIAXone IV/IM 1,000 MG in NS (IVPB) 50 ML IV SCH (19:56)
[2023-03-04] MEDS: GABAPENTIN 400 MG (NEURONTIN) CAP PO SCH (19:56)
[2023-03-04 20:32] VITALS: BP 91/53
[2023-03-04 23:45] VITALS: BP 105/57
[2023-03-05 05:56] LABS: BASOPHILS % (AUTO) 0 % (0-10); EOSINOPHILS # (AUTO) 0.1 10^3/uL (0.0-0.3); EOSINOPHILS % (AUTO) 2 % (0-10); HEMATOCRIT 26 % (35-52); HEMOGLOBIN 8.6 g/dL (11.5-16.0); LYMPHOCYTES # (AUTO) 1.1 10^3/uL (1.0-4.0); LYMPHOCYTES % (AUTO) 26 % (12-44); MEAN CORPUSCULAR HEMOGLOBIN 35 pg (25-34); MEAN CORPUSCULAR HGB CONC 33 g/dL (32-36); MEAN CORPUSCULAR VOLUME 106 fL (80-99); MEAN PLATELET VOLUME 9.4 fL (9.0-12.2); MONOCYTES # (AUTO) 0.4 10^3/uL (0.0-1.0); MONOCYTES % (AUTO) 9 % (0-12); NEUTROPHILS # (AUTO) 2.7 10^3/uL (1.8-7.8); NEUTROPHILS % (AUTO) 62 % (42-75); PLATELET COUNT 216 10^3/uL (130-400); WHITE BLOOD COUNT 4.3 10^3/uL (4.3-11.0)
[2023-03-05] MEDS: KCL 20 MEQ TAB (K-DUR) PO SCH (05:57)
[2023-03-05] MEDS: CYANOCOBALAMIN 1,000 MCG (VITAMIN B-12) TABLET PO SCH (05:57)
[2023-03-05] MEDS: LEVOTHYROXINE 100 MCG (LEVOTHROID) TAB PO SCH (05:57)
[2023-03-05 06:43] LABS: POTASSIUM 4.1 MMOL/L (3.6-5.0)
[2023-03-05 06:44] LABS: CALCIUM 8.2 MG/DL (8.5-10.1)
[2023-03-05 06:47] LABS: BILIRUBIN,TOTAL 0.9 MG/DL (0.1-1.0)
[2023-03-05 07:11] LABS: ALBUMIN 2.6 GM/DL (3.2-4.5)
[2023-03-05 07:13] LABS: TOTAL PROTEIN 4.4 GM/DL (6.4-8.2)
[2023-03-05 07:15] VITALS: BP 138/63
[2023-03-05 07:17] LABS: CREATININE SERUM 0.93 MG/DL (0.60-1.30)
[2023-03-05] MEDS: ATENOLOL 25 MG (TENORMIN) TAB PO SCH (09:44)
[2023-03-05] MEDS: SENNOSIDES 8.6 MG (SENOKOT) TAB PO SCH ×2 (09:44→20:06)
[2023-03-05] MEDS: FOLIC ACID 1 MG TAB PO SCH (09:44)
[2023-03-05] MEDS: hydrALAZINE (APRESOLINE) 25 MG TAB PO SCH ×3 (09:44→20:06)
[2023-03-05] MEDS: amLODIPine 5 MG (NORVASC) TAB PO SCH (09:44)
[2023-03-05] MEDS: APIXABAN 2.5 MG (ELIQUIS) TABLET PO SCH ×2 (09:45→20:06)
[2023-03-05] MEDS: DOCUSATE SODIUM 100 MG (COLACE) CAP PO SCH ×2 (09:45→20:06)
[2023-03-05] MEDS: PANTOPRAZOLE 40 MG (PROTONIX) TAB PO SCH (09:45)
[2023-03-05] MEDS: polyethylene glycoL POWDER 17 GM (MIRALAX) PACK PO SCH ×3 (09:47→19:22)
--- NOTE | 2023-03-05 13:02 | Progress Note - Hospitalist ---
Subjective HPI/CC On Admission Date Seen by Provider: Mar 05, 2023 Time Seen by Provider: 13:00 Chief complaint: Left hip fracture HPI: This is an 83-year-old female with a history of inflammatory arthritis recently completed steroid taper due to an arthritis flare from methotrexate withdrawal who was picking up her dog from the event and turned too quickly and fell on her left hip. She suffered a fracture which will be repaired by Dr. Martel tomorrow morning. She has a history of lymphoma of the stomach and Dr. Rowe had performed her scopes and helped her with management of that. She sees Dr. Jefferson rheumatology on a regular basis. Dr. Hurt sees her on regular basis Subjective/Events-last exam Patient reports feeling well increasingly stable with ambulation with decreased discomfort voicing no complaints happy with the care that she has received here. Objective Exam Vital Signs Vital Signs Date Time Temp Pulse Resp B/P (MAP) Pulse Ox O2 Delivery O2 Flow Rate FiO2 03/05/23 08:00 Room Air 0.00 03/05/23 07:15 36.4 71 18 138/63 (88) 97 Capillary Refill : Less Than 3 SecondsLess Than 3 Seconds General Appearance: No Apparent Distress Respiratory: Chest Non Tender, Lungs Clear, Normal Breath Sounds, No Accessory Muscle Use, No Respiratory Distress Cardiovascular: Regular Rate, Rhythm, No Edema, No Gallop, No JVD, No Murmur, Normal Peripheral Pulses Extremity: Other (1-2+ edema bilateral stable extremities warm surgical incision site looks good.) Results/Procedures Lab Laboratory Tests 03/05/23 05:45 Patient resulted labs reviewed. Assessment/Plan Assessment and Plan Assess & Plan/Chief Complaint 1. Day 11 status post left hip fracture repair slowly improving awaiting [facility] placement/insurance coverage having been accepted to [facility] Apparently still waiting to hear on insurance but otherwise expe ctTransfer in the morning. Clinical Quality Measures DVT/VTE Risk/Contraindication: Contraindications-Pharm: Other *list below* Other: severe CINDY MARQUEZ MD Mar 05, 2023 13:02
[2023-03-05 16:09] VITALS: BP 107/61
--- NOTE | 2023-03-05 17:06 | Cardiology Progress Note ---
Cardiology SOAP Progress Note Subjective: Sitting comfortably. No cardiac complaints Objective: I&O/Vital Signs 03/06/23 03/06/23 03/06/23 08:00 08:42 13:59 Temp 37.0 37.0 Pulse 80 80 Resp 20 20 B/P (MAP) 108/59 (75) 108/59 Pulse Ox 97 97 97 O2 Delivery Room Air Room Air Room Air O2 Flow Rate 0.00 0.00 03/06/23 00:00 Intake Total 1592 ml Output Total 150 ml Balance 1442 ml Weight (Pounds): 158 Weight (Ounces): 7.0 Weight (Calculated Kilograms): 71.348344 Constitutional: AAO x 3, well-developed, well-nourished Respiratory: No accessory muscle use; chest expansion is symmetric, chest is bilaterally symmetric, other (good, bilateral air entry) Cardiovascular: regular rate-rhythm, S1 and S2, systolic murmur (soft PREET at card base) Gastrointestional: No tender; soft; No guarding, No rebound; audible bowel sounds Extremities: swelling (mild to mod bilat LE swelling; L>R (left is post surgical side)); No clubbing, No cyanosis Neurologic/Psychiatric: oriented x 3, other (moves all limbs equally) Skin: normal color, warm/dry; No rash, No ulcerations; other Results/Procedures: Labs Microbiology 03/01/23 Urine Culture - Final, Complete Escherichia coli A/P: Assessment/Dx: S/P non-syncopal fall resulting in left hip fracture - s/p left hip surg on 02-23-23 Post-op anemia, severe - managed by Surg and Med svces CAD and cardiomegaly on PET CT of 04/16/19 - MPI of 05/14/19: no ischemia or infarction, LVEF 71% - Echo of 05/08/19: LVEF 60-65%, grade 1 coreas dysfunction of LV, mild to mod LA enlargement, RVSP 23 mmHg - No current symptoms of angina or heart failure - Echo on 02-24-23: LVEF 60-65%, mod conc LVH, grade 1 coreas dysfunction Oncology - 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 Denton as an outpatient for further work-up. Fantasma METCALF MD Mar 05, 2023 17:06
[2023-03-05] MEDS: GABAPENTIN 400 MG (NEURONTIN) CAP PO SCH (20:06)
[2023-03-05] MEDS: cefTRIAXone IV/IM 1,000 MG in NS (IVPB) 50 ML IV SCH (20:06)
[2023-03-05 23:23] VITALS: BP 133/58
[2023-03-06] MEDS: KCL 20 MEQ TAB (K-DUR) PO SCH (05:37)
[2023-03-06] MEDS: CYANOCOBALAMIN 1,000 MCG (VITAMIN B-12) TABLET PO SCH (05:37)
[2023-03-06] MEDS: LEVOTHYROXINE 100 MCG (LEVOTHROID) TAB PO SCH (05:41)
[2023-03-06 08:42] VITALS: BP 108/59
[2023-03-06] MEDS: APIXABAN 2.5 MG (ELIQUIS) TABLET PO SCH (09:09)
[2023-03-06] MEDS: PANTOPRAZOLE 40 MG (PROTONIX) TAB PO SCH (09:09)
[2023-03-06] MEDS: SENNOSIDES 8.6 MG (SENOKOT) TAB PO SCH (09:09)
[2023-03-06] MEDS: polyethylene glycoL POWDER 17 GM (MIRALAX) PACK PO SCH ×2 (09:10→12:28)
[2023-03-06] MEDS: DOCUSATE SODIUM 100 MG (COLACE) CAP PO SCH (09:10)
[2023-03-06] MEDS: FOLIC ACID 1 MG TAB PO SCH (09:10)
--- NOTE | 2023-03-06 09:25 | Physical Therapy Daily Note ---
PT Daily Note-Current Subjective Patient up in recliner. Agrees to therapy. Pain Section J - Health Conditions 1. Rarely or not at all 2. Occasionally 3. Frequently 4. Almost constantly 8. Unable to answer Pain Effect on Sleep: 1 Pain Interference with Therapy: 1 Pain Interference w/Day-to-Day: 1 Transfers SCALE: Activities may be completed with or without assistive devices. 4-Dqivkrfwem-ylorbkj completes the activity by him/herself with no assistance from a helper. 5-Set-up or Clean-up Assistance-helper sets up or cleans up; patient completes activity. [place] assists only prior to or following the activity. 4-Supervision or Touching Assistance-helper provides verbal cues and/or touching/steadying and/or contact guard assistance as patient completes activity. Assistance may be provided throughout the activity or intermittently. 3-Partial/Moderate Assistance-helper does LESS THAN HALF the effort. [place] lifts, holds or supports trunk or limbs, but provides less than half the effort. 2-Substantial/Maximal Assistance-helper does MORE THAN HALF the effort. [place] lifts or holds trunk or limbs and provides more than half the effort. 5-Pqcyqdira-jpsqnq does ALL the effort. Patient does none of the effort to complete the activity. Or, the assistance of 2 or more helpers is required for the patient to complete the activity. If activity was not attempted, code reason: 7-Patient Refused. 9-Not Applicable-not attempted and the patient did not perform the activity before the current illness, exacerbation or injury. 10-Not Attempted due to Environmental Limitations-(lack of equipment, weather restraints, etc.). 88-Not Attempted due to Medical Conditions or Safety Concerns. Sit to Stand (QC): 4 Toilet Transfer (QC): 4 Weight Bearing Right Lower Extremity: Right Full Weight Bearing Left Lower Extremity: Left Touch Toe Bearing Gait Training Distance: 50' Walk 10 feet (QC): 4 Walk 50 ft with 2 Turns(QC): 4 Walk 150 ft (QC): 88 Gait Assistive Device: FWW able to maintain TTWB left LE with ambulation Exercises Seated Therapy Exercises: Ankle pumps, Long arc quads Seated Reps: 15 Assessment Patient progressing with treatment plan. PT to continue to increase activity as tolerated by patient. PT Short Term Goals Short Term Goals Time Frame: Mar 11, 2023 Roll Left & Right: 3 Sit to lyin Lying to sitting on side of be: 3 Sit to stand: 3 Chair/are-py-euyuw transfer: 3 Walk 10 feet: 3 PT Usp Goals Computer Customer Support Specialist Goals PT Computer Customer Support Specialist Goals Time Frame: Mar 25, 2023 Roll Left & Right (QC): 6 Sit to Lying (QC): 6 Lying-Sitting on Side/Bed(QC): 6 Sit to Stand (QC): 6 Chair/Ljs-gg-Ppvdu Xfer(QC): 6 Toilet Transfer (QC): 6 Walk 10 feet (QC): 4 Walk 50ft with 2 Turns (QC): 4 Walk 150 ft (QC): 4 PT Plan Treatment/Plan Treatment Plan: Continue Plan of Care Treatment Plan: Bed Mobility, Education, Functional Activity Theo, Functional Strength, Gait, Safety, Therapeutic Exercise, Transfers Treatment Duration: Mar 25, 2023 Frequency: 11 times per week Estimated Hrs Per Day: .5 hour per day Patient and/or Family Agrees t: Yes Time Time In: 856 Time Out: 906 DATE: Mar 06, 2023 Total Billed Treatment Time: 10 Total Billed Treatment 1 visit FA 10 min PATI RITTER PT Mar 06, 2023 09:25
[2023-03-06] MEDS: hydrALAZINE (APRESOLINE) 25 MG TAB PO SCH (09:41)
[2023-03-06] MEDS: ATENOLOL 25 MG (TENORMIN) TAB PO SCH (09:41)
[2023-03-06] MEDS ORDERED: LACT20SO2 PO (10:01)
[2023-03-06] MEDS ORDERED: ATEN50TA PO (10:01)
[2023-03-06] MEDS ORDERED: HYDR-3923 PO (10:01)
[2023-03-06] MEDS ORDERED: LEVO100T7 PO ×2 (10:01)
[2023-03-06] MEDS ORDERED: SENN-234 PO (10:01)
[2023-03-06] MEDS ORDERED: DOCU100C37 PO (10:01)
[2023-03-06] MEDS ORDERED: ONDA4TAB11 PO (10:01)
[2023-03-06] MEDS ORDERED: FOLI0.4T6 PO (10:01)
[2023-03-06] MEDS ORDERED: OMEP40CA6 PO (10:01)
[2023-03-06] MEDS ORDERED: POTA10CA84 PO (10:01)
[2023-03-06] MEDS ORDERED: MAGN400O7 PO (10:01)
[2023-03-06] MEDS ORDERED: OXYC-525 PO (10:01)
[2023-03-06] MEDS ORDERED: AMLO-250 PO (10:01)
[2023-03-06] MEDS ORDERED: GABA-490 PO (10:01)
[2023-03-06] MEDS ORDERED: POLY17PO6 PO (10:01)
[2023-03-06] MEDS ORDERED: BISA10SU8 PR (10:01)
[2023-03-06] MEDS ORDERED: APIX2.5T PO (10:01)
[2023-03-06] MEDS ORDERED: ACET325T49 PO (10:01)
[2023-03-06] MEDS ORDERED: CYAN-41 PO (10:01)
--- NOTE | 2023-03-06 10:03 | Discharge Summary ---
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 Acute adrenal insufficiency placed on hydrocortisone 100 mg IV every 12 hours x 3 days then DC and cortisol confirmed low level at 3.5 Acute blood loss anemia requiring 1 unit of blood transfusion on 02/26/2023 UTI placed on abx empirically 03/01/2023 Discharge Summary Discharge Physical Examination Allergies: Coded Allergies: Penicillins (Verified Allergy, Mild, RASH, Pt has received Keflex w/o issue, 02/17/21) Vitals & I&Os Vital Signs Date Time Temp Pulse Resp B/P (MAP) Pulse Ox O2 Delivery O2 Flow Rate FiO2 03/06/23 13:59 37.0 80 20 108/59 97 Room Air 0.00 General Appearance: Alert, Oriented X3, Cooperative Respiratory: Clear to Auscultation Cardiovascular: Regular Rate Psych/Mental Status: Mental Status NL Hospital Course Was the Problem List Reviewed?: Yes Jacy Da Silva is an 83yoF admitted on 02/22 for a L hip fracture after mechanical fall at home. HPI from admission "HPI: This is an 83-year-old female with a history of inflammatory arthritis recently completed steroid taper due to an arthritis flare from methotrexate withdrawal who was picking up her dog from the event and turned too quickly and fell on her left hip. She suffered a fracture which will be repaired by Dr. Martel tomorrow morning. She has a history of lymphoma of the stomach and Dr. Rowe had performed her scopes and helped her with management of that. She sees Dr. Jefferson rheumatology on a regular basis. Dr. Hurt sees her on regular basis." She underwent successful surgical repair of her hip fracture on 02/[address] Martel. Her pain was controlled and she began working with PT/OT to regain strength and function of LLE. Diet was advanced to regular with no issue. She did complain of some constipation so she was treated with bowel regimen similar to what she uses at home. BMs normalized with no complaints day of discharge. She was anemic postoperatively and given 1 unit of LRRBCs on 02/26 with appropriate rise in Hgb. Her Hgb remained low but stable thereafter. Never had signs of hemodynamic instability. She was supplemented with iron, B12, and folate as well to assist in bone marrow production of RBCs. Urine culture grew E coli and she was treated for 5 days with ceftriaxone with alleviation of her symptoms and stable labs, no signs of systemic infection. She was treated with hydrocortisone for mild adrenal insufficiency in the setting of recent steroid use for her rheumatoid arthritis. She was hypertensive and restarted on home blood pressure meds with adjustments made per cardiology. She was not approved for inpatient rehab due to not meeting criteria so she was approved for transfer to [facility] to continue her recovery and therapy. She was discharged to [facility] on 03/06 with ortho and pcp follow up. Her home pain medicine regiment for arthritis was resumed and blood pressure meds resumed with new changes from cards. Labs (last 24 hrs) Laboratory Tests 02/22/23 16:50: White Blood Count 9.6, Red Blood Count 4.28, Hemoglobin 14.2, Hematocrit 42, Mean Corpuscular Volume 98, Mean Corpuscular Hemoglobin 33, Mean Corpuscular Hemoglobin Concent 34, Red Cell Distribution Width 14.1, Platelet Count 264, Mean Platelet Volume 9.6, Immature Granulocyte % (Auto) 2, Neutrophils (%) (Auto) 81H, Lymphocytes (%) (Auto) 15, Monocytes (%) (Auto) 2, Eosinophils (%) (Auto) 0, Basophils (%) (Auto) 0, Neutrophils # (Auto) 7.7, Lymphocytes # (Auto) 1.4, Monocytes # (Auto) 0.2, Eosinophils # (Auto) 0.0, Basophils # (Auto) 0.0, Immature Granulocyte # (Auto) 0.2H, Prothrombin Time 13.3, INR Comment 1.0, Sodium Level 136, Potassium Level 4.6, Chloride Level 97L, Carbon Dioxide Level 29, Anion Gap 10, Blood Urea Nitrogen 25H, Creatinine 1.54H, Estimat Glomerular Filtration Rate 33, BUN/Creatinine Ratio 16, Glucose Level 166H, Calcium Level 9.1, Corrected Calcium 9.2, Total Bilirubin 1.0, Aspartate Amino Transf (AST/SGOT) 32, Alanine Aminotransferase (ALT/SGPT) 29, Alkaline Phosphatase 109, Total Protein 6.7, Albumin 3.9 02/22/23 19:36: Lab Scanned Report Referred Lab Report 02/23/23 05:15: White Blood Count 11.0, Red Blood Count 3.45L, Hemoglobin 11.2#L, Hematocrit 34L , Mean Corpuscular Volume 98, Mean Corpuscular Hemoglobin 32, Mean Corpuscular Hemoglobin Concent 33, Red Cell Distribution Width 13.8, Platelet Count 182, Mean Platelet Volume 9.8, Immature Granulocyte % (Auto) 1, Neutrophils (%) (Auto) 77H, Lymphocytes (%) (Auto) 17, Monocytes (%) (Auto) 6, Eosinophils (%) (Auto) 0, Basophils (%) (Auto) 0, Neutrophils # (Auto) 8.5H, Lymphocytes # (Auto) 1.8, Monocytes # (Auto) 0.6, Eosinophils # (Auto) 0.0, Basophils # (Auto) 0.0, Immature Granulocyte # (Auto) 0.1, Sodium Level 134L, Potassium Level 4.1, Chloride Level 99, Carbon Dioxide Level 26, Anion Gap 9, Blood Urea Nitrogen 24H , Creatinine 1.14, Estimat Glomerular Filtration Rate 48, BUN/Creatinine Ratio 21, Glucose Level 109H, Calcium Level 8.3L, Corrected Calcium 9.1, Total Bilirubin 0.9, Aspartate Amino Transf (AST/SGOT) 28, Alanine Aminotransferase (ALT/SGPT) 23, Alkaline Phosphatase 82, Total Protein 5.2L, Albumin 3.0L 02/24/23 05:40: White Blood Count 14.2H, Red Blood Count 2.64L, Hemoglobin 8.6#L, Hematocrit 26L , Mean Corpuscular Volume 98, Mean Corpuscular Hemoglobin 33, Mean Corpuscular Hemoglobin Concent 33, Red Cell Distribution Width 13.9, Platelet Count 141, Mean Platelet Volume 10.0, Immature Granulocyte % (Auto) 1, Neutrophils (%) (Auto) 87H, Lymphocytes (%) (Auto) 8L, Monocytes (%) (Auto) 5, Eosinophils (%) (Auto) 0, Basophils (%) (Auto) 0, Neutrophils # (Auto) 12.4H, Lymphocytes # (Auto) 1.1, Monocytes # (Auto) 0.7, Eosinophils # (Auto) 0.0, Basophils # (Auto) 0.0, Immature Granulocyte # (Auto) 0.1, Sodium Level 137, Potassium Level 4.4, Chloride Level 104, Carbon Dioxide Level 25, Anion Gap 8, Blood Urea Nitrogen 20H, Creatinine 1.01, Estimat Glomerular Filtration Rate 55, BUN/Creatinine Ratio 20, Glucose Level 160H, Calcium Level 8.1L, Corrected Calcium 9.1, Total Bilirubin 0.5, Aspartate Amino Transf (AST/SGOT) 24, Alanine Aminotransferase (ALT/SGPT) 18, Alkaline Phosphatase 75, Total Protein 4.4L, Albumin 2.7L, Neutrophils % (Manual) 89, Lymphocytes % (Manual) 7, Monocytes % (Manual) 4, Elliptocytes SLIGHT, Iron Level 28L, Vitamin B12 Level 204 02/24/23 12:00: Total Cortisol 3.5L 02/25/23 05:10: White Blood Count 15.0H, Red Blood Count 2.39L, Hemoglobin 8.0L, Hematocrit 24L, Mean Corpuscular Volume 98, Mean Corpuscular Hemoglobin 34, Mean Corpuscular Hemoglobin Concent 34, Red Cell Distribution Width 14.2, Platelet Count 131, Mean Platelet Volume 10.2, Immature Granulocyte % (Auto) 1, Neutrophils (%) (Auto) 89H, Lymphocytes (%) (Auto) 8L, Monocytes (%) (Auto) 2, Eosinophils (%) (Auto) 0, Basophils (%) (Auto) 0, Neutrophils # (Auto) 13.3H, Lymphocytes # (Auto) 1.2, Monocytes # (Auto) 0.4, Eosinophils # (Auto) 0.0, Basophils # (Auto) 0.0, Immature Granulocyte # (Auto) 0.1, Sodium Level 139, Potassium Level 4.5, Chloride Level 105, Carbon Dioxide Level 27, Anion Gap 7, Blood Urea Nitrogen 21H, Creatinine 0.90, Estimat Glomerular Filtration Rate 63, BUN/Creatinine Ratio 23, Glucose Level 140H, Calcium Level 8.3L, Corrected Calcium 9.2, Total Bilirubin 0.7, Aspartate Amino Transf (AST/SGOT) 27, Alanine Aminotransferase (ALT/SGPT) 18, Alkaline Phosphatase 74, Total Protein 4.7L, Albumin 2.9L 02/26/23 05:30: White Blood Count 11.1H, Red Blood Count 1.99L, Hemoglobin 6.7*L, Hematocrit 20*L, Mean Corpuscular Volume 100H, Mean Corpuscular Hemoglobin 34, Mean Corpuscular Hemoglobin Concent 34, Red Cell Distribution Width 14.6H, Platelet Count 134, Mean Platelet Volume 10.4, Immature Granulocyte % (Auto) 1, Neutrophils (%) (Auto) 86H, Lymphocytes (%) (Auto) 10L, Monocytes (%) (Auto) 3, Eosinophils (%) (Auto) 0, Basophils (%) (Auto) 0, Neutrophils # (Auto) 9.5H, Lymphocytes # (Auto) 1.1, Monocytes # (Auto) 0.4, Eosinophils # (Auto) 0.0, Basophils # (Auto) 0.0, Immature Granulocyte # (Auto) 0.1, Sodium Level 139, Potassium Level 4.4, Chloride Level 107, Carbon Dioxide Level 26, Anion Gap 6, Blood Urea Nitrogen 22H, Creatinine 0.87, Estimat Glomerular Filtration Rate 66, BUN/Creatinine Ratio 25, Glucose Level 131H, Calcium Level 7.9L, Corrected Calcium 9.1, Total Bilirubin 0.6, Aspartate Amino Transf (AST/SGOT) 25, Alanine Aminotransferase (ALT/SGPT) 17, Alkaline Phosphatase 67, Total Protein 4.1L, Albumin 2.5L, Percent Immature Platelet Fraction 4.5 02/27/23 05:44: White Blood Count 9.0, Red Blood Count 2.36L, Hemoglobin 7.8L, Hematocrit 24L, Mean Corpuscular Volume 100H, Mean Corpuscular Hemoglobin 33, Mean Corpuscular Hemoglobin Concent 33, Red Cell Distribution Width 15.3H, Platelet Count 140, Mean Platelet Volume 9.9, Immature Granulocyte % (Auto) 2, Neutrophils (%) (Auto) 85H, Lymphocytes (%) (Auto) 10L, Monocytes (%) (Auto) 3, Eosinophils (%) (Auto) 0, Basophils (%) (Auto) 0, Neutrophils # (Auto) 7.6, Lymphocytes # (Auto) 0.9L, Monocytes # (Auto) 0.3, Eosinophils # (Auto) 0.0, Basophils # (Auto) 0.0, Immature Granulocyte # (Auto) 0.2H, Sodium Level 141, Potassium Level 4.1, [place] Level 109H, Carbon Dioxide Level 25, Anion Gap 7, Blood Urea Nitrogen 21H , Creatinine 0.87, Estimat Glomerular Filtration Rate 66, BUN/Creatinine Ratio 24, Glucose Level 126H, Calcium Level 8.0L, Corrected Calcium 9.2, Total Bilirubin 0.8, Aspartate Amino Transf (AST/SGOT) 22, Alanine Aminotransferase ( ALT/SGPT) 18, Alkaline Phosphatase 69, Total Protein 4.3L, Albumin 2.5L, Percent Immature Platelet Fraction 3.7 02/28/23 05:42: White Blood Count 7.2, Red Blood Count 2.41L, Hemoglobin 8.1L, Hematocrit 24L, Mean Corpuscular Volume 101H, Mean Corpuscular Hemoglobin 34, Mean Corpuscular Hemoglobin Concent 33, Red Cell Distribution Width 15.9H, Platelet Count 148, Mean Platelet Volume 9.6, Immature Granulocyte % (Auto) 3, Neutrophils (%) (Auto) 72, Lymphocytes (%) (Auto) 19, Monocytes (%) (Auto) 6, Eosinophils (%) (Auto) 0, Basophils (%) (Auto) 0, Neutrophils # (Auto) 5.2, Lymphocytes # (Auto) 1.4, Monocytes # (Auto) 0.5, Eosinophils # (Auto) 0.0, Basophils # (Auto) 0.0, Immature Granulocyte # (Auto) 0.2H, Sodium Level 142, Potassium Level 3.3L, Chloride Level 108H, Carbon Dioxide Level 27, Anion Gap 7, Blood Urea Nitrogen 24H, Creatinine 0.89, Estimat Glomerular Filtration Rate 64, BUN/Creatinine Ratio 27, Glucose Level 92, Calcium Level 8.0L, Corrected Calcium 9.1, Total Bilirubin 0.8, Aspartate Amino Transf (AST/SGOT) 26, Alanine Aminotransferase (ALT/SGPT) 20, Alkaline Phosphatase 77, Total Protein 4.5L, Albumin 2.6L 03/01/23 05:29: White Blood Count 5.4, Red Blood Count 2.45L, Hemoglobin 8.4L, Hematocrit 25L, Mean Corpuscular Volume 102H, Mean Corpuscular Hemoglobin 34, Mean Corpuscular Hemoglobin Concent 34, Red Cell Distribution Width 16.4H, Platelet Count 172, Mean Platelet Volume 9.7, Immature Granulocyte % (Auto) 2, Neutrophils (%) (Auto) 70, Lymphocytes (%) (Auto) 21, Monocytes (%) (Auto) 6, Eosinophils (%) (Auto) 1, Basophils (%) (Auto) 0, Neutrophils # (Auto) 3.8, Lymphocytes # (Auto) 1.1, Monocytes # (Auto) 0.3, Eosinophils # (Auto) 0.0, Basophils # (Auto) 0.0, Immature Granulocyte # (Auto) 0.1, Sodium Level 143, Potassium Level 3.3L, Chloride Level 106, Carbon Dioxide Level 28, Anion Gap 9, Blood Urea Nitrogen 20H, Creatinine 0.83, Estimat Glomerular Filtration Rate 70, BUN/Creatinine Ratio 24, Glucose Level 93, Calcium Level 7.9L, Corrected Calcium 9.1, Total Bilirubin 0.9, Aspartate Amino Transf (AST/SGOT) 24, Alanine Aminotransferase (ALT/SGPT) 19, Alkaline Phosphatase 71, Total Protein 4.3L, Albumin 2.5L 03/01/23 15:00: Urine Color YELLOW, Urine Clarity CLEAR, Urine pH 7.0, Urine Specific [place] 1.010L, Urine Protein NEGATIVE, Urine Glucose (UA) NEGATIVE, Urine Ketones NEGATIVE, Urine Nitrite NEGATIVE, Urine Bilirubin NEGATIVE, Urine Urobilinogen 0.2, Urine Leukocyte Esterase 1+H, Urine RBC (Auto) NEGATIVE, Urine RBC NONE, Urine WBC 5-10H, Urine Squamous Epithelial Cells NONE, Urine Crystals NONE, Urine Bacteria LARGEH, Urine Casts NONE, Urine Mucus NEGATIVE, Urine Culture Indicated YES 03/02/23 05:15: White Blood Count 6.7, Red Blood Count 2.59L, Hemoglobin 8.6L, Hematocrit 27L, Mean Corpuscular Volume 102H, Mean Corpuscular Hemoglobin 33, Mean Corpuscular Hemoglobin Concent 33, Red Cell Distribution Width 16.8H, Platelet Count 145, Mean Platelet Volume 10.5, Immature Granulocyte % (Auto) 1, Neutrophils (%) (Auto) 78H, Lymphocytes (%) (Auto) 15, Monocytes (%) (Auto) 5, Eosinophils (%) (Auto) 1, Basophils (%) (Auto) 0, Neutrophils # (Auto) 5.2, Lymphocytes # (Auto) 1.0, Monocytes # (Auto) 0.4, Eosinophils # (Auto) 0.1, Basophils # (Auto) 0.0, Immature Granulocyte # (Auto) 0.1, Sodium Level 139, Potassium Level 3.8, Chloride Level 105, Carbon Dioxide Level 26, Anion Gap 8, Blood Urea Nitrogen 19H, Creatinine 0.86, Estimat Glomerular Filtration Rate 67, BUN/Creatinine R atio 22, Glucose Level 100, Calcium Level 8.1L, Corrected Calcium 9.3, Total Bilirubin 1.0, Aspartate Amino Transf (AST/SGOT) 24, Alanine Aminotransferase (ALT/SGPT) 19, Alkaline Phosphatase 78, Total Protein 4.5L, Albumin 2.5L 03/03/23 05:35: White Blood Count 5.6, Red Blood Count 2.52L, Hemoglobin 8.6L, Hematocrit 26L, Mean Corpuscular Volume 104H, Mean Corpuscular Hemoglobin 34, Mean Corpuscular Hemoglobin Concent 33, Red Cell Distribution Width 17.2H, Platelet Count 193, Mean Platelet Volume 9.4, Immature Granulocyte % (Auto) 1, Neutrophils (%) (Auto) 70, Lymphocytes (%) (Auto) 20, Monocytes (%) (Auto) 8, Eosinophils (%) (Auto) 1, Basophils (%) (Auto) 0, Neutrophils # (Auto) 3.9, Lymphocytes # (Auto) 1.1, Monocytes # (Auto) 0.4, Eosinophils # (Auto) 0.1, Basophils # (Auto) 0.0, Immature Granulocyte # (Auto) 0.1, Sodium Level 140, Potassium Level 4.0, Chloride Level 104, Carbon Dioxide Level 28, Anion Gap 8, Blood Urea Nitrogen 18, Creatinine 0.97, Estimat Glomerular Filtration Rate 58, BUN/Creatinine Ratio 19, Glucose Level 104, Calcium Level 8.3L, Corrected Calcium 9.5, Total Bilirubin 1.0, Aspartate Amino Transf (AST/SGOT) 21, Alanine Aminotransferase (ALT/SGPT) 18, Alkaline Phosphatase 84, Total Protein 4.2L, Albumin 2.5L 03/04/23 05:45: White Blood Count 5.3, Red Blood Count 2.61L, Hemoglobin 9.0L, Hematocrit 27L, Mean Corpuscular Volume 104H, Mean Corpuscular Hemoglobin 35H, Mean Corpuscular Hemoglobin Concent 33, Red Cell Distribution Width 17.6H, Platelet Count 222, Mean Platelet Volume 9.3, Immature Granulocyte % (Auto) 1, Neutrophils (%) (Auto) 65, Lymphocytes (%) (Auto) 22, Monocytes (%) (Auto) 9, Eosinophils (%) (Auto) 2, Basophils (%) (Auto) 0, Neutrophils # (Auto) 3.4, Lymphocytes # (Auto) 1.2, Monocytes # (Auto) 0.5, Eosinophils # (Auto) 0.1, Basophils # (Auto) 0.0, Immature Granulocyte # (Auto) 0.1, Sodium Level 141, Potassium Level 4.5, Chloride Level 105, Carbon Dioxide Level 28, Anion Gap 8, Blood Urea Nitrogen 19H, Creatinine 0.95, Estimat Glomerular Filtration Rate 59, BUN/Creatinine Ratio 20, Glucose Level 98, Calcium Level 8.6, Corrected Calcium 9.6, Total Bilirubin 1.1H, Aspartate Amino Transf (AST/SGOT) 22, Alanine Aminotransferase (ALT/SGPT) 17, Alkaline Phosphatase 98, Total Protein 4.9L, Albumin 2.7L 03/05/23 05:45: White Blood Count 4.3, Red Blood Count 2.48L, Hemoglobin 8.6L, Hematocrit 26L, Mean Corpuscular Volume 106H, Mean Corpuscular Hemoglobin 35H, Mean Corpuscular Hemoglobin Concent 33, Red Cell Distribution Width 18.2H, Platelet Count 216, Mean Platelet Volume 9.4, Immature Granulocyte % (Auto) 1, Neutrophils (%) (Auto) 62, Lymphocytes (%) (Auto) 26, Monocytes (%) (Auto) 9, Eosinophils (%) (Auto) 2, Basophils (%) (Auto) 0, Neutrophils # (Auto) 2.7, Lymphocytes # (Auto) 1.1, Monocytes # (Auto) 0.4, Eosinophils # (Auto) 0.1, Basophils # (Auto) 0.0, Immature Granulocyte # (Auto) 0.1, Sodium Level 142, Potassium Level 4.1, Chloride Level 106, Carbon Dioxide Level 28, Anion Gap 8, Blood Urea Nitrogen 19H, Creatinine 0.93, Estimat Glomerular Filtration Rate 61, BUN/Creatinine Ratio 20, Glucose Level 96, Calcium Level 8.2L, Corrected Calcium 9.3, Total Bilirubin 0.9, Aspartate Amino Transf (AST/SGOT) 25, Alanine Aminotransferase (ALT/SGPT) 17, Alkaline Phosphatase 106, Total Protein 4.4L, Albumin 2.6L Microbiology 03/01/23 Urine Culture - Final, Complete Escherichia coli Pending Labs Microbiology Date/Time Source Procedure Growth Status 03/01/23 15:00 Urine Straight Cath, In/Out Urine Culture - Final Escherichia coli Complete Laboratory Tests 02/22/23 16:50: White Blood Count 9.6, Red Blood Count 4.28, Hemoglobin 14.2, Hematocrit 42, Mean Corpuscular Volume 98, Mean Corpuscular Hemoglobin 33, Mean Corpuscular Hemoglobin Concent 34, Red Cell Distribution Width 14.1, Platelet Count 264, Mean Platelet Volume 9.6, Immature Granulocyte % (Auto) 2, Neutrophils (%) (Auto) 81, Lymphocytes (%) (Auto) 15, Monocytes (%) (Auto) 2, Eosinophils (%) (Auto) 0, Basophils (%) (Auto) 0, Neutrophils # (Auto) 7.7, Lymphocytes # (Auto) 1.4, Monocytes # (Auto) 0.2, Eosinophils # (Auto) 0.0, Basophils # (Auto) 0.0, Immature Granulocyte # (Auto) 0.2, Prothrombin Time 13.3, INR Comment 1.0, Sodium Level 136, Potassium Level 4.6, Chloride Level 97, Carbon Dioxide Level 29, Anion Gap 10, Blood Urea Nitrogen 25, Creatinine 1.54, Estimat Glomerular Filtration Rate 33, BUN/Creatinine Ratio 16, Glucose Level 166, Calcium Level 9.1, Corrected Calcium 9.2, Total Bilirubin 1.0, Aspartate Amino Transf (AST/SGOT) 32, Alanine Aminotransferase (ALT/SGPT) 29, Alkaline Phosphatase 109, Total Protein 6.7, Albumin 3.9 02/22/23 19:36: Lab Scanned Report Referred Lab Report 02/23/23 05:15: White Blood Count 11.0, Red Blood Count 3.45, Hemoglobin 11.2, Hematocrit 34, Mean Corpuscular Volume 98, Mean Corpuscular Hemoglobin 32, Mean Corpuscular Hemoglobin Concent 33, Red Cell Distribution Width 13.8, Platelet Count 182, Mean Platelet Volume 9.8, Immature Granulocyte % (Auto) 1, Neutrophils (%) (Auto) 77, Lymphocytes (%) (Auto) 17, Monocytes (%) (Auto) 6, Eosinophils (%) (Auto) 0, Basophils (%) (Auto) 0, Neutrophils # (Auto) 8.5, Lymphocytes # (Auto) 1.8, Monocytes # (Auto) 0.6, Eosinophils # (Auto) 0.0, Basophils # (Auto) 0.0, Immature Granulocyte # (Auto) 0.1, Sodium Level 134, Potassium Level 4.1, Chloride Level 99, Carbon Dioxide Level 26, Anion Gap 9, Blood Urea Nitrogen 24, Creatinine 1.14, Estimat Glomerular Filtration Rate 48, BUN/Creatinine Ratio 21, Glucose Level 109, Calcium Level 8.3, Corrected Calcium 9.1, Total Bilirubin 0.9, Aspartate Amino Transf (AST/SGOT) 28, Alanine Aminotransferase (ALT/SGPT) 23, Alkaline Phosphatase 82, Total Protein 5.2, Albumin 3.0 02/24/23 05:40: White Blood Count 14.2, Red Blood Count 2.64, Hemoglobin 8.6, Hematocrit 26, Mean Corpuscular Volume 98, Mean Corpuscular Hemoglobin 33, Mean Corpuscular Hemoglobin Concent 33, Red Cell Distribution Width 13.9, Platelet Count 141, Mean Platelet Volume 10.0, Immature Granulocyte % (Auto) 1, Neutrophils (%) (Auto) 87, Lymphocytes (%) (Auto) 8, Monocytes (%) (Auto) 5, Eosinophils (%) (Auto) 0, Basophils (%) (Auto) 0, Neutrophils # (Auto) 12.4, Lymphocytes # (Auto) 1.1, Monocytes # (Auto) 0.7, Eosinophils # (Auto) 0.0, Basophils # (Auto) 0.0, Immature Granulocyte # (Auto) 0.1, Sodium Level 137, Potassium Level 4.4, Chloride Level 104, Carbon Dioxide Level 25, Anion Gap 8, Blood Urea Nitrogen 20, Creatinine 1.01, Estimat Glomerular Filtration Rate 55, BUN/Creatinine Ratio 20, Glucose Level 160, Calcium Level 8.1, Corrected Calcium 9.1, Total Bilirubin 0.5, Aspartate Amino Transf (AST/SGOT) 24, Alanine Aminotransferase (ALT/SGPT) 18, Alkaline Phosphatase 75, Total Protein 4.4, Albumin 2.7, Neutrophils % (Manual) 89, Lymphocytes % (Manual) 7, Monocytes % (Manual) 4, Elliptocytes SLIGHT, Iron Level 28, Vitamin B12 Level 204 02/24/23 12:00: Total Cortisol 3.5 02/25/23 05:10: White Blood Count 15.0, Red Blood Count 2.39, Hemoglobin 8.0, Hematocrit 24, Mean Corpuscular Volume 98, Mean Corpuscular Hemoglobin 34, Mean Corpuscular Hemoglobin Concent 34, Red Cell Distribution Width 14.2, Platelet Count 131, Mean Platelet Volume 10.2, Immature Granulocyte % (Auto) 1, Neutrophils (%) (Auto) 89, Lymphocytes (%) (Auto) 8, Monocytes (%) (Auto) 2, Eosinophils (%) (Auto) 0, Basophils (%) (Auto) 0, Neutrophils # (Auto) 13.3, Lymphocytes # (Auto) 1.2, Monocytes # (Auto) 0.4, Eosinophils # (Auto) 0.0, Basophils # (Auto) 0.0, Immature Granulocyte # (Auto) 0.1, Sodium Level 139, Potassium Level 4.5, Chloride Level 105, Carbon Dioxide Level 27, Anion Gap 7, Blood Urea Nitrogen 21, Creatinine 0.90, Estimat Glomerular Filtration Rate 63, BUN/Creatinine Ratio 23, Glucose Level 140, Calcium Level 8.3, Corrected Calcium 9.2, Total Bilirubin 0.7, Aspartate Amino Transf (AST/SGOT) 27, Alanine Aminotransferase (ALT/SGPT) 18, Alkaline Phosphatase 74, Total Protein 4.7, Albumin 2.9 02/26/23 05:30: White Blood Count 11.1, Red Blood Count 1.99, Hemoglobin 6.7, Hematocrit 20, Mean Corpuscular Volume 100, Mean Corpuscular Hemoglobin 34, Mean Corpuscular Hemoglobin Concent 34, Red Cell Distribution Width 14.6, Platelet Count 134, Mean Platelet Volume 10.4, Immature Granulocyte % (Auto) 1, Neutrophils (%) (Auto) 86, Lymphocytes (%) (Auto) 10, Monocytes (%) (Auto) 3, Eosinophils (%) (Auto) 0, Basophils (%) (Auto) 0, Neutrophils # (Auto) 9.5, Lymphocytes # (Auto) 1.1, Monocytes # (Auto) 0.4, Eosinophils # (Auto) 0.0, Basophils # (Auto) 0.0, Immature Granulocyte # (Auto) 0.1, Sodium Level 139, Potassium Level 4.4, Chloride Level 107, Carbon Dioxide Level 26, Anion Gap 6, Blood Urea Nitrogen 22, Creatinine 0.87, Estimat Glomerular Filtration Rate 66, BUN/Creatinine Ratio 25, Glucose Level 131, Calcium Level 7.9, Corrected Calcium 9.1, Total Bilirubin 0.6, Aspartate Amino Transf (AST/SGOT) 25, Alanine Aminotransferase (ALT/SGPT) 17, Alkaline Phosphatase 67, Total Protein 4.1, Albumin 2.5, Percent Immature Platelet Fraction 4.5 02/27/23 05:44: White Blood Count 9.0, Red Blood Count 2.36, Hemoglobin 7.8, Hematocrit 24, Mean Corpuscular Volume 100, Mean Corpuscular Hemoglobin 33, Mean Corpuscular Hemogl obin Concent 33, Red Cell Distribution Width 15.3, Platelet Count 140, Mean Platelet Volume 9.9, Immature Granulocyte % (Auto) 2, Neutrophils (%) (Auto) 85, Lymphocytes (%) (Auto) 10, Monocytes (%) (Auto) 3, Eosinophils (%) (Auto) 0, Basophils (%) (Auto) 0, Neutrophils # (Auto) 7.6, Lymphocytes # (Auto) 0.9, Monocytes # (Auto) 0.3, Eosinophils # (Auto) 0.0, Basophils # (Auto) 0.0, Immature Granulocyte # (Auto) 0.2, Sodium Level 141, Potassium Level 4.1, Chloride Level 109, Carbon Dioxide Level 25, Anion Gap 7, Blood Urea Nitrogen 21, Creatinine 0.87, Estimat Glomerular Filtration Rate 66, BUN/Creatinine Ratio 24, Glucose Level 126, Calcium Level 8.0, Corrected Calcium 9.2, Total Bilirubin 0.8, Aspartate Amino Transf (AST/SGOT) 22, Alanine Aminotransferase (ALT/SGPT) 18, Alkaline Phosphatase 69, Total Protein 4.3, Albumin 2.5, Percent Immature Platelet Fraction 3.7 02/28/23 05:42: White Blood Count 7.2, Red Blood Count 2.41, Hemoglobin 8.1, Hematocrit 24, Mean Corpuscular Volume 101, Mean Corpuscular Hemoglobin 34, Mean Corpuscular Hemoglobin Concent 33, Red Cell Distribution Width 15.9, Platelet Count 148, Mean Platelet Volume 9.6, Immature Granulocyte % (Auto) 3, Neutrophils (%) (Auto) 72, Lymphocytes (%) (Auto) 19, Monocytes (%) (Auto) 6, Eosinophils (%) (Auto) 0, Basophils (%) (Auto) 0, Neutrophils # (Auto) 5.2, Lymphocytes # (Auto) 1.4, Monocytes # (Auto) 0.5, Eosinophils # (Auto) 0.0, Basophils # (Auto) 0.0, Immature Granulocyte # (Auto) 0.2, Sodium Level 142, Potassium Level 3.3, [place] Level 108, Carbon Dioxide Level 27, Anion Gap 7, Blood Urea Nitrogen 24, Creatinine 0.89, Estimat Glomerular Filtration Rate 64, BUN/Creatinine Ratio 27, Glucose Level 92, Calcium Level 8.0, Corrected Calcium 9.1, Total Bilirubin 0.8, Aspartate Amino Transf (AST/SGOT) 26, Alanine Aminotransferase (ALT/SGPT) 20, Alkaline Phosphatase 77, Total Protein 4.5, Albumin 2.6 03/01/23 05:29: White Blood Count 5.4, Red Blood Count 2.45, Hemoglobin 8.4, Hematocrit 25, Mean Corpuscular Volume 102, Mean Corpuscular Hemoglobin 34, Mean Corpuscular Hemoglobin Concent 34, Red Cell Distribution Width 16.4, Platelet Count 172, Mean Platelet Volume 9.7, Immature Granulocyte % (Auto) 2, Neutrophils (%) (Auto) 70, Lymphocytes (%) (Auto) 21, Monocytes (%) (Auto) 6, Eosinophils (%) (Auto) 1, Basophils (%) (Auto) 0, Neutrophils # (Auto) 3.8, Lymphocytes # (Auto) 1.1, Monocytes # (Auto) 0.3, Eosinophils # (Auto) 0.0, Basophils # (Auto) 0.0, Immature Granulocyte # (Auto) 0.1, Sodium Level 143, Potassium Level 3.3, Chloride Level 106, Carbon Dioxide Level 28, Anion Gap 9, Blood Urea Nitrogen 20, Creatinine 0.83, Estimat Glomerular Filtration Rate 70, BUN/Creatinine Ratio 24, Glucose Level 93, Calcium Level 7.9, Corrected Calcium 9.1, Total Bilirubin 0.9, Aspartate Amino Transf (AST/SGOT) 24, Alanine Aminotransferase (ALT/SGPT) 19, Alkaline Phosphatase 71, Total Protein 4.3, Albumin 2.5 03/01/23 15:00: Urine Color YELLOW, Urine Clarity CLEAR, Urine pH 7.0, Urine Specific [place] 1.010, Urine Protein NEGATIVE, Urine Glucose (UA) NEGATIVE, Urine Ketones NEGATIVE, Urine Nitrite NEGATIVE, Urine Bilirubin NEGATIVE, Urine Urobilinogen 0.2, Urine Leukocyte Esterase 1+, Urine RBC (Auto) NEGATIVE, Urine RBC NONE, Urine WBC 5-10, Urine Squamous Epithelial Cells NONE, Urine Crystals NONE, Urine Bacteria LARGE, Urine Casts NONE, Urine Mucus NEGATIVE, Urine Culture Indicated YES 03/02/23 05:15: White Blood Count 6.7, Red Blood Count 2.59, Hemoglobin 8.6, Hematocrit 27, Mean Corpuscular Volume 102, Mean Corpuscular Hemoglobin 33, Mean Corpuscular Hemoglobin Concent 33, Red Cell Distribution Width 16.8, Platelet Count 145, Mean Platelet Volume 10.5, Immature Granulocyte % (Auto) 1, Neutrophils (%) (Auto) 78, Lymphocytes (%) (Auto) 15, Monocytes (%) (Auto) 5, Eosinophils (%) (Auto) 1, Basophils (%) (Auto) 0, Neutrophils # (Auto) 5.2, Lymphocytes # (Auto) 1.0, Monocytes # (Auto) 0.4, Eosinophils # (Auto) 0.1, Basophils # (Auto) 0.0, Immature Granulocyte # (Auto) 0.1, Sodium Level 139, Potassium Level 3.8, Chloride Level 105, Carbon Dioxide Level 26, Anion Gap 8, Blood Urea Nitrogen 19, Creatinine 0.86, Estimat Glomerular Filtration Rate 67, BUN/Creatinine Ratio 22, Glucose Level 100, Calcium Level 8.1, Corrected Calcium 9.3, Total Bilirubin 1.0, Aspartate Amino Transf (AST/SGOT) 24, Alanine Aminotransferase (ALT/SGPT) 19, Alkaline Phosphatase 78, Total Protein 4.5, Albumin 2.5 03/03/23 05:35: White Blood Count 5.6, Red Blood Count 2.52, Hemoglobin 8.6, Hematocrit 26, Mean Corpuscular Volume 104, Mean Corpuscular Hemoglobin 34, Mean Corpuscular Hemoglobin Concent 33, Red Cell Distribution Width 17.2, Platelet Count 193, Mean Platelet Volume 9.4, Immature Granulocyte % (Auto) 1, Neutrophils (%) (Auto) 70, Lymphocytes (%) (Auto) 20, Monocytes (%) (Auto) 8, Eosinophils (%) (Auto) 1, Basophils (%) (Auto) 0, Neutrophils # (Auto) 3.9, Lymphocytes # (Auto) 1.1, Monocytes # (Auto) 0.4, Eosinophils # (Auto) 0.1, Basophils # (Auto) 0.0, Immature Granulocyte # (Auto) 0.1, Sodium Level 140, Potassium Level 4.0, Chloride Level 104, Carbon Dioxide Level 28, Anion Gap 8, Blood Urea Nitrogen 18, Creatinine 0.97, Estimat Glomerular Filtration Rate 58, BUN/Creatinine Ratio 19, Glucose Level 104, Calcium Level 8.3, Corrected Calcium 9.5, Total Bilirubin 1.0, Aspartate Amino Transf (AST/SGOT) 21, Alanine Aminotransferase (ALT/SGPT) 18, Alkaline Phosphatase 84, Total Protein 4.2, Albumin 2.5 03/04/23 05:45: White Blood Count 5.3, Red Blood Count 2.61, Hemoglobin 9.0, Hematocrit 27, Mean Corpuscular Volume 104, Mean Corpuscular Hemoglobin 35, Mean Corpuscular Hemoglobin Concent 33, Red Cell Distribution Width 17.6, Platelet Count 222, Mean Platelet Volume 9.3, Immature Granulocyte % (Auto) 1, Neutrophils (%) (Auto) 65, Lymphocytes (%) (Auto) 22, Monocytes (%) (Auto) 9, Eosinophils (%) (Auto) 2, Basophils (%) (Auto) 0, Neutrophils # (Auto) 3.4, Lymphocytes # (Auto) 1.2, Monocytes # (Auto) 0.5, Eosinophils # (Auto) 0.1, Basophils # (Auto) 0.0, Immature Granulocyte # (Auto) 0.1, Sodium Level 141, Potassium Level 4.5, Chloride Level 105, Carbon Dioxide Level 28, Anion Gap 8, Blood Urea Nitrogen 19, Creatinine 0.95, Estimat Glomerular Filtration Rate 59, BUN/Creatinine Ratio 20, Glucose Level 98, Calcium Level 8.6, Corrected Calcium 9.6, Total Bilirubin 1.1, Aspartate Amino Transf (AST/SGOT) 22, Alanine Aminotransferase (ALT/SGPT) 17, Alkaline Phosphatase 98, Total Protein 4.9, Albumin 2.7 03/05/23 05:45: White Blood Count 4.3, Red Blood Count 2.48, Hemoglobin 8.6, Hematocrit 26, Mean Corpuscular Volume 106, Mean Corpuscular Hemoglobin 35, Mean Corpuscular Hemoglobin Concent 33, Red Cell Distribution Width 18.2, Platelet Count 216, Mean Platelet Volume 9.4, Immature Granulocyte % (Auto) 1, Neutrophils (%) (Auto) 62, Lymphocytes (%) (Auto) 26, Monocytes (%) (Auto) 9, Eosinophils (%) (Auto) 2, Basophils (%) (Auto) 0, Neutrophils # (Auto) 2.7, Lymphocytes # (Auto) 1.1, Monocytes # (Auto) 0.4, Eosinophils # (Auto) 0.1, Basophils # (Auto) 0.0, Immature Granulocyte # (Auto) 0.1, Sodium Level 142, Potassium Level 4.1, Chloride Level 106, Carbon Dioxide Level 28, Anion Gap 8, Blood Urea Nitrogen 19, Creatinine 0.93, Estimat Glomerular Filtration Rate 61, BUN/Creatinine Ratio 20, Glucose Level 96, Calcium Level 8.2, Corrected Calcium 9.3, Total Bilirubin 0.9, Aspartate Amino Transf (AST/SGOT) 25, Alanine Aminotransferase (ALT/SGPT) 17, Alkaline Phosphatase 106, Total Protein 4.4, Albumin 2.6 Discharge Home Medications: Active Scripts Active Vitamin B-12 (Cyanocobalamin (Vitamin B-12)) 1,000 Mcg Tablet 1,000 Mcg PO DAILY@0700 Senna (Sennosides) 8.6 Mg Tablet 8.6 Mg PO BID Milk of Magnesia (Magnesium Hydroxide) 400 Mg/5 Ml Oral.susp 30 Ml PO DAILY PRN Docusate Sodium 100 Mg Capsule 100 Mg PO BID Bisacodyl 10 Mg Supp.rect 10 Mg [place] DAILY PRN Lactulose 20 Gram/30 Ml Solution 20 Gm PO BID PRN Acetaminophen 325 Mg Tablet 650 Mg PO Q4H PRN Amlodipine Besylate 5 Mg Tablet 5 Mg PO DAILY hold for SBP<130 Eliquis (Apixaban) 2.5 Mg Tablet 2.5 Mg PO BID Miralax (Polyethylene Glycol 3350) 17 Gram Powd.pack 17 Gm PO BID PRN Ondansetron Odt (Ondansetron) 4 Mg Tab.rapdis 4 Mg PO Q6H PRN Potassium Chloride 10 Meq Capsule.er 10 Meq PO Q48H Omeprazole 40 Mg Capsule.dr 40 Mg PO DAILY Oxycodone HCl 15 Mg Tablet 15 Mg PO Q6H Hydralazine HCl 25 Mg Tablet 25 Mg PO TID hold for SBP<120 Gabapentin 400 Mg Capsule 800 Mg PO HS TAKES 2 (400MG) TABS Folic Acid 0.4 Mg Tablet 0.4 Mg PO DAILY Atenolol 50 Mg Tablet 75 Mg PO DAILY Levothyroxine Sodium 100 Mcg Tablet 50 Mcg PO HENNING,SA Levothyroxine Sodium 100 Mcg Tablet 100 Mcg PO MO,,WE,TH,FR Instructions to patient/family Please see electronic discharge instructions given to patient. Clinical Quality Measures DVT/VTE Risk/Contraindication: Contraindications-Pharm: Other *list below* Other: severe MELINDA STANTON DO Mar 06, 2023 10:03
--- NOTE | 2023-03-06 10:03 | Discharge Inst-Skilled Nursing ---
Discharge Inst-Skilled NF Reconcile Patient Problems Problems Reviewed?: Yes Chief Complaint Chief complaint: Left hip fracture HPI: This is an 83-year-old female with a history of inflammatory arthritis recently completed steroid taper due to an arthritis flare from methotrexate withdrawal who was picking up her dog from the event and turned too quickly and fell on her left hip. She suffered a fracture which will be repaired by Dr. Martel tomorrow morning. She has a history of lymphoma of the stomach and Dr. Rowe had performed her scopes and helped her with management of that. She sees Dr. Jefferson rheumatology on a regular basis. Dr. Hurt sees her on regular basis Patient Instructions Patient Problems: Hip fx Goal: [place] Consult/Follow Up/Orders Follow Up Appt.: Dr Tavares/Tammi Fregoso on [place] rounds Skilled NF Admit to: [facility] Certification ([facility]) I certify that [facility] services are required to be given on an inpatient basis because of the above named patient's need for penitentiary care on a continuing basis for the conditions(s) for which he/she was receiving inpatient hospital services prior to his/her transfer to the [facility]. Alf Facility Order: Nursing Services, [facility] Trimmer-Evaluate & Treat, Physical Therapy-Evaluate & Treat Oxygen Delivery Method: Room Air Discharge Diet: No Restrictions Resuscitation Status: Full Code New & Resume Previous Orders New Medications: Acetaminophen (Acetaminophen) 325 Mg Tablet 650 MG PO Q4H PRN for TEMPERATURE, #30 TAB Amlodipine Besylate (Amlodipine Besylate) 5 Mg Tablet 5 MG PO DAILY, #30 TAB hold for SBP<130 Apixaban (Eliquis) 2.5 Mg Tablet 2.5 MG PO BID, #60 TAB Bisacodyl (Bisacodyl) 10 Mg Supp.rect 10 MG [place] DAILY PRN for CONSTIPATION-4TH LINE, #5 SUPP.RECT Cyanocobalamin (Vitamin B-12) (Vitamin B-12) 1,000 Mcg Tablet 1000 MCG PO DAILY@0700, #30 TAB Docusate Sodium (Docusate Sodium) 100 Mg Capsule 100 MG PO BID, #60 CAP Lactulose (Lactulose) 20 Gram/30 Ml Solution 20 GM PO BID PRN for CONSTIPATION-4TH LINE, #240 ML Magnesium Hydroxide (Milk of Magnesia) 400 Mg/5 Ml Oral.susp 30 ML PO DAILY PRN for CONSTIPATION-3RD LINE, #120 ML Sennosides (Senna) 8.6 Mg Tablet 8.6 MG PO BID, #60 TAB Changed Medications: Atenolol (Atenolol) 50 Mg Tablet 75 MG PO DAILY, #45 TAB (Changed from: Removed Instructions) Hydralazine HCl (Hydralazine HCl) 25 Mg Tablet 25 MG PO TID, #90 TAB (Medication details modified) hold for SBP<120 Levothyroxine Sodium (Levothyroxine Sodium) 100 Mcg Tablet 50 MCG PO HENNING,SA, #30 TAB (Changed from: Removed Instructions) Polyethylene Glycol 3350 (Miralax) 17 Gram Powd.pack 17 GM PO BID PRN for CONSTIPATION-2ND LINE, #60 EACH (Changed from: DAILY) Continued Medications: Folic Acid (Folic Acid) 0.4 Mg Tablet 0.4 MG PO DAILY, #30 TAB (This prescription has been renewed) Gabapentin (Gabapentin) 400 Mg Capsule 800 MG PO HS, #60 CAP (This prescription has been renewed) TAKES 2 (400MG) TABS Levothyroxine Sodium (Levothyroxine Sodium) 100 Mcg Tablet 100 MCG PO MO,,,,FR, #30 TAB (This prescription has been renewed) Omeprazole (Omeprazole) 40 Mg Capsule.dr 40 MG PO DAILY, #30 TAB (This prescription has been renewed) Ondansetron (Ondansetron Odt) 4 Mg Tab.rapdis 4 MG PO Q6H PRN for NAUSEA/VOMITING-1ST LINE, #30 TAB (This prescription has been renewed) Oxycodone HCl (Oxycodone HCl) 15 Mg Tablet 15 MG PO Q6H, #160 TAB (This prescription has been renewed) Potassium Chloride (Potassium Chloride) 10 Meq Capsule.er 10 MEQ PO Q48H, #15 CAP (This prescription has been renewed) Discontinued Medications: Sarilumab (Kevzara) 200 Mg/1.14 Ml Pen.injctr 200 MG IJ EVERY 2 WEEKS, EACH Liane Tavares Mar 06, 2023 10:02 LIANE TAVARES DO Mar 06, 2023 10:03
--- NOTE | 2023-03-06 10:03 | Occupational Ther Daily Note ---
OT Current Status-Daily Note Subjective up in recliner, transfer performed w/ recliner not locked in place, return to sitting position and lock recliner to stand, ambulation to bathroom and standing grooming hygiene performed Mental Status/Objective Patient Orientation: Person, Place, Time, Situation ADL-Treatment Therapy Code Descriptions/Definitions Functional [place] Measure: 0=Not Assessed/NA 4=Minimal Assistance 1=Total Assistance 5=Supervision or Setup 2=Maximal Assistance 6=Modified [place] 3=Moderate Assistance 7=Complete IndependenceSCALE: Activities may be completed with or without assistive devices. 3-Gwawmpgcub-dpbalgd completes the activity by him/herself with no assistance from a helper. 5-Set-up or Clean-up Assistance-helper sets up or cleans up; patient completes activity. [place] assists only prior to or following the activity. 4-Supervision or Touching Assistance-helper provides verbal cues and/or touching/steadying and/or contact guard assistance as patient completes activity. Assistance may be provided throughout the activity or intermittently. 3-Partial/Moderate Assistance-helper does LESS THAN HALF the effort. [place] lifts, holds or supports trunk or limbs, but provides less than half the effort. 2-Substantial/Maximal Assistance-helper does MORE THAN HALF the effort. [place] lifts or holds trunk or limbs and provides more than half the effort. 3-Lhlekcian-pymcgm does ALL the effort. Patient does none of the effort to c omplete the activity. Or, the assistance of 2 or more helpers is required for the patient to complete the activity. If activity was not attempted, code reason: 7-Patient Refused. 9-Not Applicable-not attempted and the patient did not perform the activity before the current illness, exacerbation or injury. 10-Not Attempted due to Environmental Limitations-(lack of equipment, weather restraints, etc.). 88-Not Attempted due to Medical Conditions or Safety Concerns. Eating (QC): 6 Oral Hygiene (QC): 5 Shower/Bathe Self (QC): 7 Upper Body Dressing (QC): 5 Lower Body Dressing (QC): 4 On/Off Footwear: 4 Toileting Hygiene (QC): 4 Toilet Transfer (QC): 4 Education OT Patient Education: Correct positioning, Modified ADL techniques, Progress toward Goal/Update tx plan, Purpose of tx/functional activities, Reviewed precautions, Rehab process, Safety issues, Transfer techniques, W/C management Teaching Recipient: Patient Teaching Methods: Demonstration, Discussion Response to Teaching: Return Demonstration, Reinforcement Needed OT Short Term Goals Short Term Goals Time Frame: Mar 03, 2023 OT Associate Professor Of Geography Goals Senior Living Goals Eating (QC): 6 Oral Hygiene (QC): 5 Toileting Hygiene (QC): 5 Shower/Bathe Self (QC): 5 Upper Body Dressing (QC): 5 Lower Body Dressing (QC): 5 On/Off Footwear (QC): 5 1=Demonstrate adherence to instructed precautions during ADL tasks. 2=Patient will verbalize/demonstrate understanding of assistive devices/modifications for ADL. 3=Patient will improve strength/tolerance for activity to enable patient to perform ADL's. OT Education/Plan Problem List/Assessment Assessment: Decreased Activ Tolerance, Decreased Safety Aware, Decreased UE Strength, Impaired Coordination, Impaired Funct Balance, Impaired Self-Care Skills Discharge Recommendations Plan/Recommendations: Continue POC Treatment Plan/Plan of Care Treatment,Training & Education: Yes Patient would benefit from OT for education, treatment and training to promote independence in ADL's, mobility, safety and/or upper extremity function for ADL's. Plan of Care: ADL Retraining, Functional Mobility, Group Exercise/Act as Ind, UE Funct Exercise/Act, UE Neuromus Re-Ed/Coord Treatment Duration: Mar 03, 2023 Frequency: 3 times per week (3-5 times per week) Estimated Hrs Per Day: .25 hour per day Agreement: Yes Rehab Potential: Fair Time Start Time: 09:01 Stop Time: 09:16 DATE: Mar 06, 2023 Total Time Billed (hr/min): 15 Billed Treatment Time ADL 15 min LISA GREEN OT Mar 06, 2023 10:03
--- NOTE | 2023-03-06 12:09 | Progress Note ---
MELY PASTOR 03/06/23 1209: Progress Note Jacy Da Silva is an 83yoF admitted on 02/22 for a L hip fracture after mechanical fall at home. HPI from admission "HPI: This is an 83-year-old female with a history of inflammatory arthritis recently completed steroid taper due to an arthritis flare from methotrexate withdrawal who was picking up her dog from the event and turned too quickly and fell on her left hip. She suffered a fracture which will be repaired by Dr. Martel tomorrow morning. She has a history of lymphoma of the stomach and Dr. Rowe had performed her scopes and helped her with management of that. She sees Dr. Jefferson rheumatology on a regular basis. Dr. Hurt sees her on regular basis." She underwent successful surgical repair of her hip fracture on 02/[address] Martel. Her pain was controlled and she began working with PT/OT to regain strength and function of LLE. Diet was advanced to regular with no issue. She did complain of some constipation so she was treated with bowel regimen similar to what she uses at home. BMs normalized with no complaints day of discharge. She was anemic postoperatively and given 1 unit of LRRBCs on 02/26 with appropriate rise in Hgb. Her Hgb remained low but stable thereafter. Never had signs of hemodynamic instability. She was supplemented with iron, B12, and folate as well to assist in bone marrow production of RBCs. Urine culture grew E coli and she was treated for 5 days with ceftriaxone with alleviation of her symptoms and stable labs, no signs of systemic infection. She was treated with hydrocortisone for mild adrenal insufficiency in the setting of recent steroid use for her rheumatoid arthritis. She was hypertensive and restarted on home blood pressure meds with a djustments made per cardiology. She was not approved for inpatient rehab due to not meeting criteria so she was approved for transfer to [facility] to continue her recovery and therapy. She was discharged to [facility] on 03/06 with ortho and pcp follow up. Her home pain medicine regiment for arthritis was resumed and blood pressure meds resumed with new changes from cards. LIANE TAVARES DO 03/06/232036: Supervisory-Addendum Brief Verification & Attestation Participated in pt care: history, MDM, physical Personally performed: exam, history, MDM, supervision of care Care discussed with: Medical Student Procedures: n/a Results interpretation: Verified all documentation Verification and Attestation of Medical Student E/M Service A medical student performed and documented this service in my presence. I reviewed and verified all information documented by the medical student and made modifications to such information, when appropriate. I personally performed the physical exam and medical decision making. Liane Tavares, Mar 06, 2023,20:37 MELY PASTOR Mar 06, 2023 12:09 LIANE TAVARES DO Mar 06, 2023 20:37
[2023-03-06 13:59] VITALS: BP 108/59
== END 2023-03-06 13:50 | DRG 481 ==
LOC: EDUNIT# 16:29 → ER 16:30 → 4TH 19:36
PROVIDERS: ADMIT Internal Medicine; ATTEND Internal Medicine
PROC: 0QS706Z Reposition Left Upper Femur with Intramedullary Internal Fixation Device, Open Approach (ICD-10-PCS; principal; 2023-02-23 12:19)
DX: S72.142A Displaced intertrochanteric fracture of left femur, initial encounter for closed fracture (principal); D62 Acute posthemorrhagic anemia; E27.40 Unspecified adrenocortical insufficiency; N18.4 Chronic kidney disease, stage 4 (severe); N39.0 Urinary tract infection, site not specified; K21.9 Gastro-esophageal reflux disease without esophagitis; M06.9 Rheumatoid arthritis, unspecified; E03.9 Hypothyroidism, unspecified; Z85.828 Personal history of other malignant neoplasm of skin; Z85.72 Personal history of non-Hodgkin lymphomas; Z92.3 Personal history of irradiation; W18.30XA Fall on same level, unspecified, initial encounter; I25.10 Atherosclerotic heart disease of native coronary artery without angina pectoris; I87.2 Venous insufficiency (chronic) (peripheral); B96.20 Unspecified Escherichia coli [E. coli] as the cause of diseases classified elsewhere; I12.9 Hypertensive chronic kidney disease with stage 1 through stage 4 chronic kidney disease, or unspecified chronic kidney disease; Z82.49 Family history of ischemic heart disease and other diseases of the circulatory system
CPT/HCPCS: 36415; 51702; 76000; 80053; 81000; 82533; 82607; 83540; 85007; 85025; 85027; 85610; 86850; 86900; 86901; 86920; 87077; 87088; 87186; 93306; 94664; 94760; 96374; 96376

== ENCOUNTER → 2023-03-28 | Outpatient (CLI) | payer MEDICARE, MEDICAID ==
[~2023-03-28] MED LIST changes: +ACET325T49 PO; +AMLO-250 PO; +APIX2.5T PO; +BISA10SU8 PR; +CYAN-41 PO; +DOCU100C37 PO; +HYDR-3923 PO; +LACT20SO2 PO; +MAGN400O7 PO; +OMEP40CA6 PO; +ONDA4TAB11 PO; +OXYC-525 PO; +SARI200P IJ; +SENN-234 PO
--- NOTE | 2023-03-28 16:03 | Diagnostic Imaging Report ---
INDICATION: Left hip pain. FINDINGS: Treated proximal femoral fractures are in anatomic alignment postop. No acute or untreated fracture. There are arthritic changes to the hip and knee. IMPRESSION: The postop femur is well aligned when compared to the preoperative study with no adverse development. Dictated by: Dictated on workstation # [id number]
== END ==
LOC: ORTHO 14:44
PROVIDERS: ATTEND Orthopaedic Surgery
DX: M25.552 Pain in left hip (principal); Z98.890 Other specified postprocedural states
CPT/HCPCS: 73502

== ENCOUNTER → 2023-05-02 | Outpatient (CLI) | payer MEDICARE, MEDICAID ==
[~2023-05-02] MED LIST changes: -GABA-490 PO; +GABA-491 PO
--- NOTE | 2023-05-02 20:54 | Diagnostic Imaging Report ---
EXAMINATION: Left femur radiograph, 2 views, 4 images. COMPARISON: Left hip radiographs March 28, 2023. HISTORY: 83-year-old female, follow-up hardware. FINDINGS: There is an intramedullary carmella with dynamic fixation screw as well as more distally located fixation screws present. The hardware is intact. There is a left proximal femur at the left intertrochanteric and subtrochanteric region which is also noted on the prior exam. There is no particularly prominent interval increase in degree of bony bridging. The left hip is not dislocated. There is no pronounced joint space loss of the left hip. There is no prominent interval heterotopic ossification. There is moderate medial compartment joint space loss of the left knee. IMPRESSION: 1. Intact hardware in the left femur without substantial interval bridging of the prior left proximal femur fracture. 2. No interval complication. Dictated by: Dictated on workstation # [id number]
== END ==
LOC: ORTHO 13:46
PROVIDERS: ATTEND Orthopaedic Surgery
DX: Z09 Encounter for follow-up examination after completed treatment for conditions other than malignant neoplasm (principal)
CPT/HCPCS: 73552

== ENCOUNTER → 2023-06-06 | Outpatient (CLI) | payer MEDICARE, MEDICAID ==
--- NOTE | 2023-06-06 17:42 | Diagnostic Imaging Report ---
EXAMINATION: Left femur 2 or more views HISTORY: Postop COMPARISON: 05/02/2023 FINDINGS: An intramedullary nail in the left femur is unchanged. A proximal left femur fracture is unchanged with callus formation and adjacent heterotopic ossification. 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 No new fracture. No change in alignment. IMPRESSION: 1. Unchanged alignment of the healing proximal left femur fracture. Dictated by: Dictated on workstation # [id number]
== END ==
LOC: ORTHO 11:44
PROVIDERS: ATTEND Orthopaedic Surgery
DX: Z47.89 Encounter for other orthopedic aftercare (principal); I10 Essential (primary) hypertension; E66.9 Obesity, unspecified
CPT/HCPCS: 73552; G0463; 99213

== ENCOUNTER → 2023-06-29 | Outpatient (CLI) | payer MEDICARE, MEDICAID ==
[~2023-06-29] MED LIST changes: -ESTR0.5T PO; +ESTR0.5T2 PO
--- NOTE | 2023-06-29 17:38 | Diagnostic Imaging Report ---
3D bilateral screening mammogram. 2-D and 3-D bilateral screening mammography was performed with CAD. COMPARISON: 05/24/2022 and 05/17/2021. There are no current complaints. FINDINGS: The fibroglandular tissue in both breasts is heterogeneously dense. This does limit the sensitivity of this exam. When compared to the previous study there does not appear to have been any significant change. There is no primary or secondary sign of malignancy noted. IMPRESSION: There is no evidence for malignancy. BI-RADS CATEGORY: 1 NEGATIVE ACR BI-RADS Category 1: Negative. Result letter will be mailed to the patient. Note: At least 10% of breast cancer is not imaged by mammography. Dictated by: Dictated on workstation # [id number]
== END ==
LOC: RAD 14:45
PROVIDERS: ATTEND Family Medicine
DX: Z12.31 Encounter for screening mammogram for malignant neoplasm of breast (principal)
CPT/HCPCS: 77063; 77067

== ENCOUNTER 2023-07-12 13:54 | Outpatient (RCR) | payer MEDICARE, MEDICAID, OTHER ==
[2023-07-12 14:20] LABS: BASOPHILS % (AUTO) 1 % (0-10); EOSINOPHILS # (AUTO) 0.1 10^3/uL (0.0-0.3); EOSINOPHILS % (AUTO) 3 % (0-10); HEMATOCRIT 45 % (35-52); HEMOGLOBIN 14.7 g/dL (11.5-16.0); LYMPHOCYTES # (AUTO) 1.4 10^3/uL (1.0-4.0); LYMPHOCYTES % (AUTO) 38 % (12-44); MEAN CORPUSCULAR HEMOGLOBIN 33 pg (25-34); MEAN CORPUSCULAR HGB CONC 33 g/dL (32-36); MEAN CORPUSCULAR VOLUME 99 fL (80-99); MEAN PLATELET VOLUME 9.9 fL (9.0-12.2); MONOCYTES # (AUTO) 0.4 10^3/uL (0.0-1.0); MONOCYTES % (AUTO) 10 % (0-12); NEUTROPHILS # (AUTO) 1.7 10^3/uL (1.8-7.8); NEUTROPHILS % (AUTO) 48 % (42-75); PLATELET COUNT 255 10^3/uL (130-400); WHITE BLOOD COUNT 3.6 10^3/uL (4.3-11.0)
[2023-07-12 14:37] LABS: ALBUMIN 3.7 GM/DL (3.2-4.5); BILIRUBIN,TOTAL 0.8 MG/DL (0.1-1.0); CALCIUM 8.8 MG/DL (8.5-10.1); CREATININE SERUM 1.31 MG/DL (0.60-1.30); TOTAL PROTEIN 6.3 GM/DL (6.4-8.2)
== END 2023-07-20 | disposition home or self-care (01) ==
LOC: ONC 13:54
PROVIDERS: ATTEND Internal Medicine Hematology & Oncology
DX: C88.4 Extranodal marginal zone B-cell lymphoma of mucosa-associated lymphoid tissue [MALT-lymphoma] (principal); I25.10 Atherosclerotic heart disease of native coronary artery without angina pectoris; M06.89 Other specified rheumatoid arthritis, multiple sites; E66.9 Obesity, unspecified; I11.9 Hypertensive heart disease without heart failure; N28.9 Disorder of kidney and ureter, unspecified
CPT/HCPCS: 36415; 80053; 83615; 85025; 99214

== ENCOUNTER 2023-07-21 08:34 | Outpatient (CLI) | payer MEDICARE, MEDICAID ==
[~2023-07-21] VITALS: Ht 170.2 cm; Wt 79.8 kg
[2023-07-24] MEDS ORDERED: ATEN50TA PO (14:26)
[2023-07-24] MEDS ORDERED: SARI200P SQ (14:26)
[2023-07-24] MEDS ORDERED: OMEP40CA6 PO (14:26)
[2023-07-24] MEDS ORDERED: GABA-491 PO (14:26)
[2023-07-24] MEDS ORDERED: LEVO100C4 PO ×2 (14:26)
[2023-07-24] MEDS ORDERED: POTA-177 PO (14:26)
[2023-07-24] MEDS ORDERED: SUCR1TAB PO (14:26)
[2023-07-24] MEDS ORDERED: HYDR-3923 PO (14:26)
[2023-07-24] MEDS ORDERED: OXYC-525 PO (14:26)
[2023-07-24] MEDS ORDERED: FOLI0.4T6 PO (14:33)
== END 2023-07-24 14:37 ==
LOC: PREOP 08:34
PROVIDERS: ATTEND Surgery
DX: Z01.818 Encounter for other preprocedural examination (principal)